=== PATIENT | male | born 1945 | race Caucasian/White ===

== ENCOUNTER 2018-11-02 08:21 | Inpatient (IN) | payer MEDICARE, MEDICAID, SELFPAY ==
[2018-11-02] VITALS (22 sets, daily range): BP systolic 103–168; BP diastolic 63–94; PULSE 79–119; RESP 12–35; TEMP 36.2–37.2; O2SAT 90–98; BMI 24.4; BMI 26.0
--- NOTE | 2018-11-02 08:32 | EKG12_ITS ---
Test Reason : SOB Blood Pressure : / mmHG Vent. Rate : 116 BPM Atrial Rate : 116 BPM P-R Int : 150 ms QRS Dur : 132 ms QT Int : 356 ms P-R-T Axes : 033 -70 095 degrees QTc Int : 494 ms Atrial-sensed ventricular-paced rhythm Biventricular pacemaker detected Abnormal ECG Confirmed by JERSEY JAIME, KAILEE ([id number]), editor school photograph OSMAN JIMENEZ ([id number]) on 11/04/2018 1:40:29 PM Referred By: DC Confirmed By:KAILEE PUTNAM MD
--- NOTE | 2018-11-02 08:32 | RAD_ITS ---
STUDY: X-RAY CHEST REASON FOR EXAM: Male, 73 years old. Chest pain TECHNIQUE: AP COMPARISON: 11/14/2017 FINDINGS: EKG leads project over the chest. Three lead cardiac conduction device is seen via the left subclavian vein with lead tips projecting over the right atrium and right ventricle, respectively, with left atrial lead projecting over the left atrium/posterior cardiac border. Sternal wires and mediastinal surgical clips compatible with prior CABG. There is new opacity at the right lung base with obscuration of the right hemidiaphragm and costophrenic angle. Left lung is clear. There is moderate cardiac enlargement. There are calcified mediastinal lymph nodes. Normal visualized pulmonary arteries. There is atherosclerotic calcification of the aortic arch with tortuosity. No acute bony process. There are old right rib fractures. There is no demonstrated abnormality of the visualized soft tissue structures of the upper abdomen. RAD/Chest 1 View (Portable) IMPRESSION: 1. Airspace disease and small effusion in the right lung base, new since prior study. Electronically Signed: Davian Hagen MD at 9:47 EST , Service support ,
--- NOTE | 2018-11-02 08:47 | ED.VISSUMM ---
- ER Visit Summary Date of Service: 11/02/18 Chief Complaint: Cannot urinate History of Present Illness: The patient is a 73 M with multiple complaints. He has a significant underlying cardiac history. This includes coronary disease and CHF. He has an ejection fraction of 15% and takes aspirin and amiodarone. He has had increasing lower extremity edema as well as shortness of breath. He has taken extra doses of his Lasix and is unable to urinate. He last urinated yesterday evening. Prior to that, no issues with urination. Patient also reports constipation for 3 days with no bowel movements. He is also increasingly short of breath. He also has a history of COPD. He is not on home oxygen. Denies history of PE or recent fevers. Physical Examination: Blood pressure 168/94, heart rate 119, respiratory rate 24. Afebrile. 92% on room air. The patient is tripoding and appears uncomfortable, but he is alert, oriented, and mentating appropriately. Heart is tachycardic but regular. Lungs show expiratory wheeze in all duffy, worse on the left. Abdomen soft and nontender, but exam is limited. Lower extremities show bilateral edema with some venous congestion signs. He is neurovascularly intact. His calves are soft and supple. Test Results: EKG and sepsis labs are pending. Emergency Department Course and Treatment: 0845--Patient presents with acute urinary retention. He also has findings concerning for CHF and COPD. He was placed on a monitor. Will treat with a DuoNeb treatment. Cardiac and sepsis workup initiated. We will also place a Cohn catheter for urine retention. 0900--DuoNeb did not help much. Catheter was placed and he put out quite a bit of urine which is still actively flowing. He is still tripoding and short of breath. We will start BiPAP. 0913--Patient doing better on BiPAP. Sitting comfortably. Abdomen is soft and nontender. Bladder feels better. Will check an ABG. 1008--ABG unremarkable, pH 7.339 and CO2 48. CBC was normal. BUN 19 and creatinine 1.43, slightly elevated. Total bilirubin 1.8 and alkaline phosphatase 140. INR 1.2 and PTT 36.9. Troponin normal. Lactate 2.6. BNP is pending. Chest x-ray showed airspace disease, worse on the right as well as cardiomegaly and a right side effusion. On reevaluation, the patient is doing much better. Vitals are normal. Pulse ox is normal on BiPAP. He is sitting comfortably. He put out at least 800 mL of urine. I suspect this is more CHF related. I did cover him with Levaquin because of his history of COPD and his SIRS criteria. I am waiting on his BNP before starting the fluid bolus and as I do not want to worsen his failure. I spoke with Dr. Siddiqi who will admit for further care. Treatment Plan: As above Disposition: Admission to PCU Impression: 1. Acute respiratory failure 2. CHF 3. COPD 4. Acute urinary retention This note was generated with [employer] dictation software. It may contain incorrect words, spelling, and punctuation that were not noted in review of the chart prior to signing ED Disposition - Plan for ED Patient: Chief Complaint: Shortness of Breath Referrals: Sohan Gonzalez DO [Primary Care Provider] -
[2018-11-02] MEDS: Ipratropium/Albuterol Sulfate 3 ML AMPUL.NEB INHALATION (08:50)
[2018-11-02 09:00] LABS: Bacteria 0 SEEN /hpf (None Seen); Color, Urine Yellow (Yellow); Glucose, Dipstick Normal (Normal); Ketone-Dipstick Negative (Negative); Leukocyte Esterase-Dipstick Negative /ul (Negative); Mucous, Urine 0 SEEN /hpf (<or=2+); Nitrite-Dipstick Negative (Negative); Occult Blood-Urine 150 /ul (Negative); Protein-Dipstick Negative (Negative); Squamous Epithelial Cells - UA 0 SEEN /hpf (0-5); Urine Bilirubin Dipstick Negative (Negative); Urine Clarity Clear (Clear); Urine Urobilinogen Normal (Normal); White Blood Cells 0 SEEN /hpf (0-5)
[2018-11-02 09:09] LABS: Red Blood Cells-Urine 5-10 SEEN /hpf (0-5)
[2018-11-02 09:41] LABS: Base Excess 0 mmol/L (-2 to +2); Bicarbonate 25.9 mmol/L (22-26); Blood Gas Specimen Type ART; EPAP 6; FI02 50; IPAP 12; PO2 207 mmHG (75-100); RR 12; SITE R Radial; SO2 100 % (95-99); Time Given 930; Total Carbon Dioxide 27 mmol/L; pH 7.34 (7.35-7.45)
[2018-11-02 09:46] LABS: AST(SGOT) 26 U/L (15-37); Absolute Lymphocyte Count 0.47 X10^3/ul (0.83-4.51); Absolute Neutrophil Count 6.1 X10^3/uL (2.0-7.7); Alanine Aminotransfer ALT/SGPT 22 U/L (16-61); Albumin, Serum 3.9 g/dL (3.2-5.0); Alkaline Phosphatase 140 U/L (45-117); Anion Gap 12 (5-15); BUN 19 mg/dL (7-18); BUN/Creat Ratio 13.3 RATIO (10-20); Basophil# 0.02 X10^3/uL; Basophil% 0.3 % (0-1); Calcium,Total 8.6 mg/dL (8.5-10.1); Chloride 104 mmol/L (98-107); Creatinine, Serum 1.43 mg/dL (0.70-1.30); EST Glomerular Filtration Rate 52 mL/min (>60); Eosinophil# 0.03 X10^3/uL; Eosinophils% 0.4 % (0-5); Est Glom Filt Rate - Afr Amer 63 mL/min (>60); Globulin 4.1 g/dL (2.2-4.2); Glucose 191 mg/dL (74-106); Hematocrit 48.6 % (40-54); Hemoglobin 15.2 g/dl (13.0-16.5); Lymphocyte # 0.47 X10^3/ul (4.0); Lymphocyte % 6.7 % (19-41); Mean Corp Hgb Conc 31.3 g/gl (32-36); Mean Corpuscular Hgb 29.6 pg (27.0-32.0); Mean Corpuscular Volume 94.6 fL (80-94); Mean Platelet Vol. 10.3 fl (6.2-12.0); Monocyte# 0.43 X10^3/uL; Monocyte% 6.1 % (0-10); Neutrophil # 6.07 X10^3/uL (2.7-7.7); Neutrophil % 86.4 % (47-70); Platelet Count 193 K/mm3 (150-450); Potassium 4.2 mmol/L (3.5-5.1); RBC Distribution Width CV 14.5 % (11.6-14.6); RBC Distribution Width SD 48.7 fl (35.1-43.9); Red Blood Count 5.14 M/mm3 (4.6-6.2); Sodium Level 140 mmol/L (136-145)
[2018-11-02 09:48] LABS: Differential Indicated SCAN CRITERIA MET; POSITIVE COUNT NO; POSITIVE DIFFERENTIAL YES; POSITIVE MORPHOLOGY NO
[2018-11-02 09:52] LABS: International Normalized Ratio 1.2; Partial Thromboplast Time 36.9 Seconds (24.1-36.2); Prothrombin Time (Protime)PT. 15.3 SECONDS (11.7-14.9)
[2018-11-02 10:02] LABS: Lactic Acid 2.6 mmol/L (0.4-2.0)
[2018-11-02 10:09] LABS: BNP,B-Type NATRIURETIC PEPTIDE 2487.2 pg/mL (0-100)
--- NOTE | 2018-11-02 10:15 | NURSING ---
DR CLAYTON SAAVEDRA
--- NOTE | 2018-11-02 10:23 | HP.PCM_ITS ---
History of Present Illness Date of Admission: 11/02/18 Chief Complaint: shortness of breath, lower extremity swelling The patient is a 73 year old M with an extensive PMH which includes heart failure with reduced ejection fraction, COPD, hypertension and paroxysmal A. fib. He was admitted through the ED with a complaint of shortness of breath and lower extremity swelling which had been going on for a few days. Patient has a known EF of 15%. Echo done in 2014. However he states he is not been on any diuretics. 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 He states he was prescribed oral diuretics which he started taking today. However symptoms worsened and he became more short of breath with assisted orthopnea and PND and is asleep propped up in a chair. Lower extremity swelling was also getting worse. He therefore decided to come to the ED. Vitals in the ED was significant for tachypnea with respiratory rate peaking at 35. He was also initially tachycardic with heart rate been around 119 on admission but subsequently trend ed down. BNP was 2487 and he was initially requiring up to 5 L of oxygen above 92%. He was eventually transitioned to BiPAP. Chest x-ray showed airspace disease and small effusion in the right lung base. CBC was unremarkable and BMP showed lactic acid of 2.6 which subsequently trended down to 1.8. Initial troponin was negative. EKG showed paced rhythm. He has been admitted to be managed for acute systolic CHF exacerbation. [] Past Medical History Past Medical History (Chronic Problems): Chronic Problems (Last Reviewed 10/05/18 @ 17:20 by Rita Anthony) Pulmonary hypertension (Chronic) Heart failure (Chronic) Other secondary pulmonary hypertension (Chronic) RVSP 52mmhg per echo 02/09/17 Nonrheumatic tricuspid (valve) insufficiency (Chronic) Nonrheumatic aortic (valve) insufficiency (Chronic) Paroxysmal atrial fibrillation (Chronic) Atherosclerotic heart disease of [place] coronary artery without angina pectoris (Chronic 11/14/13) CABG X 2 vessels: ALSTON to LAD, SVG to OM branch of CX per Dr. Can Balderas, [facility] Automatic implantable cardiac defibrillator in situ (Chronic) BiV ICD implant 01/10/2015 @ [facility] LBBB (left bundle branch block) (Chronic) Old myocardial infarction (Chronic) Chronic systolic (congestive) heart failure (Chronic) HLD (hyperlipidemia) (Chronic) Wide-complex tachycardia (Chronic) Ischemic cardiomyopathy (Chronic) EF 15-20% per echo 02/09/2017 COPD (chronic obstructive pulmonary disease) (Chronic) Hypertension (Chronic) Medical History: Medical History (Last Reviewed 10/05/18 @ 17:20 by Rita Anthony) Pulmonary hypertension (Chronic) I27.20 Heart failure (Chronic) I50.9 Other secondary pulmonary hypertension (Chronic) I27.29 RVSP 52mmhg per echo 02/09/17 Nonrheumatic tricuspid (valve) insufficiency (Chronic) I36.1 Nonrheumatic aortic (valve) insufficiency (Chronic) I35.1 Paroxysmal atrial fibrillation (Chronic) I48.0 Atherosclerotic heart disease of [place] coronary artery without angina pectoris (Chronic) Onset Date: 11/14/13 I25.10 CABG X 2 vessels: ALSTON to LAD, SVG to OM branch of CX per Dr. Can Balderas, [facility] LBBB (left bundle branch block) (Chronic) I44.7 Old myocardial infarction (Chronic) I25.2 Chronic systolic (congestive) heart failure (Chronic) I50.22 HLD (hyperlipidemia) (Chronic) E78.5 BPV (benign positional vertigo) (Acute) H81.10 Wide-complex tachycardia (Chronic) I47.2 Ischemic cardiomyopathy (Chronic) I25.5 EF 15-20% per echo 02/09/2017 COPD (chronic obstructive pulmonary disease) (Chronic) J44.9 Hypertension (Chronic) I10 ICD fired (Resolved) Allergies No Known Allergies Allergy (Verified 06/08/18 08:59) Home Medications: Ambulatory Orders Medication Instructions Recorded Albuterol Aerosols [Ventolin 2.5 mg INHALATION Q6H PRN PRN 12/14/14 Aerosols] Albuterol Inhaler [Ventolin Hfa] 1 - 2 puff INHALATION Q6H PRN PRN 12/14/14 Aspirin [Aspirin, Baby] 81 mg PO DAILY@0800 12/14/14 Nitroglycerin [Nitrostat] 0.4 mg SUBLINGUAL Q5M PRN 12/14/14 amiodarone 200 mg tablet 200 mg PO QDAY #90 tab 04/27/18 simvastatin 40 mg tablet 40 mg PO QHS #90 tab 04/27/18 lisinopril 5 mg tablet 5 mg PO DAILY #90 tab 07/19/18 isosorbide mononitrate ER 30 mg 30 mg PO DAILY #90 tab 08/11/18 tablet,extended release 24 hr carvedilol 6.25 mg tablet 6.25 mg PO BID #180 tab 09/20/18 furosemide 40 mg tablet 40 mg PO DAILY #30 tab 11/01/18 Surgical History: Surgical History (Last Reviewed 10/05/18 @ 17:20 by Rita Anthony) Automatic implantable cardiac defibrillator in situ (Chronic) Z95.810 BiV ICD implant 01/10/2015 @ [facility] Presence of aortocoronary bypass graft (Resolved) Z95.1 CABG ALSTON-LAD, SVG-OM 11/14/2013 @ [facility] History of tonsillectomy (Resolved) Z90.89 H/O coronary artery bypass surgery Z95.1 CABG ALSTON-LAD, SVG-OM 11/14/2013 @ [facility] History of arthroplasty of left knee Z96.652 left knee cartilage removal/repair History of lumbar surgery Z98.890 Surgical History: coronary bypass surgery, - - ICD placement. Back surgery. Psychiatric History: No pertinent psych hx Lives: Alone Smoking Status: Former smoker Tobacco Use: Non-smoker Alcohol: None Drugs: None - *Family History Maternal Family History: Family History (Last Reviewed 10/05/18 @ 17:20 by Rita Anthony) Father CAD (coronary artery disease) Diabetes Cancer Myocardial infarction Mother Breast cancer Hypertension History Items: No pertinent history Paternal Family History: Family History (Last Reviewed 10/05/18 @ 17:20 by Rita Anthony) Father CAD (coronary artery disease) Diabetes Cancer Myocardial infarction Mother Breast cancer Hypertension History Items: No pertinent history Review of Systems Constitutional: Denies: Chills, Fever, Weight Change Eyes: Denies: Blurred vision HEENT: Denies: Head Aches, Sinus Congestion, Sinus Drainage Cardiovascular: Reports: Edema, Orthopnea, Paroxysmal Noc. Dyspnea. Denies: Chest Pain, Chest Pressure, Chest Tightness, Heaviness, Light Headedness, Palpitations, Syncope Respiratory: Reports: Shortness of Breath, Shortness of breath at rest, Shortness of breath upon exertion. Denies: Cough, Sputum production, Wheezing Gastrointestinal: Denies: Abdominal Pain, Nausea, Vomiting Genitourinary: Denies: Dysuria Musculoskeletal: Denies: Joint Pain, Joint Tenderness Skin: Denies: Rash, Wounds Neurological: Denies: Numbness, Tingling, Focal weakness Psychiatric: Denies: Anxiety, Depression, Homicidal Ideations, Suicidal Ideations Hematologic/ Lymphatic: Denies: Easy Bruising, Easy Bleeding VTE Information - Inpt Only VTE Present on Admission: No VTE Pharm Prophylaxis ordered?: Yes - Physical Exam General: Alert, Oriented x3, Cooperative, No apparent distress HEENT: Atraumatic, PERRLA, EOMI, Normocephalic Oral: Moist Mucosa Neck: Supple, No JVD, Negative Carotid Bruits Lungs: - - decreased breath sounds bibasally with fine crackles auscultated. on BIPAP at time of review Cardiovascular: Regular rate, Regular Rhythm, Normal S1, Normal S2, - - pacemaker in place Abdomen: Bowel Sounds Present, Soft, Non Tender, Non-Distended Extremities: No clubbing, No cyanosis, Capillary Refill Less than 3 Seconds, - - bilateral 2+ LE pitting pedal edema Skin: No rashes, No breakdown Musculoskeletal: No Tenderness to Palpation of Joints or Extremities Lymphatic: No Cervical, Supraclavicular, or Inguinal Adenopathy Neurological: Cranial nerves II-XII grossly intact, Neuro grossly intact, Motor Exam 5/5 strength throughout Psych/Mental Status: Normal Affect, Appropriate, Alert and oriented to time, place, person, mood and affect Vital Signs Temp Pulse Resp BP Pulse Ox 97.9 F 994 H 24 H 120/70 97 11/02/18 09:24 11/02/18 09:24 11/02/18 09:24 11/02/18 09:24 11/02/18 09:24 Oxygen Flow Rate (L/min) 2 Oxygen Delivery Method Bi-pap Weight: 180 lb Body Mass Index (BMI) 24.4 Intake and Output for Last 24 Hours 10/31/18 11/01/18 11/02/18 23:59 23:59 23:59 Output Total 800 / 800 Balance -800 / -800 Laboratory Tests Past 24 Hrs 11/02/18 11/02/18 11/02/18 08:54 09:10 09:10 WBC 7.0 RBC 5.14 Hgb 15.2 Hct 48.6 MCV 94.6 H MCH 29.6 MCHC 31.3 L RDW 14.5 RDW Differential 48.7 H Plt Count 193 MPV 10.3 Immature Gran % (Auto) 0.100 Neut % (Auto) 86.4 H Lymph % (Auto) 6.7 L [place] % (Auto) 6.1 Eos % (Auto) 0.4 Baso % (Auto) 0.3 Absolute Neuts (auto) 6.1 Absolute Lymphs (auto) 0.47 L Total Counted Not Reportable PT INR APTT Specimen Type Sample Site pH Bicarbonate Actual POC Total CO2 Base Excess O2 Saturation O2 % ABG pCO2 ABG pO2 Stanislav Test Respiration Rate O2 Delivery Device EPAP IPAP Blood Gas Notified Whom Blood Gas Notified Time Sodium 140 Potassium 4.2 Chloride 104 Carbon Dioxide 24.0 Anion Gap 12 BUN 19 H Creatinine 1.43 H Estim Creat Clear Calc 52.00 Est GFR (MDRD) Af Amer 63 Est GFR (MDRD) Non-Af 52 L BUN/Creatinine Ratio 13.3 Glucose 191 H Lactic Acid Calcium 8.6 Total Bilirubin 1.80 H AST 26 ALT 22 Alkaline Phosphatase 140 H Troponin I 0.015 B-Natriuretic Peptide Total Protein 8.0 Albumin 3.9 Globulin 4.1 Albumin/Globulin Ratio 1.0 Urine Color Yellow Urine Clarity Clear Urine pH 6.0 Ur Specific Dawson 1.010 Urine Protein Negative Urine Glucose (UA) Normal Urine Ketones Negative Urine Occult Blood 150 H Urine Nitrite Negative Urine Bilirubin Negative Urine Urobilinogen Normal Ur Leukocyte Esterase Negative Urine RBC 5-10 SEEN Urine WBC 0 SEEN Ur Squamous Epith Cells 0 SEEN Urine Bacteria 0 SEEN Urine Mucus 0 SEEN 11/02/18 11/02/18 11/02/18 09:10 09:10 09:10 WBC RBC Hgb Hct MCV MCH MCHC RDW RDW Differential Plt Count MPV Immature Gran % (Auto) Neut % (Auto) Lymph % (Auto) [place] % (Auto) Eos % (Auto) Baso % (Auto) Absolute Neuts (auto) Absolute Lymphs (auto) Total Counted PT 15.3 H INR 1.2 APTT 36.9 H Specimen Type Sample Site pH Bicarbonate Actual POC Total CO2 Base Excess O2 Saturation O2 % ABG pCO2 ABG pO2 Stanislav Test Respiration Rate O2 Delivery Device EPAP IPAP Blood Gas Notified Whom Blood Gas Notified Time Sodium Potassium Chloride Carbon Dioxide Anion Gap BUN Creatinine Estim Creat Clear Calc Est GFR (MDRD) Af Amer Est GFR (MDRD) Non-Af BUN/Creatinine Ratio Glucose Lactic Acid 2.6 H Calcium Total Bilirubin AST ALT Alkaline Phosphatase Troponin I B-Natriuretic Peptide 2487.2 H Total Protein Albumin Globulin Albumin/Globulin Ratio Urine Color Urine Clarity Urine pH Ur Specific Dawson Urine Protein Urine Glucose (UA) Urine Ketones Urine Occult Blood Urine Nitrite Urine Bilirubin Urine Urobilinogen Ur Leukocyte Esterase Urine RBC Urine WBC Ur Squamous Epith Cells Urine Bacteria Urine Mucus 11/02/18 11/02/18 09:33 09:38 WBC RBC Hgb Hct MCV MCH MCHC RDW RDW Differential Plt Count MPV Immature Gran % (Auto) Neut % (Auto) Lymph % (Auto) [place] % (Auto) Eos % (Auto) Baso % (Auto) Absolute Neuts (auto) Absolute Lymphs (auto) Total Counted PT INR APTT Specimen Type ART ART Sample Site R Radial R Radial pH 7.34 L 7.34 L Bicarbonate Actual 25.9 26.7 H POC Total CO2 27 28 Base Excess 0 1 O2 Saturation 100 H 100 H O2 % 50 50 ABG pCO2 48.0 H 49.3 H ABG pO2 207 H 198 H Stanislav Test NA NA Respiration Rate 12 12 O2 Delivery Device Bi / C PAP Bi / C PAP EPAP 6 6 IPAP 12 12 Blood Gas Notified Whom ED MD ED Blood Gas Notified Time 930 930 Sodium Potassium Chloride Carbon Dioxide Anion Gap BUN Creatinine Estim Creat Clear Calc Est GFR (MDRD) Af Amer Est GFR (MDRD) Non-Af BUN/Creatinine Ratio Glucose Lactic Acid Calcium Total Bilirubin AST ALT Alkaline Phosphatase Troponin I B-Natriuretic Peptide Total Protein Albumin Globulin Albumin/Globulin Ratio Urine Color Urine Clarity Urine pH Ur Specific Dawson Urine Protein Urine Glucose (UA) Urine Ketones Urine Occult Blood Urine Nitrite Urine Bilirubin Urine Urobilinogen Ur Leukocyte Esterase Urine RBC Urine WBC Ur Squamous Epith Cells Urine Bacteria Urine Mucus Diagnostic Data Chest X-Ray 11/02/18 08:32 IMPRESSION: 1. Airspace disease and small effusion in the right lung base, new since prior study. Electronically Signed: Davian Hagen MD at 9:47 EST , Service support , Assessment/Plan All Active Problems (Last Reviewed 10/05/18 @ 17:20 by Rita A Gabrielle) Presence of aortocoronary bypass graft (Resolved) History of tonsillectomy (Resolved) BPV (benign positional vertigo) (Acute) ICD fired (Resolved) 73-year-old male admitted with a complaint of shortness of breath and lower extremity edema. 1. Acute systolic CHF exacerbation * BNP 2487. CXR showed airspace disease and small bilateral pleural effusion * no leucocytosis or productive cough, making pneumonia less likely * initial troponin negative. * admit to PCU with telemetry * cycle troponins * start IV lasix 40mg bid * strict input output chart * fluid restriction to 1500cc daily * 2D echo (' severely dilated LV, with EF of 15-20%, stage 2 diastolic dysfunction, sevre global hypokinesis of left and right atruim, RVSP of 52mmhg. * has known EF of 15%, and has ICD in place * order 2D echo * BIPAP to reduce work of breathing * 2. lactic acidosis: resolved. lactic acid was 2.6 on admission; trended down spontaneously to 1.8 3. Hypertension: Controlled. On carvedilol and lisinopril 4. Chronic A. fib. * On aspirin, carvedilol and amiodarone. * 5. Hyperlipidemia: On simvastatin 6. CAD and ischemic cardiomyopathy s/p CABG x 2 * has ICD in place * had heart cath (02/16); widely patent grafts and EF of 15% * on aspirin, carvedilol and statin * 7. COPD: on breathing treatments. DVT prophylaxis: heparin Code status: full code * Patient and partner counseled extensively about different types of CODE STATUS including full code, DNR CCA and DNR CCA. Patient elects to be full code. Total [id number] time 16 minutes. Code Visit Inpatient E&M: 97672 Init Hosp L3 Procedures: 36656 Advncd Care Plan 30 Min
--- NOTE | 2018-11-02 10:23 | NURSING ---
PCU CHF EXAC KORAM
[2018-11-02] MEDS: levoFLOXacin IV 750 MG/150 ML BAG 100 MG IV (10:29)
[2018-11-02 13:22] LABS: Reflex Lactate? Y
[2018-11-02 14:21] LABS: Lactic Acid 1.8 mmol/L (0.4-2.0)
[2018-11-02] MEDS: Albuterol 2.5 MG/3 ML VIAL.NEB. INHALATION ×2 (16:22→21:45)
[2018-11-02] MEDS: Magnesium Hydroxide 30 ML UDC PO (16:38)
[2018-11-02] MEDS: 0.9% NaCl Peripheral Flush Adult/Peds IV ×2 (16:41→23:23)
[2018-11-02] MEDS: Furosemide 40 MG/4 ML Vial IV (16:41)
[2018-11-02] MEDS: Atorvastatin Calcium 20 MG Tablet PO (21:03)
[2018-11-02] MEDS: Carvedilol 6.25 MG Tablet PO (21:04)
--- NOTE | 2018-11-02 21:45 | CPS ---
pt unable to tolerate bipap, feels like he is smothering with it on
--- NOTE | 2018-11-02 22:59 | PCM.PN.BLA ---
Progress Note Nurse and respiratory therapist reports significant wheezing. Patient has already received breathing treatment. Will give patient Solu-Medrol 125mg x1 now; and Solu-Medrol 40mg IV every 8 hours starting 11/03/2018 at 10 am. Nurse to get comprehensive respiratory pathogen panel. Accuchecks while on Solu-medrol.
[2018-11-02] MEDS: MethylPREDNISolone 125 MG/2 ML Vial IV (23:22)
[2018-11-02 23:36] LABS: Bedside Glucose 114 mg/dL (70-110)
[2018-11-03] VITALS (22 sets, daily range): BP systolic 90–123; BP diastolic 50–73; PULSE 64–75; RESP 16–24; TEMP 36.3–36.7; O2SAT 92–98
[2018-11-03] MEDS: Ipratropium/Albuterol Sulfate 3 ML AMPUL.NEB INHALATION ×6 (02:24→23:37)
--- NOTE | 2018-11-03 05:55 | EKG12_ITS ---
Test Reason : AM EKG Blood Pressure : / mmHG Vent. Rate : 069 BPM Atrial Rate : 069 BPM P-R Int : 142 ms QRS Dur : 176 ms QT Int : 538 ms P-R-T Axes : 046 -68 119 degrees QTc Int : 576 ms Atrial-sensed ventricular-paced rhythm Biventricular pacemaker detected Abnormal ECG Confirmed by JERSEY JAIME, KAILEE ([id number]), assistant production editor OSMAN JIMENEZ ([id number]) on 11/05/2018 2:43:15 PM Referred By: CLAYTON Confirmed By:KAILEE PUTNAM MD
[2018-11-03 06:36] LABS: Bedside Glucose 163 mg/dL (70-110)
[2018-11-03 07:18] LABS: Absolute Lymphocyte Count 0.23 X10^3/ul (0.83-4.51); Absolute Neutrophil Count 2.4 X10^3/uL (2.0-7.7); Hematocrit 47.6 % (40-54); Hemoglobin 14.8 g/dl (13.0-16.5); Lymphocyte # 0.23 X10^3/ul (4.0); Lymphocyte % 8.5 % (19-41); Mean Corp Hgb Conc 31.1 g/gl (32-36); Mean Corpuscular Hgb 29.4 pg (27.0-32.0); Mean Corpuscular Volume 94.4 fL (80-94); Monocyte# 0.06 X10^3/uL; Monocyte% 2.2 % (0-10); Neutrophil % 88.9 % (47-70); Platelet Count 119 K/mm3 (150-450); RBC Distribution Width CV 14.3 % (11.6-14.6); RBC Distribution Width SD 48.1 fl (35.1-43.9); Red Blood Count 5.04 M/mm3 (4.6-6.2); White Blood Count 2.7 K/mm3 (4.4-11.0)
[2018-11-03 07:19] LABS: Differential Indicated SCAN CRITERIA MET; POSITIVE COUNT NO; POSITIVE DIFFERENTIAL YES; POSITIVE MORPHOLOGY NO
[2018-11-03 07:44] LABS: Anion Gap 9 (5-15); BUN 21 mg/dL (7-18); BUN/Creat Ratio 18.8 RATIO (10-20); Calcium,Total 8.7 mg/dL (8.5-10.1); Chloride 99 mmol/L (98-107); Creatinine, Serum 1.12 mg/dL (0.70-1.30); EST Glomerular Filtration Rate 69 mL/min (>60); Est Glom Filt Rate - Afr Amer 83 mL/min (>60); Glucose 152 mg/dL (74-106); Potassium 4.4 mmol/L (3.5-5.1); Sodium Level 139 mmol/L (136-145)
--- NOTE | 2018-11-03 08:00 | ECHOCS_ITS ---
Reason For Study: CHF Procedure This was a 2D Doppler, Color Flow transthoracic echocardiogram. The study was technically difficult. Contrast injection was performed. Exam performed portable in patient room. Left Ventricle Moderately dilated left ventricle. Severe global left ventricular systolic dysfunction. The estimated ejection fraction is 15 %. Right Ventricle Moderately dilated right ventricle. ICD or pacer leads identified within the right ventricle. Normal systolic function. Atria The left atrium is moderately enlarged. Normal right atrium. ICD or pacer leads identified within the right atrium. No doppler evidence for ASD. Mitral Valve There is mild mitral annular calcification. Mild diffuse mitral valve thickening. Mild (1+) mitral valve insufficiency. Tricuspid Valve Normal tricuspid valve. Moderate (2+) tricuspid valve insufficiency. Right ventricular systolic pressure estimated to be 35 mmHg. Aortic Valve Trisinus/trileaflet aortic valve. Mild diffuse aortic valve thickening. Mild focal aortic valve calcification. Trivial aortic valve insufficiency. Pulmonic Valve The pulmonic valve is not well visualized. Mild (1+) pulmonic valve insufficiency. Great Vessels Normal sized aortic root. Pericardium/Pleural No pericardial effusion. Medication Definity0.4ml given slow IV push to enhance endocardial definition. MMode/2D Measurements & Calculations LVIDd: 6.2 cm IVSd: 1.4 cm Ao root diam: 3.3 cm LVIDs: 5.9 cm LVPWd: 1.3 cm RVDd: 4.4 cm FS: 5.3 % LAV(MOD-bp): 63.5 ml LVAd ap4: 46.8 cm2 SV(MOD-sp4): 37.9 ml LAV(MOD-bp) Indexed: 30.3 ml/m2 EDV(MOD-sp4): 206.5 ml LAV(MOD-sp2): 63.8 ml EDV(sp4-el): 213.2 ml LAV(MOD-sp4): 60.8 ml LVAs ap4: 41.3 cm2 ESV(MOD-sp4): 168.6 ml ESV(sp4-el): 174.5 ml EF(MOD-sp4): 18.4 % EF(sp4-el): 18.2 % SV(sp4-el): 38.7 ml LA A4 area: 20.8 cm2 LA dimension(2D): 5.0 cm RA A4 area: 18.4 cm2 Doppler Measurements & Calculations MV E max mark: 54.7 cm/sec Lat Peak E' Mark: 3.4 cm/sec Med Peak E' Mark: 3.4 cm/sec MV A max mark: 49.4 cm/sec E/E' lat: 16.3 E/E' med: 16.3 MV E/A: 1.1 Ao V2 max: 121.5 cm/sec AI max mark: 384.4 cm/sec LV V1 max: 94.4 cm/sec Ao max P.9 mmHg AI max P.1 mmHg LV V1 max P.6 mmHg Ao V2 mean: 85.4 cm/sec Ao mean P.2 mmHg AI dec slope: 188.6 cm/sec2 Ao V2 VTI: 25.8 cm AI P1/2t: 597.0 msec PA V2 max: 71.8 cm/sec PI end-d mark: 132.0 cm/sec TR max mark: 280.6 cm/sec TR max P.5 mmHg Interpretation Summary The study was technically difficult. Contrast injection was performed. Moderately dilated left ventricle. Severe global left ventricular systolic dysfunction. The estimated ejection fraction is 15 %. The left atrium is moderately enlarged. There is mild mitral annular calcification. Mild diffuse mitral valve thickening. Mild (1+) mitral valve insufficiency. Moderate (2+) tricuspid valve insufficiency. Mild diffuse aortic valve thickening. Mild focal aortic valve calcification. Trivial aortic valve insufficiency. Mild (1+) pulmonic valve insufficiency. Right ventricular systolic pressure estimated to be 35 mmHg. Transmitral diastolic flow velocities suggest diastolic dysfunction (pseudonormal pattern). ICD or pacer leads identified within the right atrium ICD or pacer leads identified within the right ventricle. Ordering Physician: Liberty Siddiqi Referring Physician: Sohan Clark Performed By: Yolanda Cabrera RDCS, RVT
[2018-11-03] MEDS: Aspirin 81 MG TAB.CHEW PO (08:46)
[2018-11-03] MEDS: Lisinopril 5 MG Tablet PO (09:46)
[2018-11-03] MEDS: Carvedilol 6.25 MG Tablet PO (09:46)
[2018-11-03] MEDS: Amiodarone 200 MG Tablet PO (09:46)
[2018-11-03] MEDS: Isosorbide Mononitrate 30 MG Tablet PO (09:46)
[2018-11-03] MEDS: Furosemide 40 MG/4 ML Vial IV (09:46)
[2018-11-03] MEDS: Enoxaparin 30 MG/0.3 ML Syringe SC (09:47)
[2018-11-03] MEDS: 0.9% NaCl Peripheral Flush Adult/Peds IV ×2 (09:55→22:15)
--- NOTE | 2018-11-03 10:04 | PCM.PN.HOSP ---
Subjective: Patient seen and examined. He was admitted yesterday with a complaint of shortness of breath has been managed for acute systolic CHF exacerbation. Patient complains of shortness of breath still but states is much better. He was weaned off BiPAP yesterday and is on 5 L of oxygen at time of review. Denies any cough or chest pain or palpitations, Diarrhea vomiting. His urine output over last 24 hours was 5.12 L and he is made 1.4 L of urine so far today. He has remained tachypneic though this has trended down. Labs and vitals reviewed. Vitals/I&O's: Vital Signs Temp Pulse Resp BP Pulse Ox 97.4 F L 64 24 H 121/73 H 94 11/03/18 06:05 11/03/18 06:57 11/03/18 06:49 11/03/18 06:05 11/03/18 06:49 Oxygen Flow Rate (L/min) 5 Oxygen Delivery Method Nasal Cannula Weight: 190 lb 11.198 oz Body Mass Index (BMI) 26.0 Intake and Output for Last 24 Hours 11/01/18 11/02/18 11/03/18 23:59 23:59 23:59 Intake Total 475 / 475 300 / 300 Output Total 5125 / 5125 1425 / 1425 Balance -4650 / -4650 -1125 / -1125 General: Alert, Oriented x3, Cooperative, No apparent distress HEENT: Atraumatic, PERRLA, EOMI, Normocephalic Oral: Moist Mucosa Neck: Supple, No JVD, Negative Carotid Bruits Lungs: - -still has decreased breath sounds bibasally; has mild wheezing. On 5l of oxygen by nasal canula Cardiovascular: Regular rate, Regular Rhythm, Normal S1, Normal S2, Abdomen: Bowel Sounds Present, Soft, Non Tender, Non-Distended Extremities: No clubbing, No cyanosis, Capillary Refill Less than 3 Seconds, - - bilateral 2+ LE pitting pedal edema Skin: No rashes, No breakdown Musculoskeletal: No Tenderness to Palpation of Joints or Extremities Lymphatic: No Cervical, Supraclavicular, or Inguinal Adenopathy Neurological: Cranial nerves II-XII grossly intact, Neuro grossly intact, Motor Exam 5/5 strength throughout Psych/Mental Status: Normal Affect, Appropriate, Alert and oriented to time, place, person, mood and affect Laboratory Results 11/02/18 09:10: B-Natriuretic Peptide 2487.2 H 11/02/18 09:38: Specimen Type Cancelled, Sample Site Cancelled, pH Cancelled, Bicarbonate Actual Cancelled, POC Total CO2 Cancelled, Base Excess Cancelled, O2 Saturation Cancelled, O2 % Cancelled, ABG pCO2 Cancelled, ABG pO2 Cancelled, Stanislav Test Cancelled, Respiration Rate Cancelled, O2 Delivery Device Cancelled, Liter Flow Cancelled, Minute Volume Cancelled, Vent Mode Cancelled, Tidal Volume Cancelled, POC PEEP Cancelled, POC Pressure Suppt Cancelled, Pressure High Cancelled, Pressure Low Cancelled, Time High Cancelled, Time Low Cancelled, EPAP Cancelled, IPAP Cancelled, Blood Gas Notified Whom Cancelled, Blood Gas Notified Time Cancelled 11/02/18 13:35: Lactic Acid 1.8 11/02/18 15:28: Troponin I 0.040 11/02/18 18:02: Troponin I 0.042 11/02/18 23:24: POC Glucose 114 H 11/03/18 06:14: WBC 2.7 L, RBC 5.04, Hgb 14.8, Hct 47.6, MCV 94.4 H, MCH 29.4, MCHC 31.1 L, RDW 14.3, RDW Differential 48.1 H, Plt Count 119 L, MPV 11.0, Immature Gran % (Auto) 0.400, Neut % (Auto) 88.9 H, Lymph % (Auto) 8.5 L, [place] % (Auto) 2.2, Eos % (Auto) 0.0, Baso % (Auto) 0.0, Absolute Neuts (auto) 2.4, Absolute Lymphs (auto) 0.23 L, Total Counted Not Reportable 11/03/18 06:14: Sodium 139, Potassium 4.4, Chloride 99, Carbon Dioxide 31.0, Anion Gap 9, BUN 21 H, Creatinine 1.12, Estim Creat Clear Calc 66.40, Est GFR (MDRD) Af Amer 83, Est GFR (MDRD) Non-Af 69, BUN/Creatinine Ratio 18.8, Glucose 152 H, Calcium 8.7 11/03/18 06:29: POC Glucose 163 H Current Medications Albuterol Sulfate (Ventolin Aerosols) 2.5 mg INHALATION Q2H PRN PRN PRN Reason: WHEEZING Albuterol/Ipratropium (Duoneb) 3 ml INHALATION Q4H.RT [facility] Last Admin: 11/03/18 06:48 Dose: 3 ml Amiodarone HCl (Cordarone) 200 mg PO DAILY [facility] Last Admin: 11/03/18 09:46 Dose: 200 mg Aspirin (Aspirin, Baby) 81 mg PO DAILY@0800 [facility] Last Admin: 11/03/18 08:46 Dose: 81 mg Atorvastatin Calcium (Lipitor) 20 mg PO QHS [facility] Last Admin: 11/02/18 21:03 Dose: 20 mg Carvedilol (Coreg) 6.25 mg PO BID [facility] Last Admin: 11/03/18 09:46 Dose: 6.25 mg Enoxaparin Sodium (Lovenox) 30 mg SC DAILY [facility] Last Admin: 11/03/18 09:47 Dose: 30 mg Furosemide (Lasix) 40 mg IV BID@1000,1800 [facility] Last Admin: 11/03/18 09:46 Dose: 40 mg Isosorbide Mononitrate (Imdur) 30 mg PO DAILY [facility] Last Admin: 11/03/18 09:46 Dose: 30 mg Lisinopril (Zestril) 5 mg PO DAILY [facility] Last Admin: 11/03/18 09:46 Dose: 5 mg Magnesium Hydroxide (Milk Of Magnesia) 30 ml PO DAILY PRN PRN PRN Reason: Constipation Last Admin: 11/02/18 16:38 Dose: 30 ml Methylprednisolone (Solu-Medrol) 40 mg IV Q8 [facility] Last Admin: 11/03/18 09:46 Dose: 40 mg Nitroglycerin (Nitrostat) 0.4 mg SUBLINGUAL Q5M PRN PRN Reason: Chest Pain Sodium Chloride () 5 - 15 ml IV UD PRN PRN Reason: SALINE FLUSH Last Admin: 11/03/18 09:55 Dose: 10 ml Medical Necessity - Tobacco Use Smoking Status: Former smoker Tobacco Use: Non-smoker Assessment/Plan All Active Problems (Last Reviewed 10/05/18 @ 17:20 by Rita Anthony) Presence of aortocoronary bypass graft (Resolved) History of tonsillectomy (Resolved) BPV (benign positional vertigo) (Acute) ICD fired (Resolved) 73-year-old male admitted with a complaint of shortness of breath and lower extremity edema. 1. Acute systolic CHF exacerbation SOB is improving. urine output os 5.1L over last 24 hours; in negative balance by 5.77L since admission troponins x 3 were negative on IV lasix 40mg bid transitioned off BIPAP to 5L of oxygen by nasal canula 2D echo pending today continue input output chart and fluid restriction BIPAP prn to reduce work of breathing. 2D echo (02/16) severely dilated LV, with EF of 15-20%, stage 2 diastolic dysfunction, sevre global hypokinesis of left and right atruim, RVSP of 52mmhg. 2. lactic acidosis: resolved. 3. Hypertension: Controlled. On carvedilol and lisinopril 4. Chronic A. fib. On aspirin, carvedilol and amiodarone. 5. Hyperlipidemia: On simvastatin 6. CAD and ischemic cardiomyopathy s/p CABG x [address] had heart cath (02/16); widely patent grafts and EF of 15% on aspirin, carvedilol and statin 7. COPD: on breathing treatments. 8. Severe pulmonary hypertension: RVSP was 52mmHg per echo in 2017. This could be contributing to SOB as well. WIll monitor DVT prophylaxis: heparin Code Visit Inpatient E&M: 23375 Subs Hosp L3
--- NOTE | 2018-11-03 10:12 | PN_ITS ---
Subjective: Patient seen and examined. He was admitted yesterday with a complaint of shortness of breath has been managed for acute systolic CHF exacerbation. Patient complains of shortness of breath still but states is much better. He was weaned off BiPAP yesterday and is on 5 L of oxygen at time of review. Denies any cough or chest pain or palpitations, Diarrhea vomiting. His urine output over last 24 hours was 5.12 L and he is made 1.4 L of urine so far today. He has remained tachypneic though this has trended down. Labs and vitals reviewed. Vitals/I&O's: Vital Signs Temp Pulse Resp BP Pulse Ox 97.4 F L 64 24 H 121/73 H 94 11/03/18 06:05 11/03/18 06:57 11/03/18 06:49 11/03/18 06:05 11/03/18 06:49 Oxygen Flow Rate (L/min) 5 Oxygen Delivery Method Nasal Cannula Weight: 190 lb 11.198 oz Body Mass Index (BMI) 26.0 Intake and Output for Last 24 Hours 11/01/18 11/02/18 11/03/18 23:59 23:59 23:59 Intake Total 475 / 475 300 / 300 Output Total 5125 / 5125 1425 / 1425 Balance -4650 / -4650 -1125 / -1125 General: Alert, Oriented x3, Cooperative, No apparent distress HEENT: Atraumatic, PERRLA, EOMI, Normocephalic Oral: Moist Mucosa Neck: Supple, No JVD, Negative Carotid Bruits Lungs: - -still has decreased breath sounds bibasally; has mild wheezing. On 5l of oxygen by nasal canula Cardiovascular: Regular rate, Regular Rhythm, Normal S1, Normal S2, Abdomen: Bowel Sounds Present, Soft, Non Tender, Non-Distended Extremities: No clubbing, No cyanosis, Capillary Refill Less than 3 Seconds, - - bilateral 2+ LE pitting pedal edema Skin: No rashes, No breakdown Musculoskeletal: No Tenderness to Palpation of Joints or Extremities Lymphatic: No Cervical, Supraclavicular, or Inguinal Adenopathy Neurological: Cranial nerves II-XII grossly intact, Neuro grossly intact, Motor Exam 5/5 strength throughout Psych/Mental Status: Normal Affect, Appropriate, Alert and oriented to time, place, person, mood and affect Laboratory Results 11/02/18 09:10: B-Natriuretic Peptide 2487.2 H 11/02/18 09:38: Specimen Type Cancelled, Sample Site Cancelled, pH Cancelled, Bicarbonate Actual Cancelled, POC Total CO2 Cancelled, Base Excess Cancelled, O2 Saturation Cancelled, O2 % Cancelled, ABG pCO2 Cancelled, ABG pO2 Cancelled, Stanislav Test Cancelled, Respiration Rate Cancelled, O2 Delivery Device Cancelled, Liter Flow Cancelled, Minute Volume Cancelled, Vent Mode Cancelled, Tidal Volume Cancelled, POC PEEP Cancelled, POC Pressure Suppt Cancelled, Pressure High Cancelled, Pressure Low Cancelled, Time High Cancelled, Time Low Cancelled, EPAP Cancelled, IPAP Cancelled, Blood Gas Notified Whom Cancelled, Blood Gas Notified Time Cancelled 11/02/18 13:35: Lactic Acid 1.8 11/02/18 15:28: Troponin I 0.040 11/02/18 18:02: Troponin I 0.042 11/02/18 23:24: POC Glucose 114 H 11/03/18 06:14: WBC 2.7 L, RBC 5.04, Hgb 14.8, Hct 47.6, MCV 94.4 H, MCH 29.4, MCHC 31.1 L, RDW 14.3, RDW Differential 48.1 H, Plt Count 119 L, MPV 11.0, Immature Gran % (Auto) 0.400, Neut % (Auto) 88.9 H, Lymph % (Auto) 8.5 L, [place] % (Auto) 2.2, Eos % (Auto) 0.0, Baso % (Auto) 0.0, Absolute Neuts (auto) 2.4, Absolute Lymphs (auto) 0.23 L, Total Counted Not Reportable 11/03/18 06:14: Sodium 139, Potassium 4.4, Chloride 99, Carbon Dioxide 31.0, Anion Gap 9, BUN 21 H, Creatinine 1.12, Estim Creat Clear Calc 66.40, Est GFR (MDRD) Af Amer 83, Est GFR (MDRD) Non-Af 69, BUN/Creatinine Ratio 18.8, Glucose 152 H, Calcium 8.7 11/03/18 06:29: POC Glucose 163 H Current Medications Albuterol Sulfate (Ventolin Aerosols) 2.5 mg INHALATION Q2H PRN PRN PRN Reason: WHEEZING Albuterol/Ipratropium (Duoneb) 3 ml INHALATION Q4H.RT [facility] Last Admin: 11/03/18 06:48 Dose: 3 ml Amiodarone HCl (Cordarone) 200 mg PO DAILY [facility] Last Admin: 11/03/18 09:46 Dose: 200 mg Aspirin (Aspirin, Baby) 81 mg PO DAILY@0800 [facility] Last Admin: 11/03/18 08:46 Dose: 81 mg Atorvastatin Calcium (Lipitor) 20 mg PO QHS [facility] Last Admin: 11/02/18 21:03 Dose: 20 mg Carvedilol (Coreg) 6.25 mg PO BID [facility] Last Admin: 11/03/18 09:46 Dose: 6.25 mg Enoxaparin Sodium (Lovenox) 30 mg SC DAILY [facility] Last Admin: 11/03/18 09:47 Dose: 30 mg Furosemide (Lasix) 40 mg IV BID@1000,1800 [facility] Last Admin: 11/03/18 09:46 Dose: 40 mg Isosorbide Mononitrate (Imdur) 30 mg PO DAILY [facility] Last Admin: 11/03/18 09:46 Dose: 30 mg Lisinopril (Zestril) 5 mg PO DAILY [facility] Last Admin: 11/03/18 09:46 Dose: 5 mg Magnesium Hydroxide (Milk Of Magnesia) 30 ml PO DAILY PRN PRN PRN Reason: Constipation Last Admin: 11/02/18 16:38 Dose: 30 ml Methylprednisolone (Solu-Medrol) 40 mg IV Q8 [facility] Last Admin: 11/03/18 09:46 Dose: 40 mg Nitroglycerin (Nitrostat) 0.4 mg SUBLINGUAL Q5M PRN PRN Reason: Chest Pain Sodium Chloride () 5 - 15 ml IV UD PRN PRN Reason: SALINE FLUSH Last Admin: 11/03/18 09:55 Dose: 10 ml Medical Necessity - Tobacco Use Smoking Status: Former smoker Tobacco Use: Non-smoker Assessment/Plan All Active Problems (Last Reviewed 10/05/18 @ 17:20 by Rita Anthony) Presence of aortocoronary bypass graft (Resolved) History of tonsillectomy (Resolved) BPV (benign positional vertigo) (Acute) ICD fired (Resolved) 73-year-old male admitted with a complaint of shortness of breath and lower extremity edema. 1. Acute systolic CHF exacerbation * SOB is improving. * urine output os 5.1L over last 24 hours; in negative balance by 5.77L since admission * troponins x 3 were negative * on IV lasix 40mg bid * transitioned off BIPAP to 5L of oxygen by nasal canula * 2D echo pending today * continue input output chart and fluid restriction * BIPAP prn to reduce work of breathing. * 2D echo (02/16) severely dilated LV, with EF of 15-20%, stage 2 diastolic dysfunction, sevre global hypokinesis of left and right atruim, RVSP of 52mmhg. * 2. lactic acidosis: resolved. 3. Hypertension: Controlled. On carvedilol and lisinopril 4. Chronic A. fib. * On aspirin, carvedilol and amiodarone. * 5. Hyperlipidemia: On simvastatin 6. CAD and ischemic cardiomyopathy s/p CABG x 2 * has ICD in place * had heart cath (02/16); widely patent grafts and EF of 15% * on aspirin, carvedilol and statin * 7. COPD: on breathing treatments. 8. Severe pulmonary hypertension: RVSP was 52mmHg per echo in 2017. This could be contributing to SOB as well. WIll monitor DVT prophylaxis: heparin Code Visit Inpatient E&M: 78287 [facility] Hosp L3
[2018-11-03 11:36] LABS: Bedside Glucose 196 mg/dL (70-110)
--- NOTE | 2018-11-03 12:25 | CASEMGMT ---
FLAVIA CHAPARRO ASSESSMENT To room to talk with patient for initial transition planning/care coordination assessment. FLAVIA CHAPARRO introduced self and role at [facility].? Pt voices understanding and consents to assessment at this time.? Pt resting in bed in no distress at this time.? Pt is A/O at this time and answers all questions appropriately.?? Care providers, pharmacy, and demographics verified at this time. PCP: Carlos Specialists: Brynn Guevara Preferred [facility]acy: [facility] Insurance: MCR A & B, GURU Prescription Benefit:? GURU or [employer] Rx Living Will/HPOA:? has both LW and HCPOA, who is his friend, Tabatha Mejía. Copies not found in e-chart. Pt will have Tabatha check to see if she has copies of these and will ask her to bring them in if she does. Living Arrangements: Lives alone in a mobile home with 3 steps to enter. is independent with ADL's and home mgmt tasks. States Tabatha available to assist if needed and also his neighbor. Transportation: Pt drives self and states no transportation concerns at this time.? States Tabatha can help with transportation if needed. DME:?? has a high toilet seat and a nebulizer. Does not have home oxygen. has grab bars for the shower but they have not been installed yet. Pt states he is interested in getting a hospital bed but is not sure if he is ready to get one yet. Instructed pt to talk with his PCP if he decides he wishes to look into getting one in the future. States [facility] has a shower seat and W/C available if he would need them. Pt wishes to return home and has no concerns with going home at time of discharge.? CM to follow for home oxygen needs and any further discharge planning/needs.? Discussed CCN with pt and he declines wanting them at this time. Pt voices no further concerns/needs at this time.? Advised pt to ask for CM if any further questions/concerns/needs arise.? Voices understanding. Plan:? Home Alvarez BALDWIN RN, CM
--- NOTE | 2018-11-03 14:36 | CHAPLAIN ---
Type of Pastoral Visit _x__ Initial Visit ___ Follow-up Visit ___ On-call Visit ___ General Patient Visit ___ Spiritual Assessment ___ Family Conference ___ Bereavement ___ Rapid Response ___ Code Blue ___ Other (describe below) Pastoral Care Referral From _x__ Patient ___ Family ___ Nurse ___ Physician ___ Biscuit Packer ___ Licensed Social Worker ___ Other (describe below) Sacrament/Intervention _x__ Active listening ___ Anointing ___ Oriental Orthodox ___ Bereavement ___ Communion _x__ Jessie exploration ___ _x__ Life review _x__ Prayer ___ Reconciliation ___ Sacrament of Sick _x__ Supportive presence ___ Wedding ___ Other (describe below) Pastoral Comments
[2018-11-03 17:16] LABS: Bedside Glucose 104 mg/dL (70-110)
[2018-11-03] MEDS: Atorvastatin Calcium 20 MG Tablet PO (22:12)
[2018-11-03 22:26] LABS: Bedside Glucose 135 mg/dL (70-110)
[2018-11-04] VITALS (19 sets, daily range): BP systolic 94–117; BP diastolic 46–72; PULSE 62–74; RESP 18–20; TEMP 36.4–36.6; O2SAT 92–97
[2018-11-04] MEDS: Ipratropium/Albuterol Sulfate 3 ML AMPUL.NEB INHALATION ×6 (04:15→22:43)
[2018-11-04] MEDS: 0.9% NaCl Peripheral Flush Adult/Peds IV ×5 (06:06→22:14)
[2018-11-04 06:55] LABS: Bedside Glucose 137 mg/dL (70-110)
[2018-11-04 07:13] LABS: Absolute Lymphocyte Count 0.34 X10^3/ul (0.83-4.51); Absolute Neutrophil Count 7.2 X10^3/uL (2.0-7.7); Differential Indicated SCAN CRITERIA MET; Hematocrit 45.8 % (40-54); Hemoglobin 14.1 g/dl (13.0-16.5); Lymphocyte # 0.34 X10^3/ul (4.0); Lymphocyte % 4.4 % (19-41); Mean Corp Hgb Conc 30.8 g/gl (32-36); Mean Corpuscular Hgb 28.8 pg (27.0-32.0); Mean Corpuscular Volume 93.7 fL (80-94); Mean Platelet Vol. 10.7 fl (6.2-12.0); Monocyte# 0.19 X10^3/uL; Monocyte% 2.5 % (0-10); Neutrophil # 7.18 X10^3/uL (2.7-7.7); Neutrophil % 93.1 % (47-70); POSITIVE COUNT NO; POSITIVE DIFFERENTIAL YES; POSITIVE MORPHOLOGY NO; Platelet Count 152 K/mm3 (150-450); RBC Distribution Width SD 46.1 fl (35.1-43.9); Red Blood Count 4.89 M/mm3 (4.6-6.2); White Blood Count 7.7 K/mm3 (4.4-11.0)
[2018-11-04 07:25] LABS: Anion Gap 8 (5-15); BUN 32 mg/dL (7-18); BUN/Creat Ratio 26.7 RATIO (10-20); Calcium,Total 8.8 mg/dL (8.5-10.1); Chloride 99 mmol/L (98-107); EST Glomerular Filtration Rate 63 mL/min (>60); Est Glom Filt Rate - Afr Amer 77 mL/min (>60); Estimated Creatinine Clearance 61.97 ml/min; Glucose 133 mg/dL (74-106); Potassium 4.3 mmol/L (3.5-5.1); Sodium Level 140 mmol/L (136-145)
[2018-11-04] MEDS: Aspirin 81 MG TAB.CHEW PO (08:45)
[2018-11-04] MEDS: Enoxaparin 30 MG/0.3 ML Syringe SC (09:55)
[2018-11-04] MEDS: Amiodarone 200 MG Tablet PO (09:55)
[2018-11-04] MEDS: Isosorbide Mononitrate 30 MG Tablet PO (09:55)
[2018-11-04] MEDS: Carvedilol 6.25 MG Tablet PO (09:55)
[2018-11-04] MEDS: Furosemide 40 MG/4 ML Vial IV ×2 (09:56→17:58)
[2018-11-04] MEDS: Lisinopril 5 MG Tablet PO (09:56)
[2018-11-04 11:15] LABS: Bedside Glucose 237 mg/dL (70-110)
--- NOTE | 2018-11-04 12:17 | PCM.PN.HOSP ---
Subjective: Patient seen and examined. He is down to 3 L of oxygen by nasal cannula and feels much better. He had no active complaints overnight. 12 point review of systems is negative. Urine output over last 24 hours was 2.9 L and his weight is down from 192 pounds on admission to 184 pounds now. He is in negative balance by 6.9 L since admission. Labs and vitals reviewed. Vitals/I&O's: Vital Signs Temp Pulse Resp BP Pulse Ox 97.5 F L 68 19 H 111/63 93 11/04/18 09:52 11/04/18 11:02 11/04/18 09:52 11/04/18 09:52 11/04/18 09:52 Oxygen Flow Rate (L/min) 3 Oxygen Delivery Method Room Air Weight: 184 lb 4.903 oz Body Mass Index (BMI) 26.0 Intake and Output for Last 24 Hours 11/02/18 11/03/18 11/04/18 23:59 23:59 23:59 Intake Total 475 / 475 780 / 780 710 / 710 Output Total 5125 / 5125 2925 / 2925 825 / 825 Balance -4650 / -4650 -2145 / -2145 -115 / -115 General: Alert, Oriented x3, Cooperative, No apparent distress HEENT: Atraumatic, PERRLA, EOMI, Normocephalic Oral: Moist Mucosa Neck: Supple, No JVD, Negative Carotid Bruits Lungs: - -still has decreased breath sounds bibasally; On 3L of oxygen by nasal canula Cardiovascular: Regular rate, Regular Rhythm, Normal S1, Normal S2, Abdomen: Bowel Sounds Present, Soft, Non Tender, Non-Distended Extremities: No clubbing, No cyanosis, Capillary Refill Less than 3 Seconds, - - bilateral 2+ LE pitting pedal edema Skin: No rashes, No breakdown Musculoskeletal: No Tenderness to Palpation of Joints or Extremities Lymphatic: No Cervical, Supraclavicular, or Inguinal Adenopathy Neurological: Cranial nerves II-XII grossly intact, Neuro grossly intact, Motor Exam 5/5 strength throughout Psych/Mental Status: Normal Affect, Appropriate, Alert and oriented to time, place, person, mood and affect Microbiology Past 72 Hours 11/02/18 08:54 Urine Catheter - Catheter Urine Culture - Final Culture exhibits no growth. 11/02/18 09:15 Blood Culture (Wb) - Arm Right Blood Culture - Preliminary No growth in 48 hours. 11/02/18 09:10 Blood Culture (Wb) - Right Forearm Blood Culture - Preliminary No growth in 48 hours. 11/03/18 02:20 Mucosa - Nasopharyngeal Respiratory Panel (PCR) - Final Laboratory Results 11/03/18 17:10: POC Glucose 104 11/03/18 22:12: POC Glucose 135 H 11/04/18 06:40: WBC 7.7, RBC 4.89, Hgb 14.1, Hct 45.8, MCV 93.7, MCH 28.8, MCHC 30.8 L, RDW 14.0, RDW Differential 46.1 H, Plt Count 152, MPV 10.7, Immature Gran % (Auto) 0.000, Neut % (Auto) 93.1 H, Lymph % (Auto) 4.4 L, [place] % (Auto) 2.5, Eos % (Auto) 0.0, Baso % (Auto) 0.0, Absolute Neuts (auto) 7.2, Absolute Lymphs (auto) 0.34 L, Total Counted Not Reportable 11/04/18 06:40: Sodium 140, Potassium 4.3, Chloride 99, Carbon Dioxide 33.0 H, Anion Gap 8, BUN 32 H, Creatinine 1.20, Estim Creat Clear Calc 61.97, Est GFR (MDRD) Af Amer 77, Est GFR (MDRD) Non-Af 63, BUN/Creatinine Ratio 26.7 H, Glucose 133 H, Calcium 8.8 11/04/18 06:42: POC Glucose 137 H 11/04/18 11:05: POC Glucose 237 H Current Medications Albuterol Sulfate (Ventolin Aerosols) 2.5 mg INHALATION Q2H PRN PRN PRN Reason: WHEEZING Albuterol/Ipratropium (Duoneb) 3 ml INHALATION Q4H.RT [facility] Last Admin: 11/04/18 11:19 Dose: 3 ml Amiodarone HCl (Cordarone) 200 mg PO DAILY [facility] Last Admin: 11/04/18 09:55 Dose: 200 mg Aspirin (Aspirin, Baby) 81 mg PO DAILY@0800 [facility] Last Admin: 11/04/18 08:45 Dose: 81 mg Atorvastatin Calcium (Lipitor) 20 mg PO QHS [facility] Last Admin: 11/03/18 22:12 Dose: 20 mg Carvedilol (Coreg) 6.25 mg PO BID [facility] Last Admin: 11/04/18 09:55 Dose: 6.25 mg Enoxaparin Sodium (Lovenox) 30 mg SC DAILY [facility] Last Admin: 11/04/18 09:55 Dose: 30 mg Furosemide (Lasix) 40 mg IV BID@1000,1800 [facility] Last Admin: 11/04/18 09:56 Dose: 40 mg Isosorbide Mononitrate (Imdur) 30 mg PO DAILY [facility] Last Admin: 11/04/18 09:55 Dose: 30 mg Lisinopril (Zestril) 5 mg PO DAILY [facility] Last Admin: 11/04/18 09:56 Dose: 5 mg Magnesium Hydroxide (Milk Of Magnesia) 30 ml PO DAILY PRN PRN PRN Reason: Constipation Last Admin: 11/02/18 16:38 Dose: 30 ml Methylprednisolone (Solu-Medrol) 40 mg IV Q8 [facility] Last Admin: 11/04/18 06:06 Dose: 40 mg Nitroglycerin (Nitrostat) 0.4 mg SUBLINGUAL Q5M PRN PRN Reason: Chest Pain Sodium Chloride () 5 - 15 ml IV UD PRN PRN Reason: SALINE FLUSH Last Admin: 11/04/18 09:58 Dose: 10 ml Medical Necessity - Tobacco Use Smoking Status: Former smoker Tobacco Use: Non-smoker Assessment/Plan All Active Problems (Last Reviewed 10/05/18 @ 17:20 by Rita Anthony) Presence of aortocoronary bypass graft (Resolved) History of tonsillectomy (Resolved) BPV (benign positional vertigo) (Acute) ICD fired (Resolved) 73-year-old male admitted with a complaint of shortness of breath and lower extremity edema. 1. Acute systolic CHF exacerbation SOB has improved; now down to 3L of oxygen in negative balance by 6.9L since admission. on IV lasix 40mg bid BIPAP prn 2D echo: EF of 15%, wiht seveere globl LV systolic dysfunction; moderately dialted RV with ICD leads identified. LA dilated. RVSP is 35mmhg, which is better than 52mmhg as documented per echo in 02/16 continue input output chart. 2. lactic acidosis: resolved. 3. Hypertension: Controlled. On carvedilol and lisinopril 4. Chronic A. fib. On aspirin, carvedilol and amiodarone. 5. Hyperlipidemia: On simvastatin 6. CAD and ischemic cardiomyopathy s/p CABG x [address] had heart cath (02/16); widely patent grafts and EF of 15% on aspirin, carvedilol and statin 7. COPD: on breathing treatments. 8. Severe pulmonary hypertension: RVSP was 52mmHg per echo in 2017. 2D echo done shows RVSP is now ~ 35mmhg. To follow up with cardiology/ DVT prophylaxis: heparin Code Visit Inpatient E&M: 08168 Subs Hosp L3
--- NOTE | 2018-11-04 12:23 | PN_ITS ---
Subjective: Patient seen and examined. He is down to 3 L of oxygen by nasal cannula and feels much better. He had no active complaints overnight. 12 point review of systems is negative. Urine output over last 24 hours was 2.9 L and his weight is down from 192 pounds on admission to 184 pounds now. He is in negative balance by 6.9 L since admission. Labs and vitals reviewed. Vitals/I&O's: Vital Signs Temp Pulse Resp BP Pulse Ox 97.5 F L 68 19 H 111/63 93 11/04/18 09:52 11/04/18 11:02 11/04/18 09:52 11/04/18 09:52 11/04/18 09:52 Oxygen Flow Rate (L/min) 3 Oxygen Delivery Method Room Air Weight: 184 lb 4.903 oz Body Mass Index (BMI) 26.0 Intake and Output for Last 24 Hours 11/02/18 11/03/18 11/04/18 23:59 23:59 23:59 Intake Total 475 / 475 780 / 780 710 / 710 Output Total 5125 / 5125 2925 / 2925 825 / 825 Balance -4650 / -4650 -2145 / -2145 -115 / -115 General: Alert, Oriented x3, Cooperative, No apparent distress HEENT: Atraumatic, PERRLA, EOMI, Normocephalic Oral: Moist Mucosa Neck: Supple, No JVD, Negative Carotid Bruits Lungs: - -still has decreased breath sounds bibasally; On 3L of oxygen by nasal canula Cardiovascular: Regular rate, Regular Rhythm, Normal S1, Normal S2, Abdomen: Bowel Sounds Present, Soft, Non Tender, Non-Distended Extremities: No clubbing, No cyanosis, Capillary Refill Less than 3 Seconds, - - bilateral 2+ LE pitting pedal edema Skin: No rashes, No breakdown Musculoskeletal: No Tenderness to Palpation of Joints or Extremities Lymphatic: No Cervical, Supraclavicular, or Inguinal Adenopathy Neurological: Cranial nerves II-XII grossly intact, Neuro grossly intact, Motor Exam 5/5 strength throughout Psych/Mental Status: Normal Affect, Appropriate, Alert and oriented to time, place, person, mood and affect Microbiology Past 72 Hours 11/02/18 08:54 Urine Catheter - Catheter Urine Culture - Final Culture exhibits no growth. 11/02/18 09:15 Blood Culture (Wb) - Arm Right Blood Culture - Preliminary No growth in 48 hours. 11/02/18 09:10 Blood Culture (Wb) - Right Forearm Blood Culture - Preliminary No growth in 48 hours. 11/03/18 02:20 Mucosa - Nasopharyngeal Respiratory Panel (PCR) - Final Laboratory Results 11/03/18 17:10: POC Glucose 104 11/03/18 22:12: POC Glucose 135 H 11/04/18 06:40: WBC 7.7, RBC 4.89, Hgb 14.1, Hct 45.8, MCV 93.7, MCH 28.8, MCHC 30.8 L, RDW 14.0, RDW Differential 46.1 H, Plt Count 152, MPV 10.7, Immature Gran % (Auto) 0.000, Neut % (Auto) 93.1 H, Lymph % (Auto) 4.4 L, [place] % (Auto) 2.5, Eos % (Auto) 0.0, Baso % (Auto) 0.0, Absolute Neuts (auto) 7.2, Absolute Lymphs (auto) 0.34 L, Total Counted Not Reportable 11/04/18 06:40: Sodium 140, Potassium 4.3, Chloride 99, Carbon Dioxide 33.0 H, Anion Gap 8, BUN 32 H, Creatinine 1.20, Estim Creat Clear Calc 61.97, Est GFR (MDRD) Af Amer 77, Est GFR (MDRD) Non-Af 63, BUN/Creatinine Ratio 26.7 H, Glucose 133 H, Calcium 8.8 11/04/18 06:42: POC Glucose 137 H 11/04/18 11:05: POC Glucose 237 H Current Medications Albuterol Sulfate (Ventolin Aerosols) 2.5 mg INHALATION Q2H PRN PRN PRN Reason: WHEEZING Albuterol/Ipratropium (Duoneb) 3 ml INHALATION Q4H.RT [facility] Last Admin: 11/04/18 11:19 Dose: 3 ml Amiodarone HCl (Cordarone) 200 mg PO DAILY [facility] Last Admin: 11/04/18 09:55 Dose: 200 mg Aspirin (Aspirin, Baby) 81 mg PO DAILY@0800 [facility] Last Admin: 11/04/18 08:45 Dose: 81 mg Atorvastatin Calcium (Lipitor) 20 mg PO QHS [facility] Last Admin: 11/03/18 22:12 Dose: 20 mg Carvedilol (Coreg) 6.25 mg PO BID [facility] Last Admin: 11/04/18 09:55 Dose: 6.25 mg Enoxaparin Sodium (Lovenox) 30 mg SC DAILY [facility] Last Admin: 11/04/18 09:55 Dose: 30 mg Furosemide (Lasix) 40 mg IV BID@1000,1800 [facility] Last Admin: 11/04/18 09:56 Dose: 40 mg Isosorbide Mononitrate (Imdur) 30 mg PO DAILY [facility] Last Admin: 11/04/18 09:55 Dose: 30 mg Lisinopril (Zestril) 5 mg PO DAILY [facility] Last Admin: 11/04/18 09:56 Dose: 5 mg Magnesium Hydroxide (Milk Of Magnesia) 30 ml PO DAILY PRN PRN PRN Reason: Constipation Last Admin: 11/02/18 16:38 Dose: 30 ml Methylprednisolone (Solu-Medrol) 40 mg IV Q8 [facility] Last Admin: 11/04/18 06:06 Dose: 40 mg Nitroglycerin (Nitrostat) 0.4 mg SUBLINGUAL Q5M PRN PRN Reason: Chest Pain Sodium Chloride () 5 - 15 ml IV UD PRN PRN Reason: SALINE FLUSH Last Admin: 11/04/18 09:58 Dose: 10 ml Medical Necessity - Tobacco Use Smoking Status: Former smoker Tobacco Use: Non-smoker Assessment/Plan All Active Problems (Last Reviewed 10/05/18 @ 17:20 by Rita Anthony) Presence of aortocoronary bypass graft (Resolved) History of tonsillectomy (Resolved) BPV (benign positional vertigo) (Acute) ICD fired (Resolved) 73-year-old male admitted with a complaint of shortness of breath and lower extremity edema. 1. Acute systolic CHF exacerbation * SOB has improved; now down to 3L of oxygen * in negative balance by 6.9L since admission. * on IV lasix 40mg bid * BIPAP prn * 2D echo: EF of 15%, wiht seveere globl LV systolic dysfunction; moderately dialted RV with ICD leads identified. LA dilated. RVSP is 35mmhg, which is better than 52mmhg as documented per echo in 02/16 * continue input output chart. * 2. lactic acidosis: resolved. 3. Hypertension: Controlled. On carvedilol and lisinopril 4. Chronic A. fib. * On aspirin, carvedilol and amiodarone. * 5. Hyperlipidemia: On simvastatin 6. CAD and ischemic cardiomyopathy s/p CABG x 2 * has ICD in place * had heart cath (02/16); widely patent grafts and EF of 15% * on aspirin, carvedilol and statin * 7. COPD: on breathing treatments. 8. Severe pulmonary hypertension: * RVSP was 52mmHg per echo in 2017. * 2D echo done shows RVSP is now ~ 35mmhg. To follow up with cardiology/ DVT prophylaxis: heparin Code Visit Inpatient E&M: 03316 Subs Hosp L3
[2018-11-04] MEDS: Magnesium Hydroxide 30 ML UDC PO (14:36)
[2018-11-04 16:16] LABS: Bedside Glucose 105 mg/dL (70-110)
[2018-11-04] MEDS: Atorvastatin Calcium 20 MG Tablet PO (22:14)
[2018-11-04 23:26] LABS: Bedside Glucose 137 mg/dL (70-110)
[2018-11-05] VITALS (11 sets, daily range): BP systolic 96–112; BP diastolic 55–70; PULSE 67–78; RESP 16–20; TEMP 36.3–36.5; O2SAT 89–95
[2018-11-05] MEDS: Ipratropium/Albuterol Sulfate 3 ML AMPUL.NEB INHALATION ×3 (02:51→10:49)
[2018-11-05] MEDS: 0.9% NaCl Peripheral Flush Adult/Peds IV (05:17)
[2018-11-05 06:58] LABS: Anion Gap 9 (5-15); BUN 42 mg/dL (7-18); BUN/Creat Ratio 29.6 RATIO (10-20); Calcium,Total 8.4 mg/dL (8.5-10.1); Chloride 98 mmol/L (98-107); Creatinine, Serum 1.42 mg/dL (0.70-1.30); EST Glomerular Filtration Rate 52 mL/min (>60); Est Glom Filt Rate - Afr Amer 63 mL/min (>60); Estimated Creatinine Clearance 52.37 ml/min; Glucose 183 mg/dL (74-106); Sodium Level 138 mmol/L (136-145)
[2018-11-05 07:00] LABS: Absolute Lymphocyte Count 0.27 X10^3/ul (0.83-4.51); Absolute Neutrophil Count 6.2 X10^3/uL (2.0-7.7); Hematocrit 44.1 % (40-54); Hemoglobin 13.9 g/dl (13.0-16.5); Lymphocyte # 0.27 X10^3/ul (4.0); Lymphocyte % 4.1 % (19-41); Mean Corp Hgb Conc 31.5 g/gl (32-36); Mean Corpuscular Hgb 29.6 pg (27.0-32.0); Mean Corpuscular Volume 93.8 fL (80-94); Mean Platelet Vol. 10.3 fl (6.2-12.0); Monocyte# 0.13 X10^3/uL; Neutrophil # 6.23 X10^3/uL (2.7-7.7); Neutrophil % 93.7 % (47-70); Platelet Count 157 K/mm3 (150-450); RBC Distribution Width SD 46.3 fl (35.1-43.9); White Blood Count 6.6 K/mm3 (4.4-11.0)
[2018-11-05 07:01] LABS: Bedside Glucose 174 mg/dL (70-110)
[2018-11-05 07:03] LABS: Differential Indicated SCAN CRITERIA MET; POSITIVE COUNT NO; POSITIVE DIFFERENTIAL YES; POSITIVE MORPHOLOGY NO
[2018-11-05] MEDS: Amiodarone 200 MG Tablet PO (07:58)
[2018-11-05] MEDS: Aspirin 81 MG TAB.CHEW PO (07:58)
[2018-11-05] MEDS: Isosorbide Mononitrate 30 MG Tablet PO (07:59)
[2018-11-05] MEDS: Enoxaparin 30 MG/0.3 ML Syringe SC (07:59)
[2018-11-05] MEDS: Furosemide 40 MG Tablet PO (08:03)
[2018-11-05] MEDS: Carvedilol 6.25 MG Tablet PO (10:29)
[2018-11-05] MEDS: Lisinopril 5 MG Tablet PO (10:29)
--- NOTE | 2018-11-05 10:31 | DCINST_ITS ---
You will use the following diet at home:: Cardiac Your food should be the consistency of: Regular Your liquids should be the consistency of: Regular/Thin Discharge Activity: Return to Normal Activity Weight Bearing Status: Weight bearing as tolerated Call your doctor if you observe: Shortness of breath, Swelling in the ankles Instructions: What Is Heart Failure?, Heart Failure: Making Changes to Your Diet, Heart Failure: Medications to Help Your Heart Additional Instructions: follow up with PCP for BMP to monitor kidney function and adjustment of meds as appropriate. Allergies/Adverse Reactions: Allergies No Known Allergies Allergy (Verified 06/08/18 08:59) Medications to take at Discharge Albuterol Aerosols [Ventolin Aerosols] 2.5 mg INHALATION Q6H PRN PRN 12/14/14 Albuterol Inhaler [Ventolin Hfa] 1 - 2 puff INHALATION Q6H PRN PRN 12/14/14 Aspirin [Aspirin, Baby] 81 mg PO DAILY@0800 12/14/14 Nitroglycerin [Nitrostat] 0.4 mg SUBLINGUAL Q5M PRN 12/14/14 amiodarone 200 mg tablet 200 mg PO QDAY #90 tab 04/27/18 simvastatin 40 mg tablet 40 mg PO QHS #90 tab 04/27/18 lisinopril 5 mg tablet 5 mg PO DAILY #90 tab 07/19/18 isosorbide mononitrate ER 30 mg tablet,extended release 24 hr 30 mg PO DAILY #90 tab 08/11/18 carvedilol 6.25 mg tablet 6.25 mg PO BID #180 tab 09/20/18 Furosemide 40 mg PO DAILY #30 tab 11/05/18 The following prescriptions were given: Furosemide 40 mg PO DAILY #30 tab Primary Care Physician: Sohan Gonzalez DO [Primary Care Provider] - Please follow up with your Primary Care Physician in: 1 week Test Results: Test results from this visit will be discussed in further detail at your follow- up appointment, if applicable. Please Follow Up With: Nabeel Guevara MD When: 1 week Proposed Discharge Date: 11/05/18
--- NOTE | 2018-11-05 10:32 | DS.PCM_ITS ---
Discharge Date and Diagnosis Date of Admission: 11/02/18 Date of Discharge: 11/05/18 - Primary Discharge Diagnosis acute systolic CHF exacerbation - Secondary Discharge Diagnosis Chronic Problems (Last Reviewed 10/05/18 @ 17:20 by Rita Anthony) Pulmonary hypertension (Chronic) Heart failure (Chronic) Other secondary pulmonary hypertension (Chronic) RVSP 52mmhg per echo 02/09/17 Nonrheumatic tricuspid (valve) insufficiency (Chronic) Nonrheumatic aortic (valve) insufficiency (Chronic) Paroxysmal atrial fibrillation (Chronic) Atherosclerotic heart disease of [place] coronary artery without angina pectoris (Chronic 11/14/13) CABG X 2 vessels: [place] to LAD, SVG to OM branch of CX per Dr. Can Balderas, [facility] Automatic implantable cardiac defibrillator in situ (Chronic) BiV ICD implant 01/10/2015 @ [facility] LBBB (left bundle branch block) (Chronic) Old myocardial infarction (Chronic) Chronic systolic (congestive) heart failure (Chronic) HLD (hyperlipidemia) (Chronic) Wide-complex tachycardia (Chronic) Ischemic cardiomyopathy (Chronic) EF 15-20% per echo 02/09/2017 COPD (chronic obstructive pulmonary disease) (Chronic) Hypertension (Chronic) Hospital Course and Treatment Imaging Results: Diagnostic Data Chest X-Ray 11/02/18 08:32 IMPRESSION: 1. Airspace disease and small effusion in the right lung base, new since prior study. Electronically Signed: Davian Hagen MD at 9:47 EST , Service support , Operations: None Procedures: None Summary of Care Provided: The patient is a 73 year old M with an extensive PMH which includes heart failure with reduced ejection fraction, COPD, hypertension and paroxysmal A. fib. He was admitted through the ED with a complaint of shortness of breath and lower extremity swelling which had been going on for a few days prior to presentation. Patient has a known EF of 15%. Echo done in 2016. However he states he is not been on any diuretics. He noticed swelling in his lower extremities about a week ago and called his foreign language instructor's office. He states he was prescribed oral diuretics which he started taking on day of admission However symptoms worsened and he became more short of breath with associated orthopnea and PND and sleeps propped up in a chair. Lower extremity swelling was also getting worse. He therefore decided to come to the ED. Vitals in the ED was significant for tachypnea with respiratory rate peaking at 35. He was also initially tachycardic with heart rate been around 119 on admission but subsequently trended down. BNP was 2487 and he was initially requiring up to 5 L of oxygen above 92%. He was eventually transitioned to BiPAP. Chest x-ray sh owed airspace disease and small effusion in the right lung base. CBC was unremarkable and BMP showed lactic acid of 2.6 which subsequently trended down to 1.8. Initial troponin was negative. EKG showed paced rhythm. He was admitted to be managed for acute systolic CHF exacerbation. Patient was started on IV Lasix for diuresis. Lactic acidosis on admission which spontaneously resolved. Patient was diuresed successfully and came off of oxygen and felt very well. He was negative balance by 7.4 L at time of discharge. He remained stable and was discharged home on 11/05/18 with a prescription for p.o. Lasix 40 mg daily. He is to follow-up with his PCP and foreign language instructor in 1 week. Patient seen and examined. He had no complaints and felt very well and was eager to go home. He denied any chest pain, palpitations, abdominal pain, diarrhea vomiting. Review of systems otherwise negative. Labs and vitals reviewed. Home medications reviewed and reconciled. o/e: vitals: Vital Signs Height 6 ft 0.05 in Weight: 183 lb 13.848 oz Weight in Pounds 183.9 lbs Pulse Ox [AMBULATING on Room 89 Air] Pulse Ox [At REST on Room Air] 95 Pulse Ox 95 Temperature 97.6 F Pulse Rate 70 Respiratory Rate 16 Blood Pressure 112/70 Blood Pressure Position Semi-Fowlers [] General: Alert, Oriented x3, Cooperative, No apparent distress HEENT: Atraumatic, PERRLA, EOMI, Normocephalic Oral: Moist Mucosa Neck: Supple, No JVD, Negative Carotid Bruits Lungs: - -mildly decreased breath sounds bibasally, no wheezing or crackles. Cardiovascular: Regular rate, Regular Rhythm, Normal S1, Normal S2, Abdomen: Bowel Sounds Present, Soft, Non Tender, Non-Distended Extremities: No clubbing, No cyanosis, Capillary Refill Less than 3 Seconds, - - bilateral 2+ LE pitting pedal edema Skin: No rashes, No breakdown Musculoskeletal: No Tenderness to Palpation of Joints or Extremities Lymphatic: No Cervical, Supraclavicular, or Inguinal Adenopathy Neurological: Cranial nerves II-XII grossly intact, Neuro grossly intact, Motor Exam 5/5 strength throughout Psych/Mental Status: Normal Affect, Appropriate, Alert and oriented to time, place, person, mood and affect Plan as detailed above. He is also to follow up with his PCP for follow up BMP to monitor kidney function. - Physical Exam Vital Signs Temp Pulse Resp BP Pulse Ox 97.6 F L 70 18 112/70 95 11/05/18 10:18 11/05/18 10:18 11/05/18 10:18 11/05/18 10:18 11/05/18 10:22 Oxygen Flow Rate (L/min) 3 Oxygen Delivery Method Room Air Weight: 183 lb 13.848 oz Body Mass Index (BMI) 26.0 Intake and Output for Last 24 Hours 11/03/18 11/04/18 11/05/18 23:59 23:59 23:59 Intake Total 780 / 780 1210 / 1210 350 / 350 Output Total 2925 / 2925 1475 / 1475 1050 / 1050 Balance -2145 / -2145 -265 / -265 -700 / -700 Microbiology Past 72 Hours 11/02/18 08:54 Urine Culture - Final Urine Catheter - Catheter Culture exhibits no growth. 11/02/18 09:15 Blood Culture - Preliminary Blood Culture (Wb) - Arm Right No growth in 48 hours. 11/02/18 09:10 Blood Culture - Preliminary Blood Culture (Wb) - Right Forearm No growth in 48 hours. 11/03/18 02:20 Respiratory Panel (PCR) - Final Mucosa - Nasopharyngeal Laboratory Tests Past 24 Hrs 11/05/18 11/05/18 06:25 06:25 WBC 6.6 RBC 4.70 Hgb 13.9 Hct 44.1 MCV 93.8 MCH 29.6 MCHC 31.5 L RDW 14.0 RDW Differential 46.3 H Plt Count 157 MPV 10.3 Immature Gran % (Auto) 0.200 Neut % (Auto) 93.7 H Lymph % (Auto) 4.1 L [place] % (Auto) 2.0 Eos % (Auto) 0.0 Baso % (Auto) 0.0 Absolute Neuts (auto) 6.2 Absolute Lymphs (auto) 0.27 L Total Counted Not Reportable Sodium 138 Potassium 4.0 Chloride 98 Carbon Dioxide 31.0 Anion Gap 9 BUN 42 H Creatinine 1.42 H Estim Creat Clear Calc 52.37 Est GFR (MDRD) Af Amer 63 Est GFR (MDRD) Non-Af 52 L BUN/Creatinine Ratio 29.6 H Glucose 183 H Calcium 8.4 L POC Glucose 11/05/18 11/04/18 11/04/18 06:54 22:10 16:09 POC Glucose 174 H 137 H 105 11/04/18 11:05 POC Glucose 237 H Discharge Diet: Low fat/ Low Cholesterol Discharge Activity: Return to Normal Activity Weight Bearing Status: Weight bearing as tolerated Call your doctor if you observe: Shortness of breath, Swelling in the ankles Home Medications: Medications to take at Discharge Albuterol Aerosols [Ventolin Aerosols] 2.5 mg INHALATION Q6H PRN PRN 12/14/14 Albuterol Inhaler [Ventolin Hfa] 1 - 2 puff INHALATION Q6H PRN PRN 12/14/14 Aspirin [Aspirin, Baby] 81 mg PO DAILY@0800 12/14/14 Nitroglycerin [Nitrostat] 0.4 mg SUBLINGUAL Q5M PRN 12/14/14 amiodarone 200 mg tablet 200 mg PO QDAY #90 tab 04/27/18 simvastatin 40 mg tablet 40 mg PO QHS #90 tab 04/27/18 lisinopril 5 mg tablet 5 mg PO DAILY #90 tab 07/19/18 isosorbide mononitrate ER 30 mg tablet,extended release 24 hr 30 mg PO DAILY #90 tab 08/11/18 carvedilol 6.25 mg tablet 6.25 mg PO BID #180 tab 09/20/18 Furosemide 40 mg PO DAILY #30 tab 11/05/18 predniSONE tablet 40 mg PO DAILY 5 Days #10 tablet 11/05/18 Following Prescrptions Were Given to Patient: Furosemide 40 mg PO DAILY #30 tab predniSONE tablet 40 mg PO DAILY 5 Days #10 tablet Primary Care Physician: Sohan Gonzalez DO [Primary Care Provider] - Please follow up with your Primary Care Physician in: 1 week Please Follow Up With: Nabeel Guevara MD When: 1 week Patient Instructions: What Is Heart Failure?, Heart Failure: Making Changes to Your Diet, Heart Failure: Medications to Help Your Heart Disposition: Home Minutes spent on discharge:: 35 Patient Condition:: Stable Medical Necessity - Tobacco Use Smoking Status: Former smoker Tobacco Use: Non-smoker Meaningful Use Info Meaningful Use Diagnoses (Choose all that apply): CHF - CHF MALLORY/ARB ordered at discharge?: Yes Documented LVEF (%): 15 Code Visit Inpatient E&M: 81719 Disch Hosp
--- NOTE | 2018-11-05 11:20 | CASEMGMT ---
This RN CM to room to speak with pt regarding therapy recommendation for further skilled therapy. Pt aware of all and declines any further therapy at this time. Pt states is independent with ADL's at home and states no concerns with going home at this time. Pt is questioning whether he needs oxygen at home and per Yolanda ALEJANDRO, pt did not qualify for home oxygen at this time. Pt states that he does have a a small oxygen machine from a friend that goes up to 3 liters if he needs it. This RN CM did encourage pt to purchase a pulse oximeter for at home, pt voices understanding. Pt voices no further concerns/needs at this time. SStaten FLAVIA CHAPARRO
[2018-11-05 12:10] LABS: Bedside Glucose 146 mg/dL (70-110)
--- NOTE | 2018-11-09 12:46 | CASEMGMT ---
FLAVIA CHAPARRO DC phone call DC DATE: 11.05.17 DC DISPOSITION: HOME LACE/STRATA: 09/04 Call to home phone. Intro role of CM to patient. Questions answered regarding follow up. Pt has appointments this week with Dr. Guevara, PCP and urologist. Question answered re: prescriptions listed. Pt will speak with Dr. Guevara on Thursday re: Lasix. Pt has all prescriptions. No care improvement suggestions given. Juana BOYLEN RN ACM
== END 2018-11-05 14:00 | disposition home or self-care (01) | DRG 291 ==
LOC: ED 10:10 → PCU 10:36
PROVIDERS: Admitting Provider Student in an Organized Health Care Education/Training Program; Emergency Provider Emergency Medicine; Family Provider Student in an Organized Health Care Education/Training Program; PCP Student in an Organized Health Care Education/Training Program; Visit Provider Student in an Organized Health Care Education/Training Program
DX: I11.0 Hypertensive heart disease with heart failure (principal); J96.00 Acute respiratory failure, unspecified whether with hypoxia or hypercapnia; E87.2 Acidosis; I50.23 Acute on chronic systolic (congestive) heart failure; I27.20 Pulmonary hypertension, unspecified; Z95.1 Presence of aortocoronary bypass graft; I25.10 Atherosclerotic heart disease of native coronary artery without angina pectoris; J44.9 Chronic obstructive pulmonary disease, unspecified; E78.5 Hyperlipidemia, unspecified; I25.5 Ischemic cardiomyopathy; I44.7 Left bundle-branch block, unspecified; I25.2 Old myocardial infarction; Z95.810 Presence of automatic (implantable) cardiac defibrillator; I48.0 Paroxysmal atrial fibrillation; Z87.891 Personal history of nicotine dependence; R33.9 Retention of urine, unspecified
CPT/HCPCS: 36415; 36600; 51702; 71045; 80048; 80053; 81001; 82803; 82962; 83605; 83880; 84484; 85025; 85610; 85730; 87040; 87086; 87633; 93005; 93306; 94002; 94003; 94640; 94660; 97162; 97165; 97530; 99285; J7040; J7050; Q9957; A4216; C8929; J1940

== ENCOUNTER 2018-11-06 12:10 | Emergency (ER) | payer MEDICARE, MEDICAID, SELFPAY ==
[2018-11-02 12:18] VITALS: BMI 26.0
[2018-11-06 12:14] VITALS: BP 137/82; PULSE 72; RESP 23; TEMP 36.7; O2SAT 96; BMI 25.9
[2018-11-06 12:19] VITALS: O2SAT 97
--- NOTE | 2018-11-06 12:43 | ED.DCSUM_ITS ---
- ER Visit Summary Date of Service: 11/06/18 Chief Complaint: Cannot urinate History of Present Illness: The patient is a 73 M who is here for urinary retention. He was discharged from the hospital yesterday. He was admitted for CHF and urinary retention. He says he lost 9 pounds through diuresis, and his Cohn catheter was removed. He was discharged yesterday and has not been able to urinate. He reports lower abdominal pain. No other associated symptoms. No fevers. Physical Examination: Afebrile and vital signs unremarkable. Patient appears uncomfortable but not toxic or in distress. Heart regular. Lungs clear. Abdomen tender in the suprapubic region. No guarding or rebound. Skin appears normal. Edema is much improved since I saw him 4 days ago. Test Results: BMP, UA, and culture pending. Emergency Department Course and Treatment: Cohn catheter ordered. 800 mL's of urine drained. Patient had resolution of his discomfort. BMP unremarkable. Urinalysis unremarkable. Culture pending. Patient will be discharged with a leg bag given his recurrent urinary retention. I am not sure what is causing his retention. He does not have a history of prostate issues or neurologic issues. Patient will be referred to urology. Leg bag. Risks discussed. Return for any new or worsening issues. Treatment Plan: As above Disposition: Discharge Impression: 1. Acute urinary retention This note was generated with [employer] dictation software. It may contain incorrect words, spelling, and punctuation that were not noted in review of the chart prior to signing ED Disposition - Plan for ED Patient: Chief Complaint: Complaint Referrals: Sohan Gonzalez DO [Primary Care Provider] -
[2018-11-06 13:06] LABS: Bacteria 0 SEEN /hpf (None Seen); Mucous, Urine 0 SEEN /hpf (<or=2+); Squamous Epithelial Cells - UA 0 SEEN /hpf (0-5); White Blood Cells 0 SEEN /hpf (0-5)
[2018-11-06 13:08] LABS: Color, Urine Yellow (Yellow); Glucose, Dipstick Normal (Normal); Ketone-Dipstick Negative (Negative); Leukocyte Esterase-Dipstick Negative /ul (Negative); Nitrite-Dipstick Negative (Negative); Occult Blood-Urine 25 /ul (Negative); Protein-Dipstick Negative (Negative); Urine Bilirubin Dipstick Negative (Negative); Urine Clarity Clear (Clear); Urine Urobilinogen Normal (Normal); Urine pH 6.5 (5.0 - 8.0)
[2018-11-06 13:14] LABS: Red Blood Cells-Urine 0-5 SEEN /hpf (0-5)
[2018-11-06 13:32] LABS: Anion Gap 9 (5-15); BUN 50 mg/dL (7-18); Calcium,Total 8.5 mg/dL (8.5-10.1); Chloride 97 mmol/L (98-107); Creatinine, Serum 1.25 mg/dL (0.70-1.30); EST Glomerular Filtration Rate 60 mL/min (>60); Est Glom Filt Rate - Afr Amer 73 mL/min (>60); Estimated Creatinine Clearance 59.49 ml/min; Glucose 138 mg/dL (74-106); Potassium 4.6 mmol/L (3.5-5.1); Sodium Level 136 mmol/L (136-145)
--- NOTE | 2018-11-06 13:37 | ED.DEP ---
ED Disposition - Plan for ED Patient: Chief Complaint: Complaint Instructions: ED Catheter Care Cohn Referrals: Brian Orellana MD [STAFF PHYSICIAN] -
[2018-11-06 14:26] VITALS: BP 132/76; PULSE 86; RESP 16; O2SAT 98
== END 2018-11-06 14:27 | disposition home or self-care (01) ==
PROVIDERS: Emergency Provider Emergency Medicine; Family Provider Student in an Organized Health Care Education/Training Program; PCP Student in an Organized Health Care Education/Training Program
DX: R33.9 Retention of urine, unspecified (principal); I25.2 Old myocardial infarction; I11.0 Hypertensive heart disease with heart failure; I50.9 Heart failure, unspecified; J44.9 Chronic obstructive pulmonary disease, unspecified; E78.00 Pure hypercholesterolemia, unspecified; I48.91 Unspecified atrial fibrillation; Z87.891 Personal history of nicotine dependence; Z79.51 Long term (current) use of inhaled steroids; Z79.82 Long term (current) use of aspirin; Z79.52 Long term (current) use of systemic steroids; Z79.899 Other long term (current) drug therapy
CPT/HCPCS: 51702; 80048; 81001; 87086; 87088; 99284

== ENCOUNTER 2019-11-16 06:32 | Emergency (ER) | payer MEDICARE, MEDICAID, SELFPAY ==
[2019-04-07 09:32] VITALS: BMI 21.7
[2019-11-16 06:33] VITALS: BP 155/80; PULSE 99; RESP 24; TEMP 36.1; O2SAT 96; BMI 25.9
[2019-11-16 06:34] VITALS: BP 155/80; PULSE 99; RESP 24; TEMP 36.1; O2SAT 96
[2019-11-16 06:37] VITALS: O2SAT 96
--- NOTE | 2019-11-16 06:45 | ED.VIS.GEN ---
History of Present Illness Chief Complaint: Shortness of Breath Narrative: Patient is a 74-year-old male who presents with urinary retention. He complains of suprapubic pressure and states he is only able to void small dribbles. Patient was hospitalized earlier this month for CHF exacerbation and also had urinary retention at that time. After discharge she had a return visit for recurrent urinary retention. Although he was also triaged as shortness of breath patient he states this is not why he came to the emergency department. He has had a recent URI-like illness with increased cough, sputum, shortness of breath, wheezing. He notes that he is always short of breath although this is a little worse than usual. He actually has already had medications called in by his primary care physician and is on antibiotics currently. He notes this is not what brought him to the emergency department and that he is only here regarding the urinary retention. Past Medical History - Allergies and Home Meds Allergies/Adverse Reactions: Allergies No Known Allergies Allergy (Verified 10/31/19 17:32) Primary Care Physician: Sohan Gonzalez DO [Primary Care Provider] - Past Medical History: - - Congestive heart failure, COPD Surgical History: coronary bypass surgery, - - ICD placement. Back surgery. Smoking Status: Former smoker - Family History Maternal Family History: Family History (Last Reviewed 10/31/19 @ 17:33 by Rita Anthony) Father CAD (coronary artery disease) Diabetes Cancer Myocardial infarction Mother Breast cancer Hypertension Family History: Reports: No pertinent history Paternal Family History: Family History (Last Reviewed 10/31/19 @ 17:33 by Rita Anthony) Father CAD (coronary artery disease) Diabetes Cancer Myocardial infarction Mother Breast cancer Hypertension Family History: Reports: No pertinent history Review of Systems All systems negative except as indicated General: Denies: Fever Cardiovascular: Denies: Chest pain Respiratory: Reports: Dyspnea, Cough, Sputum Gastrointestinal: Denies: Abdominal pain, Nausea, Vomiting Genitourinary: Reports: - - Urinary retention Skin: Denies: Rash Neurological: Denies: Headache Hematologic: Denies: Easy bruising Allergy: Denies: Uticaria Physical Exam Vital Signs/Narrative: Vital Signs Temp Pulse Resp BP Pulse Ox 11/16/19 06:34 96.9 F L 99 24 H 155/80 H 96 11/16/19 06:33 96.9 F L 99 24 H 155/80 H 96 Inital Vital Signs reviewed: Yes General: Well nourished Head: Normocephalic Eyes: EOMI ENT: Moist mucous membranes Neck: Supple Cardiovascular: Regular rate, Regular rhythm Respiratory: - - Tachypneic with scattered inspiratory and expiratory wheezing but not in distress able to speak full sentences no retractions Abdomen: Soft, Tender - Suprapubic tenderness. Negative for: Guarding, Rebound tenderness Skin: Normal color Neurological: Alert Psychological: Normal affect Diagnostic/Tx/Re-eval - Medical Decision Making I discussed aerosols with the patient. He declined. He just wants a Cohn catheter and to be discharged. Cohn will be placed by nursing and patient will follow-up with urology. Patient discharged. ED Disposition - Plan for ED Patient: Disposition: Home or Assisted Living Diagnosis: Urinary retention Instructions: URINARY RETENTION, Male Referrals: Sohan Gonzalez DO [Primary Care Provider] - Brian Orellana MD [STAFF PHYSICIAN] -
--- NOTE | 2019-11-16 06:51 | ED.RN ---
PT does not want to talk about his shortness of breath. Only wants tx for urinary retention.
== END 2019-11-16 07:12 | disposition home or self-care (01) ==
LOC: ED 07:09
PROVIDERS: Emergency Provider Emergency Medicine; Family Provider Student in an Organized Health Care Education/Training Program; PCP Student in an Organized Health Care Education/Training Program
DX: R33.9 Retention of urine, unspecified (principal); J44.9 Chronic obstructive pulmonary disease, unspecified; I50.9 Heart failure, unspecified; Z87.891 Personal history of nicotine dependence
CPT/HCPCS: 99283; A4216

== ENCOUNTER 2019-11-22 20:54 | Emergency (ER) | payer MEDICARE, MEDICAID, SELFPAY ==
[2019-11-22 20:54] VITALS: BP 141/73; PULSE 74; RESP 22; TEMP 36.5; O2SAT 98; BMI 27.7
--- NOTE | 2019-11-22 22:14 | ED.DCSUM_ITS ---
- ER Visit Summary Date of Service: 11/22/19 Chief Complaint: Urinary retention History of Present Illness: The patient is a 74 M history of BPH status post recent Cohn catheter. Catheter was removed he is unable to urinate today. Physical Examination: Older male no acute distress vital signs stable afebrile. H EENT exam unremarkable. Lungs clear to auscultation. Heart regular rhythm no murmur. Abdomen soft. Nontender nondistended normal bowel sounds no peritoneal signs. This exam took place after the nurses placed a Cohn catheter. His bladder is already been decompressed. His bladder scan prior to that was over 500. Patient is moving all 4 extremities. No edema. Back nontender. External exam is a [address] catheter in place. There is no gross blood. Is clear yellow urine. Test Results: None Emergency Department Course and Treatment: Urinary retention secondary to BPH. Treatment Plan: Follow-up with his urologist. Disposition: Discharge Impression: Acute urinary retention with Cohn catheter placed by nursing History of BPH This note was generated with [employer] dictation software. It may contain incorrect words, spelling, and punctuation that were not noted in review of the chart prior to signing ED Disposition - Plan for ED Patient: Referrals: Sohan Gonzalez DO [Primary Care Provider] -
--- NOTE | 2019-11-22 22:15 | ED.DEP ---
ED Disposition - Plan for ED Patient: Disposition: Home or Assisted Living Instructions: URINARY RETENTION, Male Referrals: Brian Orellana MD [STAFF PHYSICIAN] - 3-5 Days Additional Instructions: Follow-up with your urologist.
[2019-11-22 22:23] VITALS: BP 132/84; PULSE 70; RESP 15; O2SAT 95; O2SAT 96
== END 2019-11-22 22:25 | disposition home or self-care (01) ==
PROVIDERS: Emergency Provider Emergency Medicine; PCP Student in an Organized Health Care Education/Training Program
DX: R33.8 Other retention of urine (principal); N40.1 Benign prostatic hyperplasia with lower urinary tract symptoms; I11.0 Hypertensive heart disease with heart failure; I50.9 Heart failure, unspecified; E11.9 Type 2 diabetes mellitus without complications; Z79.82 Long term (current) use of aspirin; Z79.899 Other long term (current) drug therapy
CPT/HCPCS: 51702; 99283

== ENCOUNTER 2019-11-30 22:18 | Emergency (ER) | payer MEDICARE, MEDICAID, SELFPAY ==
[2019-11-30 22:19] VITALS: BP 152/80; PULSE 73; RESP 18; TEMP 36.7; O2SAT 98; BMI 25.8
--- NOTE | 2019-11-30 22:50 | ED.VIS.GEN ---
History of Present Illness Chief Complaint: Dizziness Informant: Patient Onset: Hours - 1-2 Context: Gradual Onset Timing: Intermittent - one episode, Lasts - 15-20 min Quality: dysequilibrium. felt drunk Location: head Current Severity: gone Maximum Severity: Mild Worsened by: moving Relieved by: unk; went away spontaneously Associated Symptoms: mild frontal headache which went away. Narrative: Patient has a history of congestive heart failure. He states he had to take an impromptu car trip to [place] today, he left at 430 this morning which was approximately 18 hours ago, it was 6-hour drive. He just recently got home and had an episode of dizziness that was transient, and noticed when he got home that both of his ankles were swollen. Therefore, as his credit collections manager directed him, he took a dose of Lasix. He has urinated a couple times since then. He had urinary retention and a Cohn catheter for 14 days, that was removed 2 days ago, he states he is urinating and feels like he is emptying when he goes, but the stream is not very strong. He was told his prostate was enlarged. He states otherwise he feels fine right now on is here to make sure he is okay and not in congestive heart failure. He denies any chest pain, shortness of breath, he has a mild chronic cough that is unchanged, he also has COPD and he feels like that is at baseline/stable right now. Denies any history of stroke. No recent head injury. He is not anticoagulated. - Past Medical History (1) BPV (benign positional vertigo) Status: Chronic (2) Urinary retention Status: Suspected (3) Atherosclerotic heart disease of [place] coronary artery without angina pectoris Status: Chronic Comment: CABG X 2 vessels: [place] to LAD, SVG to OM branch of CX per Dr. Can Balderas, [facility] (4) Automatic implantable cardiac defibrillator in situ Status: Chronic Comment: BiV ICD implant 01/10/2015 @ [facility] (5) COPD (chronic obstructive pulmonary disease) Status: Chronic (6) Chronic systolic (congestive) heart failure Status: Chronic (7) HLD (hyperlipidemia) Status: Chronic (8) Ischemic cardiomyopathy Status: Chronic Comment: EF 15-20% per echo 02/09/2017 (9) LBBB (left bundle branch block) Status: Chronic (10) Nonrheumatic aortic (valve) insufficiency Status: Chronic (11) Nonrheumatic tricuspid (valve) insufficiency Status: Chronic (12) Other secondary pulmonary hypertension Status: Chronic Comment: RVSP 52mmhg per echo 02/09/17 (13) Paroxysmal atrial fibrillation Status: Chronic (14) Pulmonary hypertension Status: Chronic Past Medical History - Allergies and Home Meds Allergies/Adverse Reactions: Allergies No Known Allergies Allergy (Verified 11/30/19 22:22) Primary Care Physician: Sohan Gonzalez DO [Primary Care Provider] - Surgical History: coronary bypass surgery, - - ICD placement. Back surgery. Smoking Status: Never smoker - Family History Maternal Family History: Family History (Last Reviewed 10/31/19 @ 17:33 by Rita Anthony) Father CAD (coronary artery disease) Diabetes Cancer Myocardial infarction Mother Breast cancer Hypertension Family History: Reports: No pertinent history Paternal Family History: Family History (Last Reviewed 10/31/19 @ 17:33 by Rita Anthony) Father CAD (coronary artery disease) Diabetes Cancer Myocardial infarction Mother Breast cancer Hypertension Family History: Reports: No pertinent history Review of Systems General: Denies: Chills, Fever, Sweats Eyes: Denies: Visual changes - bilaterally, Diplopia ENT: Denies: Rhinorrhea, Sore throat Cardiovascular: Denies: Chest pain, Palpitations Respiratory: Denies: Dyspnea, Cough, Dyspnea on exertion Gastrointestinal: Denies: Abdominal pain, Nausea, Vomiting, Diarrhea, Melena, Hematochezia Genitourinary: Denies: Dysuria, Hematuria, Frequency Musculoskeletal: Reports: Swelling. Denies: Back pain, Extremity Pain Skin: Denies: Rash, Wounds Neurological: Reports: Headache - Earlier, mild, resolved, - - no confusion, seizures, or trouble with speech. Denies: Weakness, Numbness Physical Exam Vital Signs/Narrative: Vital Signs Temp Pulse Resp BP Pulse Ox 11/30/19 22:19 98.1 F 73 18 152/80 H 98 Inital Vital Signs reviewed: Yes General: Well nourished, Well developed, No Acute Distress Head: Normocephalic, Atraumatic Eyes: Perrl, EOMI ENT: Moist mucous membranes, No rhinorrhea Neck: Supple, Nontender, No JVD Cardiovascular: Regular rate, Regular rhythm, No murmurs Respiratory: No distress, CTA bilaterally, Chest nontender Abdomen: Soft, Nontender, Nondistended, Normal bowel sounds Back: Nontender, Normal Inspection. Negative for: CVA tenderness Extremities: Nontender, No edema. Negative for: Calf Tenderness Skin: Normal color, No rash, No Trauma Neurological: Alert, Oriented x3, Cranial nerves II-XII grossly intact, Normal Strength, Normal Sensation, Normal Gait, - - NIHSS is 0 including normal [id number] and [id number]-[id number] bilaterally. Normal Romberg. Normal reflexes. Psychological: Normal affect, Normal Mood Diagnostic/Tx/Re-eval Laboratory Tests 11/30/19 Range/Units 23:00 Sodium 141 (136-145) mmol/L Potassium 4.2 (3.5-5.1) mmol/L Chloride 110 H (98-107) mmol/L Carbon Dioxide 27.0 (21.0-32.0) mmol/L Anion Gap 4 L (5-15) BUN 35 H (7-18) mg/dL Creatinine 1.42 H (0.70-1.30) mg/dL Estim Creat Clear Calc 51.61 ml/min Est GFR (MDRD) Af Amer 63 (>60) mL/min Est GFR (MDRD) Non-Af 52 L (>60) mL/min BUN/Creatinine Ratio 24.6 H (10-20) RATIO Glucose 92 (74-106) mg/dL Calcium 8.3 L (8.5-10.1) mg/dL - Medical Decision Making Patient had one short episode of vertiginous symptoms earlier, they are resolved now. I got him up and walked him around, he turned his head a couple times and he cannot reproduce the symptoms. His NIH is 0 and his cerebellar exam is normal. I do not think he needs to be worked up for central vertigo at this time. Furthermore, he has peripheral vertigo and his past medical history upon inspection of the EMR, making it more likely that is what he had as well. Check his renal function because he was concerned he was urinating less than normal. He has a mild chronic renal insufficiency and he has similar baseline. Creatinine is 1.42. I do not see any significant objective edema in his ankles or legs right now. I do not think he has a DVT. I suspect he had swelling in his ankles because of the long car ride and lack of using muscles in his legs to enhance venous blood return. I reassured him about his congestive heart failure, I think taking the Lasix like he did is reasonable, he may continue to do so as needed and follow-up with his doctor if needed. We discussed reasons to return and he is comfortable with this overall plan. ED Disposition - Plan for ED Patient: Disposition: Home or Assisted Living Diagnosis: Chronic renal insufficiency, Bilateral lower extremity edema, BPV (benign positional vertigo) Instructions: VERTIGO, Unspecified, ED Peripheral Edema, Bilateral, ED DIURETIC, General Referrals: Sohan Gonzalez, DO [Primary Care Provider] - 3-5 Days if not improving
[2019-11-30 23:16] LABS: Anion Gap 4 (5-15); BUN 35 mg/dL (7-18); BUN/Creat Ratio 24.6 RATIO (10-20); Calcium,Total 8.3 mg/dL (8.5-10.1); Chloride 110 mmol/L (98-107); Creatinine, Serum 1.42 mg/dL (0.70-1.30); EST Glomerular Filtration Rate 52 mL/min (>60); Est Glom Filt Rate - Afr Amer 63 mL/min (>60); Estimated Creatinine Clearance 51.61 ml/min; Glucose 92 mg/dL (74-106); Potassium 4.2 mmol/L (3.5-5.1); Sodium Level 141 mmol/L (136-145)
[2019-11-30 23:56] VITALS: BP 156/81; PULSE 68; RESP 16; O2SAT 99
== END 2019-11-30 23:57 | disposition home or self-care (01) ==
PROVIDERS: Emergency Provider Emergency Medicine; PCP Student in an Organized Health Care Education/Training Program
DX: H81.10 Benign paroxysmal vertigo, unspecified ear (principal); R60.0 Localized edema; N18.9 Chronic kidney disease, unspecified; I25.10 Atherosclerotic heart disease of native coronary artery without angina pectoris; J44.9 Chronic obstructive pulmonary disease, unspecified; I50.22 Chronic systolic (congestive) heart failure; E78.5 Hyperlipidemia, unspecified; Z95.810 Presence of automatic (implantable) cardiac defibrillator; Z79.82 Long term (current) use of aspirin; Z79.51 Long term (current) use of inhaled steroids; Z79.899 Other long term (current) drug therapy
CPT/HCPCS: 36415; 80048; 99282

== ENCOUNTER → 2019-12-15 | Outpatient (CLI) | payer MEDICARE, MEDICAID, SELFPAY ==
[2019-12-15 10:46] VITALS: BMI 24.5
[2019-12-15 13:13] LABS: AST(SGOT) 32 U/L (15-37); Alanine Aminotransfer ALT/SGPT 35 U/L (16-61); Albumin, Serum 3.6 g/dL (3.2-5.0); Alkaline Phosphatase 105 U/L (45-117); Bilirubin, Direct 0.29 mg/dL (0.00-0.30); Cholesterol 144 mg/dL (200); Globulin 3.5 g/dL (2.2-4.2); High Density Lipoprotein 50 mg/dL; Protein, Total 7.1 g/dL (6.4-8.2); Triglycerides 104 mg/dL; Very Low Density Lipoprotein 21 mg/dL (5-40)
== END | disposition home or self-care (01) ==
LOC: LAB 11:21
PROVIDERS: PCP Student in an Organized Health Care Education/Training Program; Referring Provider Internal Medicine Cardiovascular Disease; Visit Provider Internal Medicine Cardiovascular Disease
DX: E78.5 Hyperlipidemia, unspecified (principal); I25.10 Atherosclerotic heart disease of native coronary artery without angina pectoris
CPT/HCPCS: 36415; 80061; 80076

== ENCOUNTER 2020-05-16 01:41 | Observation (INO) | payer MEDICARE, SELFPAY ==
[2019-12-15 10:46] VITALS: BMI 24.5
[2020-05-16] VITALS (12 sets, daily range): BP systolic 108–164; BP diastolic 59–78; PULSE 68–89; RESP 16–28; TEMP 36.3–36.7; O2SAT 96–99; BMI 25.8; BMI 25.6; BMI 25.7
--- NOTE | 2020-05-16 01:43 | RAD_ITS ---
STUDY: X-RAY CHEST REASON FOR EXAM: Male, 75 years old. Chest pain TECHNIQUE: Single AP portable view of the chest. COMPARISON: 11/02/2018 FINDINGS: Mild coarsened prominence of interstitial lung markings at the lung bases, unchanged from prior imaging with no confluent airspace opacity. The lungs are clear and expanded. There is no demonstrated pleural abnormality. Borderline cardiomegaly. Median sternotomy wires and coronary artery bypass graft clips noted. Left subclavian AICD device in place. Calcified hilar lymph nodes. Normal visualized pulmonary arteries. There is atherosclerotic calcification of the aortic arch with tortuosity. There are diffuse degenerative changes of the visualized thoracic spine. Normal visualized ribs, clavicles, and shoulders. There is no demonstrated abnormality of the visualized soft tissue structures of the upper abdomen. RAD/Chest 1 View (Portable) IMPRESSION: Chronic bibasilar interstitial change with no evidence of acute cardiopulmonary disease. Electronically Signed: David Seaman MD at 2:15 EDT Tel , Service support ,
--- NOTE | 2020-05-16 01:43 | EKG12_ITS ---
Test Reason : CP Blood Pressure : / mmHG Vent. Rate : 078 BPM Atrial Rate : 078 BPM P-R Int : 156 ms QRS Dur : 174 ms QT Int : 492 ms P-R-T Axes : 060 -69 092 degrees QTc Int : 560 ms Atrial-sensed ventricular-paced rhythm with occasional Premature ventricular complexes Biventricular pacemaker detected Abnormal ECG Confirmed by JERSEY JAIME, KAILEE ([id number]), social media editor ROSELINE HE ([id number]) on 05/17/2020 9:44:53 AM Referred By: JAE Confirmed By:KAILEE PUTNAM MD
--- NOTE | 2020-05-16 01:44 | ED.DCSUM_ITS ---
History of Present Illness Chief Complaint: Chest Pain Informant: Patient Onset: Yesterday Context: Gradual Onset Timing: Continuous Current Severity: Moderate Maximum Severity: Moderate Narrative: Patient is a 75-year-old male with medical history significant for coronary vascular disease status post CABG, pacemaker defibrillator, COPD, and pulmonary hypertension the presents to the emergency department with chest heaviness, nausea, vomiting, shortness of breath. The patient states his symptoms began at about 10 PM. He states that he had a [employer] at around 8 PM. He states shortly after, he began to get nauseated and was having midsternal chest heaviness. He states that he did vomit. He states this was followed by multiple episodes of coughing. He states that he did feel short of breath with continued chest heaviness. He has not taken anything for his pain. He denies any fevers or chills. He denies any recent sick contacts. He states he is othe rwise been in his normal state of health. He was actually scheduled to follow- up with cardiology later today. Prior similar symptoms: Yes Recent Illness/Hospitalization: No Past Medical History - Allergies and Home Meds Allergies/Adverse Reactions: Allergies No Known Allergies Allergy (Verified 05/16/20 01:46) Primary Care Physician: Sohan Gonzalez DO [Primary Care Provider] - Prior records reviewed: Yes Past Medical History: - - Coronary vascular disease, BPH, hypertension, hyperlipidemia, COPD Surgical History: coronary bypass surgery, - - ICD placement. Back surgery. Smoking Status: Never smoker - Family History Maternal Family History: Family History (Last Reviewed 10/31/19 @ 17:33 by Rita Anthony) Father CAD (coronary artery disease) Diabetes Cancer Myocardial infarction Mother Breast cancer Hypertension Family History: Reports: No pertinent history Paternal Family History: Family History (Last Reviewed 10/31/19 @ 17:33 by Rita Anthony) Father CAD (coronary artery disease) Diabetes Cancer Myocardial infarction Mother Breast cancer Hypertension Family History: Reports: No pertinent history Review of Systems General: Denies: Chills, Fever, Sweats Eyes: Denies: Visual changes - bilaterally, Diplopia ENT: Denies: Rhinorrhea, Sore throat Cardiovascular: Reports: Chest pain Respiratory: Reports: Dyspnea Gastrointestinal: Reports: Nausea, Vomiting Genitourinary: Denies: Dysuria, Hematuria, Frequency Musculoskeletal: Denies: Back pain, Extremity Pain Skin: Denies: Rash, Wounds Neurological: Denies: Headache, Weakness, Numbness Physical Exam Inital Vital Signs reviewed: Yes General: Well nourished, Well developed, No Acute Distress Head: Normocephalic, Atraumatic Eyes: Perrl, EOMI ENT: Moist mucous membranes, No rhinorrhea Neck: Supple, Nontender Cardiovascular: Regular rate, Regular rhythm, No murmurs Respiratory: No distress, Chest nontender, Wheezing Abdomen: Soft, Nontender, Nondistended, Normal bowel sounds Back: Nontender, Normal Inspection Extremities: Nontender, No edema Skin: Normal color, No rash Neurological: Alert, Oriented x3, Cranial nerves II-XII grossly intact, Normal Strength, Normal Sensation Psychological: Normal affect, Normal Mood Diagnostic/Tx/Re-eval Clinical Impression(s) from Imaging Studies Chest X-Ray 05/16/20 01:43 IMPRESSION: Chronic bibasilar interstitial change with no evidence of acute cardiopulmonary disease. Electronically Signed: David Seaman MD at 2:15 EDT Tel , Service support , Abnormal Lab Results 05/16/20 05/16/20 05/16/20 01:50 01:50 01:50 WBC 2.1 L RBC 4.44 L Hgb 10.8 L Hct 36.7 L MCV 82.7 MCH 24.3 L MCHC 29.4 L RDW Std Deviation 45.5 H RDW Coeff of Beto 15.4 H Plt Count 117 L MPV 9.5 Immature Gran % (Auto) 0.000 Neut % (Auto) 81.4 H Lymph % (Auto) 10.5 L [place] % (Auto) 7.1 Eos % (Auto) 0.5 Baso % (Auto) 0.5 Absolute Neuts (auto) 1.7 L Absolute Lymphs (auto) 0.22 L Nucleated RBC % 0 Differential Comment SCANNED Diff Path Review March foll PT 14.7 INR 1.2 Sodium 140 Potassium 4.5 Chloride 112 H Carbon Dioxide 23.0 Anion Gap 5 BUN 33 H Creatinine 1.16 Estim Creat Clear Calc 64.10 Est GFR (MDRD) Af Amer 79 Est GFR (MDRD) Non-Af 66 BUN/Creatinine Ratio 28.4 H Glucose 166 H Calcium 8.1 L Total Bilirubin 0.90 AST 38 H ALT 31 Alkaline Phosphatase 127 H Troponin I < 0.015 Total Protein 7.1 Albumin 3.3 Globulin 3.8 Albumin/Globulin Ratio 0.9 Lipase 51 L - Rhythm Strip Rhythm Strip: Paced Rate: 60 Ectopy: PVC(s) - EKG Initial EKG Interpretation: Paced, Non-Specific ST Changes Prior: Unchanged - Medical Decision Making The patient presents with rather significant substernal chest heaviness, nausea, vomiting, and shortness of breath after eating. The patient does have rather significant cardiac history. He has ischemic cardiomyopathy with last known EF of 15%. The patient was given sublingual nitro. He had resolution of his pain. His EKG shows a paced rhythm which is unchanged from prior. Chest x-ray shows no evidence of acute volume overload. The patient is pancytopenic, which does appear to be new. However, his last lab work was greater than a year and a half ago. His cardiac enzymes were negative. However, given the patient's significant cardiac history with symptoms concerning for angina I do feel that he would best be served with admission with cardiac work-up. Patient was discussed with the hospitalist. Impression 1. Chest pain 2. History of coronary vascular disease with CABG 3. Ischemic cardiomyopathy with ejection fraction 15% 4. Pancytopenia ED Disposition - Plan for ED Patient: Referrals: Sohan Gonzalez DO [Primary Care Provider] -
[2020-05-16] MEDS: Aspirin 81 MG TAB.CHEW 324 MG PO (01:53)
[2020-05-16 01:55] LABS: Absolute Lymphocyte Count 0.22 X10^3/uL (0.83-4.51); Absolute Neutrophil Count 1.7 X10^3/uL (2.0-7.7); Basophil# 0.01 X10^3/uL; Basophil% 0.5 % (0-1); Eosinophil# 0.01 X10^3/uL; Eosinophils% 0.5 % (0-5); Hematocrit 36.7 % (40-54); Hemoglobin 10.8 g/dL (13.0-16.5); Lymphocyte # 0.22 X10^3/ul (4.0); Lymphocyte % 10.5 % (19-41); Mean Corp Hgb Conc 29.4 g/dL (32-36); Mean Corpuscular Hgb 24.3 pg (27.0-32.0); Mean Corpuscular Volume 82.7 fL (80-94); Mean Platelet Vol. 9.5 fl (6.2-12.0); Monocyte# 0.15 X10^3/uL; Monocyte% 7.1 % (0-10); NRBC Flagged by Analyzer 0 % (0-5); Neutrophil # 1.71 X10^3/uL (2.7-7.7); Neutrophil % 81.4 % (47-70); POSITIVE DIFFERENTIAL YES; Platelet Count 117 K/mm3 (150-450); RBC Distribution Width CV 15.4 % (11.6-14.6); RBC Distribution Width SD 45.5 fl (35.1-43.9); Red Blood Count 4.44 M/mm3 (4.6-6.2); White Blood Count 2.1 K/mm3 (4.4-11.0)
[2020-05-16] MEDS: Nitroglycerin SL (ED/IMG/CATH) 0.4 MG TABLET SUBLINGUAL (01:55)
[2020-05-16] MEDS: Ondansetron 4 MG/2 ML Vial IV (01:56)
[2020-05-16 01:57] LABS: Differential Indicated SCAN CRITERIA MET
[2020-05-16 02:04] LABS: International Normalized Ratio 1.2; Prothrombin Time (Protime)PT. 14.7 SECONDS (11.7-14.9)
[2020-05-16 02:14] LABS: ALB/GLOB Ratio 0.9 RATIO (0.9-2.4); AST(SGOT) 38 U/L (15-37); Alanine Aminotransfer ALT/SGPT 31 U/L (16-61); Albumin, Serum 3.3 g/dL (3.2-5.0); Alkaline Phosphatase 127 U/L (45-117); Anion Gap 5 (5-15); BUN 33 mg/dL (7-18); BUN/Creat Ratio 28.4 RATIO (10-20); Calcium,Total 8.1 mg/dL (8.5-10.1); Chloride 112 mmol/L (98-107); Creatinine, Serum 1.16 mg/dL (0.70-1.30); EST Glomerular Filtration Rate 66 mL/min (>60); Est Glom Filt Rate - Afr Amer 79 mL/min (>60); Globulin 3.8 g/dL (2.2-4.2); Glucose 166 mg/dL (74-106); Lipase 51 U/L (73-393); Potassium 4.5 mmol/L (3.5-5.1); Protein, Total 7.1 g/dL (6.4-8.2); Sodium Level 140 mmol/L (136-145)
[2020-05-16 02:24] LABS: Differential Comment SCANNED
[2020-05-16 02:33] LABS: BNP,B-Type NATRIURETIC PEPTIDE 365.1 pg/mL (0-100)
--- NOTE | 2020-05-16 02:51 | PCM.HP.STD ---
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 transplanted heart: alutiiq heart Qualified Code(s): I25.10 - Atherosclerotic heart disease of alutiiq coronary artery without angina pectoris Comment: CABG X 2 vessels: ALSTON to LAD, SVG to OM branch of CX per Dr. Can Balderas, [facility] (4) Chronic systolic (congestive) heart failure Status: Chronic (5) HLD (hyperlipidemia) Status: Chronic Qualifiers: Hyperlipidemia type: pure hypercholesterolemia Qualified Code(s): E78.00 - Pure hypercholesterolemia, unspecified; E78.0 - Pure hypercholesterolemia (6) BPV (benign positional vertigo) Status: Chronic Qualifiers: Laterality: unspecified laterality Qualified Code(s): H81.10 - Benign paroxysmal vertigo, unspecified ear (7) Ischemic cardiomyopathy Status: Chronic Comment: EF 15-20% per echo 02/09/2017 (8) COPD (chronic obstructive pulmonary disease) Status: Chronic Qualifiers: COPD type: unspecified COPD Qualified Code(s): J44.9 - Chronic obstructive pulmonary disease, unspecified (9) Hypertension Status: Chronic Qualifiers: Hypertension type: essential hypertension Qualified Code(s): I10 - Essential (primary) hypertension History of Present Illness Date of Admission: 05/16/20 Chief Complaint: Chest pain The patient is a 75 y/o M w/ PMHx: CABG x 2, Chronic COPD, Chronic Systolic CHF/Ischemic Cardiomyopathy s/p AICD placement, HTN, HLD, PAF, Hx BPPV who presents to the [facility] ED on 05/16/20 with history of onset chest pain onset at approximately 10 pm with chest heaviness, substernal and band-like across his chest, rated 10 out of 10 in severity at its initial onset with nausea with emesis, dyspnea noting that he had eaten taco lofton prior. He noted chest pain rated 10/10 in severity as noted initially but following NG x 3 complete resolution of pain. He does state that he has some dyspepsia now. Patient denies having his AICD fire. Work-up in the ED included T 97.3, heart rate 73, BP 164/78, respiratory rate 28, 99% on room air, CBC with WC 2.1, hemoglobin 10.8, platelet 117 with neutropenia with ANC of 1.7 and lymphopenia noted, unremarkable coags, CMP with chloride 112, BUN/creatinine 33/1.16, glucose 166, AST/ALT 38/31, alk phos 127, troponin less than 0.015, BNP 365.1, lipase 51, chest x-ray with chronic bibasilar interstitial changes with no evidence of acute cardiopulmonary findings, EKG paced with no acute evidence of ischemic changes. In the ED patient ministered aspirin 324 mg p.o. x1, nitroglycerin sublingual, Zofran therapy. Past Medical History Past Medical History (Chronic Problems): Chronic Problems (Last Reviewed 10/31/19 @ 17:33 by Rita Anthony) Pulmonary hypertension (Chronic) Other secondary pulmonary hypertension (Chronic) RVSP 52mmhg per echo 02/09/17 Nonrheumatic tricuspid (valve) insufficiency (Chronic) Nonrheumatic aortic (valve) insufficiency (Chronic) Paroxysmal atrial fibrillation (Chronic) Atherosclerotic heart disease of alutiiq coronary artery without angina pectoris (Chronic 11/14/13) CABG X 2 vessels: ALSTON to LAD, SVG to OM branch of CX per Dr. Can Balderas, [facility] Automatic implantable cardiac defibrillator in situ (Chronic) BiV ICD implant 01/10/2015 @ [facility] LBBB (left bundle branch block) (Chronic) Old myocardial infarction (Chronic) Chronic systolic (congestive) heart failure (Chronic) HLD (hyperlipidemia) (Chronic) BPV (benign positional vertigo) (Chronic) Wide-complex tachycardia (Chronic) Ischemic cardiomyopathy (Chronic) EF 15-20% per echo 02/09/2017 COPD (chronic obstructive pulmonary disease) (Chronic) Hypertension (Chronic) Medical History: Medical History (Last Reviewed 10/31/19 @ 17:33 by Rita Anthony) Urinary retention (Suspected) R33.9 Acute on chronic systolic (congestive) heart failure (Acute) I50.23 Pulmonary hypertension (Chronic) I27.20 Other secondary pulmonary hypertension (Chronic) I27.29 RVSP 52mmhg per echo 02/09/17 Nonrheumatic tricuspid (valve) insufficiency (Chronic) I36.1 Nonrheumatic aortic (valve) insufficiency (Chronic) I35.1 Paroxysmal atrial fibrillation (Chronic) I48.0 Atherosclerotic heart disease of alutiiq coronary artery without angina pectoris (Chronic) Onset Date: 11/14/13 I25.10 CABG X 2 vessels: ALSTON to LAD, SVG to OM branch of CX per Dr. Can Balderas, [facility] LBBB (left bundle branch block) (Chronic) I44.7 Old myocardial infarction (Chronic) I25.2 Chronic systolic (congestive) heart failure (Chronic) I50.22 HLD (hyperlipidemia) (Chronic) E78.5 BPV (benign positional vertigo) (Chronic) H81.10 Wide-complex tachycardia (Chronic) I47.2 Ischemic cardiomyopathy (Chronic) I25.5 EF 15-20% per echo 02/09/2017 COPD (chronic obstructive pulmonary disease) (Chronic) J44.9 Hypertension (Chronic) I10 ICD fired (Resolved) Allergies No Known Allergies Allergy (Verified 05/16/20 01:46) Home Medications: Ambulatory Orders Medication Instructions Recorded Albuterol Aerosols [Ventolin 2.5 mg INHALATION Q6H PRN PRN 12/14/14 Aerosols] Albuterol Inhaler [Ventolin Hfa] 1 - 2 puff INHALATION Q6H PRN PRN 12/14/14 Aspirin [Aspirin, Baby] 81 mg PO DAILY 12/14/14 tamsulosin 0.4 mg capsule 0.4 mg PO DAILY cap 11/11/18 simvastatin 40 mg tablet 40 mg PO QHS #90 tab 08/08/19 lisinopril 5 mg tablet 5 mg PO DAILY #90 tab 09/15/19 isosorbide mononitrate 30 mg 30 mg PO DAILY #90 tab 09/21/19 tablet,extended release 24 hr Amiodarone HCl 200 mg PO DAILY 11/22/19 Handicap Parking Placard #1 ea 12/15/19 finasteride 5 mg tablet 5 mg PO DAILY 12/15/19 carvedilol 6.25 mg tablet 6.25 mg PO .COMPLEX #135 tab 01/23/20 nitroglycerin 0.4 mg sublingual 0.4 mg SUBLINGUAL Q5M PRN #25 tab 04/30/20 tablet furosemide 40 mg tablet 40 mg PO DAILY #90 tab 05/01/20 Surgical History: Surgical History (Last Reviewed 10/31/19 @ 17:33 by Rita Anthony) Automatic implantable cardiac defibrillator in situ (Chronic) Z95.810 BiV ICD implant 01/10/2015 @ [facility] Presence of aortocoronary bypass graft (Resolved) Z95.1 CABG ALSTON-LAD, SVG-OM 11/14/2013 @ [facility] History of tonsillectomy (Resolved) Z90.89 H/O coronary artery bypass surgery Z95.1 CABG ALSTON-LAD, SVG-OM 11/14/2013 @ [facility] History of arthroplasty of left knee Z96.652 left knee cartilage removal/repair History of lumbar surgery Z98.890 Surgical History: coronary bypass surgery, - - CABG x2, AICD/pacemaker placement, lumbar back surgery, tonsillectomy, left knee arthroscopic surgery. Psychiatric History: No pertinent psych hx Lives: Alone Smoking Status: Former smoker Tobacco Use: Non-smoker Alcohol: None Drugs: None - *Family History Maternal Family History: Family History (Last Reviewed 10/31/19 @ 17:33 by Rita Anthony) Father CAD (coronary artery disease) Diabetes Cancer Myocardial infarction Mother Breast cancer Hypertension History Items: - - Patient with maternal family history of hypertension and breast cancer. Paternal Family History: Family History (Last Reviewed 10/31/19 @ 17:33 by Rita Anthony) Father CAD (coronary artery disease) Diabetes Cancer Myocardial infarction Mother Breast cancer Hypertension History Items: - - Patient with a paternal family history of CAD, [place] history, diabetes, history of lung cancer. Review of Systems Constitutional: Reports: Weakness, Fatigue. Denies: Anorexia, Chills, Fever, Weight Change HEENT: Denies: Head Aches, Sinus Congestion, Sinus Drainage Cardiovascular: Reports: Chest Pain, Chest Pressure, Heaviness. Denies: Chest Tightness, Light Headedness, Orthopnea, Palpitations, Syncope Respiratory: Reports: Shortness of Breath, Shortness of breath at rest, Shortness of breath upon exertion. Denies: Cough, Sputum production, Wheezing Gastrointestinal: Reports: Abdominal Pain, Dyspepsia, Nausea, Vomiting Genitourinary: Denies: Dysuria Musculoskeletal: Denies: Joint Pain, Joint Tenderness Skin: Denies: Rash, Wounds Neurological: Denies: Numbness, Tingling, Focal weakness Psychiatric: Denies: Anxiety, Depression, Homicidal Ideations, Suicidal Ideations Hematologic/ Lymphatic: Reports: Anemia. Denies: Easy Bruising, Easy Bleeding VTE Information - Inpt Only VTE Present on Admission: No VTE Mechan Device Prophylaxis: SCD's VTE Pharm Prophylaxis ordered?: Yes Patient Problems: Active and Suspected Problems (Last Reviewed 10/31/19 @ 17:33 by Rita Anthony) Chest pain (Acute) Subjective: Patient seated upright in the ED bed, mildly fatigued appearance, denies any recurrent chest discomfort. Objective: Physical Examination: General: awake, alert, oriented x 3 and cooperative, seated upright in the ED bed, fatigued appearance, denies any recurrent chest pain. Skin: normal color, turgor, no icterus, cyanosis. HEENT: AT/NC, EOMI, PERRLA, MMM, no carotid bruits or JVD noted. Lungs: CTA bilaterally, moderate effort, mild decrease BL bases, no rales, ronchi or wheezing. Heart: Regular rate and rhythm; no gallop, rub audible, evidence left upper chest device present. Abdomen: soft, NTTP, ND, mildly hyperactive BS, no HSM. Extremities: no cyanosis, clubbing, or edema. Neurological: patient awake, alert, oriented x 3; cognitive function intact; pupils equally reactive to light and accomodation; cranial nerves II-XII grossly normal, moving all 4 extremities, no focal deficits, strength mildly global decrease secondary to acute presentation. Psychiatric: affect appears fatigued otherwise normal, no acute evidence of depressive or anxiety feelings. - Physical Exam Vitals/I&O's: Vital Signs Temp Pulse Resp BP Pulse Ox 97.3 F L 75 28 H 161/78 H 98 05/16/20 01:42 05/16/20 01:55 05/16/20 01:42 05/16/20 01:55 05/16/20 01:47 Oxygen Delivery Method Room Air Weight: 195 lb 15.855 oz Body Mass Index (BMI) 25.8 Laboratory Results 05/16/20 01:50: WBC 2.1 L, RBC 4.44 L, Hgb 10.8 L, Hct 36.7 L, MCV 82.7, MCH 24.3 L, MCHC 29.4 L, RDW Std Deviation 45.5 H, RDW Coeff of Beto 15.4 H, Plt Count 117 L, MPV 9.5, Immature Gran % (Auto) 0.000, Neut % (Auto) 81.4 H, Lymph % (Auto) 10.5 L, Patrick % (Auto) 7.1, Eos % (Auto) 0.5, Baso % (Auto) 0.5, Absolute Neuts (auto) 1.7 L, Absolute Lymphs (auto) 0.22 L, Nucleated RBC % 0, Differential Comment SCANNED, Diff Path Review March foll 05/16/20 01:50: PT 14.7, INR 1.2 05/16/20 01:50: Sodium 140, Potassium 4.5, Chloride 112 H, Carbon Dioxide 23.0, Anion Gap 5, BUN 33 H, Creatinine 1.16, Estim Creat Clear Calc 64.10, Est GFR (MDRD) Af Amer 79, Est GFR (MDRD) Non-Af 66, BUN/Creatinine Ratio 28.4 H, Glucose 166 H, Calcium 8.1 L, Total Bilirubin 0.90, AST 38 H, ALT 31, Alkaline Phosphatase 127 H, Troponin I < 0.015, Total Protein 7.1, Albumin 3.3, Globulin 3.8, Albumin/Globulin Ratio 0.9, Lipase 51 L 05/16/20 01:50: B-Natriuretic Peptide 365.1 H Current Medications Nitroglycerin (Nitrostat) 0.4 mg SUBLINGUAL Q5M PRN PRN Reason: Chest pain Last Admin: 05/16/20 01:55 Dose: 0.4 mg Documented by: Assessment/Plan All Active Problems (Last Reviewed 10/31/19 @ 17:33 by Riat Anthony) Chest pain (Acute) Acute on chronic systolic (congestive) heart failure (Acute) Presence of aortocoronary bypass graft (Resolved) History of tonsillectomy (Resolved) ICD fired (Resolved) The patient is a 75 y/o M w/ PMHx: CABG x 2, Chronic COPD, Chronic Systolic CHF/Ischemic Cardiomyopathy s/p AICD placement, HTN, HLD, PAF, Hx BPPV who presents to the [facility] ED on 05/16/20 with history of onset chest pain onset at approximately 10 pm with chest heaviness, substernal and band-like across his chest, rated 10 out of 10 in severity at its initial onset with nausea with emesis, dyspnea noting that he had eaten taco lofton prior. 1. Chest Pain: EKG in ED with paced rhythm with no acute evidence of ischemia, CXR w/ chronic changes with no obvious acute cardiopulmonary findings, initial trop normal x1. Will admit to PCU, place on a monitored bed to assure no acute myocardial infarction with serial cardiac enzymes and EKGs. If cardiac enzymes and repeat EKGs remain unremarkable will plan to pursue a.m. cardiac stress testing. Will request magnesium level. FLP in AM. ASA, NG, morphine. 2. Pancytopenia, unclear if acute or chronic component: Admission CBC with WC 2.1, hemoglobin 10.8, platelet 117 with ANC 1.7 and lymphopenia present. Patient has not had any recent labs with last noted 11/05/2018 with normal CBC at that time. Will repeat CBC in a.m. and may necessitate outpatient hematology/oncology follow-up. 3. Hyperglycemia: Admission glucose 166, will obtain hemoglobin A1c. 4. CAD: Status post CABG ALSTON to LAD, SVG to OM 2013, will continue patient aspirin, statin, Coreg, lisinopril regimen. 5. Systolic CHF, ischemic cardiomyopathy: Status post AICD placement, continue aspirin, statin, Coreg, lisinopril, Lasix regimen. Will request device interrogation. We will also request echocardiogram as patient was supposed to have it today in conjunction with #1 assessment. 6. Hypertension: Continue home regimen including Coreg, isosorbide, lisinopril, Lasix, PRN hydralazine. 7. Hyperlipidemia: Continue home statin regimen. AM FLP. 8. BPH: We will continue patient home finasteride and Flomax regimen. 9. Chronic COPD: Patient from current list not on scheduled aerosols, will maintain on PRN albuterol, add duo nebs if necessary. 10. PAF: We will continue patient home aspirin, amiodarone, Coreg regimen. Patient is not anticoagulated. 11. DVT prophylaxis: SCDs, Lovenox cautiously and will hold if further alterations to a.m. repeat CBC. 12. CODE status: Patient FADI is his friend Tabatha Mejía and living will is currently in place. Discussed CODE status at length including difference between FULL code, DNR-CCA and DNR-CC status. Following discussions about the differences in these status, requested continued full CODE STATUS. Advanced Care Planning Face to Face Time: 16 minutes. OBSV E&M: 31844 Initial observation care L3 Procedures: 03416 Advncd Care Plan 30 Min
--- NOTE | 2020-05-16 03:52 | EKG12_ITS ---
Test Reason : CP ADMIT Blood Pressure : / mmHG Vent. Rate : 069 BPM Atrial Rate : 069 BPM P-R Int : 152 ms QRS Dur : 174 ms QT Int : 528 ms P-R-T Axes : 053 -67 091 degrees QTc Int : 565 ms Atrial-sensed ventricular-paced rhythm Biventricular pacemaker detected Abnormal ECG When compared with ECG of 03-NOV-2018 05:56, No significant change was found Confirmed by ARMIN JAIME, TONY ([id number]), society editor ROSELINE HE ([id number]) on 05/18/2020 9:14:20 AM Referred By: SATHISH Confirmed By:JENNIFER FUNEZ MD
--- NOTE | 2020-05-16 03:52 | ECHOCS_ITS ---
Reason For Study: ARRHYTHMIA Procedure This was a 2D Doppler, Color Flow transthoracic echocardiogram. The study was technically difficult. Due to body habitus. Contrast injection was performed. Exam performed in department. Left Ventricle Mildly dilated left ventricle. The estimated ejection fraction is 35 %. Stage 1 diastolic dysfunction. Mild hypokinesis of the inferior and anterior wall. Rest of the manning are moderate to severely hypokinetic. Right Ventricle Normal RV size. Normal systolic function. Atria The left atrium is mildly enlarged. Normal right atrium. No doppler evidence for ASD. Mitral Valve There is no mitral valve stenosis. Trivial mitral valve insufficiency. Tricuspid Valve There is no tricuspid stenosis. Unable to estimate RV systolic pressure due to insufficient tricuspid regurgitant envelope. Unable to estimate RV systolic pressure due to inadequate jet, pulmonary artery pressure probably normal. Aortic Valve Trisinus/trileaflet aortic valve. Aortic sclerosis, no stenosis. There is no aortic stenosis. Mild (1+) aortic valve insufficiency. Pulmonic Valve There is no pulmonic valvular stenosis. No pulmonic valve insufficiency. Great Vessels Normal aortic root. Pericardium/Pleural No pericardial effusion. Medication Diluted definity 4.0ml given slow IV push to enhance endocardial definition. MMode/2D Measurements & Calculations LVIDd: 6.6 cm IVSd: 1.4 cm Ao root diam: 3.7 cm LVIDs: 5.5 cm LVPWd: 1.3 cm FS: 15.6 % LAV(MOD-bp): 65.1 ml LA A4 area: 20.5 cm2 LA dimension(2D): 4.8 cm LAV(MOD-bp) Indexed: 30.6 ml/m2 LAV(MOD-sp2): 68.1 ml LAV(MOD-sp4): 62.6 ml RA A4 area: 20.2 cm2 Doppler Measurements & Calculations MV E max mark: 47.6 cm/sec Lat Peak E' Mark: 5.0 cm/sec Med Peak E' Mark: 4.0 cm/sec MV A max mark: 106.1 cm/sec E/E' lat: 9.6 E/E' med: 11.9 MV E/A: 0.45 Ao V2 max: 134.2 cm/sec AI max mark: 369.8 cm/sec LV V1 max: 76.3 cm/sec Ao max P.2 mmHg AI max P.8 mmHg LV V1 max P.3 mmHg Ao V2 mean: 97.5 cm/sec AI dec slope: 255.0 cm/sec2 Ao mean P.1 mmHg AI P1/2t: 424.7 msec Ao V2 VTI: 27.6 cm PA V2 max: 83.7 cm/sec Interpretation Summary The estimated ejection fraction is 35 %. Stage 1 diastolic dysfunction. Mild hypokinesis of the inferior and anterior wall. Rest of the manning are moderate to severely hypokinetic Trivial mitral valve insufficiency. Mild (1+) aortic valve insufficiency. Ordering Physician: Laura Garcia Referring Physician: Sohan Gonzalez Performed By: Catalina Mcneal, VALERIA, RVT
[2020-05-16 04:06] LABS: Magnesium 2.3 mg/dL (1.6-2.6)
[2020-05-16] MEDS: Famotidine 20 MG Tablet PO ×2 (04:17→11:16)
[2020-05-16 05:08] LABS: Absolute Lymphocyte Count 0.26 X10^3/uL (0.83-4.51); Absolute Neutrophil Count 1.9 X10^3/uL (2.0-7.7); Basophil# 0.01 X10^3/uL; Basophil% 0.4 % (0-1); Eosinophil# 0.01 X10^3/uL; Eosinophils% 0.4 % (0-5); Hematocrit 36.5 % (40-54); Hemoglobin 10.7 g/dL (13.0-16.5); Lymphocyte # 0.26 X10^3/ul (4.0); Lymphocyte % 11.2 % (19-41); Mean Corp Hgb Conc 29.3 g/dL (32-36); Mean Corpuscular Hgb 24.1 pg (27.0-32.0); Mean Corpuscular Volume 82.2 fL (80-94); Mean Platelet Vol. 10.1 fl (6.2-12.0); Monocyte# 0.16 X10^3/uL; Monocyte% 6.9 % (0-10); NRBC Flagged by Analyzer 0 % (0-5); Neutrophil # 1.88 X10^3/uL (2.7-7.7); Neutrophil % 80.7 % (47-70); POSITIVE DIFFERENTIAL YES; POSITIVE MORPHOLOGY YES; Platelet Count 134 K/mm3 (150-450); RBC Distribution Width CV 15.4 % (11.6-14.6); RBC Distribution Width SD 45.3 fl (35.1-43.9); Red Blood Count 4.44 M/mm3 (4.6-6.2); White Blood Count 2.3 K/mm3 (4.4-11.0)
[2020-05-16 05:10] LABS: Differential Indicated SCAN CRITERIA MET
[2020-05-16 05:26] LABS: ALB/GLOB Ratio 0.9 RATIO (0.9-2.4); AST(SGOT) 31 U/L (15-37); Alanine Aminotransfer ALT/SGPT 32 U/L (16-61); Albumin, Serum 3.3 g/dL (3.2-5.0); Alkaline Phosphatase 112 U/L (45-117); Anion Gap 6 (5-15); BUN 32 mg/dL (7-18); BUN/Creat Ratio 29.4 RATIO (10-20); Calcium,Total 8.2 mg/dL (8.5-10.1); Chloride 110 mmol/L (98-107); Cholesterol 127 mg/dL (200); Creatinine, Serum 1.09 mg/dL (0.70-1.30); EST Glomerular Filtration Rate 70 mL/min (>60); Est Glom Filt Rate - Afr Amer 85 mL/min (>60); Estimated Creatinine Clearance 68.21 ml/min; Globulin 3.7 g/dL (2.2-4.2); Glucose 131 mg/dL (74-106); High Density Lipoprotein 42 mg/dL; Sodium Level 141 mmol/L (136-145); Triglycerides 62 mg/dL; Very Low Density Lipoprotein 12 mg/dL (5-40)
[2020-05-16 05:32] LABS: Differential Comment SCANNED
[2020-05-16] MEDS: Lisinopril 5 MG Tablet PO (07:16)
[2020-05-16] MEDS: Amiodarone 200 MG Tablet PO (07:16)
[2020-05-16] MEDS: Aspirin 81 MG TAB.CHEW PO (07:16)
[2020-05-16 07:54] LABS: Hemoglobin A1c 5.5 % (3.8-5.6)
[2020-05-16] MEDS: Furosemide 40 MG Tablet PO (11:15)
[2020-05-16] MEDS: Isosorbide Mononitrate 30 MG Tablet PO (11:15)
[2020-05-16] MEDS: Tamsulosin HCl 0.4 MG Capsule PO (11:15)
[2020-05-16] MEDS: Carvedilol 6.25 MG Tablet PO (11:15)
[2020-05-16] MEDS: Finasteride 5 MG Tablet PO (11:16)
[2020-05-16] MEDS: Enoxaparin 40 MG/0.4 ML Syringe SC (11:16)
--- NOTE | 2020-05-16 12:46 | DCINST_ITS ---
- Discharge Diagnoses Current Active Problems: Current Active and Chronic Problems (Last Reviewed 10/31/19 @ 17:33 by Rita Anthony) Chest pain (Acute) You will use the following diet at home:: No restrictions Your food should be the consistency of: Regular Your liquids should be the consistency of: Regular/Thin Discharge Activity: Return to Normal Activity Weight Bearing Status: Full weight bearing Allergies/Adverse Reactions: Allergies No Known Allergies Allergy (Verified 05/16/20 01:46) Medications to take at Discharge Albuterol Aerosols [Ventolin Aerosols] 2.5 mg INHALATION Q6H PRN PRN 12/14/14 Albuterol Inhaler [Ventolin Hfa] 1 - 2 puff INHALATION Q6H PRN PRN 12/14/14 Aspirin [Aspirin, Baby] 81 mg PO DAILY 12/14/14 tamsulosin 0.4 mg capsule 0.4 mg PO DAILY cap 11/11/18 simvastatin 40 mg tablet 40 mg PO QHS #90 tab 08/08/19 lisinopril 5 mg tablet 5 mg PO DAILY #90 tab 09/15/19 isosorbide mononitrate 30 mg tablet,extended release 24 hr 30 mg PO DAILY #90 tab 09/21/19 Amiodarone HCl 200 mg PO DAILY 11/22/19 Handicap Parking Placard #1 ea 12/15/19 finasteride 5 mg tablet 5 mg PO DAILY 12/15/19 carvedilol 6.25 mg tablet 6.25 mg PO .COMPLEX #135 tab 01/23/20 nitroglycerin 0.4 mg sublingual tablet 0.4 mg SUBLINGUAL Q5M PRN #25 tab 04/30/20 furosemide 40 mg tablet 40 mg PO DAILY #90 tab 05/01/20 Primary Care Physician: Sohan Gonzalez DO [Primary Care Provider] - Please follow up with your Primary Care Physician in: as scheduled Test Results: Test results from this visit will be discussed in further detail at your follow- up appointment, if applicable. Please Follow Up With: Nabeel Guevara MD When: as scheduled
[2020-05-16] MEDS: Albuterol 2.5 MG/3 ML VIAL.NEB. INHALATION (13:08)
[2020-05-16 14:07] LABS: Pathologist Review Reviewed
[2020-05-16 14:09] LABS: Pathologist Review Reviewed
--- NOTE | 2020-05-16 14:14 | PHA.DC.MR ---
Pharmacy Service has performed discharge medication reconciliation for this patient. The patient's discharge medication list was reviewed for discrepancies and discrepancies were resolved. Home Medications Albuterol Aerosols [Ventolin Aerosols] 2.5 mg INHALATION Q6H PRN PRN 12/14/14 Albuterol Inhaler [Ventolin Hfa] 1 - 2 puff INHALATION Q6H PRN PRN 12/14/14 Aspirin [Aspirin, Baby] 81 mg PO DAILY 12/14/14 tamsulosin 0.4 mg capsule 0.4 mg PO DAILY cap 11/11/18 simvastatin 40 mg tablet 40 mg PO QHS #90 tab 08/08/19 lisinopril 5 mg tablet 5 mg PO DAILY #90 tab 09/15/19 isosorbide mononitrate 30 mg tablet,extended release 24 hr 30 mg PO DAILY #90 tab 09/21/19 Amiodarone HCl 200 mg PO DAILY 11/22/19 Handicap Parking Placard #1 ea 12/15/19 finasteride 5 mg tablet 5 mg PO DAILY 12/15/19 carvedilol 6.25 mg tablet 6.25 mg PO .COMPLEX #135 tab 01/23/20 nitroglycerin 0.4 mg sublingual tablet 0.4 mg SUBLINGUAL Q5M PRN #25 tab 04/30/20 furosemide 40 mg tablet 40 mg PO DAILY #90 tab 05/01/20
--- NOTE | 2020-05-17 08:51 | PCM.DC.SUM ---
Discharge Date and Diagnosis Date of Admission: 05/16/20 Date of Discharge: 05/16/20 - Primary Discharge Diagnosis Acute Problems: #1 chest pain-etiology unknown, not felt to be cardiac in nature #2 ischemic cardiomyopathy #3 hyperlipidemia #4 paroxysmal atrial fibrillation #5 pulmonary hypertension #6 atherosclerotic heart disease - Secondary Discharge Diagnosis Chronic Problems: Chronic Problems (Last Reviewed 10/31/19 @ 17:33 by Rita Anthony) Pulmonary hypertension (Chronic) Other secondary pulmonary hypertension (Chronic) RVSP 52mmhg per echo 02/09/17 Nonrheumatic tricuspid (valve) insufficiency (Chronic) Nonrheumatic aortic (valve) insufficiency (Chronic) Paroxysmal atrial fibrillation (Chronic) Atherosclerotic heart disease of [place] coronary artery without angina pectoris (Chronic 11/14/13) CABG X 2 vessels: [place]STON to LAD, SVG to OM branch of CX per Dr. Can Balderas, [facility] Automatic implantable cardiac defibrillator in situ (Chronic) BiV ICD implant 01/10/2015 @ [facility] LBBB (left bundle branch block) (Chronic) Old myocardial infarction (Chronic) Chronic systolic (congestive) heart failure (Chronic) HLD (hyperlipidemia) (Chronic) BPV (benign positional vertigo) (Chronic) Wide-complex tachycardia (Chronic) Ischemic cardiomyopathy (Chronic) EF 15-20% per echo 02/09/2017 COPD (chronic obstructive pulmonary disease) (Chronic) Hypertension (Chronic) Hospital Course and Treatment Operations: None Procedures: 2-D Echocardiogram Summary of Care Provided: The patient is a 75 year old M seen in the emergency room at [facility] with a chief complaint of left-sided chest discomfort that radiated from his epigastric area and occurred after he had eaten at [employer]. Work-up in the emergency room included cardiac isoenzymes which were unremarkable, EKG showed a paced rhythm. Patient's chest x-ray showed no evidence of CHF. Patient was placed in observation status on PCU, cardiac enzymes were cycled and remained normal. Patient was scheduled to have a pharmacological nuclear stress test performed but the patient refused the test due to concerns of reaction to the Lexiscan. Echocardiogram was obtained which showed an improvement in the patient's ejection fraction at 35%. Patient was seen and examined on 05/16/2020: On examination he appeared in good health and spirits. Vital signs as documented. Skin warm and dry and without overt rashes. Neck without JVD, neck was supple, trachea midline, thyroid was normal. Lungs clear bilaterally, normal air movement was noted. Heart exam notable for regular rhythm-paced, normal sounds and absence of murmurs, rubs or gallops. Abdomen unremarkable and without evidence of organomegaly, masses, or abdominal aortic enlargement. Bowel sounds are present, abdomen is not distended. Extremities nonedematous, no cyanosis was noted, no clubbing was noted. Neuro: Cranial nerves II through XII are grossly intact, no focal motor deficits were noted, sensation to light touch and pinprick intact, motor exam 5/5 throughout. Psych: Patient is alert and oriented x3, he does not appear anxious or depressed, he does not appear agitated. Patient was felt to be stable for discharge on 05/16/2020. - Physical Exam Vitals/I&O's: Vital Signs Temp Pulse Resp BP Pulse Ox 97.9 F 73 16 108/59 L 96 05/16/20 14:30 05/16/20 14:30 05/16/20 14:30 05/16/20 14:30 05/16/20 14:30 Oxygen Flow Rate (L/min) 2 Oxygen Delivery Method Room Air Weight: 88.2 kg Body Mass Index (BMI) 25.6 Intake and Output for Last 24 Hours 05/15/20 05/16/20 05/17/20 23:59 23:59 23:59 Intake Total 360 / 360 Output Total 250 / 250 Balance 110 / 110 Laboratory Results 05/16/20 01:50: Diff Path Review Reviewed 05/16/20 04:50: Diff Path Review Reviewed Discharge Activity: Return to Normal Activity Weight Bearing Status: Full weight bearing Home Medications: Medications to take at Discharge Albuterol Aerosols [Ventolin Aerosols] 2.5 mg INHALATION Q6H PRN PRN 12/14/14 Albuterol Inhaler [Ventolin Hfa] 1 - 2 puff INHALATION Q6H PRN PRN 12/14/14 Aspirin [Aspirin, Baby] 81 mg PO DAILY 12/14/14 tamsulosin 0.4 mg capsule 0.4 mg PO DAILY cap 11/11/18 simvastatin 40 mg tablet 40 mg PO QHS #90 tab 08/08/19 lisinopril 5 mg tablet 5 mg PO DAILY #90 tab 09/15/19 isosorbide mononitrate 30 mg tablet,extended release 24 hr 30 mg PO DAILY #90 tab 09/21/19 Amiodarone HCl 200 mg PO DAILY 11/22/19 Handicap Parking Placard #1 ea 12/15/19 finasteride 5 mg tablet 5 mg PO DAILY 12/15/19 carvedilol 6.25 mg tablet 6.25 mg PO .COMPLEX #135 tab 01/23/20 nitroglycerin 0.4 mg sublingual tablet 0.4 mg SUBLINGUAL Q5M PRN #25 tab 04/30/20 furosemide 40 mg tablet 40 mg PO DAILY #90 tab 05/01/20 Primary Care Physician: Sohan Gonzalez DO [Primary Care Provider] - Please follow up with your Primary Care Physician in: as scheduled Please Follow Up With: Nabeel Guevara MD When: as scheduled Disposition: Home Minutes spent on discharge:: 30 Patient Condition:: Stable Medical Necessity - Tobacco Use Smoking Status: Former smoker Tobacco Use: Non-smoker Meaningful Use Info Meaningful Use Diagnoses (Choose all that apply): None applicable OBSV E&M: 72172 Observ/hosp same date L3
== END 2020-05-16 12:46 | disposition home or self-care (01) ==
LOC: ED 02:24 → PCU 03:06
PROVIDERS: Admitting Provider Family Medicine; Emergency Provider Emergency Medicine; PCP Student in an Organized Health Care Education/Training Program; Visit Provider Internal Medicine
DX: R07.89 Other chest pain (principal); I25.5 Ischemic cardiomyopathy; E78.5 Hyperlipidemia, unspecified; I48.0 Paroxysmal atrial fibrillation; I25.10 Atherosclerotic heart disease of native coronary artery without angina pectoris; I27.29 Other secondary pulmonary hypertension; J44.9 Chronic obstructive pulmonary disease, unspecified; R11.2 Nausea with vomiting, unspecified; R06.02 Shortness of breath; D61.818 Other pancytopenia; I11.0 Hypertensive heart disease with heart failure; I50.23 Acute on chronic systolic (congestive) heart failure; H81.10 Benign paroxysmal vertigo, unspecified ear; I25.2 Old myocardial infarction; Z79.899 Other long term (current) drug therapy; Z79.82 Long term (current) use of aspirin; Z95.1 Presence of aortocoronary bypass graft; Z87.891 Personal history of nicotine dependence; Z95.810 Presence of automatic (implantable) cardiac defibrillator; R73.9 Hyperglycemia, unspecified; N40.1 Benign prostatic hyperplasia with lower urinary tract symptoms; R33.8 Other retention of urine
CPT/HCPCS: 36415; 71045; 80053; 80061; 83036; 83690; 83735; 83880; 84484; 85025; 85610; 93005; 93306; 94640; 96372; 96374; 99218; 99285; A4216; C8929; G0378; J2405

== ENCOUNTER 2020-09-09 04:04 | Emergency (ER) | payer MEDICARE, MEDICAID, SELFPAY ==
[2020-07-02 10:11] VITALS: BMI 26.8
[2020-09-09 04:04] VITALS: BP 141/78; PULSE 87; RESP 20; TEMP 36.6; O2SAT 94; BMI 26.0
[2020-09-09 04:36] LABS: Mucous, Urine 0 SEEN /hpf (<or=2+); Squamous Epithelial Cells - UA 0 SEEN /hpf (0-5); White Blood Cells 0 SEEN /hpf (0-5)
[2020-09-09 04:37] LABS: Color, Urine Yellow (Yellow); Glucose, Dipstick Normal (Normal); Ketone-Dipstick Negative (Negative); Leukocyte Esterase-Dipstick Negative /ul (Negative); Nitrite-Dipstick Negative (Negative); Occult Blood-Urine 150 /ul (Negative); Protein-Dipstick Negative (Negative); Urine Bilirubin Dipstick Negative (Negative); Urine Clarity Clear (Clear); Urine Urobilinogen Normal (Normal)
--- NOTE | 2020-09-09 04:39 | ED.VIS.GEN ---
History of Present Illness Chief Complaint: Complaint Informant: Patient Onset: Yesterday Narrative: Presents with difficulty urinating past 24 hours. His last full urination 1 AM yesterday. States since then has been dribbling every 5 to 10 minutes. History of enlarged prostate on Flomax. States mild dysuria. No fevers. No abdominal pain. No nausea or vomiting. Normal bowel movements. Has had a Cohn catheter in the past. Reports does follow urologist however cannot recall the name at this time. Prior similar symptoms: Yes Past Medical History - Allergies and Home Meds Allergies/Adverse Reactions: Allergies No Known Allergies Allergy (Verified 09/09/20 04:09) Primary Care Physician: Sohan Gonzalez DO [Primary Care Provider] - Past Medical History: - - Hypertension, hyperlipidemia, paroxysmal atrial fibrillation, coronary disease, BPH, COPD Surgical History: coronary bypass surgery, - - CABG x2, AICD/pacemaker placement, lumbar back surgery, tonsillectomy, left knee arthroscopic surgery. Smoking Status: Former smoker - Family History Maternal Family History: Family History (Last Reviewed 07/02/20 @ 15:09 by Alesha PALOMINO, PA) Father CAD (coronary artery disease) Diabetes Cancer Myocardial infarction Mother Breast cancer Hypertension Family History: Reports: - - Patient with maternal family history of hypertension and breast cancer. Paternal Family History: Family History (Last Reviewed 07/02/20 @ 15:09 by Alesha PALOMINO, PA) Father CAD (coronary artery disease) Diabetes Cancer Myocardial infarction Mother Breast cancer Hypertension Family History: Reports: - - Patient with a paternal family history of CAD, [place] history, diabetes, history of lung cancer. Review of Systems General: Denies: Chills, Fever, Sweats Eyes: Denies: Visual changes - bilaterally, Diplopia ENT: Denies: Rhinorrhea, Sore throat Cardiovascular: Denies: Chest pain, Palpitations Respiratory: Denies: Dyspnea, Cough, Dyspnea on exertion Gastrointestinal: Denies: Abdominal pain, Nausea, Vomiting, Diarrhea, Melena, Hematochezia Genitourinary: Reports: Dysuria, - - Difficulty urinating. Denies: Hematuria, Frequency Musculoskeletal: Denies: Back pain, Extremity Pain Skin: Denies: Rash, Wounds Neurological: Denies: Headache, Weakness, Numbness Physical Exam Vital Signs/Narrative: Vital Signs Temp Pulse Resp BP Pulse Ox 09/09/20 04:04 97.8 F 87 20 H 141/78 H 94 Inital Vital Signs reviewed: Yes General: Well nourished, Well developed, No Acute Distress Head: Normocephalic, Atraumatic Eyes: Perrl, EOMI ENT: Moist mucous membranes, No rhinorrhea Neck: Supple, Nontender Cardiovascular: Regular rate, Regular rhythm, No murmurs Respiratory: No distress, CTA bilaterally, Chest nontender Abdomen: Soft, Nondistended, Normal bowel sounds, - - Mild suprapubic tenderness, no guarding or rebound. Back: Nontender, Normal Inspection Extremities: Nontender, No edema Skin: Normal color, No rash Neurological: Alert, Oriented x3, Cranial nerves II-XII grossly intact, Normal Strength, Normal Sensation Psychological: Normal affect, Normal Mood Diagnostic/Tx/Re-eval - Medical Decision Making Cohn catheter placed just over 400 cc of urine output with improvement of symptoms. Urine no infection noted blood. Urine culture pending. We will maintain the Cohn catheter he is currently on Flomax. He will follow-up with urology. ED Disposition - Plan for ED Patient: Disposition: Home or Assisted Living Diagnosis: Urine retention, Hematuria, History of BPH Instructions: ED Hematuria, ED Urinary Retention Male, ED Cohn Catheter Care Referrals: Sohan Gonzalez DO [Primary Care Provider] - Brian Orellana MD [STAFF PHYSICIAN] - 3-5 Days
[2020-09-09 04:42] LABS: Bacteria RARE /hpf (None Seen); Red Blood Cells-Urine 10-25 SEEN /hpf (0-5)
== END 2020-09-09 04:53 | disposition home or self-care (01) ==
PROVIDERS: Emergency Provider Emergency Medicine; PCP Student in an Organized Health Care Education/Training Program
DX: N40.1 Benign prostatic hyperplasia with lower urinary tract symptoms (principal); R33.8 Other retention of urine; R31.9 Hematuria, unspecified; E78.5 Hyperlipidemia, unspecified; J44.9 Chronic obstructive pulmonary disease, unspecified; I10 Essential (primary) hypertension; Z79.899 Other long term (current) drug therapy
CPT/HCPCS: 51702; 81001; 87077; 87086; 87088; 87186; 99283

== ENCOUNTER 2021-01-15 16:50 | Outpatient (RCR) | payer MEDICARE, MEDICAID, SELFPAY ==
[2021-01-15] MEDS: COVID-19 VACC, MRNA(PFIZER)/PF 30 MCG/0.3 ML SYRINGE IM (09:23)
[2021-02-05] MEDS: COVID-19 VACC, MRNA(PFIZER)/PF 30 MCG/0.3 ML SYRINGE IM (09:29)
== END 2021-04-09 23:59 ==
LOC: IMMUN 16:50
PROVIDERS: PCP Student in an Organized Health Care Education/Training Program; Visit Provider Family Medicine
DX: Z23 Encounter for immunization (principal)
CPT/HCPCS: 0001A; 0002A; 91300

== ENCOUNTER 2021-05-05 10:22 | Inpatient (IN) | payer MEDICARE, MEDICAID, SELFPAY ==
[2021-02-14 09:11] VITALS: BMI 25.7
[2021-05-05] VITALS (28 sets, daily range): BP systolic 80–142; BP diastolic 42–70; PULSE 36–105; RESP 12–46; TEMP 35–36.6; O2SAT 50–100; BMI 25.9; BMI 26.2
--- NOTE | 2021-05-05 10:25 | EKG12_ITS ---
Test Reason : STROKE Blood Pressure : / mmHG Vent. Rate : 104 BPM Atrial Rate : 104 BPM P-R Int : 180 ms QRS Dur : 152 ms QT Int : 406 ms P-R-T Axes : 067 -56 094 degrees QTc Int : 533 ms Atrial-sensed ventricular-paced rhythm Abnormal ECG Confirmed by HEVER JAIME, LESLIE ([id number]), deputy editor in chief NURIA CRESPO ([id number]) on 05/08/2021 2:19:04 PM Referred By: NIMA Confirmed By:LESLIE KATHLEEN MD
--- NOTE | 2021-05-05 10:25 | CT_ITS ---
STUDY: CT HEAD STROKE PROTOCOL W/O CONTRAST INJECTION REASON FOR EXAM: Male, 76 years old. Left sided deficit RADIATION DOSAGE (If Supplied By Facility): CTDIvol = ( ) mGy, DLP = ( ) mGycm TECHNIQUE: Transaxial CT imaging of the brain was performed without administration of intravenous contrast material. Individualized dose optimization techniques were used for this CT. COMPARISON: 11/14/2017 FINDINGS: 2 cm oval soft tissue mass within the left parotid gland worrisome for tumor namely pleomorphic adenoma or lymphadenopathy. Normal calvarium. Normal size ventricles and extra-axial spaces for the patient''s age. Normal white matter tracts of the cerebral hemispheres. Normal basal ganglia and thalami. Normal brainstem. Normal cerebellum. There is no intracranial hemorrhage. There are no findings of an acute ischemic infarction. Normal visualized paranasal sinuses. ASPECT score: CT/STROKE Brain/Head without Cont IMPRESSION: 1. Normal unenhanced CT scan of the brain. 2. 2 cm of the mass or lymphadenopathy of the left parotid gland. N.B. : The above Results were Read Back by Keegan Owens MD to Otto Slater MD, and understanding confirmed on 05/05/2021 10:47:09 (ET). Electronically Signed: Keegan Owens MD at 10:48 EDT Tel , Service support ,
--- NOTE | 2021-05-05 10:40 | RAD_ITS ---
STUDY: X-RAY CHEST REASON FOR EXAM: Male, 76 years old. Neuro deficit, acute, stroke suspected TECHNIQUE: Single AP portable view of the chest. COMPARISON: 05/16/2020 FINDINGS: Left subclavian dual-lead AICD which is unchanged. Status post median sternotomy. Dense alveolar opacity me upper right lung consistent with right upper lobe pneumonia. There is no demonstrated pleural abnormality. Normal size heart. Normal mediastinum and elliott. Normal visualized pulmonary arteries. Normal visualized aortic arch and descending thoracic aorta. Normal visualized thoracic spine. Normal visualized ribs, clavicles, and shoulders. There is no demonstrated abnormality of the visualized soft tissue structures of the upper abdomen. RAD/Chest 1 View IMPRESSION: Right upper lobe pneumonia. Electronically Signed: Keegan Owens MD at 10:55 EDT Tel , Service support ,
[2021-05-05 10:44] LABS: Absolute Lymphocyte Count 0.21 X10^3/uL (0.83-4.51); Absolute Neutrophil Count 9.2 X10^3/uL (2.0-7.7); Basophil# 0.01 X10^3/uL; Basophil% 0.1 % (0-1); Hematocrit 34.9 % (40-54); Hemoglobin 9.5 g/dL (13.0-16.5); Lymphocyte # 0.21 X10^3/ul (0.83-4.51); Lymphocyte % 2.2 % (19-41); Mean Corp Hgb Conc 27.2 g/dL (32-36); Mean Corpuscular Hgb 20.9 pg (27.0-32.0); Mean Corpuscular Volume 76.9 fL (80-94); Mean Platelet Vol. 9.9 fl (6.2-12.0); Monocyte# 0.19 X10^3/uL; NRBC Flagged by Analyzer 0 % (0-5); Neutrophil % 95.3 % (47-70); POSITIVE DIFFERENTIAL YES; POSITIVE MORPHOLOGY YES; Platelet Count 190 K/mm3 (150-450); RBC Distribution Width CV 20.1 % (11.6-14.6); RBC Distribution Width SD 55.7 fl (35.1-43.9); Red Blood Count 4.54 M/mm3 (4.6-6.2); White Blood Count 9.7 K/mm3 (4.4-11.0)
[2021-05-05 10:46] LABS: Differential Indicated SCAN CRITERIA MET
[2021-05-05 10:51] LABS: Allen Test Positive; Base Excess -1 mmol/L (-2 to +2); Blood Gas Specimen Type ART; FI02 50; O2 Delivery Device BiPAP; PO2 72 mmHG (75-100); RR 12; SITE L Radial; SO2 93 % (95-99); Total Carbon Dioxide 26 mmol/L; pCO2 46.9 mmHg (35-45); pH 7.34 (7.35-7.45)
[2021-05-05 10:58] LABS: International Normalized Ratio 1.3; Prothrombin Time (Protime)PT. 15.8 SECONDS (11.7-14.9)
[2021-05-05 10:59] LABS: Partial Thromboplast Time 30.4 Seconds (24.1-36.2)
[2021-05-05 11:02] LABS: Anion Gap 8 (5-15); BUN 29 mg/dL (7-18); BUN/Creat Ratio 25.9 RATIO (10-20); Chloride 108 mmol/L (98-107); Creatinine, Serum 1.12 mg/dL (0.70-1.30); EST Glomerular Filtration Rate 68 mL/min (>60); Est Glom Filt Rate - Afr Amer 82 mL/min (>60); Estimated Creatinine Clearance 63.51 ml/min; Glucose 125 mg/dL (74-106); Potassium 3.9 mmol/L (3.5-5.1); Sodium Level 143 mmol/L (136-145); Troponin-I HS 15.7 pg/mL (3.0-78.5)
[2021-05-05 11:13] LABS: Lactic Acid 2.7 mmol/L (0.4-1.9)
[2021-05-05] MEDS: 0.9% Normal Saline 1,000 ML 999 ML IV ×2 (11:40→13:01)
--- NOTE | 2021-05-05 11:43 | EDS_ITS ---
HPI History of Present Illness Chief Complaint: Neuro S/Sx Informant: patient, family and EMS Narrative Narrative: Patient is a 76-year-old male who presents to the emergency department for prehospital stroke alert. Per EMS report his last known well was 930. The family member came to check on the patient. He was very short of breath. They reported that he was having left-sided weakness and a facial droop. On arrival to the emergency department patient moving all 4 extremities equally. No appreciated facial droop on my examination. He was a lot more lethargic per EMS prior to coming in. CT scan obtained upon arrival. Patient's failure member was able to come to bedside and help provide history. She states that he was having difficulty breathing. He slumped over to the left but she never really appreciated the left-sided weakness. Patient has had a cough over the past week. No known fevers. He states he has been vaccinated for Covid. He does have a history of CHF, CAD with bypass. Per family report he is on anticoagulation but we did not appreciate this on his medication list. Patient is stating he does have a headache. He is denying any chest pain. [facility] Medical History Atherosclerotic heart disease of [place] coronary artery without angina pectoris (11/14/13) Biventricular ICD (implantable cardioverter-defibrillator) in place (01/10/15) BPV (benign positional vertigo) Chronic systolic (congestive) heart failure COPD (chronic obstructive pulmonary disease) Essential hypertension HLD (hyperlipidemia) Ischemic cardiomyopathy LBBB (left bundle branch block) Paroxysmal atrial fibrillation Wide-complex tachycardia Home Medications albuterol sulfate 1 - 2 puff INHALATION Q6H PRN PRN 12/14/14 [History Last Taken 11/29/19] albuterol sulfate 2.5 mg INHALATION Q6H PRN PRN 12/14/14 [History Last Taken 11/29/19] aspirin 81 mg PO DAILY 12/14/14 [History Last Taken 11/29/19] Handicap Parking Placard #1 ea 12/15/19 [Rx Last Taken Unknown] finasteride 5 mg tablet 5 mg PO DAILY 12/15/19 [History Last Taken Unknown] lisinopril 5 mg tablet 5 mg PO DAILY #90 tab 09/04/20 [Rx Last Taken Unknown] simvastatin 40 mg tablet 40 mg PO QHS #90 tab 09/04/20 [Rx Last Taken Unknown] amiodarone [Pacerone] 200 mg PO DAILY 05/05/21 [History Last Taken Unknown] bumetanide 1 mg PO DAILY 05/05/21 [History Last Taken Unknown] carvedilol [Coreg] 6.25 mg PO DAILY 05/05/21 [History Last Taken Unknown] fluticasone furoate-vilanterol [Breo Ellipta] 1 inh INHALATION DAILY 05/05/21 [History Last Taken Unknown] isosorbide mononitrate 30 mg PO DAILY 05/05/21 [History Last Taken Unknown] lorazepam 0.5 mg PO BID PRN 05/05/21 [History Last Taken Unknown] Allergy/AdvReac Type Severity Reaction Status Date / Time No Known Allergies Allergy Verified 02/14/21 09:11 Family History Father CAD (coronary artery disease) Diabetes Cancer lung cancer Myocardial infarction Mother Breast cancer Hypertension Surgical History H/O coronary artery bypass surgery (11/14/13) History of arthroplasty of left knee History of lumbar surgery History of tonsillectomy Social History Smoking Status: Former smoker how long ago did patient quit smokin12/2013 alcohol intake: never substance use type: does not use caffeine: Yes Type: carbonated beverages and coffee what type of physical activity do you participate in: none seatbelt use: always do you feel safe at home: Yes ROS ROS ED Constitutional Constitutional ED: Denies chills or fever(s) Eyes Eyes: Denies change in vision ENT ENT ED: Denies epistaxis or rhinorrhea Cardiovascular Cardiovascular: Denies chest pain or palpitations Respiratory/Chest Respiratory/Chest: Reports cough, dyspnea and sputum Gastrointestinal Gastrointestinal: Denies abdominal pain, diarrhea, nausea or vomiting Musculoskeletal Musculoskeletal: Denies back pain or neck pain Integumentary Denies rash Neurologic Neurologic: Denies dizziness EXAM Physical Exam Const Vital Signs: 05/05/21 10:25 05/05/21 10:30 05/05/21 10:35 Temperature 97.8 F 97.8 F Temperature Source Temporal Temporal Pulse Rate 105 H 104 H 104 H Respiratory Rate 36 H 35 H 37 H Respiratory Effort Respiratory Depth Respiratory Pattern Blood Pressure 138/70 H Blood Pressure Mean 92 Pulse Ox 93 92 93 Oxygen Delivery Method Bi-pap Bi-pap Oxygen Flow Rate (L/min) 50 Fraction of Inspired Oxygen (FIO2) 50 50 05/05/21 10:36 05/05/21 10:38 05/05/21 10:56 Temperature 97.8 F Temperature Source Temporal Pulse Rate 36 L 102 H Respiratory Rate 40 H 33 H Respiratory Effort Respiratory Depth Respiratory Pattern Blood Pressure 138/70 H Blood Pressure Mean 92 Pulse Ox 92 50 92 Oxygen Delivery Method Bi-pap Bi-pap Oxygen Flow Rate (L/min) Fraction of Inspired Oxygen (FIO2) 50 50 05/05/21 11:04 05/05/21 11:10 05/05/21 11:32 Temperature 97.0 F L Temperature Source Temporal Pulse Rate 91 86 Respiratory Rate 28 H 46 H Respiratory Effort Short of Breath Labored Respiratory Depth Shallow Respiratory Pattern Tachypnea Blood Pressure 80/47 L Blood Pressure Mean 80/47 Pulse Ox 92 91 Oxygen Delivery Method Bi-pap Bi-pap Oxygen Flow Rate (L/min) Fraction of Inspired Oxygen (FIO2) 50 55 50 05/05/21 12:20 05/05/21 13:06 Temperature 96.9 F L 96.9 F L Temperature Source Temporal Temporal Pulse Rate 85 78 Respiratory Rate 36 H 28 H Respiratory Effort Respiratory Depth Respiratory Pattern Blood Pressure 101/52 L 88/55 L Blood Pressure Mean 68 66 Pulse Ox 94 100 Oxygen Delivery Method Bi-pap Bi-pap Oxygen Flow Rate (L/min) 100 Fraction of Inspired Oxygen (FIO2) 50 Positive well nourished and well developed Constitutional Narrative: Patient in moderate respiratory distress. Crackles heard at bedside. He is tachypneic with accessory muscle use. General Appearance ED: well developed HEENT Reports normocephalic, head/scalp atraumatic and moist mucous membranes Eyes PERRL and EOMs intact bilaterally Neck supple Chest Wall inspection of chest normal Resp Resp Narrative: Increased work of breathing. In respiratory distress. He does have retractions. He is tachypneic. Decreased breath sounds on the right with rales. Auscultation: Negative for wheezes Cardio regular rate and regular rhythm GI normal to inspection, nondistended, normoactive bowel sounds and non-tender Palpation: soft; Negative for guarding or rebound tenderness present Extremity normal to inspection General Extremety ED: Negative for edema or tenderness General Extremity: Negative for edema Neuro CN's II-XII intact bilaterally and no sensory deficits noted Neuro Narrative: Patient sleeping but easily arousable. I do not appreciate any acute neurological findings. Current NIH score is 0. Sensorium / Orientation: alert Motor Exam: strength 5/5 throughout Skin no rashes or lesions noted MDM MDM MDM Narrative Medical decision making narrative: Patient presents to the ED for prehospital stroke alert. Once the history is obtained by family this does not seem to be a stroke. This seems to be increased work of breathing and hypoxia causing his symptoms. No focal deficits on my examination. He was taken over to CT scan which did not reveal any acute intracranial findings. There was a incidental parotid mass. He was severely tachypneic and hypoxic. He is immediately started on BiPAP once moved to the room. This did help his breathing. Becoming more alert. Did develop hypotension with this. We are being cautious with IV fluids eval patient does appear septic given his CHF history. Covid swab also being obtained. Chest x-ray does show a right upper lobe pneumonia. Started on broad-spectrum antibiotics. Per family he was on antibiotics the past week for similar symptoms as well as steroids. He denies any recent hospitalizations. Whenever patient arrived we did discuss intubation with him as he has si gnificant increased work of breathing. Blood gas did not show significant acidosis but this was once patient was started on BiPAP. His oxygen saturation was well at that time. Throughout course of ED stay he is still breathing in the 30s with increased work of breathing. Initially patient did not want to be intubated but hospitalist discussed with the patient and now he is agreeable with this. I confirmed this myself. Patient was intubated without complication. He did have transient low blood pressure but has been taken off the norepinephrine as his map has stayed above 65. Patient's family at bedside and explained all findings. I have very low concern for stroke. CT scan of the head did not reveal any acute intracranial abnormality. The parotid mass will need to be addressed once patient's breathing is stabilized. Patient admitted in critical condition. Impression: #1 acute hypoxemic respiratory failure #2 community-acquired pneumonia #3 hypotension #4 lactic acidosis #5 anemia Lab Data Labs: Laboratory Results - last 24 hr 05/05/21 05/05/21 05/05/21 10:30 10:30 10:30 WBC 9.7 RBC 4.54 L Hgb 9.5 L Hct 34.9 L MCV 76.9 L MCH 20.9 L MCHC 27.2 L RDW Std Deviation 55.7 H RDW Coeff of Beto 20.1 H Plt Count 190 MPV 9.9 Immature Gran % (Auto) 0.400 Neut % (Auto) 95.3 H Lymph % (Auto) 2.2 L [place] % (Auto) 2.0 Eos % (Auto) 0.0 Baso % (Auto) 0.1 Absolute Neuts (auto) 9.2 H Absolute Lymphs (auto) 0.21 L Nucleated RBC % 0 PT INR APTT Sodium 143 Potassium 3.9 Chloride 108 H Carbon Dioxide 27.0 Anion Gap 8 BUN 29 H Creatinine 1.12 Estim Creat Clear Calc 63.51 Est GFR (MDRD) Af Amer 82 Est GFR (MDRD) Non-Af 68 BUN/Creatinine Ratio 25.9 H Glucose 125 H Lactic Acid Calcium 8.0 L Troponin I High Sens 15.7 B-Natriuretic Peptide 564.0 H 05/05/21 05/05/21 10:30 10:45 WBC RBC Hgb Hct MCV MCH MCHC RDW Std Deviation RDW Coeff of Beto Plt Count MPV Immature Gran % (Auto) Neut % (Auto) Lymph % (Auto) [place] % (Auto) Eos % (Auto) Baso % (Auto) Absolute Neuts (auto) Absolute Lymphs (auto) Nucleated RBC % PT 15.8 H INR 1.3 APTT 30.4 Sodium Potassium Chloride Carbon Dioxide Anion Gap BUN Creatinine Estim Creat Clear Calc Est GFR (MDRD) Af Amer Est GFR (MDRD) Non-Af BUN/Creatinine Ratio Glucose Lactic Acid 2.7 H* Calcium Troponin I High Sens B-Natriuretic Peptide ABG Data ABG results: ABG 05/05/21 10:46 Specimen Type ART Sample Site L Radial pH 7.34 L Bicarbonate Actual 25.0 Total CO2 26 Base Excess -1 O2 Saturation 93 L O2 % 50 ABG pCO2 46.9 H ABG pO2 72 L Stanislav Test Positive Respiration Rate 12 O2 Delivery Device BiPAP Clinical Comments 19/10 rr12 50% Radiography Diagnostic Testing: Radiology Impression Brain CT 05/05/21 10:25 IMPRESSION: 1. Normal unenhanced CT scan of the brain. 2. 2 cm of the mass or lymphadenopathy of the left parotid gland. N.B. : The above Results were Read Back by Keegan Owens MD to Otto Slater MD, and understanding confirmed on 05/05/2021 10:47:09 (ET). Electronically Signed: Keegan Owens MD at 10:48 EDT Tel , Service support , ADDENDUM: 05/05/21 1055 IMPRESSION: 1. Normal unenhanced CT scan of the brain. 2. 2 cm of the mass or lymphadenopathy of the left parotid gland. N.B. : The above Results were Read Back by Keegan Owens MD to Otto Slater MD, and understanding confirmed on 05/05/2021 10:47:09 (ET). Electronically Signed: Keegan Owens MD at 10:48 EDT Tel , Service support , Chest X-Ray 05/05/21 10:40 IMPRESSION: Right upper lobe pneumonia. Electronically Signed: Keegan Owens MD at 10:55 EDT Tel , Service support , X-ray shows right upper lobe pneumonia. Repeat chest x-ray showed endotracheal tube in appropriate position. EKG Initial EKG: Attestation: I personally reviewed and interpreted this EKG as follows: (Rate of 104 bpm and an atrial sensed ventricular paced rhythm. Prolonged QRS of 152. No significant ST elevations or depressions.) Procedures Intubations Intubation Method: orotracheal (Patient had borderline low blood pressure and was started on norepinephrine. He had a very slight transient hypotension post procedure. Patient was sedated with etomidate and paralyzed with rocuronium. Intubated with a 7-1/2 tube. 20 cm at the lips. No acute complications.) Intubation Verification: Positive color change and Bilateral breath sounds confirmed Intubation Complications: no complications Critical Care Time Critical Care Time: Yes Critical care time (excluding procedures): 30-74 minutes, Discussing w/Patient &/or Family/Tool Room Lathe Operator, Discussing w/Consultants, Arranging Admission or Transfer and Performing Direct Patient Care at Bedside Discharge Plan Disposition Disposition: Acute Care Hospital [facility] Discharge Date/Time: 05/05/21 14:58
--- NOTE | 2021-05-05 13:29 | HP.PCM.HOS_ITS ---
HPI - General General Date of Admission: 05/05/21 Date of Service: 05/05/21 Chief Complaint: shortness of breath HPI Narrative IRWIN LOTT, is a 76 M who presents shortness of breath over the past few days. Had seen his primary care physician on and was felt to have a exacerbation of COPD at that time and received prednisone but also lorazepam. Despite that, the patient has progressively gotten worse. Patient does have k nown COPD but is not on oxygen at home. Presented to the emergency room and was placed on BiPAP. Patient by the time I did see him and been on the BiPAP for roughly 3 hours and stated that he was feeling better but was rebreathing around forty times per minute. Patient initially told the emergency room physician he did not want to be intubated but after further discussion with him on my arrival patient except to be intubated. Patient was found to have a right upper lobe infiltrates and did receive Pipracil and/tazobactam and vancomycin. 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) BPV (benign positional vertigo) Chronic systolic (congestive) heart failure COPD (chronic obstructive pulmonary disease) Essential hypertension HLD (hyperlipidemia) Ischemic cardiomyopathy LBBB (left bundle branch block) Paroxysmal atrial fibrillation Wide-complex tachycardia Home Medications albuterol sulfate 1 - 2 puff INHALATION Q6H PRN PRN 12/14/14 [History Last Taken 11/29/19] albuterol sulfate 2.5 mg INHALATION Q6H PRN PRN 12/14/14 [History Last Taken 11/29/19] aspirin 81 mg PO DAILY 12/14/14 [History Last Taken 11/29/19] Handicap Parking Placard #1 ea 12/15/19 [Rx Last Taken Unknown] finasteride 5 mg tablet 5 mg PO DAILY 12/15/19 [History Last Taken Unknown] lisinopril 5 mg tablet 5 mg PO DAILY #90 tab 09/04/20 [Rx Last Taken Unknown] simvastatin 40 mg tablet 40 mg PO QHS #90 tab 09/04/20 [Rx Last Taken Unknown] amiodarone [Pacerone] 200 mg PO DAILY 05/05/21 [History Last Taken Unknown] bumetanide 1 mg PO DAILY 05/05/21 [History Last Taken Unknown] carvedilol [Coreg] 6.25 mg PO DAILY 05/05/21 [History Last Taken Unknown] fluticasone furoate-vilanterol [Breo Ellipta] 1 inh INHALATION DAILY 05/05/21 [History Last Taken Unknown] isosorbide mononitrate 30 mg PO DAILY 05/05/21 [History Last Taken Unknown] lorazepam 0.5 mg PO BID PRN 05/05/21 [History Last Taken Unknown] Allergy/AdvReac Type Severity Reaction Status Date / Time No Known Allergies Allergy Verified 02/14/21 09:11 Family History Father CAD (coronary artery disease) Diabetes Cancer lung cancer Myocardial infarction Mother Breast cancer Hypertension Surgical History H/O coronary artery bypass surgery (11/14/13) History of arthroplasty of left knee History of lumbar surgery History of tonsillectomy Social History Smoking Status: Former smoker how long ago did patient quit smokin12/2013 alcohol intake: never substance use type: does not use caffeine: Yes Type: carbonated beverages and coffee what type of physical activity do you participate in: none seatbelt use: always do you feel safe at home: Yes ROS ROS Narrative Shortness of breath and cough. All review of systems were negative except as mentioned above in the history of present illness and the other review of systems. Vital Signs Vital Signs Vital Signs: 05/05/21 10:25 05/05/21 10:30 05/05/21 10:35 Temperature 36.6 C 36.6 C Temperature Source Temporal Temporal Pulse Rate 105 H 104 H 104 H Respiratory Rate 36 H 35 H 37 H Respiratory Effort Respiratory Depth Respiratory Pattern Blood Pressure 138/70 H Blood Pressure Mean 92 Pulse Ox 93 92 93 Oxygen Delivery Method Bi-pap Bi-pap Oxygen Flow Rate (L/min) 50 Fraction of Inspired Oxygen (FIO2) 50 50 05/05/21 10:36 05/05/21 10:38 05/05/21 10:56 Temperature 36.6 C Temperature Source Temporal Pulse Rate 36 L 102 H Respiratory Rate 40 H 33 H Respiratory Effort Respiratory Depth Respiratory Pattern Blood Pressure 138/70 H Blood Pressure Mean 92 Pulse Ox 92 50 92 Oxygen Delivery Method Bi-pap Bi-pap Oxygen Flow Rate (L/min) Fraction of Inspired Oxygen (FIO2) 50 50 05/05/21 11:04 05/05/21 11:10 05/05/21 11:32 Temperature 36.1 C L Temperature Source Temporal Pulse Rate 91 86 Respiratory Rate 28 H 46 H Respiratory Effort Short of Breath Labored Respiratory Depth Shallow Respiratory Pattern Tachypnea Blood Pressure 80/47 L Blood Pressure Mean 80/47 Pulse Ox 92 91 Oxygen Delivery Method Bi-pap Bi-pap Oxygen Flow Rate (L/min) Fraction of Inspired Oxygen (FIO2) 50 55 50 05/05/21 12:20 05/05/21 13:06 Temperature 36.1 C L 36.1 C L Temperature Source Temporal Temporal Pulse Rate 85 78 Respiratory Rate 36 H 28 H Respiratory Effort Respiratory Depth Respiratory Pattern Blood Pressure 101/52 L 88/55 L Blood Pressure Mean 68 66 Pulse Ox 94 100 Oxygen Delivery Method Bi-pap Bi-pap Oxygen Flow Rate (L/min) 100 Fraction of Inspired Oxygen (FIO2) 50 Weight Weight: 86.636 kg Body Mass Index (BMI) 25.9 Physical Exam Const alert and oriented x3 Constitutional Narrative: On BiPAP. Tachypneic. Afebrile. HEENT normocephalic and head/scalp atraumatic Neck no lymphadenopathy Resp Resp Narrative: Diminished bilaterally. Bilateral wheezes. Cardio no murmurs and no rub Cardio Narrative: Tachycardic. GI normal to inspection, nondistended, normoactive bowel sounds, non-tender and non-distended Extremity Extremity Narrative: Trace lower extremity edema Skin no rashes or lesions noted and no wounds Neuro Neuro Narrative: No clonus Sensorium / Orientation: awake and alert Results Lab / Micro Data Attestation: I reviewed the patient's lab results. Result Diagrams: 05/05/21 10:30 05/05/21 10:30 Labs: Laboratory Results - last 24 hr 05/05/21 05/05/21 05/05/21 10:30 10:30 10:30 WBC 9.7 RBC 4.54 L Hgb 9.5 L Hct 34.9 L MCV 76.9 L MCH 20.9 L MCHC 27.2 L RDW Std Deviation 55.7 H RDW Coeff of Beto 20.1 H Plt Count 190 MPV 9.9 Immature Gran % (Auto) 0.400 Neut % (Auto) 95.3 H Lymph % (Auto) 2.2 L Thayer % (Auto) 2.0 Eos % (Auto) 0.0 Baso % (Auto) 0.1 Absolute Neuts (auto) 9.2 H Absolute Lymphs (auto) 0.21 L Nucleated RBC % 0 PT INR APTT Sodium 143 Potassium 3.9 Chloride 108 H Carbon Dioxide 27.0 Anion Gap 8 BUN 29 H Creatinine 1.12 Estim Creat Clear Calc 63.51 Est GFR (MDRD) Af Amer 82 Est GFR (MDRD) Non-Af 68 BUN/Creatinine Ratio 25.9 H Glucose 125 H Lactic Acid Calcium 8.0 L Troponin I High Sens 15.7 B-Natriuretic Peptide 564.0 H 05/05/21 05/05/21 10:30 10:45 WBC RBC Hgb Hct MCV MCH MCHC RDW Std Deviation RDW Coeff of Beto Plt Count MPV Immature Gran % (Auto) Neut % (Auto) Lymph % (Auto) Thayer % (Auto) Eos % (Auto) Baso % (Auto) Absolute Neuts (auto) Absolute Lymphs (auto) Nucleated RBC % PT 15.8 H INR 1.3 APTT 30.4 Sodium Potassium Chloride Carbon Dioxide Anion Gap BUN Creatinine Estim Creat Clear Calc Est GFR (MDRD) Af Amer Est GFR (MDRD) Non-Af BUN/Creatinine Ratio Glucose Lactic Acid 2.7 H* Calcium Troponin I High Sens B-Natriuretic Peptide Micro: Microbiology 05/05/21 11:18 SARS-CoV-2 Antigen (Rapid) - Final Mucosa - Nose ABG Data ABG results: ABG 05/05/21 10:46 Specimen Type ART Sample Site L Radial pH 7.34 L Bicarbonate Actual 25.0 Total CO2 26 Base Excess -1 O2 Saturation 93 L O2 % 50 ABG pCO2 46.9 H ABG pO2 72 L Stanislav Test Positive Respiration Rate 12 O2 Delivery Device BiPAP Clinical Comments 19/10 rr12 50% Radiology Impression Brain CT 05/05/21 10:25 IMPRESSION: 1. Normal unenhanced CT scan of the brain. 2. 2 cm of the mass or lymphadenopathy of the left parotid gland. N.B. : The above Results were Read Back by Keegan Owens MD to Otto Slater MD, and understanding confirmed on 05/05/2021 10:47:09 (ET). Electronically Signed: Keegan Owens MD at 10:48 EDT Tel , Service support , ADDENDUM: 05/05/21 1055 IMPRESSION: 1. Normal unenhanced CT scan of the brain. 2. 2 cm of the mass or lymphadenopathy of the left parotid gland. N.B. : The above Results were Read Back by Keegan Owens MD to Otto Slater MD, and understanding confirmed on 05/05/2021 10:47:09 (ET). Electronically Signed: Keegan Owens MD at 10:48 EDT Tel , Service support , Chest X-Ray 05/05/21 10:40 IMPRESSION: Right upper lobe pneumonia. Electronically Signed: Keegan Owens MD at 10:55 EDT Tel , Service support ,
[2021-05-05] MEDS: Rocuronium Bromide 50 MG/5 ML Vial 100 MG IV (13:32)
[2021-05-05] MEDS: Etomidate 20 MG/10 ML Vial 26 MG IV (13:32)
--- NOTE | 2021-05-05 13:35 | RAD_ITS ---
STUDY: X-RAY CHEST REASON FOR EXAM: Male, 76 years old. tube placement, and og placement TECHNIQUE: Single AP portable view of the chest. COMPARISON: May 22 FINDINGS: Endotracheal tube tip overlies mid trachea 4.4 cm from the hong. NG tube tip overlies the mid lateral stomach. Left pacer in place with leads overlying the right atrium and right ventricle. Sternotomy wires are midline. Right upper lobe basilar airspace disease is present. There is no demonstrated pleural abnormality. Normal size heart. Normal mediastinum and elliott. Normal visualized pulmonary arteries. Normal visualized aortic arch and descending thoracic aorta. Normal visualized thoracic spine. Normal visualized ribs, clavicles, and shoulders. There is no demonstrated abnormality of the visualized soft tissue structures of the upper abdomen. RAD/Chest 1 View (Portable) IMPRESSION: Right upper lobe basilar segment pneumonia with lines and tubes as above. Electronically Signed: Rafa Andino DO at 14:27 EDT , Service support ,
--- NOTE | 2021-05-05 14:42 | CPS ---
Pt began desating to low 80's. R.T. tried suctioning and lavaged but got scant amount bloody secretions. Increased O2 on vent to 100% after assessing that that fingers are warm and dry and Sat is correlating with HR, RN & Dr Cha in room & aware.
[2021-05-05 14:47] LABS: Reflex Lactate? Y
--- NOTE | 2021-05-05 15:06 | NURSING ---
1505 HR 82 R 14 BP 88/[address] Cha present, begin RIJ TL placement 1510 HR 71 R 14 BP 86/40 SpO2 100 1515 HR 701 R 14 BP 85/38 SpO2 100 RIJ placed. , guidewire removed. Cxr/abd xr ordered 1520 HR R BP SpO2
--- NOTE | 2021-05-05 15:17 | RAD_ITS ---
HISTORY: r/o puncture, OG placement. TECHNIQUE: XR Abdomen 1 View. # of images incl. paperwork: 2. COMPARISON: CT 02/28/2012. FINDINGS: BOWEL GAS PATTERN: Nasogastric tube tip in the left upper quadrant. No dilated bowel loops seen in the upper abdomen. FREE AIR: Not assessed on supine view. CALCIFICATIONS: Large right upper quadrant calcification. Prominent spleen with multiple calcified granulomas. OSSEOUS STRUCTURES: Chronic lower rib fractures bilaterally. Degenerative change. LOWER CHEST: Consolidation in the right midlung. Midline sternotomy and pacemaker noted. RAD/Abdomen Single View IMPRESSION: Nasogastric tube tip in the region of the stomach. Large gallstone. at 1626 Reported and signed by: Cari Monsalve MD Electronically Signed: Cari Monsalve MD at 16:25 EDT Tel , Service support ,
--- NOTE | 2021-05-05 15:30 | RAD_ITS ---
HISTORY: central line placement. TECHNIQUE: XR Chest 1 View. EXAM TIME: 2021-05-05 15:20. # of images incl. paperwork: 1. COMPARISON:13:37. FINDINGS: LINES/DEVICES: Right internal jugular central venous catheter tip at the level of the superior vena cava. Endotracheal tube tip 4-5 cm above the hong. Cardiac pacemaker and nasogastric tube again seen. CARDIOMEDIASTINAL BORDERS: Stable with midline sternotomy, calcified lymph nodes, and cardiomegaly. LUNGS: Interstitial opacities in the left lung base. Severe focal consolidation in the right midlung again seen. Increased mixed interstitial and alveolar opacities in the right lung. PLEURA: No pneumothorax identified. Probable trace pleural effusions. OTHER: Chronic rib fractures bilaterally. RAD/Chest 1 View (Portable) IMPRESSION: Satisfactory appearance of central venous catheter. Bilateral pneumonia, increased on the right. at 1621 Reported and signed by: Cari Monsalve MD Electronically Signed: Cari Monsalve MD at 16:20 EDT Tel , Service support ,
--- NOTE | 2021-05-05 15:31 | RAD_ITS ---
HISTORY: r/o fx. TECHNIQUE: XR Foot Min 3 Views. # of images incl. paperwork: 6. COMPARISON: None. FINDINGS: BONES: No acute fracture or cortical erosion identified. Secondary ossification center at the lateral cuboid. JOINTS: No dislocation. Degenerative changes. RAD/Foot min 3 Views IMPRESSION: No acute fracture or dislocation identified in the right foot. at 1622 Reported and signed by: Cari Monsalve MD Electronically Signed: Cari Monsalve MD at 16:21 EDT Tel , Service support ,
--- NOTE | 2021-05-05 15:44 | PCM.RX.CS ---
Consult Pharmacy has been consulted to manage selected antiobiotic: Vancomycin Type of Consult: New start Suspected Infection: Sepsis, Pneumonia Prior Doses of Antibiotics Received/Current Regimen: received 2000mg in E.R. starting at 11:11 this morning Labs: Sodium 143 mmol/L (136-145) 05/05/21 10:30 Potassium 3.9 mmol/L (3.5-5.1) 05/05/21 10:30 Chloride 108 mmol/L (98-107) H 05/05/21 10:30 Carbon Dioxide 27.0 mmol/L (21.0-32.0) 05/05/21 10:30 Anion Gap 8 (5-15) 05/05/21 10:30 BUN 29 mg/dL (7-18) H 05/05/21 10:30 Creatinine 1.12 mg/dL (0.70-1.30) 05/05/21 10:30 Est GFR (MDRD) Af Amer 82 mL/min (>60) 05/05/21 10:30 Est GFR (MDRD) Non-Af 68 mL/min (>60) 05/05/21 10:30 BUN/Creatinine Ratio 25.9 RATIO (10-20) H 05/05/21 10:30 Glucose 125 mg/dL (74-106) H 05/05/21 10:30 Microbiology: Microbiology 05/05/21 11:18 Mucosa - Nose SARS-CoV-2 Antigen (Rapid) - Final Weight used for dosin.6 kg Estimated Creatinine Clearance: 63.5ml/min Goal Trough: 15-20 mcg/mL Pharmacy Plan for Drug Dosing: Starting 12 hours after the E.R. dose, will continue with vancomycin 1000mg IV q12h per [facility] dosing protocol. Will order a trough to be drawn before the 4th total dose tomorrow night. Pharmacy Service will continue to monitor and adjust dosing as required. Follow-Up Labs: Trough Vancomycin Labs to be done on [date and time ordered]: 05/06/21 22:30
[2021-05-05] MEDS: Propofol 10MG/Ml 1,000 MG/100 ML Bottle 5.2 MG CONT INF (15:45)
[2021-05-05] MEDS: Ipratropium/Albuterol Sulfate 3 ML AMPUL.NEB INHALATION ×3 (16:00→22:35)
[2021-05-05 16:01] LABS: Allen Test Positive; Base Excess -2 mmol/L (-2 to +2); Bicarbonate 24.5 mmol/L (22-26); Blood Gas Specimen Type ART; FI02 100; Mode AC; O2 Delivery Device Adult Vent; PEEP 5; PO2 203 mmHG (75-100); RR 14; SITE R Brach; SO2 100 % (95-99); Total Carbon Dioxide 26 mmol/L; Vt 500; pCO2 53.7 mmHg (35-45); pH 7.27 (7.35-7.45)
[2021-05-05 16:29] LABS: Lactic Acid 3.2 mmol/L (0.4-1.9)
[2021-05-05] MEDS: Chlorhexidine 15 ML PO (20:54)
[2021-05-05] MEDS: Famotidine 20 MG Tablet PO (20:54)
[2021-05-05] MEDS: 0.9% Saline Lock 10 ML Syringe IV (20:55)
[2021-05-05] MEDS: Vancomycin IV 1,000 MG/200 ML BAG 200 MG IV (23:50)
[2021-05-06] VITALS (54 sets, daily range): BP systolic 109–144; BP diastolic 43–88; PULSE 60–130; RESP 14–35; TEMP 36.8–37.5; O2SAT 87–97
[2021-05-06] MEDS: Ipratropium/Albuterol Sulfate 3 ML AMPUL.NEB INHALATION ×6 (03:56→22:53)
[2021-05-06 04:17] LABS: Absolute Lymphocyte Count 0.45 X10^3/uL (0.83-4.51); Basophil# 0.02 X10^3/uL; Basophil% 0.1 % (0-1); Eosinophil# 0.01 X10^3/uL; Hematocrit 32.4 % (40-54); Lymphocyte # 0.45 X10^3/ul (0.83-4.51); Lymphocyte % 2.1 % (19-41); Mean Corp Hgb Conc 27.8 g/dL (32-36); Mean Corpuscular Hgb 21.3 pg (27.0-32.0); Mean Corpuscular Volume 76.8 fL (80-94); Mean Platelet Vol. 9.3 fl (6.2-12.0); Monocyte# 0.95 X10^3/uL; Monocyte% 4.4 % (0-10); NRBC Flagged by Analyzer 0 % (0-5); Neutrophil # 19.99 X10^3/uL (2.7-7.7); Neutrophil % 92.8 % (47-70); POSITIVE DIFFERENTIAL YES; POSITIVE MORPHOLOGY YES; Platelet Count 179 K/mm3 (150-450); RBC Distribution Width SD 56.1 fl (35.1-43.9); Red Blood Count 4.22 M/mm3 (4.6-6.2); White Blood Count 21.6 K/mm3 (4.4-11.0)
[2021-05-06 04:18] LABS: Differential Indicated SCAN CRITERIA MET
[2021-05-06 04:32] LABS: ALB/GLOB Ratio 0.8 RATIO (0.9-2.4); AST(SGOT) 42 U/L (15-37); Alanine Aminotransfer ALT/SGPT 39 U/L (16-61); Albumin, Serum 2.4 g/dL (3.2-5.0); Alkaline Phosphatase 60 U/L (45-117); Anion Gap 9 (5-15); BUN 32 mg/dL (7-18); BUN/Creat Ratio 24.8 RATIO (10-20); Calcium,Total 7.7 mg/dL (8.5-10.1); Chloride 111 mmol/L (98-107); Creatinine, Serum 1.29 mg/dL (0.70-1.30); EST Glomerular Filtration Rate 58 mL/min (>60); Est Glom Filt Rate - Afr Amer 70 mL/min (>60); Estimated Creatinine Clearance 55.14 ml/min; Globulin 2.9 g/dL (2.2-4.2); Glucose 118 mg/dL (74-106); Potassium 4.3 mmol/L (3.5-5.1); Protein, Total 5.3 g/dL (6.4-8.2); Sodium Level 143 mmol/L (136-145)
[2021-05-06 06:50] LABS: Allen Test Positive; Base Excess -5 mmol/L (-2 to +2); Bicarbonate 20.2 mmol/L (22-26); Blood Gas Specimen Type ART; FI02 40; Mode CPAP/PS; O2 Delivery Device Adult Vent; PEEP 5; PO2 77 mmHG (75-100); PS 5; SITE L Radial; SO2 95 % (95-99); Total Carbon Dioxide 21 mmol/L; pCO2 34.5 mmHg (35-45); pH 7.38 (7.35-7.45)
--- NOTE | 2021-05-06 06:52 | CON.PCM.CC_ITS ---
Assessment & Plan Assessment/Plan (1) Chronic systolic (congestive) heart failure: PLAN: RECOMMENDATIONS: 1. Continue broad-spectrum antibiotics for another 24 hours pending culture data 2. Bedside swallow evaluation 3. Wean oxygen as tolerated 4. Hold antihypertensives for 24 hours 5. Increase activity as tolerated IMPRESSIONS: 1. Acute combined respiratory failure secondary to COPD exacerbation secondary to pneumococcal pneumonia Patient with a new upper lobe infiltrate, right greater than left. Patient does have pneumococcal antigen positivity and has responded well to antibiotics. We will continue with empiric antibiotics for another 24 hours, but if culture negative, anticipate narrowing antibiotic spectrum. Given COPD comorbidity, will continue with steroids and bronchodilators. Wean oxygen as tolerated. 2. Septic shock secondary to pneumococcal pneumonia Patient responded well to Levophed overnight. This is currently on hold. Patient does have concomitant congestive heart failure, so we will hold on aggressive fluid resuscitation. Reinitiate pressors if necessary. Await pancultures. 3. Acute on chronic systolic CHF with biventricular AICD Patient with significantly elevated BNP on presentation. Patient does have an EF of 35% by echocardiogram in May 2020. It is unlikely that this needs to be repeated at this time as an inpatient. We will hold diuretics and most of antihypertensives given problems 1 and #2. Likely not necessary to continue to monitor troponins. Patient is on low molecular weight heparin. 4. Hypertension/hyperlipidemia/AICD/advanced age Complicates care, management, recovery and prognosis. Hold antihypertensive medications for 24 hours pending hemodynamic stability. Okay to initiate amiodarone if necessary. TIME: 37 minutes critical care time spent addressing patient's acute combined respiratory failure, pneumococcal pneumonia, septic shock, CHF, review of all data and collaboration with care team (5:45 AM to 6:45 AM) HPI Consult Data Date of Consult: 05/06/21 HPI Narrative HPI Narrative: IRWIN LOTT is a 76 M, with past medical history listed below, who presented to [facility] on 05/05/2021 secondary to concerns for acute CVA. Patient was reportedly last known well at 9:30 AM, but when a family member came to check on the patient was noted to be very short of breath having left-sided weakness and a facial droop. [facility] reportedly had been moving all 4 extremities equally, but was a lot more lethargic. A CT was obtained on arrival. Family member reported patient had been having worsening shortness of breath for several days and a cough for over a week. Patient did not have any fevers, but reportedly was vaccinated against Covid previously. Patient reportedly was on anticoagulation and had been reporting a headache, but denied any chest pain. On arrival to the ER, patient was afebrile, but tachycardic at 105 bpm. Patient needed to be placed on BiPAP 50% to maintain saturations, but over the course of his hospitalization in the ER patient became more progressively hypotensive with a blood pressure of 80/47. Patient was given IV fluids secondary to a chest x- ray showing infiltrates. Patient ultimately required intubation. Laboratory data showed a white blood cell count of 9.7, hemoglobin of 9.5 and a creatinine of 1.12. BNP was elevated at 564 and lactate was elevated at 2.7. ABG prior to intubation showed persistent hypoxic respiratory failure despite BiPAP at 50%. Since being in the intensive care unit, patient has significantly improved. Patient was able to be taken off of Levophed. Patient did have a spontaneous breathing trial this morning and was able to pass clinically. ABG confirmed adequate oxygenation and ventilation. Patient denied any chest pain, bowel pain, nausea or vomiting. 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 (01/10/15) BPV (benign positional vertigo) Chronic systolic (congestive) heart failure COPD (chronic obstructive pulmonary disease) Essential hypertension HLD (hyperlipidemia) Ischemic cardiomyopathy LBBB (left bundle branch block) Paroxysmal atrial fibrillation Wide-complex tachycardia Home Medications albuterol sulfate 1 - 2 puff INHALATION Q6H PRN PRN 12/14/14 [History Last Taken 11/29/19] albuterol sulfate 2.5 mg INHALATION Q6H PRN PRN 12/14/14 [History Last Taken 11/29/19] aspirin 81 mg PO DAILY 12/14/14 [History Last Taken 11/29/19] Handicap Parking Placard #1 ea 12/15/19 [Rx Last Taken Unknown] finasteride 5 mg tablet 5 mg PO DAILY 12/15/19 [History Last Taken Unknown] lisinopril 5 mg tablet 5 mg PO DAILY #90 tab 09/04/20 [Rx Last Taken Unknown] simvastatin 40 mg tablet 40 mg PO QHS #90 tab 09/04/20 [Rx Last Taken Unknown] amiodarone [Pacerone] 200 mg PO DAILY 05/05/21 [History Last Taken Unknown] bumetanide 1 mg PO DAILY 05/05/21 [History Last Taken Unknown] carvedilol [Coreg] 6.25 mg PO DAILY 05/05/21 [History Last Taken Unknown] fluticasone furoate-vilanterol [Breo Ellipta] 1 inh INHALATION DAILY 05/05/21 [History Last Taken Unknown] isosorbide mononitrate 30 mg PO DAILY 05/05/21 [History Last Taken Unknown] lorazepam 0.5 mg PO BID PRN 05/05/21 [History Last Taken Unknown] Allergy/AdvReac Type Severity Reaction Status Date / Time No Known Allergies Allergy Verified 02/14/21 09:11 Family History Father CAD (coronary artery disease) Diabetes Cancer lung cancer Myocardial infarction Mother Breast cancer Hypertension Surgical History H/O coronary artery bypass surgery (11/14/13) History of arthroplasty of left knee History of lumbar surgery History of tonsillectomy Social History Smoking Status: Former smoker how long ago did patient quit smokin12/2013 alcohol intake: never substance use type: does not use caffeine: Yes Type: carbonated beverages and coffee what type of physical activity do you participate in: none seatbelt use: always do you feel safe at home: Yes ROS Review of Systems ROS Unobtainable: due to endotracheal tube Physical Exam Const no apparent distress Constitutional Narrative: Good vent synchrony General Appearance: patient mechanically ventilated HEENT normocephalic and head/scalp atraumatic Mouth: endotracheal tube in place and OG tube in place Throat: posterior oropharynx normal Eyes PERRL, EOMs intact bilaterally and conjunctivae normal Neck full ROM Chest inspection of chest normal Resp normal respiratory effort and no use of accessory muscles Auscultation: diminished lung sounds; Negative for rales, rhonchi or wheezes Cardio regular rate, regular rhythm, S1 normal heart sound, S2 normal heart sound, no murmurs, no rub and no gallops Cardio Narrative: Paced rhythm on telemetry GI normal to inspection, nondistended, normoactive bowel sounds no CVA tenderness Extremity no clubbing, cyanosis or edema Skin no rashes or lesions noted Neuro no focal motor deficits Sensorium / Orientation: sedated on vent Psych Mood & Affect: flat affect Lab / Micro Data Result Diagrams: 05/06/21 04:07 05/06/21 04:07 Labs: Laboratory Results - last 24 hr 05/05/21 05/05/21 05/05/21 10:30 10:30 10:30 WBC 9.7 RBC 4.54 L Hgb 9.5 L Hct 34.9 L MCV 76.9 L MCH 20.9 L MCHC 27.2 L RDW Std Deviation 55.7 H RDW Coeff of Beto 20.1 H Plt Count 190 MPV 9.9 Immature Gran % (Auto) 0.400 Neut % (Auto) 95.3 H Lymph % (Auto) 2.2 L Hendricks % (Auto) 2.0 Eos % (Auto) 0.0 Baso % (Auto) 0.1 Absolute Neuts (auto) 9.2 H Absolute Lymphs (auto) 0.21 L Nucleated RBC % 0 PT INR APTT Sodium 143 Potassium 3.9 Chloride 108 H Carbon Dioxide 27.0 Anion Gap 8 BUN 29 H Creatinine 1.12 Estim Creat Clear Calc 63.51 Est GFR (MDRD) Af Amer 82 Est GFR (MDRD) Non-Af 68 BUN/Creatinine Ratio 25.9 H Glucose 125 H Lactic Acid Calcium 8.0 L Total Bilirubin AST ALT Alkaline Phosphatase Troponin I High Sens 15.7 B-Natriuretic Peptide 564.0 H Total Protein Albumin Globulin Albumin/Globulin Ratio 05/05/21 05/05/21 05/05/21 10:30 10:45 15:50 WBC RBC Hgb Hct MCV MCH MCHC RDW Std Deviation RDW Coeff of Beto Plt Count MPV Immature Gran % (Auto) Neut % (Auto) Lymph % (Auto) Hendricks % (Auto) Eos % (Auto) Baso % (Auto) Absolute Neuts (auto) Absolute Lymphs (auto) Nucleated RBC % PT 15.8 H INR 1.3 APTT 30.4 Sodium Potassium Chloride Carbon Dioxide Anion Gap BUN Creatinine Estim Creat Clear Calc Est GFR (MDRD) Af Amer Est GFR (MDRD) Non-Af BUN/Creatinine Ratio Glucose Lactic Acid 2.7 H* 3.2 H* Calcium Total Bilirubin AST ALT Alkaline Phosphatase Troponin I High Sens B-Natriuretic Peptide Total Protein Albumin Globulin Albumin/Globulin Ratio 05/06/21 05/06/21 04:07 04:07 WBC 21.6 H RBC 4.22 L Hgb 9.0 L Hct 32.4 L MCV 76.8 L MCH 21.3 L MCHC 27.8 L RDW Std Deviation 56.1 H RDW Coeff of Beto 20.0 H Plt Count 179 MPV 9.3 Immature Gran % (Auto) 0.600 Neut % (Auto) 92.8 H Lymph % (Auto) 2.1 L Hendricks % (Auto) 4.4 Eos % (Auto) 0.0 Baso % (Auto) 0.1 Absolute Neuts (auto) 20.0 H Absolute Lymphs (auto) 0.45 L Nucleated RBC % 0 PT INR APTT Sodium 143 Potassium 4.3 Chloride 111 H Carbon Dioxide 23.0 Anion Gap 9 BUN 32 H Creatinine 1.29 Estim Creat Clear Calc 55.14 Est GFR (MDRD) Af Amer 70 Est GFR (MDRD) Non-Af 58 L BUN/Creatinine Ratio 24.8 H Glucose 118 H Lactic Acid Calcium 7.7 L Total Bilirubin 2.60 H AST 42 H ALT 39 Alkaline Phosphatase 60 Troponin I High Sens B-Natriuretic Peptide Total Protein 5.3 L Albumin 2.4 L Globulin 2.9 Albumin/Globulin Ratio 0.8 L Micro: Microbiology 05/05/21 16:00 Legionella Antigen - Final Urine Catheter - Cohn Streptococcus pneumoniae Antigen (M - Final Streptococcus pneumonia Ag 05/05/21 11:18 SARS-CoV-2 Antigen (Rapid) - Final Mucosa - Nose ABG Data ABG results: ABG 05/05/21 05/05/21 05/06/21 10:46 15:52 06:44 Specimen Type ART ART ART Sample Site L Radial R Brach L Radial pH 7.34 L 7.27 L 7.38 Bicarbonate Actual 25.0 24.5 20.2 L Total CO2 26 26 21 Base Excess -1 -2 -5 L O2 Saturation 93 L 100 H 95 O2 % 50 100 40 ABG pCO2 46.9 H 53.7 H 34.5 L ABG pO2 72 L 203 H 77 Stanislav Test Positive Positive Positive Respiration Rate 12 14 O2 Delivery Device BiPAP Adult Vent Adult Vent Vent Mode AC CPAP/PS Tidal Volume 500 POC PEEP 5 5 POC Pressure Suppt 5 Clinical Comments 19/10 rr12 50% Radiology Impression Brain CT 05/05/21 10:25 IMPRESSION: 1. Normal unenhanced CT scan of the brain. 2. 2 cm of the mass or lymphadenopathy of the left parotid gland. N.B. : The above Results were Read Back by Keegan Owens MD to Otto Slater MD, and understanding confirmed on 05/05/2021 10:47:09 (ET). Electronically Signed: Keegan Owens MD at 10:48 EDT Tel , Service support , ADDENDUM: 05/05/21 1055 IMPRESSION: 1. Normal unenhanced CT scan of the brain. 2. 2 cm of the mass or lymphadenopathy of the left parotid gland. N.B. : The above Results were Read Back by Kegean Owens MD to Otto Slater MD, and understanding confirmed on 05/05/2021 10:47:09 (ET). Electronically Signed: Keegan Owens MD at 10:48 EDT Tel , Service support , Chest X-Ray 05/05/21 10:40 IMPRESSION: Right upper lobe pneumonia. Electronically Signed: Keegan Owens MD at 10:55 EDT Tel , Service support , Chest X-Ray 05/05/21 13:35 IMPRESSION: Right upper lobe basilar segment pneumonia with lines and tubes as above. Electronically Signed: Rafa Andino DO at 14:27 EDT , Service support , KUB X-Ray 05/05/21 15:17 IMPRESSION: Nasogastric tube tip in the region of the stomach. Large gallstone. at 1626 Reported and signed by: Cari Monsalve MD Electronically Signed: Cari Monsalve MD at 16:25 EDT Tel , Service support , Chest X-Ray 05/05/21 15:30 IMPRESSION: Satisfactory appearance of central venous catheter. Bilateral pneumonia, increased on the right. at 1621 Reported and signed by: Cari Monsalve MD Electronically Signed: Cari Monsalve MD at 16:20 EDT Tel , Service support , Foot X-Ray 05/05/21 15:31 IMPRESSION: No acute fracture or dislocation identified in the right foot. at 1622 Reported and signed by: Cari Monsalve MD Electronically Signed: Cari Monsalve MD at 16:21 EDT Tel , Service support , Charges/Coding Procedures Hospitalists Procedures: [id number] [facility] [place] 1[facility] Hr
[2021-05-06] MEDS: Aspirin 81 MG TAB.CHEW NG (10:33)
[2021-05-06] MEDS: Enoxaparin 40 MG/0.4 ML Syringe SC (10:33)
[2021-05-06] MEDS: Amiodarone 200 MG Tablet NG (10:34)
[2021-05-06] MEDS: Famotidine 20 MG Tablet PO ×2 (10:34→22:20)
[2021-05-06] MEDS: Carvedilol 6.25 MG Tablet NG (10:34)
[2021-05-06] MEDS: Vancomycin IV 1,000 MG/200 ML BAG 200 MG IV ×2 (10:34→22:32)
--- NOTE | 2021-05-06 11:57 | PCM.HOSP.N ---
Hospitalist Note CCx: pneumonia Subjective: Breathing better. Extubated today and tolerating nasal canula. Objective: 36.9, 72, 32, 126/48, 92% on 3l Up in chair. Afebrile. No respiratory distress. No conversational dyspnea. HRRR +S1S2. Lungs course breath sounds. Abdomen soft, NT ND, nml BS. Ext: no cyanosis. +LE edema labs: CBC: WBC 21.6, Hg 9, Plt 179. BMP: Na 143, K 4.3 Cr 1.29 1. Acute hypoxic and hypercapnic respiratory failure Patient was on BiPAP for roughly 3 hours by time I saw him his breathing 40 times per minute. Earlier had declined intubation but spelled out to if the tires out which I would expect that he would likely . He change his mind and was okay for intubation. I let the emergency room physician who subsequently intubated the patient. Is due to the patient's right upper lobe pneumonia but also his underlying COPD as well as cardiomyopathy Extubated today. Tolerating nasal canula. 2. Sepsis Patient with marginal blood pressures before intubation expect the patient's blood pressure to drop further afterwards Prior to intubation, did discuss central venous access with him and in case he would need vaso active medications. Discussed risk of bleeding and pneumothorax but explained that those the risk of pneumothorax is very low. With ultrasound guidance. He agreed to proceed with that. Secondary to underlying pneumonia Follow-up cultures and adjust antibiotics accordingly Patient will be on Pipracil/tazobactam as well as vancomycin SOFA score of 11 3. pneumococcal pneumonia Given sepsis, will treat patient with broad-spectrum antibiotics but de-escalate accordingly Pulmonary toilet as able +Ag for pneumococcus. 4. Acute exacerbation of COPD Presumed and will treat with bronchodilators as well as methylprednisolone 5. Heart failure with reduced ejection fraction Due to ischemic cardiomyopathy EF of 35% from echocardiogram on May 16, 2020 Hold isosorbide, lisinopril and bumetanide given tenuous BP continue carvedilol as BP allows Status post biventricular AICD 6. VTE prophylaxis high risk. LMWH 7. Advanced care planning: Spent an additional 20 minutes discussing with the patient and significant other about advanced directives. She patient was hesitant about intubation and informed patient that these decisions are ultimately his but I told him frankly that if he was not intubated given his tachypnea with a respiratory rate of 40, that he would tire out and likely . I told him that we have a reason for his worsening respiratory failure given this new infiltrate. So patient will be full code at this time. Visit Charges Inpatient E&M: 80348 Subs Hosp L3
--- NOTE | 2021-05-06 12:16 | CHAPLAIN ---
Type of Pastoral Visit _x__ Initial Visit ___ Follow-up Visit ___ On-call Visit ___ General Patient Visit ___ Spiritual Assessment ___ Family Conference ___ Bereavement ___ Rapid Response ___ Code Blue ___ Other (describe below) Pastoral Care Referral From _x__ Patient ___ Family ___ Nurse ___ Physician ___ Service Restorer Emergency ___ Director Of Industrial Relations ___ Other (describe below) Sacrament/Intervention ___ Active listening ___ Anointing ___ Restorationism ___ Bereavement ___ Communion ___ Jessie exploration ___ ___ Life review _x__ Prayer ___ Reconciliation ___ Sacrament of Sick _x__ Supportive presence ___ Wedding ___ Other (describe below) Pastoral Comments patient was extubated this morning and is sitting up in chair at this time; pt offered support and assurance that he does not need to talk; pt responds that prayer is welcomed and he appreciates the offer; prayer and presence given for brief visit
[2021-05-06] MEDS: CHLORHEXIDINE GLUC 2% CLOTH 1 EACH TOWELETTE TOPICAL (12:47)
[2021-05-06] MEDS: Albuterol 2.5 MG/3 ML VIAL.NEB. INHALATION (13:40)
--- NOTE | 2021-05-06 20:43 | EKG12_ITS ---
Test Reason : ARRYTHMIA Blood Pressure : / mmHG Vent. Rate : 122 BPM Atrial Rate : 125 BPM P-R Int : 178 ms QRS Dur : 166 ms QT Int : 326 ms P-R-T Axes : 000 -47 143 degrees QTc Int : 464 ms Atrial fibrillation Left bundle branch block Abnormal ECG When compared with ECG of 05-MAY-2021 10:35, MANUAL COMPARISON REQUIRED, DATA IS UNCONFIRMED Confirmed by HEVER JAIME, LESLIE ([id number]), research editor ROSELINE HE ([id number]) on 05/14/2021 7:50:22 AM Referred By: RAMESH Confirmed By:LESLIE KATHLEEN MD
[2021-05-06] MEDS: 0.9% Saline Lock 10 ML Syringe IV ×2 (20:50→22:20)
[2021-05-06] MEDS: Metoprolol Tartrate 5 MG/5 ML Vial IV (20:50)
[2021-05-06] MEDS: Carvedilol 3.125 MG TABLET PO (22:19)
[2021-05-06] MEDS: Benzonatate 100 MG Capsule PO (22:21)
[2021-05-07] VITALS (24 sets, daily range): BP systolic 117–165; BP diastolic 33–85; PULSE 70–99; RESP 20–34; TEMP 36.6–37.5; O2SAT 83–98
[2021-05-07] MEDS: Ipratropium/Albuterol Sulfate 3 ML AMPUL.NEB INHALATION ×6 (02:27→23:01)
--- NOTE | 2021-05-07 03:23 | PCM.RX.CS ---
Consult Pharmacy has been consulted to manage selected antiobiotic: Vancomycin Type of Consult: Follow-up Labs: Sodium 143 mmol/L (136-145) 05/06/21 04:07 Potassium 4.3 mmol/L (3.5-5.1) 05/06/21 04:07 Chloride 111 mmol/L (98-107) H 05/06/21 04:07 Carbon Dioxide 23.0 mmol/L (21.0-32.0) 05/06/21 04:07 Anion Gap 9 (5-15) 05/06/21 04:07 BUN 32 mg/dL (7-18) H 05/06/21 04:07 Creatinine 1.29 mg/dL (0.70-1.30) 05/06/21 04:07 Est GFR (MDRD) Af Amer 70 mL/min (>60) 05/06/21 04:07 Est GFR (MDRD) Non-Af 58 mL/min (>60) L 05/06/21 04:07 BUN/Creatinine Ratio 24.8 RATIO (10-20) H 05/06/21 04:07 Glucose 118 mg/dL (74-106) H 05/06/21 04:07 Microbiology: Microbiology 05/05/21 14:40 Sputum, Induced/Lukens Gram Stain - Final 05/05/21 14:40 Sputum, Induced/Lukens Respiratory Culture - Preliminary Culture exhibits no growth. 05/05/21 16:00 Urine Catheter - Cohn Legionella Antigen - Final 05/05/21 16:00 Urine Catheter - Cohn Streptococcus pneumoniae Antigen (M - Final Streptococcus pneumonia Ag 05/05/21 11:18 Mucosa - Nose SARS-CoV-2 Antigen (Rapid) - Final Goal Trough: 15-20 mcg/mL Pharmacy Plan for Drug Dosing: Pharmacy Service will continue to monitor and adjust dosing as required. TROUGH NOT DRAWN BEFORE DOSE GIVEN, RETIME DRAW FOR PRIOR TO NEXT DOSE Follow-Up Labs: Trough Vancomycin Labs to be done on [date and time ordered]: 05/07 @ 7775
[2021-05-07 04:05] LABS: Absolute Lymphocyte Count 0.23 X10^3/uL (0.83-4.51); Absolute Neutrophil Count 7.1 X10^3/uL (2.0-7.7); Hematocrit 29.8 % (40-54); Hemoglobin 8.3 g/dL (13.0-16.5); Lymphocyte # 0.23 X10^3/ul (0.83-4.51); Lymphocyte % 2.9 % (19-41); Mean Corp Hgb Conc 27.9 g/dL (32-36); Mean Corpuscular Hgb 20.9 pg (27.0-32.0); Mean Corpuscular Volume 75.1 fL (80-94); Monocyte# 0.37 X10^3/uL; Monocyte% 4.6 % (0-10); NRBC Flagged by Analyzer 0 % (0-5); Neutrophil # 7.06 X10^3/uL (2.7-7.7); Neutrophil % 88.7 % (47-70); POSITIVE DIFFERENTIAL YES; POSITIVE MORPHOLOGY YES; Platelet Count 107 K/mm3 (150-450); RBC Distribution Width CV 19.8 % (11.6-14.6); RBC Distribution Width SD 53.2 fl (35.1-43.9); Red Blood Count 3.97 M/mm3 (4.6-6.2)
[2021-05-07 04:08] LABS: Differential Indicated SCAN CRITERIA MET
[2021-05-07 04:23] LABS: Anion Gap 6 (5-15); BUN 41 mg/dL (7-18); BUN/Creat Ratio 33.1 RATIO (10-20); Calcium,Total 8.2 mg/dL (8.5-10.1); Chloride 107 mmol/L (98-107); Creatinine, Serum 1.24 mg/dL (0.70-1.30); EST Glomerular Filtration Rate 61 mL/min (>60); Est Glom Filt Rate - Afr Amer 73 mL/min (>60); Estimated Creatinine Clearance 57.37 ml/min; Glucose 112 mg/dL (74-106); Potassium 4.4 mmol/L (3.5-5.1); Sodium Level 138 mmol/L (136-145)
--- NOTE | 2021-05-07 06:58 | PN.CC_ITS ---
Assessment & Plan Assessment/Plan (1) Chronic systolic (congestive) heart failure: PLAN: RECOMMENDATIONS: 1. Okay to narrow antibiotics to coverage of pneumococcus once culture negative at 48 hours 2. Reinitiate baseline diuretic therapy 3. Wean oxygen as tolerated 4. Initiation of a stool softener and diuretics 5. Increase activity as tolerated 6. Consider palliative care evaluation 7. Okay to leave the intensive care unit from my perspective IMPRESSIONS: 1. Acute combined respiratory failure secondary to COPD exacerbation secon joe to pneumococcal pneumonia Patient with a new upper lobe infiltrate, right greater than left. Patient does have pneumococcal antigen positivity and has responded well to antibiotics. We will continue with empiric antibiotics for another 24 hours, but if culture negative, anticipate narrowing antibiotic spectrum the coverage of pneumococcus. Given COPD comorbidity, will continue with bronchodilators. Some of patient's insomnia may be secondary to steroids. We will wean steroids. Wean oxygen as tolerated. 2. Septic shock secondary to pneumococcal pneumonia Patient responded well to Levophed initially. This is currently on hold. Patient does have concomitant congestive heart failure, so we will hold on aggressive fluid resuscitation. Patient has responded well to antibiotic therapy. Will discontinue vancomycin. Likely narrow antibiotic spectrum from Zosyn once cultures negative at 48 hours. 3. Acute on chronic systolic CHF with biventricular AICD Patient with significantly elevated BNP on presentation. Patient does have an EF of 35% by echocardiogram in May 2020. It is unlikely that this need s to be repeated at this time as an inpatient. We will reinitiate diuretic therapy. Likely not necessary to continue to monitor troponins. Patient is on low molecular weight heparin. 4. Hypertension/hyperlipidemia/AICD/advanced age Complicates care, management, recovery and prognosis. Hold antihypertensive medications for 24 hours pending hemodynamic stability. Okay to initiate amiodarone if necessary. Subjective Subjective Patient did okay overnight. Patient did not sleep much overnight. Patient has been using incentive spirometer. Patient was transitioned to a Ventimask secon joe to mouth breathing but otherwise remained hemodynamically stable. Patient has had A. fib with RVR intermittently, but currently rate is controlled with Lopressor. Patient is requesting a stool softener and sleep aid. Objective Data Objective Data Vital Signs: Vital Signs Temp Pulse Resp BP Pulse Ox 37.2 C 77 27 H 158/78 H 96 05/07/21 04:00 05/07/21 06:00 05/07/21 06:00 05/07/21 06:00 05/07/21 06:00 Oxygen Flow Rate (L/min) 4 Oxygen Delivery Method Nasal Cannula Weight: 89.9 kg Body Mass Index (BMI) 26.2 Intake & Output: Intake and Output for Last 24 Hours 05/05/21 05/06/21 05/07/21 23:59 23:59 23:59 Intake Total 3495.97 / 3728.07 2261.82 / 2261.82 609.5 / 609.5 Output Total 310 / 310 1200 / 1200 350 / 350 Balance 3185.97 / 3418.07 1061.82 / 1061.82 259.5 / 259.5 Lab / Micro Data Result Diagrams: 05/07/21 03:30 05/07/21 03:30 Labs: Laboratory Results - last 24 hr 05/07/21 05/07/21 03:30 03:30 WBC 8.0 RBC 3.97 L Hgb 8.3 L Hct 29.8 L MCV 75.1 L MCH 20.9 L MCHC 27.9 L RDW Std Deviation 53.2 H RDW Coeff of Beto 19.8 H Plt Count 107 L Immature Gran % (Auto) 3.800 H Neut % (Auto) 88.7 H Lymph % (Auto) 2.9 L [place] % (Auto) 4.6 Eos % (Auto) 0.0 Baso % (Auto) 0.0 Absolute Neuts (auto) 7.1 Absolute Lymphs (auto) 0.23 L Nucleated RBC % 0 Sodium 138 Potassium 4.4 Chloride 107 Carbon Dioxide 25.0 Anion Gap 6 BUN 41 H Creatinine 1.24 Estim Creat Clear Calc 57.37 Est GFR (MDRD) Af Amer 73 Est GFR (MDRD) Non-Af 61 BUN/Creatinine Ratio 33.1 H Glucose 112 H Calcium 8.2 L Micro: Microbiology 05/05/21 14:40 Sputum, Induced/Lukens Gram Stain - Final 05/05/21 14:40 Sputum, Induced/Lukens Respiratory Culture - Preliminary Culture exhibits no growth. 05/05/21 16:00 Urine Catheter - Cohn Legionella Antigen - Final 05/05/21 16:00 Urine Catheter - Cohn Streptococcus pneumoniae Antigen (M - Final Streptococcus pneumonia Ag 05/05/21 11:18 Mucosa - Nose SARS-CoV-2 Antigen (Rapid) - Final Physical Exam Const alert, oriented x3 and no apparent distress General Appearance: cooperative, comfortable and well kempt HEENT normocephalic and head/scalp atraumatic Eyes PERRL, EOMs intact bilaterally and conjunctivae normal Neck full ROM Chest inspection of chest normal Resp normal respiratory effort and no use of accessory muscles Auscultation: diminished lung sounds; Negative for rales, rhonchi or wheezes Cardio regular rate, regular rhythm, S1 normal heart sound, S2 normal heart sound, no murmurs, no rub and no gallops Cardio Narrative: Paced rhythm on telemetry GI normal to inspection, nondistended, normoactive bowel sounds no CVA tenderness Extremity General Extremity: edema; Negative for clubbing or cyanosis Skin no rashes or lesions noted Neuro no focal motor deficits Sensorium / Orientation: sedated on vent Psych Mood & Affect: flat affect Charges/Coding Visit Charges Inpatient E&M: 35788 Subs Hosp L3
--- NOTE | 2021-05-07 08:30 | NURSING ---
Pt adamantly refusing to have meeks removed at this time d/t the fact that he will be getting diuretics this morning. Discussed primo external catheter use but pt states he wants to wait until bumex wears off.
[2021-05-07] MEDS: CHLORHEXIDINE GLUC 2% CLOTH 1 EACH TOWELETTE TOPICAL (09:26)
[2021-05-07] MEDS: Bumetanide 0.5 MG Tablet 1 MG PO (09:32)
[2021-05-07] MEDS: Senna/Docusate Sodium 1 Tablet PO (09:32)
[2021-05-07] MEDS: Amiodarone 200 MG Tablet PO (09:33)
[2021-05-07] MEDS: Carvedilol 6.25 MG Tablet PO (09:33)
[2021-05-07] MEDS: Aspirin 81 MG TAB.CHEW PO (09:33)
[2021-05-07] MEDS: Enoxaparin 40 MG/0.4 ML Syringe SC (09:33)
[2021-05-07] MEDS: Famotidine 20 MG Tablet PO ×2 (09:34→22:17)
--- NOTE | 2021-05-07 11:55 | CASEMGMT ---
FLAVIA CHAPARRO Face to Face with patient for initial transition planning/care coordination assessment. FLAVIA CHAPARRO introduced self and role at [facility]. Patient sitting in chair, alert and oriented. Patient willing to participate in assessment and is able to answer all questions appropriately. Care providers, pharmacy, and demographics verified. Patient wishes to discharge home, denies need for home health at this time, list of C agencies provided to patient. Patient states he has no further needs or concerns at this time. CM to follow for discharge planning needs that may arise. PCP: Carlos Specialists: Jose, shipbuilding draftsperson; Sohan Zaldivar Pharmacy: [facility] Insurance:[email or web address] Prescription Benefit: yes Living Will/HPOA: yes significant other Tabatha Mejía LNOK: significant other Tabatha Living Arrangements: Patient lives alone in a mobile home with 4 steps and railing to enter the home. Patient states he is independent at home. Tabatha helps with cleaning Transportation: self/Tabatha DME/HHC: patient states he has raised toilet, grab bars, nebulizer, and home oxygen through [employer] with portability at 4 lpm. Patient states he is active with [facility]. FLAVIA CHAPARRO called and updated regarding admission. Patient denies previous HHC or SNF. Disposition Plan: Patient to discharge home with family support and follow-up plans in place. Dionne BALDWIN, RN, CM
[2021-05-07] MEDS: Albuterol 2.5 MG/3 ML VIAL.NEB. INHALATION (13:42)
--- NOTE | 2021-05-07 14:18 | PCM.PN.HOSP ---
Subjective Subjective breathing well, tolerating nasal canula at 4 liters Objective Data Objective Data Vital Signs: Vital Signs Temp Pulse Resp BP Pulse Ox 37.5 C H 99 22 H 138/73 H 95 05/07/21 09:42 05/07/21 10:06 05/07/21 13:42 05/07/21 10:00 05/07/21 10:06 Oxygen Flow Rate (L/min) 4 Oxygen Delivery Method Nasal Cannula Weight: 89.9 kg Body Mass Index (BMI) 26.2 Intake & Output: Intake and Output for Last 24 Hours 05/05/21 05/06/21 05/07/21 23:59 23:59 23:59 Intake Total 3495.97 / 3728.07 2261.82 / 2261.82 1158.50 / 1158.50 Output Total 310 / 310 1200 / 1200 650 / 650 Balance 3185.97 / 3418.07 1061.82 / 1061.82 508.50 / 508.50 Lab / Micro Data Result Diagrams: 05/07/21 03:30 05/07/21 03:30 Labs: Laboratory Results - last 24 hr 05/07/21 05/07/21 03:30 03:30 WBC 8.0 RBC 3.97 L Hgb 8.3 L Hct 29.8 L MCV 75.1 L MCH 20.9 L MCHC 27.9 L RDW Std Deviation 53.2 H RDW Coeff of Beto 19.8 H Plt Count 107 L Immature Gran % (Auto) 3.800 H Neut % (Auto) 88.7 H Lymph % (Auto) 2.9 L [place] % (Auto) 4.6 Eos % (Auto) 0.0 Baso % (Auto) 0.0 Absolute Neuts (auto) 7.1 Absolute Lymphs (auto) 0.23 L Nucleated RBC % 0 Sodium 138 Potassium 4.4 Chloride 107 Carbon Dioxide 25.0 Anion Gap 6 BUN 41 H Creatinine 1.24 Estim Creat Clear Calc 57.37 Est GFR (MDRD) Af Amer 73 Est GFR (MDRD) Non-Af 61 BUN/Creatinine Ratio 33.1 H Glucose 112 H Calcium 8.2 L Micro: Microbiology 05/05/21 10:35 Blood Culture (Wb) - Right Forearm Blood Culture - Preliminary No growth in 48 hours. 05/05/21 10:30 Blood Culture (Wb) - Anticubital Left Blood Culture - Preliminary No growth in 48 hours. 05/05/21 14:40 Sputum, Induced/Lukens Gram Stain - Final 05/05/21 14:40 Sputum, Induced/Lukens Respiratory Culture - Preliminary Culture exhibits no growth. 05/05/21 16:00 Urine Catheter - Cohn Legionella Antigen - Final 05/05/21 16:00 Urine Catheter - Cohn Streptococcus pneumoniae Antigen (M - Final Streptococcus pneumonia Ag 05/05/21 11:18 Mucosa - Nose SARS-CoV-2 Antigen (Rapid) - Final Physical Exam Const alert Constitutional Narrative: up in chair eating breakfast. HEENT Head and Scalp: normocephalic Resp normal respiratory effort and no use of accessory muscles Resp Narrative: coarse breath sounds RUL Cardio regular rate, regular rhythm, S1 normal heart sound and S2 normal heart sound GI normal to inspection, nondistended, normoactive bowel sounds, soft to palpation, non-tender and non-distended Extremity normal to inspection Neuro Sensorium / Orientation: awake and alert Assessment & Plan Assessment/Plan (1) Acute respiratory failure with hypoxia and hypercapnia: (2) Pneumococcal pneumonia: QUALIFIERS: Laterality: right Lung location: upper lobe of lung Qualified Code(s): J13 - Pneumonia due to Streptococcus pneumoniae (3) Septic shock: (4) HFrEF (heart failure with reduced ejection fraction): (5) COPD with acute exacerbation: PLAN: 1. Acute hypoxic and hypercapnic respiratory failure Intubated on 05/05, extubated 05/06 and has remained stable Multifactorial: AECOPD, pneumonia, HFrEF 2. Septic shock Patient with marginal blood pressures before intubation expect the patient's blood pressure to drop further afterwards Prior to intubation, did discuss central venous access with him and in case he would need vaso active medications. Discussed risk of bleeding and pneumothorax but explained that those the risk of pneumothorax is very low. With ultrasound guidance. He agreed to proceed with that. Was on norepi 2/2 pneumococcal pneumonia Admission SOFA score of 11 BCx negative, deescalate abx 3. pneumococcal pneumonia Pulmonary toilet as able +Ag for pneumococcus. change to CTX 2 g IV Q24 4. Acute exacerbation of COPD Presumed and will treat with bronchodilators as well as methylprednisolone 5. Heart failure with reduced ejection fraction Due to ischemic cardiomyopathy EF of 35% from echocardiogram on May 16, 2020 Resumed on bumatenide Status post biventricular AICD 6. VTE prophylaxis high risk. LMWH Transfer to PCU. Anticipate discharge in 1-2 days Charges/Coding Visit Charges Inpatient E&M: 92917 [facility] Hosp L3
[2021-05-07] MEDS: 0.9% Saline Lock 10 ML Syringe IV (14:42)
[2021-05-07] MEDS: Lisinopril 5 MG Tablet PO (15:48)
[2021-05-07] MEDS: Finasteride 5 MG Tablet PO (15:48)
[2021-05-07] MEDS: Furosemide 20 MG/2 ML VIAL IV (15:53)
--- NOTE | 2021-05-07 15:57 | CASEMGMT ---
LW/Medical POA both scanned into summary tab of [facility], friend Carla Huffmans is listed as medical POA. LANDON Isaac
[2021-05-07] MEDS: Atorvastatin Calcium 20 MG Tablet PO (22:17)
[2021-05-07] MEDS: Carvedilol 3.125 MG TABLET PO (22:17)
[2021-05-07] MEDS: MELATONIN 3 MG TABLET 5 MG PO (22:23)
[2021-05-08] VITALS (21 sets, daily range): BP systolic 114–124; BP diastolic 54–78; PULSE 62–92; RESP 16–28; TEMP 36.4–36.7; O2SAT 91–97
[2021-05-08] MEDS: Ipratropium/Albuterol Sulfate 3 ML AMPUL.NEB INHALATION ×5 (02:42→19:33)
[2021-05-08 07:02] LABS: Absolute Lymphocyte Count 0.33 X10^3/uL (0.83-4.51); Basophil# 0.01 X10^3/uL; Basophil% 0.1 % (0-1); Hematocrit 32.2 % (40-54); Hemoglobin 9.3 g/dL (13.0-16.5); Lymphocyte # 0.33 X10^3/ul (0.83-4.51); Lymphocyte % 3.4 % (19-41); Mean Corp Hgb Conc 28.9 g/dL (32-36); Mean Corpuscular Hgb 21.3 pg (27.0-32.0); Mean Corpuscular Volume 73.7 fL (80-94); Mean Platelet Vol. 10.1 fl (6.2-12.0); Monocyte# 0.27 X10^3/uL; Monocyte% 2.8 % (0-10); NRBC Flagged by Analyzer 0 % (0-5); Neutrophil # 9.02 X10^3/uL (2.7-7.7); Neutrophil % 92.1 % (47-70); POSITIVE DIFFERENTIAL YES; Platelet Count 161 K/mm3 (150-450); RBC Distribution Width CV 19.9 % (11.6-14.6); Red Blood Count 4.37 M/mm3 (4.6-6.2); White Blood Count 9.8 K/mm3 (4.4-11.0)
[2021-05-08 07:06] LABS: Differential Indicated SCAN CRITERIA MET
[2021-05-08 07:33] LABS: Anisocytosis 1+; Hypochromasia 2+; Microcytosis 2+; Platelet Estimate ADEQUATE (ADEQ); Polychromasia RARE
[2021-05-08 07:44] LABS: ALB/GLOB Ratio 0.8 RATIO (0.9-2.4); AST(SGOT) 28 U/L (15-37); Alanine Aminotransfer ALT/SGPT 53 U/L (16-61); Albumin, Serum 2.6 g/dL (3.2-5.0); Alkaline Phosphatase 71 U/L (45-117); Anion Gap 8 (5-15); BUN 53 mg/dL (7-18); BUN/Creat Ratio 39.3 RATIO (10-20); Calcium,Total 8.5 mg/dL (8.5-10.1); Chloride 104 mmol/L (98-107); Creatinine, Serum 1.35 mg/dL (0.70-1.30); EST Glomerular Filtration Rate 55 mL/min (>60); Est Glom Filt Rate - Afr Amer 66 mL/min (>60); Estimated Creatinine Clearance 52.69 ml/min; Globulin 3.4 g/dL (2.2-4.2); Glucose 112 mg/dL (74-106); Potassium 4.4 mmol/L (3.5-5.1); Sodium Level 138 mmol/L (136-145)
--- NOTE | 2021-05-08 08:20 | PN.CC_ITS ---
Assessment & Plan Assessment/Plan (1) Chronic systolic (congestive) heart failure: PLAN: RECOMMENDATIONS: 1. Anticipate 7 days of antibiotics 2. Continue baseline diuretic therapy 3. Wean oxygen as tolerated 4. Continue stool softener 5. Increase activity as tolerated 6. Consider palliative care evaluation 7. Walking oximetry prior to discharge 8. Potential discharge if able to tolerate ambulation on 6 L or less IMPRESSIONS: 1. Acute combined respiratory failure secondary to COPD exacerbation secondary to pneumococcal pneumonia Patient with a new upper lobe infiltrate, right greater than left. Patient does have pneumococcal antigen positivity and has responded well to antibiotics. Patient currently on ceftriaxone and tolerating well. Likely okay to transition to p.o antibiotics to complete a 7-day course if discharged. Given COPD comorbidity, will continue with bronchodilators. Some of patient's insomnia may be secondary to steroids. Transition to prednisone therapy. Wean oxygen as tolerated. 2. Septic shock secondary to pneumococcal pneumonia Patient responded well to Levophed initially. This has been held. Patient does have concomitant congestive heart failure, so we will hold on aggressive fluid resuscitation. Patient currently on ceftriaxone and tolerating well. 3. Acute on chronic systolic CHF with biventricular AICD Patient with significantly elevated BNP on presentation. Patient does have an EF of 35% by echocardiogram in May 2020. It is unlikely that this needs to be repeated at this time as an inpatient. We will continue baseline diuretic therapy. Likely not necessary to continue to monitor troponins. 4. Hypertension/hyperlipidemia/AICD/advanced age Complicates care, management, recovery and prognosis. Back on baseline medications and tolerating well. Subjective Subjective Patient did well overnight. No acute issues were reported. Patient has been requiring 5 L nasal cannula to maintain saturations. Patient states his baseline is 2 to 3 L nasal cannula. 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 Objective Data Objective Data Vital Signs: Vital Signs Temp Pulse Resp BP Pulse Ox 36.6 C 92 28 H 121/78 H 96 05/08/21 06:51 05/08/21 06:59 05/08/21 06:51 05/08/21 06:51 05/08/21 06:51 Oxygen Flow Rate (L/min) 5 Oxygen Delivery Method Nasal Cannula Weight: 89.1 kg Body Mass Index (BMI) 26.2 Intake & Output: Intake and Output for Last 24 Hours 05/06/21 05/07/21 05/08/21 23:59 23:59 23:59 Intake Total 2261.82 / 2261.82 1258.50 / 1258.50 Output Total 1200 / 1200 2050 / 2975 1325 / 1325 Balance 1061.82 / 1061.82 -791.50 / -1716.50 -1325 / -1325 Lab / Micro Data Result Diagrams: 05/08/21 06:00 05/08/21 06:00 Labs: Laboratory Results - last 24 hr 05/08/21 05/08/21 06:00 06:00 WBC 9.8 RBC 4.37 L Hgb 9.3 L Hct 32.2 L MCV 73.7 L MCH 21.3 L MCHC 28.9 L RDW Std Deviation 53.0 H RDW Coeff of Beto 19.9 H Plt Count 161 MPV 10.1 Immature Gran % (Auto) 1.600 H Neut % (Auto) 92.1 H Lymph % (Auto) 3.4 L [place] % (Auto) 2.8 Eos % (Auto) 0.0 Baso % (Auto) 0.1 Absolute Neuts (auto) 9.0 H Absolute Lymphs (auto) 0.33 L Nucleated RBC % 0 Platelet Estimate ADEQUATE Polychromasia RARE Hypochromasia 2+ Anisocytosis 1+ Microcytosis 2+ Sodium 138 Potassium 4.4 Chloride 104 Carbon Dioxide 26.0 Anion Gap 8 BUN 53 H Creatinine 1.35 H Estim Creat Clear Calc 52.69 Est GFR (MDRD) Af Amer 66 Est GFR (MDRD) Non-Af 55 L BUN/Creatinine Ratio 39.3 H Glucose 112 H Calcium 8.5 Total Bilirubin 1.30 H AST 28 ALT 53 Alkaline Phosphatase 71 Total Protein 6.0 L Albumin 2.6 L Globulin 3.4 Albumin/Globulin Ratio 0.8 L Micro: Microbiology 05/05/21 14:40 Sputum, Induced/Lukens Gram Stain - Final 05/05/21 14:40 Sputum, Induced/Lukens Respiratory Culture - Preliminary Gram negative gage 05/05/21 10:35 Blood Culture (Wb) - Right Forearm Blood Culture - Preliminary No growth in 48 hours. 05/05/21 10:30 Blood Culture (Wb) - Anticubital Left Blood Culture - Preliminary No growth in 48 hours. 05/05/21 16:00 Urine Catheter - Cohn Legionella Antigen - Final 05/05/21 16:00 Urine Catheter - Cohn Streptococcus pneumoniae Antigen (M - Final Streptococcus pneumonia Ag 05/05/21 11:18 Mucosa - Nose SARS-CoV-2 Antigen (Rapid) - Final Physical Exam Const alert, oriented x3 and no apparent distress General Appearance: cooperative, comfortable and well kempt HEENT normocephalic and head/scalp atraumatic Eyes PERRL, EOMs intact bilaterally and conjunctivae normal Neck full ROM Chest inspection of chest normal Resp normal respiratory effort and no use of accessory muscles Auscultation: diminished lung sounds; Negative for rales, rhonchi or wheezes Cardio regular rate, regular rhythm, S1 normal heart sound, S2 normal heart sound, no murmurs, no rub and no gallops Cardio Narrative: Paced rhythm on telemetry GI normal to inspection, nondistended, normoactive bowel sounds no CVA tenderness Extremity no clubbing, cyanosis or edema General Extremity: edema; Negative for clubbing or cyanosis Skin no rashes or lesions noted Neuro oriented x3, CN's II-XII intact bilaterally, moves all extremities and no focal motor deficits Psych mental status grossly normal and cooperative Charges/Coding Visit Charges Inpatient E&M: 01002 Subs Hosp L2
[2021-05-08] MEDS: Lisinopril 5 MG Tablet PO (08:39)
[2021-05-08] MEDS: Aspirin 81 MG TAB.CHEW PO (08:39)
[2021-05-08] MEDS: Amiodarone 200 MG Tablet PO (08:39)
[2021-05-08] MEDS: Bumetanide 0.5 MG Tablet 1 MG PO (08:39)
[2021-05-08] MEDS: Finasteride 5 MG Tablet PO (08:40)
[2021-05-08] MEDS: Famotidine 20 MG Tablet PO ×2 (08:40→21:51)
[2021-05-08] MEDS: Senna/Docusate Sodium 1 Tablet PO (08:40)
[2021-05-08] MEDS: Enoxaparin 40 MG/0.4 ML Syringe SC (08:41)
[2021-05-08] MEDS: predniSONE 20 MG Tablet 40 MG PO (08:45)
[2021-05-08] MEDS: Carvedilol 6.25 MG Tablet PO (08:45)
--- NOTE | 2021-05-08 10:18 | PN.HOSP_ITS ---
Subjective Subjective Breathing well. Feels well. Objective Data Objective Data Vital Signs: Vital Signs Temp Pulse Resp BP Pulse Ox 36.6 C 78 24 H 114/61 97 05/08/21 08:24 05/08/21 08:24 05/08/21 08:24 05/08/21 08:24 05/08/21 08:24 Oxygen Flow Rate (L/min) 4 Oxygen Delivery Method Nasal Cannula Weight: 89.1 kg Body Mass Index (BMI) 26.2 Intake & Output: Intake and Output for Last 24 Hours 05/06/21 05/07/21 05/08/21 23:59 23:59 23:59 Intake Total 2261.82 / 2261.82 1258.50 / 1258.50 Output Total 1200 / 1200 2050 / 2975 1325 / 1325 Balance 1061.82 / 1061.82 -791.50 / -1716.50 -1325 / -1325 Lab / Micro Data Result Diagrams: 05/08/21 06:00 05/08/21 06:00 Labs: Laboratory Results - last 24 hr 05/08/21 05/08/21 06:00 06:00 WBC 9.8 RBC 4.37 L Hgb 9.3 L Hct 32.2 L MCV 73.7 L MCH 21.3 L MCHC 28.9 L RDW Std Deviation 53.0 H RDW Coeff of Beto 19.9 H Plt Count 161 MPV 10.1 Immature Gran % (Auto) 1.600 H Neut % (Auto) 92.1 H Lymph % (Auto) 3.4 L [place] % (Auto) 2.8 Eos % (Auto) 0.0 Baso % (Auto) 0.1 Absolute Neuts (auto) 9.0 H Absolute Lymphs (auto) 0.33 L Nucleated RBC % 0 Platelet Estimate ADEQUATE Polychromasia RARE Hypochromasia 2+ Anisocytosis 1+ Microcytosis 2+ Sodium 138 Potassium 4.4 Chloride 104 Carbon Dioxide 26.0 Anion Gap 8 BUN 53 H Creatinine 1.35 H Estim Creat Clear Calc 52.69 Est GFR (MDRD) Af Amer 66 Est GFR (MDRD) Non-Af 55 L BUN/Creatinine Ratio 39.3 H Glucose 112 H Calcium 8.5 Total Bilirubin 1.30 H AST 28 ALT 53 Alkaline Phosphatase 71 Total Protein 6.0 L Albumin 2.6 L Globulin 3.4 Albumin/Globulin Ratio 0.8 L Micro: Microbiology 05/05/21 14:40 Sputum, Induced/Lukens Gram Stain - Final 05/05/21 14:40 Sputum, Induced/Lukens Respiratory Culture - Preliminary Gram negative gage 05/05/21 10:35 Blood Culture (Wb) - Right Forearm Blood Culture - Preliminary No growth in 48 hours. 05/05/21 10:30 Blood Culture (Wb) - Anticubital Left Blood Culture - Preliminary No growth in 48 hours. 05/05/21 16:00 Urine Catheter - Cohn Legionella Antigen - Final 05/05/21 16:00 Urine Catheter - Cohn Streptococcus pneumoniae Antigen (M - Final Streptococcus pneumonia Ag 05/05/21 11:18 Mucosa - Nose SARS-CoV-2 Antigen (Rapid) - Final Physical Exam Const alert HEENT Head and Scalp: normocephalic Resp normal respiratory effort Auscultation: wheezes Cardio regular rate, regular rhythm, S1 normal heart sound and S2 normal heart sound GI normal to inspection, nondistended, normoactive bowel sounds, soft to palpation, non-tender and non-distended Extremity normal to inspection Neuro Sensorium / Orientation: awake and alert Psych affect normal Assessment & Plan Assessment/Plan (1) Acute respiratory failure with hypoxia and hypercapnia: (2) Pneumococcal pneumonia: QUALIFIERS: Laterality: right Lung location: upper lobe of lung Qualified Code(s): J13 - Pneumonia due to Streptococcus pneumoniae (3) Septic shock: (4) HFrEF (heart failure with reduced ejection fraction): (5) COPD with acute exacerbation: PLAN: 1. Acute hypoxic and hypercapnic respiratory failure * Intubated on 05/05, extubated 05/06 and has remained stable * Multifactorial: AECOPD, pneumonia, HFrEF 2. Septic shock * Patient with marginal blood pressures before intubation expect the patient's blood pressure to drop further afterwards * Prior to intubation, did discuss central venous access with him and in case he would need vaso active medications. Discussed risk of bleeding and pneumothorax but explained that those the risk of pneumothorax is very low. With ultrasound guidance. He agreed to proceed with that. * Was on norepi * 2/2 pneumococcal pneumonia * Admission SOFA score of 11 * BCx negative, deescalate abx 3. pneumococcal pneumonia * Pulmonary toilet as able * +Ag for pneumococcus. * change to CTX 2 g IV Q24 4. Acute exacerbation of COPD * Presumed and will treat with bronchodilators as well as methylprednisolone 5. Heart failure with reduced ejection fraction * Due to ischemic cardiomyopathy * EF of 35% from echocardiogram on May 16, 2020 * Resumed on bumatenide * Status post biventricular AICD * Will give an additional dose of furosemide today 6. VTE prophylaxis high risk. LMWH 7. Discharge planning: continue medical therapy. I do not feel like the patient is medically stable for discharge at this point. Charges/Coding Visit Charges Inpatient E&M: 22749 Subs Hosp L2
[2021-05-08] MEDS: Albuterol 2.5 MG/3 ML VIAL.NEB. INHALATION (10:35)
[2021-05-08] MEDS: 0.9 % NaCl (Sterile) Posiflush 10 mL IV (10:35)
[2021-05-08] MEDS: Furosemide 20 MG/2 ML VIAL IV (10:36)
--- NOTE | 2021-05-08 13:07 | CHAPLAIN ---
Type of Pastoral Visit ___ Initial Visit _x__ Follow-up Visit ___ On-call Visit ___ General Patient Visit ___ Spiritual Assessment ___ Family Conference ___ Bereavement ___ Rapid Response ___ Code Blue ___ Other (describe below) Pastoral Care Referral From _x__ Patient ___ Family ___ Nurse ___ Physician ___ Registry Rn ___ Chief Of Vital Statistics ___ Other (describe below) Sacrament/Intervention _x__ Active listening ___ Anointing ___ Christianity ___ Bereavement ___ Communion ___ Jessie exploration ___ ___ Life review _x__ Prayer ___ Reconciliation ___ Sacrament of Sick ___ Supportive presence ___ Wedding ___ Other (describe below) Pastoral Comments
[2021-05-08] MEDS: Tamsulosin HCl 0.4 MG Capsule PO (17:59)
[2021-05-08] MEDS: Atorvastatin Calcium 20 MG Tablet PO (21:51)
[2021-05-08] MEDS: Carvedilol 3.125 MG TABLET PO (21:52)
[2021-05-08] MEDS: Calcium Carbonate 500 MG Tablet PO (23:09)
[2021-05-09] VITALS (22 sets, daily range): BP systolic 112–130; BP diastolic 45–58; PULSE 63–91; RESP 18–26; TEMP 36.4–36.9; O2SAT 85–100
[2021-05-09] MEDS: Ipratropium/Albuterol Sulfate 3 ML AMPUL.NEB INHALATION ×7 (00:04→23:11)
[2021-05-09 05:46] LABS: Absolute Lymphocyte Count 0.27 X10^3/uL (0.83-4.51); Absolute Neutrophil Count 7.2 X10^3/uL (2.0-7.7); Basophil# 0.01 X10^3/uL; Basophil% 0.1 % (0-1); Hematocrit 31.8 % (40-54); Hemoglobin 8.9 g/dL (13.0-16.5); Lymphocyte # 0.27 X10^3/ul (0.83-4.51); Lymphocyte % 3.3 % (19-41); Mean Corpuscular Hgb 21.1 pg (27.0-32.0); Mean Corpuscular Volume 75.4 fL (80-94); Mean Platelet Vol. 9.8 fl (6.2-12.0); Monocyte# 0.61 X10^3/uL; Monocyte% 7.6 % (0-10); NRBC Flagged by Analyzer 0 % (0-5); Neutrophil # 7.15 X10^3/uL (2.7-7.7); Neutrophil % 88.6 % (47-70); POSITIVE DIFFERENTIAL YES; Platelet Count 137 K/mm3 (150-450); RBC Distribution Width CV 19.7 % (11.6-14.6); RBC Distribution Width SD 52.9 fl (35.1-43.9); Red Blood Count 4.22 M/mm3 (4.6-6.2); White Blood Count 8.1 K/mm3 (4.4-11.0)
[2021-05-09 05:53] LABS: Differential Indicated SCAN CRITERIA MET
[2021-05-09 06:07] LABS: Anion Gap 4 (5-15); BUN 48 mg/dL (7-18); BUN/Creat Ratio 42.1 RATIO (10-20); Calcium,Total 8.6 mg/dL (8.5-10.1); Chloride 105 mmol/L (98-107); Creatinine, Serum 1.14 mg/dL (0.70-1.30); EST Glomerular Filtration Rate 67 mL/min (>60); Est Glom Filt Rate - Afr Amer 81 mL/min (>60); Glucose 108 mg/dL (74-106); Sodium Level 142 mmol/L (136-145)
[2021-05-09] MEDS: Bumetanide 0.5 MG Tablet 1 MG PO (08:31)
[2021-05-09] MEDS: Famotidine 20 MG Tablet PO ×2 (08:31→22:08)
--- NOTE | 2021-05-09 08:31 | PN.CC_ITS ---
Assessment & Plan Assessment/Plan (1) Chronic systolic (congestive) heart failure: PLAN: RECOMMENDATIONS: 1. Anticipate 7 days of Levaquin 2. Continue baseline diuretic therapy 3. Wean oxygen as tolerated 4. Continue stool softener and titrate to daily bowel movement 5. Increase activity as tolerated 6. Consider palliative care evaluation 7. Walking oximetry prior to discharge 8. Potential discharge if able to tolerate ambulation on 6 L or less IMPRESSIONS: 1. Acute combined respiratory failure secondary to COPD exacerbation se condary to pneumococcal pneumonia Patient with a new upper lobe infiltrate, right greater than left. Patient does have pneumococcal antigen positivity and has responded well to antibiotics. Patient currently on ceftriaxone, but this would not have activity against stenotrophomonas. Will transition patient to Levaquin therapy and monitor QT with telemetry. Anticipate 7 days of Levaquin should be sufficient. Given COPD comorbidity, will continue with bronchodilators. Some of patient's insomnia may be secondary to steroids. Prednisone therapy can likely be weaned over 12 to 14 days on discharge. Wean oxygen as tolerated. 2. Septic shock secondary to pneumococcal pneumonia Patient responded well to Levophed initially. This has been held. Roxy moreira does have concomitant congestive heart failure, so we will hold on aggressive fluid resuscitation. Patient currently on antibiotics and tolerating well. 3. Acute on chronic systolic CHF with biventricular AICD Patient with significantly elevated BNP on presentation. Patient does have an EF of 35% by echocardiogram in May 2020. It is unlikely that this need s to be repeated at this time as an inpatient. We will continue baseline diuretic therapy. Likely not necessary to continue to monitor troponins. 4. Hypertension/hyperlipidemia/AICD/advanced age Complicates care, management, recovery and prognosis. Back on baseline medications and tolerating well. Subjective Subjective Patient did okay overnight. Patient chest pain, bowel pain, nausea or vomiting. Patient feels his swelling of the lower extremities is relatively unchanged. Patient was able to make it to the chair yesterday. Patient is asking when he will be able to go home. Objective Data Objective Data Vital Signs: Vital Signs Temp Pulse Resp BP Pulse Ox 36.4 C L 64 20 H 127/53 H 94 05/09/21 04:48 05/09/21 06:54 05/09/21 06:52 05/09/21 04:48 05/09/21 06:52 Oxygen Flow Rate (L/min) 6 Oxygen Delivery Method Nasal Cannula Weight: 87 kg Body Mass Index (BMI) 26.2 Intake & Output: Intake and Output for Last 24 Hours 05/07/21 05/08/21 05/09/21 23:59 23:59 23:59 Intake Total 1258.50 / 1258.50 1080 / 1200 240 / 240 Output Total 2050 / 2975 3825 / 4575 1450 / 1450 Balance -791.50 / -1716.50 -2745 / -3375 -1210 / -1210 Lab / Micro Data Result Diagrams: 05/09/21 05:20 05/09/21 05:20 Labs: Laboratory Results - last 24 hr 05/09/21 05/09/21 05:20 05:20 WBC 8.1 RBC 4.22 L Hgb 8.9 L Hct 31.8 L MCV 75.4 L MCH 21.1 L MCHC 28.0 L RDW Std Deviation 52.9 H RDW Coeff of Beto 19.7 H Plt Count 137 L MPV 9.8 Immature Gran % (Auto) 0.400 Neut % (Auto) 88.6 H Lymph % (Auto) 3.3 L [place] % (Auto) 7.6 Eos % (Auto) 0.0 Baso % (Auto) 0.1 Absolute Neuts (auto) 7.2 Absolute Lymphs (auto) 0.27 L Nucleated RBC % 0 Sodium 142 Potassium 4.0 Chloride 105 Carbon Dioxide 33.0 H Anion Gap 4 L BUN 48 H Creatinine 1.14 Estim Creat Clear Calc 62.40 Est GFR (MDRD) Af Amer 81 Est GFR (MDRD) Non-Af 67 BUN/Creatinine Ratio 42.1 H Glucose 108 H Calcium 8.6 Micro: Microbiology 05/05/21 14:40 Sputum, Induced/Lukens Gram Stain - Final 05/05/21 14:40 Sputum, Induced/Lukens Respiratory Culture - Final Stenotrophomonas maltophilia 05/05/21 10:35 Blood Culture (Wb) - Right Forearm Blood Culture - Preliminary No growth in 48 hours. 05/05/21 10:30 Blood Culture (Wb) - Anticubital Left Blood Culture - Preliminary No growth in 48 hours. 05/05/21 16:00 Urine Catheter - Cohn Legionella Antigen - Final 05/05/21 16:00 Urine Catheter - Cohn Streptococcus pneumoniae Antigen (M - Final Streptococcus pneumonia Ag 05/05/21 11:18 Mucosa - Nose SARS-CoV-2 Antigen (Rapid) - Final Physical Exam Const alert, oriented x3 and no apparent distress Constitutional Narrative: Good vent synchrony General Appearance: cooperative, comfortable and well kempt HEENT normocephalic and head/scalp atraumatic Eyes PERRL, EOMs intact bilaterally and conjunctivae normal Neck full ROM Chest inspection of chest normal Resp normal respiratory effort and no use of accessory muscles Auscultation: wheezes and diminished lung sounds; Negative for rales or rhonchi Cardio regular rate, regular rhythm, S1 normal heart sound, S2 normal heart sound, no murmurs, no rub and no gallops Cardio Narrative: Paced rhythm on telemetry GI normal to inspection, nondistended, normoactive bowel sounds no CVA tenderness Extremity no clubbing, cyanosis or edema General Extremity: edema; Negative for clubbing or cyanosis Skin no rashes or lesions noted Neuro oriented x3, CN's II-XII intact bilaterally, moves all extremities and no focal motor deficits Sensorium / Orientation: sedated on vent Psych mental status grossly normal and cooperative Mood & Affect: flat affect Charges/Coding Visit Charges Inpatient E&M: 59986 Subs Hosp L2
[2021-05-09] MEDS: Aspirin 81 MG TAB.CHEW PO (08:32)
[2021-05-09] MEDS: Amiodarone 200 MG Tablet PO (08:32)
[2021-05-09] MEDS: predniSONE 20 MG Tablet 40 MG PO (08:32)
[2021-05-09] MEDS: Lisinopril 5 MG Tablet PO (08:36)
[2021-05-09] MEDS: Finasteride 5 MG Tablet PO (08:37)
[2021-05-09] MEDS: Senna/Docusate Sodium 1 Tablet PO (08:37)
[2021-05-09] MEDS: Enoxaparin 40 MG/0.4 ML Syringe SC (08:41)
[2021-05-09] MEDS: Carvedilol 6.25 MG Tablet PO (08:51)
--- NOTE | 2021-05-09 09:05 | NURSING ---
Per Yolanda in infectious disease, Stenotrophomonas Maltophilia is inherently multi-drug resistant in requires contact isolation.
[2021-05-09] MEDS: levoFLOXacin 500 MG Tablet PO (09:30)
--- NOTE | 2021-05-09 10:21 | PN.HOSP_ITS ---
Subjective Subjective Breathing well. Objective Data Objective Data Vital Signs: Vital Signs Temp Pulse Resp BP Pulse Ox 36.6 C 68 18 126/45 H 91 05/09/21 08:51 05/09/21 08:51 05/09/21 08:51 05/09/21 08:51 05/09/21 08:56 Oxygen Flow Rate (L/min) 5 Oxygen Delivery Method Nasal Cannula Weight: 87 kg Body Mass Index (BMI) 26.2 Intake & Output: Intake and Output for Last 24 Hours 05/07/21 05/08/21 05/09/21 23:59 23:59 23:59 Intake Total 1258.50 / 1258.50 1080 / 1200 240 / 240 Output Total 2050 / 2975 3825 / 4575 1450 / 1450 Balance -791.50 / -1716.50 -2745 / -3375 -1210 / -1210 Lab / Micro Data Result Diagrams: 05/09/21 05:20 05/09/21 05:20 Labs: Laboratory Results - last 24 hr 05/09/21 05/09/21 05:20 05:20 WBC 8.1 RBC 4.22 L Hgb 8.9 L Hct 31.8 L MCV 75.4 L MCH 21.1 L MCHC 28.0 L RDW Std Deviation 52.9 H RDW Coeff of Beto 19.7 H Plt Count 137 L MPV 9.8 Immature Gran % (Auto) 0.400 Neut % (Auto) 88.6 H Lymph % (Auto) 3.3 L Kimble % (Auto) 7.6 Eos % (Auto) 0.0 Baso % (Auto) 0.1 Absolute Neuts (auto) 7.2 Absolute Lymphs (auto) 0.27 L Nucleated RBC % 0 Sodium 142 Potassium 4.0 Chloride 105 Carbon Dioxide 33.0 H Anion Gap 4 L BUN 48 H Creatinine 1.14 Estim Creat Clear Calc 62.40 Est GFR (MDRD) Af Amer 81 Est GFR (MDRD) Non-Af 67 BUN/Creatinine Ratio 42.1 H Glucose 108 H Calcium 8.6 Micro: Microbiology 05/05/21 14:40 Sputum, Induced/Lukens Gram Stain - Final 05/05/21 14:40 Sputum, Induced/Lukens Respiratory Culture - Final Stenotrophomonas maltophilia 05/05/21 10:35 Blood Culture (Wb) - Right Forearm Blood Culture - Preliminary No growth in 48 hours. 05/05/21 10:30 Blood Culture (Wb) - Anticubital Left Blood Culture - Preliminary No growth in 48 hours. 05/05/21 16:00 Urine Catheter - Cohn Legionella Antigen - Final 05/05/21 16:00 Urine Catheter - Cohn Streptococcus pneumoniae Antigen (M - Final Streptococcus pneumonia Ag 05/05/21 11:18 Mucosa - Nose SARS-CoV-2 Antigen (Rapid) - Final Physical Exam Const alert HEENT Head and Scalp: normocephalic Resp normal respiratory effort Auscultation: wheezes Cardio regular rate, regular rhythm, S1 normal heart sound and S2 normal heart sound GI normal to inspection, nondistended, normoactive bowel sounds, soft to palpation, non-tender and non-distended Extremity General Extremity: edema Skin no rashes or lesions noted Neuro Sensorium / Orientation: awake Assessment & Plan Assessment/Plan (1) Acute respiratory failure with hypoxia and hypercapnia: (2) Pneumococcal pneumonia: QUALIFIERS: Laterality: right Lung location: upper lobe of lung Qualified Code(s): J13 - Pneumonia due to Streptococcus pneumoniae (3) Septic shock: (4) HFrEF (heart failure with reduced ejection fraction): (5) COPD with acute exacerbation: PLAN: 1. Acute hypoxic and hypercapnic respiratory failure * Intubated on 05/05, extubated 05/06 and has remained stable * Multifactorial: AECOPD, pneumonia, HFrEF 2. Septic shock * resolved * 2/2 pneumonia * Patient with marginal blood pressures before intubation expect the patient's blood pressure to drop further afterwards * Was on norepi * 2/2 pneumococcal pneumonia * Admission SOFA score of 11 * BCx negative, deescalate abx 3. pneumococcal pneumonia * Pulmonary toilet as able * +Ag for pneumococcus. * CTX dc'd. Started on levofloxacin. 4. Stenotrophomonas pneumonia * + on sputum Cx * started on levofloxacin 05/09. Treat through 5. Acute exacerbation of COPD * Presumed and will treat with bronchodilators as well as prednisone 6. Heart failure with reduced ejection fraction * Due to ischemic cardiomyopathy * EF of 35% from echocardiogram on May 16, 2020 * Resumed on bumatenide * Status post biventricular AICD * Will give an additional dose of furosemide today 7. VTE prophylaxis high risk. LMWH 8. Discharge planning: continue medical therapy. Anticipate discharge in 1-2 days if continues to improve. Charges/Coding Visit Charges Inpatient E&M: 64323 Subs Hosp L2
[2021-05-09] MEDS: Furosemide 20 MG/2 ML VIAL IV (11:42)
[2021-05-09] MEDS: 0.9 % NaCl (Sterile) Posiflush 10 mL IV (11:42)
[2021-05-09] MEDS: Tamsulosin HCl 0.4 MG Capsule PO (18:42)
[2021-05-09] MEDS: Atorvastatin Calcium 20 MG Tablet PO (22:08)
[2021-05-09] MEDS: Carvedilol 3.125 MG TABLET PO (22:08)
[2021-05-10] VITALS (10 sets, daily range): BP systolic 124–125; BP diastolic 59–60; PULSE 62–69; RESP 18–20; TEMP 36.3–36.5; O2SAT 82–99
[2021-05-10] MEDS: levoFLOXacin 500 MG Tablet PO (05:10)
[2021-05-10 07:32] LABS: Anion Gap 2 (5-15); BUN 43 mg/dL (7-18); Calcium,Total 8.5 mg/dL (8.5-10.1); Chloride 104 mmol/L (98-107); Creatinine, Serum 1.05 mg/dL (0.70-1.30); EST Glomerular Filtration Rate 73 mL/min (>60); Est Glom Filt Rate - Afr Amer 89 mL/min (>60); Estimated Creatinine Clearance 67.75 ml/min; Glucose 95 mg/dL (74-106); Potassium 4.4 mmol/L (3.5-5.1); Sodium Level 142 mmol/L (136-145)
[2021-05-10] MEDS: Ipratropium/Albuterol Sulfate 3 ML AMPUL.NEB INHALATION ×2 (07:33→11:12)
--- NOTE | 2021-05-10 08:29 | PCM.PN.INT ---
Assessment & Plan Assessment/Plan (1) Chronic systolic (congestive) heart failure: PLAN: RECOMMENDATIONS: 1. Anticipate 7 days of Levaquin 2. Continue baseline diuretic therapy. Add additional dose of Bumex this evening 3. Wean oxygen as tolerated 4. Continue stool softener and titrate to daily bowel movement 5. Increase activity as tolerated 6. Consider palliative care evaluation 7. Walking oximetry prior to discharge 8. Potential discharge if able to tolerate ambulation on 6 L or less IMPRESSIONS: 1. Acute combined respiratory failure secondary to COPD exacerbation secondary to pneumococcal pneumonia Patient with a new upper lobe infiltrate, right greater than left. Patient does have pneumococcal antigen positivity and has responded well to antibiotics. Patient currently on ceftriaxone, but this would not have activity against stenotrophomonas. Will transition patient to Levaquin therapy and monitor QT with telemetry. Anticipate 7 days of Levaquin should be sufficient. Given COPD comorbidity, will continue with bronchodilators. Some of patient's insomnia may be secondary to steroids. Prednisone therapy can likely be weaned over 12 to 14 days on discharge. Wean oxygen as tolerated. We will give an additional dose of diuretic this evening. Obtain walking oximetry. Anticipate patient could be discharged if able to ambulate on 6 L or less. 2. Septic shock secondary to pneumococcal pneumonia Patient responded well to Levophed initially. This has been held. Patient does have concomitant congestive heart failure, so we will hold on aggressive fluid resuscitation. Patient currently on antibiotics and tolerating well. 3. Acute on chronic systolic CHF with biventricular AICD Patient with significantly elevated BNP on presentation. Patient does have an EF of 35% by echocardiogram in May 2020. It is unlikely that this needs to be repeated at this time as an inpatient. We will continue baseline diuretic therapy and add additional doses as clinically indicated. Likely not necessary to continue to monitor troponins. 4. Hypertension/hyperlipidemia/AICD/advanced age Complicates care, management, recovery and prognosis. Back on baseline medications and tolerating well. Subjective Subjective Patient did well overnight and states that this morning he feels like I could go home. However, patient did require up to 8 L nasal cannula during the afternoon yesterday. Patient continues to report difficulty with ambulation but feels he could do this at home. Patient is not reporting any palpitations and feels his lower extremity edema is slightly improved. Objective Data Objective Data Vital Signs: Vital Signs Temp Pulse Resp BP Pulse Ox 36.5 C L 64 18 124/59 H 99 05/10/21 03:00 05/10/21 07:00 05/10/21 03:00 05/10/21 03:00 05/10/21 03:00 Oxygen Flow Rate (L/min) 5 Oxygen Delivery Method Venturi Mask Weight: 87.6 kg Body Mass Index (BMI) 26.2 Intake & Output: Intake and Output for Last 24 Hours 05/08/21 05/09/21 05/10/21 23:59 23:59 23:59 Intake Total 1080 / 1200 1270 / 1270 Output Total 3825 / 4575 2950 / 3700 751 / 751 Balance -2745 / -3375 -1680 / -2430 -751 / -751 Lab / Micro Data Result Diagrams: 05/09/21 05:20 05/10/21 06:48 Labs: Laboratory Results - last 24 hr 05/10/21 06:48 Sodium 142 Potassium 4.4 Chloride 104 Carbon Dioxide 36.0 H Anion Gap 2 L BUN 43 H Creatinine 1.05 Estim Creat Clear Calc 67.75 Est GFR (MDRD) Af Amer 89 Est GFR (MDRD) Non-Af 73 BUN/Creatinine Ratio 41.0 H Glucose 95 Calcium 8.5 Micro: Microbiology 05/05/21 14:40 Sputum, Induced/Lukens Gram Stain - Final 05/05/21 14:40 Sputum, Induced/Lukens Respiratory Culture - Final Stenotrophomonas maltophilia 05/05/21 10:35 Blood Culture (Wb) - Right Forearm Blood Culture - Preliminary No growth in 48 hours. 05/05/21 10:30 Blood Culture (Wb) - Anticubital Left Blood Culture - Preliminary No growth in 48 hours. 05/05/21 16:00 Urine Catheter - Cohn Legionella Antigen - Final 05/05/21 16:00 Urine Catheter - Cohn Streptococcus pneumoniae Antigen (M - Final Streptococcus pneumonia Ag 05/05/21 11:18 Mucosa - Nose SARS-CoV-2 Antigen (Rapid) - Final Physical Exam Const alert, oriented x3 and no apparent distress Constitutional Narrative: Good vent synchrony General Appearance: cooperative, comfortable and well kempt HEENT normocephalic and head/scalp atraumatic Eyes PERRL, EOMs intact bilaterally and conjunctivae normal Neck full ROM Chest inspection of chest normal Resp normal respiratory effort and no use of accessory muscles Auscultation: wheezes and diminished lung sounds; Negative for rales or rhonchi Cardio regular rate, regular rhythm, S1 normal heart sound, S2 normal heart sound, no murmurs, no rub and no gallops Cardio Narrative: Paced rhythm on telemetry GI normal to inspection, nondistended, normoactive bowel sounds no CVA tenderness Extremity no clubbing, cyanosis or edema General Extremity: edema; Negative for clubbing or cyanosis Skin no rashes or lesions noted Neuro oriented x3, CN's II-XII intact bilaterally, moves all extremities and no focal motor deficits Sensorium / Orientation: sedated on vent Psych mental status grossly normal and cooperative Mood & Affect: flat affect Charges/Coding Visit Charges Inpatient E&M: 17710 Subs Hosp L2
[2021-05-10] MEDS: Carvedilol 6.25 MG Tablet PO (09:14)
[2021-05-10] MEDS: Famotidine 20 MG Tablet PO (09:15)
[2021-05-10] MEDS: Aspirin 81 MG TAB.CHEW PO (09:15)
[2021-05-10] MEDS: Bumetanide 0.5 MG Tablet 1 MG PO (09:15)
[2021-05-10] MEDS: Amiodarone 200 MG Tablet PO (09:15)
[2021-05-10] MEDS: predniSONE 20 MG Tablet 40 MG PO (09:15)
[2021-05-10] MEDS: Enoxaparin 40 MG/0.4 ML Syringe SC (09:16)
[2021-05-10] MEDS: Senna/Docusate Sodium 1 Tablet PO (09:16)
[2021-05-10] MEDS: Finasteride 5 MG Tablet PO (09:16)
[2021-05-10] MEDS: Lisinopril 5 MG Tablet PO (09:16)
--- NOTE | 2021-05-10 10:12 | PCM.DC ---
Discharge Instructions Diet Discharge Diet: 6 Cup Fluid Restriction Activity Discharge Activity: Return to Normal Activity Dressing / Incision Call your doctor if you observe: Fever of 101 or Higher and Shortness of breath Follow Up Care Test Results: Test results from this visit will be discussed in further detail at your follow-up appointment, if applicable. Discharge Plan Admission Admit Date/Time: 05/05/21 13:27 Attending Provider: Jules Cha Primary Care Provider: Sohan Goznalez Consulting Providers: Andrew Ivey ; Kaden Gerardo ; Julia Thomason [employer] PSYCHOLOGY PROFESSOR Discharge Orders/Prescriptions Prescriptions: New Ensure Enlive 0.08 gram-1.5 kcal/mL Liquid 120 ml PO TID Qty: 90 RF: 0 tamsulosin 0.4 mg Capsule 0.4 mg PO 1730 Qty: 30 RF: 0 levofloxacin 500 mg tablet 500 mg PO DAILY Qty: 5 RF: 0 prednisone 10 mg tablet 10 mg PO DAILY Qty: 30 RF: 0 Continued (DME) Handicap Parking Placard Qty: 1 RF: 0 finasteride 5 mg tablet 5 mg PO DAILY RF: 0 albuterol sulfate 2.5 MG/3 ML solution for nebulization 2.5 mg INHALATION Q6H PRN PRN (Reason: Wheezing) RF: 0 aspirin 81 MG tablet,chewable 81 mg PO DAILY RF: 0 albuterol sulfate 1 INHALER inhaler 1 - 2 puff INHALATION Q6H PRN PRN (Reason: Wheezing) RF: 0 amiodarone [Pacerone] 200 mg Tablet 200 mg PO DAILY RF: 0 isosorbide mononitrate 30 mg Tablet Extended Release 24 Hr 30 mg PO DAILY RF: 0 lorazepam 0.5 mg Tablet 0.5 mg PO BID PRN (Reason: Anxiety) RF: 0 bumetanide 1 mg Tablet 1 mg PO DAILY RF: 0 Breo Ellipta 200-25 mcg/dose blister with device 1 inh inhalation DAILY RF: 0 carvedilol [Coreg] 6.25 mg tablet 6.25 mg PO DAILY RF: 0 lisinopril 5 mg tablet 5 mg PO DAILY Qty: 90 RF: 3 simvastatin 40 mg tablet 40 mg PO QHS Qty: 90 RF: 3 Referrals / Follow Up: Andrew Ivey MD [STAFF PHYSICIAN] - Within 1 Month Sohan Gonzalez DO [Primary Care Provider] - In 1 Week Disposition Disposition (needs filled in before D/C Order can be placed): Home Health Service
--- NOTE | 2021-05-10 10:23 | PCM.DC.SUM ---
Providers Date of Admission: 05/05/21 Primary Care Physician: Dr. Sohan Gonzalez, Consultations 05/05/21 15:19 Consult: Commander Internal Affairs / Pulmonary Medicine Routine Consulting Provider: Pulmonary Medicine mayela Butts Reason for Consult: resp failure EMERGENT Consult: No MD Notified: Yes Date Notified: 05/05/21 Time Notified: 13:22 Method of Notification: Text Reason For Visit: RESP FAILURE Diagnosis Discharge Diagnosis (1) Chronic systolic (congestive) heart failure: Status: Chronic Code(s): I50.22 - Chronic systolic (congestive) heart failure Medications at Discharge Home Medications albuterol sulfate 1 - 2 puff INHALATION Q6H PRN PRN 12/14/14 albuterol sulfate 2.5 mg INHALATION Q6H PRN PRN 12/14/14 aspirin 81 mg PO DAILY 12/14/14 Handicap Parking Placard #1 ea 12/15/19 finasteride 5 mg tablet 5 mg PO DAILY 12/15/19 lisinopril 5 mg tablet 5 mg PO DAILY #90 tab 09/04/20 simvastatin 40 mg tablet 40 mg PO QHS #90 tab 09/04/20 Breo Ellipta 1 inh INHALATION DAILY 05/05/21 amiodarone [Pacerone] 200 mg PO DAILY 05/05/21 bumetanide 1 mg PO DAILY 05/05/21 carvedilol [Coreg] 6.25 mg PO DAILY 05/05/21 isosorbide mononitrate 30 mg PO DAILY 05/05/21 lorazepam 0.5 mg PO BID PRN 05/05/21 food supplemt, lactose-reduced [Ensure Enlive] 120 ml PO TID #90 bottle 05/10/21 levofloxacin 500 mg PO DAILY #5 tab 05/10/21 prednisone 10 mg PO DAILY #30 tab 05/10/21 tamsulosin 0.4 mg PO 1730 #30 cap 05/10/21 Hospital Course Operations None Procedures Central line placement and Intubation Summary of Care Provided Minutes Spent on Discharge: 35 Hospital Course: Patient presents with respiratory failure. Patient was subsequently intubated in the emergency room and required central line for septic shock and was on pressors. Patient responded well and was extubated the following day. Patient was found to have urinary antigens for Streptococcus pneumonia as well as sputum culture positive for stenotrophomonas pneumonia. Patient will be discharged home in stable condition. Will check a postvoid residual after the catheter is removed to see if the catheter need to be replaced and if so patient will need to follow-up with urology as outpatient. 1. Acute hypoxic and hypercapnic respiratory failure Intubated on 05/05, extubated 05/06 and has remained stable Multifactorial: AECOPD, pneumonia, HFrEF 2. Septic shock resolved 2/2 pneumonia Patient with marginal blood pressures before intubation expect the patient's blood pressure to drop further afterwards Was on norepi 2/2 pneumococcal pneumonia Admission SOFA score of 11 BCx negative, deescalate abx 3. pneumococcal pneumonia Pulmonary toilet as able +Ag for pneumococcus. CTX dc'd. Started on levofloxacin. 4. Stenotrophomonas pneumonia + on sputum Cx started on levofloxacin 05/09. Treat through 5. Acute exacerbation of COPD Presumed and will treat with bronchodilators as well as prednisone 6. Heart failure with reduced ejection fraction Due to ischemic cardiomyopathy EF of 35% from echocardiogram on May 16, 2020 Resumed on bumatenide Status post biventricular AICD Will give an additional dose of furosemide today Physical Exam Const alert Resp normal respiratory effort, no use of accessory muscles and clear to auscultation bilaterally Cardio regular rate, regular rhythm, S1 normal heart sound and S2 normal heart sound GI normal to inspection, nondistended, normoactive bowel sounds, soft to palpation, non-tender and non-distended Extremity normal to inspection Weight / BMI Weight Weight: 87.6 kg Body Mass Index (BMI) 26.2 ABG / Lab / Microbiology Data Result Diagrams: 05/09/21 05:20 05/10/21 06:48 Laboratory: Laboratory Results - last 24 hr 05/10/21 06:48 Sodium 142 Potassium 4.4 Chloride 104 Carbon Dioxide 36.0 H Anion Gap 2 L BUN 43 H Creatinine 1.05 Estim Creat Clear Calc 67.75 Est GFR (MDRD) Af Amer 89 Est GFR (MDRD) Non-Af 73 BUN/Creatinine Ratio 41.0 H Glucose 95 Calcium 8.5 Microbiology: Microbiology 05/05/21 14:40 Sputum, Induced/Lukens Gram Stain - Final 05/05/21 14:40 Sputum, Induced/Lukens Respiratory Culture - Final Stenotrophomonas maltophilia 05/05/21 10:35 Blood Culture (Wb) - Right Forearm Blood Culture - Preliminary No growth in 48 hours. 05/05/21 10:30 Blood Culture (Wb) - Anticubital Left Blood Culture - Preliminary No growth in 48 hours. 05/05/21 16:00 Urine Catheter - Cohn Legionella Antigen - Final 05/05/21 16:00 Urine Catheter - Cohn Streptococcus pneumoniae Antigen (M - Final Streptococcus pneumonia Ag 05/05/21 11:18 Mucosa - Nose SARS-CoV-2 Antigen (Rapid) - Final D/C Instructions Discharge Diet: 6 Cup Fluid Restriction Call your doctor if you observe: Fever of 101 or Higher and Shortness of breath Meaningful Use Info Meaningful Use Diagnoses (Choose all that apply): CHF CHF MALLORY/ARB ordered at discharge?: Yes Documented LVEF (%): 35 Discharge Plan Admission Admit Date/Time: 05/05/21 13:27 Attending Provider: Jules Cha Primary Care Provider: Sohan Gonzalez Consulting Providers: Andrew Ivey ; Kaden Gerardo ; Julia Thomason AGRICULTURAL AND FORESTRY SUPERVISOR Discharge Orders/Prescriptions Prescriptions: New Ensure Enlive 0.08 gram-1.5 kcal/mL Liquid 120 ml PO TID Qty: 90 RF: 0 tamsulosin 0.4 mg Capsule 0.4 mg PO 1730 Qty: 30 RF: 0 levofloxacin 500 mg tablet 500 mg PO DAILY Qty: 5 RF: 0 prednisone 10 mg tablet 10 mg PO DAILY Qty: 30 RF: 0 Continued (DME) Handicap Parking Placard Qty: 1 RF: 0 finasteride 5 mg tablet 5 mg PO DAILY RF: 0 albuterol sulfate 2.5 MG/3 ML solution for nebulization 2.5 mg INHALATION Q6H PRN PRN (Reason: Wheezing) RF: 0 aspirin 81 MG tablet,chewable 81 mg PO DAILY RF: 0 albuterol sulfate 1 INHALER inhaler 1 - 2 puff INHALATION Q6H PRN PRN (Reason: Wheezing) RF: 0 amiodarone [Pacerone] 200 mg Tablet 200 mg PO DAILY RF: 0 isosorbide mononitrate 30 mg Tablet Extended Release 24 Hr 30 mg PO DAILY RF: 0 lorazepam 0.5 mg Tablet 0.5 mg PO BID PRN (Reason: Anxiety) RF: 0 bumetanide 1 mg Tablet 1 mg PO DAILY RF: 0 Breo Ellipta 200-25 mcg/dose blister with device 1 inh inhalation DAILY RF: 0 carvedilol [Coreg] 6.25 mg tablet 6.25 mg PO DAILY RF: 0 lisinopril 5 mg tablet 5 mg PO DAILY Qty: 90 RF: 3 simvastatin 40 mg tablet 40 mg PO QHS Qty: 90 RF: 3 Referrals / Follow Up: Andrew Ivey MD [STAFF PHYSICIAN] - Within 1 Month Sohan Gonzalez DO [Primary Care Provider] - In 1 Week (PLEASE CALL AND SETUP A HOSPITAL FOLLW UP APPOINTMENT. ) Disposition Disposition (needs filled in before D/C Order can be placed): Home Health Service Charges/Coding Visit Charges Inpatient E&M: 06474 Disch Hosp
--- NOTE | 2021-05-10 10:42 | CASEMGMT ---
Addendum entered by Dionne Fenton 05/10/21 12:04: Pt is good on his 2L at rest but needs 6L with ambulation. New order obtained and faxed to [facility]. Call to [facility] to notify of need for larger concentrator and that pt discharging today, Jackie voices understanding. CM to follow for any further discharge planning/needs. Ash ALEJANDRO CM Original Note: Per [facility], pt's order is for 2L continuous home oxygen. Pt states has been wearing about 4L. Beba ALEJANDRO aware pt needs tested on 2L so new order can be sent. Pt declines need for any HHC/OP therapy and states he is active with palliative. Pt voices no further questions/concerns/needs. Ash ALEJANDRO CM
--- NOTE | 2021-05-10 11:03 | PHA.DC.MR ---
Pharmacy Service has performed discharge medication reconciliation for this patient. Patient in isolation, did not enter room. Home Medications albuterol sulfate 1 - 2 puff INHALATION Q6H PRN PRN 12/14/14 albuterol sulfate 2.5 mg INHALATION Q6H PRN PRN 12/14/14 aspirin 81 mg PO DAILY 12/14/14 Handicap Parking Placard #1 ea 12/15/19 finasteride 5 mg tablet 5 mg PO DAILY 12/15/19 lisinopril 5 mg tablet 5 mg PO DAILY #90 tab 09/04/20 simvastatin 40 mg tablet 40 mg PO QHS #90 tab 09/04/20 Breo Ellipta 1 inh INHALATION DAILY 05/05/21 amiodarone [Pacerone] 200 mg PO DAILY 05/05/21 bumetanide 1 mg PO DAILY 05/05/21 carvedilol [Coreg] 6.25 mg PO DAILY 05/05/21 isosorbide mononitrate 30 mg PO DAILY 05/05/21 lorazepam 0.5 mg PO BID PRN 05/05/21 food supplemt, lactose-reduced [Ensure Enlive] 120 ml PO TID #90 bottle 05/10/21 levofloxacin 500 mg PO DAILY #5 tab 05/10/21 prednisone 10 mg PO DAILY #30 tab 05/10/21 tamsulosin 0.4 mg PO 1730 #30 cap 05/10/21 The patient's discharge medication list was reviewed for discrepancies and discrepancies were resolved.
--- NOTE | 2021-05-13 14:55 | CASEMGMT ---
FLAVIA CHAPARRO Discharge Follow-up Phone Call: RONNIE: Shannan Strata: 3 Call Date: 05/13/21 Discharge Date: 05/10/21 Time of Call: 1450 Duration: 5 min Admitting Diagnosis: Respiratory Failure FLAVIA CHAPARRO completed follow-up phone call after recent hospitalization. Patient states he is doing ok but still having some swelling and shortness of breath. Patient states that he is wearing his oxygen and has been checking it with SpO2 ranging from 91-95% with 6-7 lpm ambulating. FLAVIA CHAPARRO inquired if patient using nebulizer Albuterol and he stated yes but not very often but when he does it helps. RN KRYSTA encouraged him to use PRN albuterol every 6 hours as instructed. Patient states he filled prescriptions without any issues and has been taking medication. Patient states that he talked with PCP's office this morning and updated them on his breathing, they encouraged him to keep wearing his oxygen. Patient aware of appts with PCP and pulmonology. FLAVIA CHAPARRO encourage patient if he continues with SOB to call Dr. Ivey's office for further instructions. Patient voiced understanding and appreciation. Patient had no further questions or concerns at this time.
== END 2021-05-10 14:42 | disposition home health service (06) | DRG 871 ==
LOC: ED 12:12 → ICU 13:25 → PCU 05-07 11:32
PROVIDERS: Internal Medicine Critical Care Medicine; Emergency Provider Emergency Medicine; PCP Student in an Organized Health Care Education/Training Program
DX: A41.9 Sepsis, unspecified organism (principal); R65.21 Severe sepsis with septic shock; J13 Pneumonia due to Streptococcus pneumoniae; J96.01 Acute respiratory failure with hypoxia; J96.02 Acute respiratory failure with hypercapnia; I50.23 Acute on chronic systolic (congestive) heart failure; J15.6 Pneumonia due to other Gram-negative bacteria; J44.1 Chronic obstructive pulmonary disease with (acute) exacerbation; J44.0 Chronic obstructive pulmonary disease with (acute) lower respiratory infection; E87.2 Acidosis; I25.5 Ischemic cardiomyopathy; Z87.891 Personal history of nicotine dependence; D64.9 Anemia, unspecified; E78.5 Hyperlipidemia, unspecified; I11.0 Hypertensive heart disease with heart failure
CPT/HCPCS: 31500; 31720; 36415; 36600; 70450; 71045; 73630; 74018; 80048; 80053; 82803; 83605; 83880; 84484; 85025; 85610; 85730; 87040; 87070; 87077; 87186; 87205; 87426; 87449; 93005; 94002; 94640; 94660; 97110; 97162; 97166; 97530; 97535; 97802; 97803; 99251; 99285; J7030; J7040; J7050; A4216; C1751; G0463; J0696; J1940; J3010

== ENCOUNTER 2021-11-07 13:16 | Emergency (ER) | payer MEDICARE, SELFPAY ==
[2021-11-07 13:17] VITALS: BP 124/53; PULSE 78; RESP 24; TEMP 36.4; O2SAT 90; BMI 25.4
[2021-11-07 13:35] VITALS: BP 119/56; PULSE 70; PULSE 73; RESP 22; RESP 23; TEMP 36.4; O2SAT 88; O2SAT 94
--- NOTE | 2021-11-07 15:02 | NURSING ---
LEFT MESSAGE ON DR MAI'S CELL. DR MAI CALLED BACK
--- NOTE | 2021-11-07 15:20 | ED.VIS.DYS ---
HPI History of Present Illness Chief Complaint: Shortness of Breath Narrative Narrative: Patient presenting for evaluation because his primary care physician told him to come to the ER for his bleeding. He tells me that he wears 2 L of oxygen at home. He was diagnosed with COVID-19. He is not wheezing. He does not have chest pain. He does intermittently have shortness of breath. Patient states that he does have COPD. 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) Biventricular ICD (implantable cardioverter-defibrillator) in place (01/10/15) BPV (benign positional vertigo) Chronic systolic (congestive) heart failure COPD (chronic obstructive pulmonary disease) Essential hypertension HLD (hyperlipidemia) Ischemic cardiomyopathy LBBB (left bundle branch block) Paroxysmal atrial fibrillation Wide-complex tachycardia Home Medications albuterol sulfate 1 - 2 puff INHALATION Q6H PRN PRN 12/14/14 [History Last Taken 11/29/19] albuterol sulfate 2.5 mg INHALATION Q6H PRN PRN 12/14/14 [History Last Taken 11/29/19] aspirin 81 mg PO DAILY 12/14/14 [History Last Taken 11/29/19] Handicap Parking Placard #1 ea 12/15/19 [Rx Last Taken Unknown] finasteride 5 mg tablet 5 mg PO DAILY 12/15/19 [History Last Taken Unknown] lisinopril 5 mg tablet 5 mg PO DAILY #90 tab 09/04/20 [Rx Last Taken Unknown] amiodarone [Pacerone] 200 mg PO DAILY 05/05/21 [History Last Taken Unknown] carvedilol [Coreg] 6.25 mg PO DAILY 05/05/21 [History Last Taken Unknown] lorazepam 0.5 mg PO BID PRN 05/05/21 [History Last Taken Unknown] food supplemt, lactose-reduced [Ensure Enlive] 120 ml PO TID #90 bottle 05/10/21 [Rx Last Taken Unknown] tamsulosin 0.4 mg PO 1730 #30 cap 05/10/21 [Rx Last Taken Unknown] nitroglycerin 0.4 mg sublingual tablet 0.4 mg SUBLINGUAL Q5M PRN #25 tab 07/30/21 [Rx Last Taken Unknown] bumetanide 1 mg tablet 1 mg PO DAILY tab 08/15/21 [History Last Taken Unknown] simvastatin 40 mg tablet 40 mg PO QHS #90 tab 09/09/21 [Rx Last Taken Unknown] fluticasone fur. 200 mcg-umeclid 62.5 mcg-vilant 25 mcg inhalat.powder 1 inh INHALATION DAILY #60 ea 10/02/21 [Rx Last Taken Unknown] Allergy/AdvReac Type Severity Reaction Status Date / Time Penicillins AdvReac Other Verified 11/07/21 13:19 Family History Father CAD (coronary artery disease) Diabetes Cancer lung cancer Myocardial infarction Mother Breast cancer Hypertension Surgical History H/O coronary artery bypass surgery (11/14/13) History of arthroplasty of left knee History of lumbar surgery History of tonsillectomy Social History Smoking Status: Former smoker how long ago did patient quit smokin12/2013 alcohol intake: never substance use type: does not use caffeine: Yes Type: carbonated beverages and coffee what type of physical activity do you participate in: none seatbelt use: always do you feel safe at home: Yes ROS ROS ED Constitutional Constitutional ED: Denies chills or fever(s) Eyes Eyes: Denies blurry vision or diplopia ENT ENT ED: Denies rhinorrhea or sore throat Cardiovascular Cardiovascular: Denies chest pain or palpitations Respiratory/Chest Respiratory/Chest: Reports cough and dyspnea Gastrointestinal Gastrointestinal: Denies abdominal pain, nausea or vomiting Genitourinary Genitourinary ED: Denies dysuria or hematuria Musculoskeletal Musculoskeletal: Denies arthralgias or myalgias Integumentary Denies abscess or rash Neurologic Neurologic: Denies headache(s) Psychiatric Psychiatric: Denies anxiety or depression EXAM Physical Exam Const Vital Signs: 11/07/21 13:17 11/07/21 13:35 11/07/21 16:06 Temperature 97.6 F L 97.6 F L Temperature Source Temporal Temporal Pulse Rate 78 70 77 Respiratory Rate 24 H 22 H 22 H Respiratory Effort Short of Breath Blood Pressure 124/53 H 119/56 L Blood Pressure Mean 76 77 Pulse Ox 90 94 96 Oxygen Delivery Method Room Air Room Air Oxygen Flow Rate (L/min) 2 Positive well nourished General Appearance ED: NAD; Negative for pallor HEENT Reports moist mucous membranes atraumatic Eyes PERRL and EOMs intact bilaterally Neck supple Resp normal respiratory effort and clear to auscultation bilaterally Cardio regular rate and regular rhythm Neuro oriented x3 and CN's II-XII intact bilaterally Sensorium / Orientation: alert Psych mental status grossly normal Skin General Skin Exam: Negative for jaundice or pallor MDM MDM MDM Narrative Medical decision making narrative: Patient was discussed with Dr. Mccoy and his nurse practitioner. Lab work was reviewed. It appears that the patient has a chronic stable anemia and there has not been much change in his lab work except the nurse practitioner states that his BNP had been elevated from 400-800 over the last year and it was 1000 today. Patient is on 2 L which she wears at home. He states he typically has to wear it only when he is out and about. He was ambulated on his home pulse ox and his oxygen dropped to 88% however he was able to turn it up a little bit and he caught his breath nearly immediately. Patient was recently diagnosed with COVID and this is likely the reason. He is not wheezing and does not appear to be dyspneic. He is speaking in full sentences. He already has an oxygen concentrator at home. He is not having any chest pain. Since his outpatient lab work is ultimately fairly normal after discussing this with his primary care I feel he can be discharged home. He was counseled that if his oxygen is dropping more and he needs to be reevaluated or he has new or worsening symptoms he should return to the ER. Impression: 1. COVID-19 2. Hypoxia Discharge Plan Triage Chief Complaint: Shortness of Breath ED Provider: Wilson Ellis Dx/Rx/DC Orders Clinical Impression: COVID-19 Instructions: Coronavirus Disease 2019 (COVID-19): Caring for Yourself or Others Prescriptions: No Action (DME) Handicap Parking Placard Qty: 1 RF: 0 finasteride 5 mg tablet 5 mg PO DAILY RF: 0 bumetanide 1 mg tablet 1 mg PO DAILY RF: 0 albuterol sulfate 2.5 MG/3 ML solution for nebulization 2.5 mg INHALATION Q6H PRN PRN (Reason: Wheezing) RF: 0 aspirin 81 MG tablet,chewable 81 mg PO DAILY RF: 0 albuterol sulfate 1 INHALER inhaler 1 - 2 puff INHALATION Q6H PRN PRN (Reason: Wheezing) RF: 0 amiodarone [Pacerone] 200 mg Tablet 200 mg PO DAILY RF: 0 lorazepam 0.5 mg Tablet 0.5 mg PO BID PRN (Reason: Anxiety) RF: 0 carvedilol [Coreg] 6.25 mg tablet 6.25 mg PO DAILY RF: 0 Ensure Enlive 0.08 gram-1.5 kcal/mL Liquid 120 ml PO TID Qty: 90 RF: 0 tamsulosin 0.4 mg Capsule 0.4 mg PO 1730 Qty: 30 RF: 0 lisinopril 5 mg tablet 5 mg PO DAILY Qty: 90 RF: 3 nitroglycerin 0.4 mg tablet, sublingual 0.4 mg sublingual Q5M PRN (Reason: chest pain) Qty: 25 RF: 3 simvastatin 40 mg tablet 40 mg PO QHS Qty: 90 RF: 3 Trelegy Ellipta 200-62.5-25 mcg blister with device 1 inh inhalation DAILY Qty: 60 RF: 6 Primary Care Provider: Sohan Gonzalez Referrals: Sohan Gonzalez DO [Primary Care Provider] - Disposition Disposition: Home, Self Care Discharge Date/Time: 11/07/21 16:11
[2021-11-07 16:06] VITALS: PULSE 77; RESP 22; O2SAT 96
== END 2021-11-07 16:11 | disposition home or self-care (01) ==
PROVIDERS: Emergency Provider Student in an Organized Health Care Education/Training Program; PCP Student in an Organized Health Care Education/Training Program; Visit Provider Student in an Organized Health Care Education/Training Program
DX: U07.1 COVID-19 (principal); J44.9 Chronic obstructive pulmonary disease, unspecified; I11.0 Hypertensive heart disease with heart failure; I50.22 Chronic systolic (congestive) heart failure; I48.0 Paroxysmal atrial fibrillation; D64.9 Anemia, unspecified; E78.5 Hyperlipidemia, unspecified; I25.5 Ischemic cardiomyopathy; I25.10 Atherosclerotic heart disease of native coronary artery without angina pectoris; Z99.81 Dependence on supplemental oxygen; Z79.82 Long term (current) use of aspirin; Z79.899 Other long term (current) drug therapy; Z87.891 Personal history of nicotine dependence
CPT/HCPCS: 99282

== ENCOUNTER 2021-11-11 10:40 | Inpatient (IN) | payer MEDICARE, MEDICAID, SELFPAY ==
[2021-11-11] VITALS (14 sets, daily range): BP systolic 103–135; BP diastolic 51–59; PULSE 67–75; RESP 18–26; TEMP 36.1–36.7; O2SAT 87–96; BMI 22.8; BMI 21.5
--- NOTE | 2021-11-11 11:44 | RAD_ITS ---
HISTORY: Dyspnea, COVID. TECHNIQUE: XR Chest 1 View. # of images incl. paperwork: 3. COMPARISON: 05/05/2021. FINDINGS: CARDIOMEDIASTINAL STRUCTURES: Cardiac silhouette not enlarged with pacemaker again seen. Mediastinal contour unchanged with midline sternotomy and calcified lymph nodes. LUNGS: Bilateral perihilar and basilar opacities, most confluent in the left retrocardiac lung. PLEURA: Mild bilateral pleural effusions. OSSEOUS STRUCTURES: Chronic right rib fractures RAD/Chest 1 View (Portable) IMPRESSION: Mild pleural effusions with perihilar and bibasilar opacities concerning for pneumonia. at 1247 Reported and signed by: Cari Monsalve MD Electronically Signed: Cari Monsalve MD at 12:46 EST Tel , Service support ,
--- NOTE | 2021-11-11 11:44 | EKG12_ITS ---
Test Reason : SOB Blood Pressure : / mmHG Vent. Rate : 065 BPM Atrial Rate : 065 BPM P-R Int : 170 ms QRS Dur : 148 ms QT Int : 498 ms P-R-T Axes : 047 -48 073 degrees QTc Int : 517 ms Atrial-sensed ventricular-paced rhythm Abnormal ECG Confirmed by JERSEY JAIME, KAILEE ([id number]), publications editor DOUG PERALES ([id number]) on 11/12/2021 1:51:19 PM Referred By: PL Confirmed By:KAILEE PUTNAM MD
--- NOTE | 2021-11-11 11:47 | EDS_ITS ---
HPI History of Present Illness Chief Complaint: Shortness of Breath Informant: patient Narrative Narrative: Patient presents with worsening dyspnea. He evidently went to urgent care last Thursday or Thursday. He went there due to some dried scabs on his arms. He was tested for COVID because they state they tested everybody. He was not having symptoms. He tested positive. The next day he started having symptoms of cough. He has developed myalgias, nasal congestion, diarrhea, malaise, decreased appetite. He has not had nausea or vomiting. He is not having chest pain. He coughs but has no sputum. He has no hemoptysis. Patient does have complex medical history including coronary artery disease with bypass surgery, pacer/ICD, congestive heart failure, COPD. He was on oxygen at home at 2 L but only with activity and he did not even use that too often. He was seen here several days ago. He did require oxygen but had this available at home. He did not want to be admitted. But he states he is just slowly gotten worse since then. His dyspnea is worse. He is short of breath with 5 L and that is as high as his oxygen will go. He used to be on palliative care for what sounds like just overall medical conditions. However he states he is not on palliative care now. He has never had a DVT or PE. 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 ICD (implantable cardioverter-defibrillator) in place (01/10/15) BPV (benign positional vertigo) Chronic systolic (congestive) heart failure COPD (chronic obstructive pulmonary disease) Essential hypertension HLD (hyperlipidemia) Ischemic cardiomyopathy LBBB (left bundle branch block) Paroxysmal atrial fibrillation Wide-complex tachycardia Home Medications albuterol sulfate 1 - 2 puff INHALATION Q6H PRN PRN 12/14/14 [History Last Taken 11/29/19] albuterol sulfate 2.5 mg INHALATION Q6H PRN PRN 12/14/14 [History Last Taken 11/29/19] aspirin 81 mg PO DAILY 12/14/14 [History Last Taken 11/29/19] Handicap Parking Placard #1 ea 12/15/19 [Rx Last Taken Unknown] finasteride 5 mg tablet 5 mg PO DAILY 12/15/19 [History Last Taken Unknown] lisinopril 5 mg tablet 5 mg PO DAILY #90 tab 09/04/20 [Rx Last Taken Unknown] amiodarone [Pacerone] 200 mg PO DAILY 05/05/21 [History Last Taken Unknown] carvedilol [Coreg] 6.25 mg PO DAILY 05/05/21 [History Last Taken Unknown] lorazepam 0.5 mg PO BID PRN 05/05/21 [History Last Taken Unknown] food supplemt, lactose-reduced [Ensure Enlive] 120 ml PO TID #90 bottle 05/10/21 [Rx Last Taken Unknown] tamsulosin 0.4 mg PO 1730 #30 cap 05/10/21 [Rx Last Taken Unknown] nitroglycerin 0.4 mg sublingual tablet 0.4 mg SUBLINGUAL Q5M PRN #25 tab 07/30/21 [Rx Last Taken Unknown] bumetanide 1 mg tablet 1 mg PO DAILY tab 08/15/21 [History Last Taken Unknown] simvastatin 40 mg tablet 40 mg PO QHS #90 tab 09/09/21 [Rx Last Taken Unknown] fluticasone fur. 200 mcg-umeclid 62.5 mcg-vilant 25 mcg inhalat.powder 1 inh INHALATION DAILY #60 ea 10/02/21 [Rx Last Taken Unknown] Allergy/AdvReac Type Severity Reaction Status Date / Time Penicillins AdvReac Other Verified 11/11/21 10:41 Family History Father CAD (coronary artery disease) Diabetes Cancer lung cancer Myocardial infarction Mother Breast cancer Hypertension Surgical History H/O coronary artery bypass surgery (11/14/13) History of arthroplasty of left knee History of lumbar surgery History of tonsillectomy Social History Smoking Status: Former smoker how long ago did patient quit smokin12/2013 alcohol intake: never substance use type: does not use caffeine: Yes Type: carbonated beverages and coffee what type of physical activity do you participate in: none seatbelt use: always do you feel safe at home: Yes ROS ROS ED Constitutional Constitutional ED: Reports chills and fever(s) Eyes Eyes: Denies blurry vision ENT ENT ED: Reports rhinorrhea; Denies sore throat Cardiovascular Cardiovascular: Denies chest pain or palpitations Respiratory/Chest Respiratory/Chest: Reports cough and dyspnea; Denies sputum Gastrointestinal Gastrointestinal: Reports diarrhea; Denies abdominal pain, nausea or vomiting Genitourinary Genitourinary ED: Denies dysuria Musculoskeletal Musculoskeletal: Reports myalgias Integumentary Denies rash Neurologic Neurologic: Denies headache(s) Endocrine Endocrinology: Denies polyuria Allergic/Immunologic Allergic/Immunologic ED: Denies urticaria EXAM Physical Exam Const Vital Signs: 11/11/21 10:43 11/11/21 10:51 11/11/21 11:52 Temperature 98.1 F 98.1 F Temperature Source Oral Oral Pulse Rate 71 73 Respiratory Rate 20 H 26 H Respiratory Effort Short of Breath Labored Respiratory Depth Normal Respiratory Pattern Tachypnea Blood Pressure 117/59 L 117/59 L Blood Pressure Mean 78 78 Pulse Ox 93 92 87 Oxygen Delivery Method Nasal Cannula Nasal Cannula Nasal Cannula Oxygen Flow Rate (L/min) 6 6 6 Fraction of Inspired Oxygen (FIO2) 11/11/21 11:53 11/11/21 12:09 11/11/21 13:01 Temperature 98.0 F Temperature Source Oral Pulse Rate 67 68 Respiratory Rate 18 20 H Respiratory Effort Respiratory Depth Respiratory Pattern Blood Pressure 113/53 L Blood Pressure Mean 73 Pulse Ox 92 92 Oxygen Delivery Method Venturi Mask Venturi Mask Oxygen Flow Rate (L/min) Fraction of Inspired Oxygen (FIO2) 50 50 11/11/21 14:28 Temperature Temperature Source Pulse Rate 69 Respiratory Rate 18 Respiratory Effort Respiratory Depth Respiratory Pattern Blood Pressure Blood Pressure Mean Pulse Ox Oxygen Delivery Method Oxygen Flow Rate (L/min) Fraction of Inspired Oxygen (FIO2) Patient does have increased work of breathing. His saturations go anywhere 87 to 91% sitting still on 6 L now. Positive well nourished and well developed General Appearance ED: well developed; Negative for cyanotic or diaphoretic HEENT Reports moist mucous membranes Negative for trauma Eyes General Eye ED: Negative for pale conjunctiva Neck supple and no JVD Chest Wall inspection of chest normal Resp No clear to auscultation bilaterally Resp Narrative: There is increased work of breathing. He has some expiratory wheezes and rhonchi. I do not hear rales on exam. No pain with motion. He does have a defect in the left chest wall that is evidently chronic from an old rib fracture. Auscultation: rhonchi and wheezes; Negative for rales Cardio regular rate and regular rhythm GI normal to inspection, nondistended, normoactive bowel sounds and non-tender Palpation: soft Back/Spine no CVA tenderness Extremity normal to inspection General Extremety ED: Negative for edema or tenderness General Extremity: Negative for edema Neuro Sensorium / Orientation: alert Psych mental status grossly normal Skin no rashes or lesions noted MDM MDM MDM Narrative Medical decision making narrative: Patient CBC showed some anemia. His white count was normal. BNP was a bit elevated. Troponin was normal. Her lites showed some mild dehydration. He did have elevated bilirubin. LFTs generally were not significantly elevated otherwise. Chest x-ray showed some effusions with bibasilar opacities. The initial impression is this is likely COVID because he has a positive COVID at urgent care at the end of the week. However the patient's oxygen needs seem to increase here. He is on 50% Ventimask. He runs about 90%. He states his normal saturation at home is in the high 80s. But I did do a CTA of his chest. This did not show pulmonary embolus but does show a rather dense left basilar infiltrate. At this point I will send off lactate, blood cultures and treat for possible bacterial pneumonia. I am doing a rapid COVID test to his I am not able to find the results of his positive test from urgent care last week. I have hospitalist on page for admission. Lab Data Attestation: I reviewed the patient's lab results. Labs: Laboratory Results - last 24 hr 11/11/21 11/11/21 11/11/21 11:42 11:42 11:42 WBC 5.6 RBC 4.64 Hgb 10.0 L Hct 34.7 L MCV 74.8 L MCH 21.6 L MCHC 28.8 L RDW Std Deviation 54.1 H RDW Coeff of Beto 20.4 H Plt Count 119 L MPV TNP Immature Gran % (Auto) 0.500 Neut % (Auto) 88.0 H Lymph % (Auto) 6.1 L Kane % (Auto) 5.4 Eos % (Auto) 0.0 Baso % (Auto) 0.0 Absolute Neuts (auto) 4.9 Absolute Lymphs (auto) 0.34 L Nucleated RBC % 0 Differential Comment COMMENT Anisocytosis 2+ Sodium Potassium Chloride Carbon Dioxide Anion Gap BUN Creatinine Estim Creat Clear Calc Est GFR (MDRD) Af Amer Est GFR (MDRD) Non-Af BUN/Creatinine Ratio Glucose Calcium Total Bilirubin AST ALT Alkaline Phosphatase Troponin I High Sens 22 B-Natriuretic Peptide 948.5 H Total Protein Albumin Globulin Albumin/Globulin Ratio 11/11/21 11:42 WBC RBC Hgb Hct MCV MCH MCHC RDW Std Deviation RDW Coeff of Beto Plt Count MPV Immature Gran % (Auto) Neut % (Auto) Lymph % (Auto) Kane % (Auto) Eos % (Auto) Baso % (Auto) Absolute Neuts (auto) Absolute Lymphs (auto) Nucleated RBC % Differential Comment Anisocytosis Sodium 139 Potassium 3.8 Chloride 106 Carbon Dioxide 23.0 Anion Gap 10 BUN 28 H Creatinine 1.06 Estim Creat Clear Calc 66.24 Est GFR (MDRD) Af Amer 88 Est GFR (MDRD) Non-Af 72 BUN/Creatinine Ratio 26.4 H Glucose 114 H Calcium 7.9 L Total Bilirubin 2.50 H AST 74 H ALT 39 Alkaline Phosphatase 93 Troponin I High Sens B-Natriuretic Peptide Total Protein 5.9 L Albumin 2.2 L Globulin 3.7 Albumin/Globulin Ratio 0.6 L Radiography Diagnostic Testing: Clinical Impression(s) from Imaging Studies Chest X-Ray 11/11/21 11:44 IMPRESSION: Mild pleural effusions with perihilar and bibasilar opacities concerning for pneumonia. at 1247 Reported and signed by: Cari Monsalve MD Electronically Signed: Cari Monsalve MD at 12:46 EST Tel , Service support , Chest CTA 11/11/21 14:[address]: [address] evidence of pulmonary embolism. 2. Bilateral subsegmental atelectasis or pneumonitis with dense left lower lobe pneumonia. 3. Moderate bilateral pleural effusions with bibasilar atelectasis per Electronically Signed: Keegan Owens MD at 15:03 EST Tel , Service support , Discharge Plan Dx/Rx/DC Orders Clinical Impression: Acute respiratory failure with hypoxia, Pneumonia, Pneumonia due to 2019 novel coronavirus Disposition Disposition: Acute Care Hospital [facility]
[2021-11-11 12:02] LABS: Absolute Lymphocyte Count 0.34 X10^3/uL (0.83-4.51); Absolute Neutrophil Count 4.9 X10^3/uL (2.0-7.7); Hematocrit 34.7 % (40-54); Lymphocyte # 0.34 X10^3/ul (0.83-4.51); Lymphocyte % 6.1 % (19-41); Mean Corp Hgb Conc 28.8 g/dL (32-36); Mean Corpuscular Hgb 21.6 pg (27.0-32.0); Mean Corpuscular Volume 74.8 fL (80-94); Monocyte% 5.4 % (0-10); NRBC Flagged by Analyzer 0 % (0-5); POSITIVE DIFFERENTIAL YES; POSITIVE MORPHOLOGY YES; Platelet Count 119 K/mm3 (150-450); RBC Distribution Width CV 20.4 % (11.6-14.6); RBC Distribution Width SD 54.1 fl (35.1-43.9); Red Blood Count 4.64 M/mm3 (4.6-6.2); White Blood Count 5.6 K/mm3 (4.4-11.0)
[2021-11-11] MEDS: Ipratropium/Albuterol Sulfate 3 ML AMPUL.NEB INHALATION ×2 (12:08→14:15)
[2021-11-11 12:12] LABS: Differential Indicated SCAN CRITERIA MET
[2021-11-11 12:15] LABS: Troponin-I HS 22 pg/mL (3.0-78.0)
[2021-11-11 12:50] LABS: Anisocytosis 2+
[2021-11-11 12:51] LABS: BNP,B-Type NATRIURETIC PEPTIDE 948.5 pg/mL (0-100)
[2021-11-11] MEDS: dexAMETHasone 10 MG/ML Vial 6 MG IV (13:00)
[2021-11-11 13:17] LABS: ALB/GLOB Ratio 0.6 RATIO (0.9-2.4); AST(SGOT) 74 U/L (15-37); Alanine Aminotransfer ALT/SGPT 39 U/L (16-61); Albumin, Serum 2.2 g/dL (3.2-5.0); Alkaline Phosphatase 93 U/L (45-117); Anion Gap 10 (5-15); BUN 28 mg/dL (7-18); BUN/Creat Ratio 26.4 RATIO (10-20); Calcium,Total 7.9 mg/dL (8.5-10.1); Chloride 106 mmol/L (98-107); Creatinine, Serum 1.06 mg/dL (0.70-1.30); EST Glomerular Filtration Rate 72 mL/min (>60); Est Glom Filt Rate - Afr Amer 88 mL/min (>60); Estimated Creatinine Clearance 66.24 ml/min; Globulin 3.7 g/dL (2.2-4.2); Glucose 114 mg/dL (74-106); Potassium 3.8 mmol/L (3.5-5.1); Protein, Total 5.9 g/dL (6.4-8.2); Sodium Level 139 mmol/L (136-145)
--- NOTE | 2021-11-11 14:07 | CT_ITS ---
STUDY: CTA CHEST REASON FOR EXAM: Male, 76 years old. PE RADIATION DOSAGE (If Supplied By Facility): CTDIvol = ( 12.41 ) mGy, DLP = ( 470.32 ) mGycm TECHNIQUE: The examination was performed with the intravenous administration of IV 100mL [id number]-370. Post-processing of the angiographic images was performed, with multiplanar reformation and 3D reconstruction. Individualized dose optimization techniques were used for this CT. COMPARISON: 06/21/2012, chest x-ray earlier today FINDINGS: Status post median sternotomy. Left subclavian pacemaker. Normal enhancement of the main pulmonary artery and right and left pulmonary arteries. Normal enhancement of the bilateral peripheral pulmonary arteries. There is no demonstrated pulmonary embolism. Normal thoracic aorta and visualized great vessels. There is no demonstrated aortic dissection. Normal heart and pericardium. Normal mediastinum. Normal hilar regions. Normal visualized trachea and bronchi. The lungs are well expanded. Mild emphysema. Patchy groundglass opacities consistent with subsegmental atelectasis or pneumonitis. Dense alveolar density in the left lower lobe consistent with left lower lobe pneumonia. Moderate bilateral pleural effusions with bibasilar atelectasis. Normal chest wall structures. Normal osseous structures. Peripherally calcified gallstone within the gallbladder consistent with cholelithiasis. Splenomegaly. CT/CTA Chest W/WO Contrast IMPRESSION: 1. No CT evidence of pulmonary embolism. 2. Bilateral subsegmental atelectasis or pneumonitis with dense left lower lobe pneumonia. 3. Moderate bilateral pleural effusions with bibasilar atelectasis per Electronically Signed: Keegan Owens MD at 15:03 EST Tel , Service support ,
[2021-11-11] MEDS: Furosemide 40 MG/4 ML Vial IV (15:00)
--- NOTE | 2021-11-11 15:28 | HP.PCM.HOS_ITS ---
HPI - General General Date of Admission: 11/11/21 Date of Service: 11/11/21 Chief Complaint: COVID +, worsening. HPI Narrative The patient is a 76 y/o M w/ PMHx: Chronic systolic CHF s/p AICD placement, Ischemic cardiomyopathy, Chronic Hypoxic Respiratory Failure (2L with activity) with oxygenation saturations chronically upper 80s, CAD s/p CABG, COPD, MANDY, HTN, HLD, PAF, Former tobacco use who presents to the [facility] ED on 11/11/21 with on set x5 days congestion, cough, sore throat, shortness of breath, loose stools up to 5-6 daily described now as primarily watery with no nausea or vomiting with incidental diagnosis Thursday-Thursday at outpatient where he was seen for skin complaints and was asymptomatic at that time noting they check everyone who is seen and he was incidentally positive with progressively worsening symptoms and worsened hypoxia at home prompting ED evaluation. Patient reports having had [place] vaccinations as well as a booster approximately 3 weeks prior to current presentation. Work-up in the ED included T98.1, heart rate 71, BP 170/59, RR 26, 87% on 6L NC-->92% on ventimask 50%, CBC with WC 5.6, hemoglobin 10, platelet 119 with lymphopenia, CMP with BUN/creatinine 28/1.06, glucose 114, total bilirubin 2.50, AST/LT 74/39, alk phos 93, high-sensitivity troponin 22, BNP 948.5, chest x-ray with mild pleural effusions with perihilar and bibasilar opacities consistent with pneumonia, CTPA with no evidence of pulmonary emboli, bilateral subsegmental atelectasis or pneumonitis with a dense left lower lobe pneumonia, moderate bilateral pleural effusions with bibasilar atelectasis. In the ED patient administered Levaquin 750 mg x 1, DuoNeb therapy x2, Lasix 40 mg IV x1 as well as Decadron 6 mg IV x 1. [facility] Medical History Atherosclerotic heart disease of [place] coronary artery without angina pectoris (11/14/13) Biventricular ICD (implantable cardioverter-defibrillator) in place (01/10/15) BPV (benign positional vertigo) Chronic systolic (congestive) heart failure COPD (chronic obstructive pulmonary disease) Essential hypertension HLD (hyperlipidemia) Ischemic cardiomyopathy LBBB (left bundle branch block) Paroxysmal atrial fibrillation Wide-complex tachycardia Home Medications albuterol sulfate 1 - 2 puff INHALATION Q6H PRN PRN 12/14/14 [History Last Taken 11/29/19] albuterol sulfate 2.5 mg INHALATION Q6H PRN PRN 12/14/14 [History Last Taken 11/29/19] aspirin 81 mg PO DAILY 12/14/14 [History Last Taken 11/29/19] Handicap Parking Placard #1 ea 12/15/19 [Rx Last Taken Unknown] finasteride 5 mg tablet 5 mg PO DAILY 12/15/19 [History Last Taken Unknown] lisinopril 5 mg tablet 5 mg PO DAILY #90 tab 09/04/20 [Rx Last Taken Unknown] amiodarone [Pacerone] 200 mg PO DAILY 05/05/21 [History Last Taken Unknown] carvedilol [Coreg] 6.25 mg PO DAILY 05/05/21 [History Last Taken Unknown] lorazepam 0.5 mg PO BID PRN 05/05/21 [History Last Taken Unknown] food supplemt, lactose-reduced [Ensure Enlive] 120 ml PO TID #90 bottle 05/10/21 [Rx Last Taken Unknown] tamsulosin 0.4 mg PO 1730 #30 cap 05/10/21 [Rx Last Taken Unknown] nitroglycerin 0.4 mg sublingual tablet 0.4 mg SUBLINGUAL Q5M PRN #25 tab 07/30/21 [Rx Last Taken Unknown] bumetanide 1 mg tablet 1 mg PO DAILY tab 08/15/21 [History Last Taken Unknown] simvastatin 40 mg tablet 40 mg PO QHS #90 tab 09/09/21 [Rx Last Taken Unknown] fluticasone fur. 200 mcg-umeclid 62.5 mcg-vilant 25 mcg inhalat.powder 1 inh INHALATION DAILY #60 ea 10/02/21 [Rx Last Taken Unknown] Allergy/AdvReac Type Severity Reaction Status Date / Time Penicillins AdvReac Other Verified 11/11/21 10:41 Family History Father CAD (coronary artery disease) Diabetes Cancer lung cancer Myocardial infarction Mother Breast cancer Hypertension Surgical History H/O coronary artery bypass surgery (11/14/13) History of arthroplasty of left knee History of lumbar surgery History of tonsillectomy Social History (Updated 11/11/21 @ 16:[address] Laura Garcia MD) household members: none Smoking Status: Former smoker how long ago did patient quit smokin12/2013 alcohol intake: never substance use type: does not use caffeine: Yes Type: carbonated beverages and coffee what type of physical activity do you participate in: none seatbelt use: always do you feel safe at home: Yes ROS ROS Narrative Admission Review of Systems: CONSTITUTIONAL: No weight loss, fever, chills, + weakness or fatigue. HEENT: + congestion, sore throat. Eyes: No visual loss, blurred vision, double vision or yellow sclerae. Ears, Nose, Throat: No hearing loss, sneezing. SKIN: No rash or itching, lesions, wounds. CARDIOVASCULAR: No chest pain, chest pressure or chest discomfort, palpitations, edema, orthopnea, syncopal events. RESPIRATORY: + shortness of breath, cough, No marked sputum, wheezing, hemoptysis. GASTROINTESTINAL: + Anorexia, diarrhea, No nausea, vomiting, abdominal pain, melena, BRBPR. GENITOURINARY: No dysuria, frequency, urgency or retention. NEUROLOGICAL: No dizziness, headache, syncope, paralysis, ataxia, numbness or tingling in the extremities, focal weakness, change in bowel or bladder control, seizure. MUSCULOSKELETAL: + muscle, back pain, joint pain or stiffness. HEMATOLOGIC: No anemia, bleeding or bruising. LYMPHATICS: No enlarged nodes. No history of splenectomy. PSYCHIATRIC: No history of depression or anxiety. ENDOCRINOLOGIC: No reports of sweating, cold or heat intolerance. No polyuria or polydipsia. ALLERGIES: No history of asthma, hives, eczema or rhinitis. Vital Signs Vital Signs Vital Signs: 11/11/21 10:43 11/11/21 10:51 11/11/21 11:52 Temperature 98.1 F 98.1 F Temperature Source Oral Oral Pulse Rate 71 73 Respiratory Rate 20 H 26 H Respiratory Effort Short of Breath Labored Respiratory Depth Normal Respiratory Pattern Tachypnea Blood Pressure 117/59 L 117/59 L Blood Pressure Mean 78 78 Pulse Ox 93 92 87 Oxygen Delivery Method Nasal Cannula Nasal Cannula Nasal Cannula Oxygen Flow Rate (L/min) 6 6 6 Fraction of Inspired Oxygen (FIO2) 11/11/21 11:53 11/11/21 12:09 11/11/21 13:01 Temperature 98.0 F Temperature Source Oral Pulse Rate 67 68 Respiratory Rate 18 20 H Respiratory Effort Respiratory Depth Respiratory Pattern Blood Pressure 113/53 L Blood Pressure Mean 73 Pulse Ox 92 92 Oxygen Delivery Method Venturi Mask Venturi Mask Oxygen Flow Rate (L/min) Fraction of Inspired Oxygen (FIO2) 50 50 11/11/21 14:28 Temperature Temperature Source Pulse Rate 69 Respiratory Rate 18 Respiratory Effort Respiratory Depth Respiratory Pattern Blood Pressure Blood Pressure Mean Pulse Ox Oxygen Delivery Method Oxygen Flow Rate (L/min) Fraction of Inspired Oxygen (FIO2) Weight Weight: 168 lb 13.985 oz Body Mass Index (BMI) 22.8 Physical Exam Narrative Physical Examination: General: Awake, alert, oriented x 3 and cooperative, seated upright in the ED bed, fatigued and ill-appearing, increased respiratory rate, mild accessory muscle usage, on high flow currently. Skin: Normal color, normal turgor, no icterus, no cyanosis except occasional staged ecchymoses. HEENT: AT/NC, EOMI, PERRLA, moderately dry MM, no carotid bruits or JVD noted. Lungs: Diffusely diminished, greater bases, increased respiratory rate, mild accessory muscle usage, evidence of some distress, no rales, ronchi or wheezing. Heart: Regular, paced; no gallop, rub audible. Abdomen: Soft, NTTP, ND, mildly hyperactive bowel sounds, no obvious evidence of HSM. Extremities: No cyanosis, clubbing, or edema. Neurological: Patient awake, alert, oriented as noted, cognitive function intact; pupils equally reactive to light and accommodation, cranial nerves II- XII grossly normal, moving all 4 extremities, no focal deficits, strength severely globally decreased secondary to acute presentation. Psychiatric: Affect appears fatigued, ill-appearing, evidence of some respiratory distress as noted, no acute evidence of depressive or anxiety feelings. Results Lab / Micro Data Result Diagrams: 11/11/21 11:42 11/11/21 11:42 Labs: Laboratory Results - last 24 hr 11/11/21 11:42: WBC 5.6, RBC 4.64, Hgb 10.0 L, Hct 34.7 L, MCV 74.8 L, MCH 21.6 L, MCHC 28.8 L, RDW Std Deviation 54.1 H, RDW Coeff of Beto 20.4 H, Plt Count 119 L, MPV TNP, Immature Gran % (Auto) 0.500, Neut % (Auto) 88.0 H, Lymph % (Auto) 6.1 L, Roberts % (Auto) 5.4, Eos % (Auto) 0.0, Baso % (Auto) 0.0, Absolute Neuts (auto) 4.9, Absolute Lymphs (auto) 0.34 L, Nucleated RBC % 0, Differential Comment COMMENT, Anisocytosis 2+ 11/11/21 11:42: B-Natriuretic Peptide 948.5 H 11/11/21 11:42: Troponin I High Sens 22 11/11/21 11:42: Sodium 139, Potassium 3.8, Chloride 106, Carbon Dioxide 23.0, Anion Gap 10, BUN 28 H, Creatinine 1.06, Estim Creat Clear Calc 66.24, Est GFR (MDRD) Af Amer 88, Est GFR (MDRD) Non-Af 72, BUN/Creatinine Ratio 26.4 H, Glucose 114 H, Calcium 7.9 L, Total Bilirubin 2.50 H, AST 74 H, ALT 39, Alkaline Phosphatase 93, Total Protein 5.9 L, Albumin 2.2 L, Globulin 3.7, Albumin/Globulin Ratio 0.6 L Radiology Impression Chest X-Ray 11/11/21 11:44 IMPRESSION: Mild pleural effusions with perihilar and bibasilar opacities concerning for pneumonia. at 1247 Reported and signed by: Cari Monsalve MD Electronically Signed: Cari Monsalve MD at 12:46 EST Tel , Service support , Chest CTA 11/11/21 14:07 IMPRESSION: 1. No CT evidence of pulmonary embolism. 2. Bilateral subsegmental atelectasis or pneumonitis with dense left lower lobe pneumonia. 3. Moderate bilateral pleural effusions with bibasilar atelectasis per Electronically Signed: Keegan Owens MD at 15:03 EST Tel , Service support , Assessment & Plan Assessment/Plan (1) Acute respiratory failure with hypoxia: (2) Pneumonia due to 2019 novel coronavirus: PLAN: The patient is a 76 y/o M w/ PMHx: Chronic systolic CHF s/p AICD placement, Ischemic cardiomyopathy, Chronic Hypoxic Respiratory Failure (2L with activity) with oxygenation saturations chronically upper 80s, CAD s/p CABG, COPD, MANDY, HTN, HLD, PAF, Former tobacco use who presents to the [facility] ED on 11/11/21 with onset x5 days congestion, cough, sore throat, shortness of breath, loose stools up to 5-6 daily described now as primarily watery with no nausea or vomiting with incidental diagnosis Thursday-Thursday at outpatient where he was seen for skin complaints and was asymptomatic at that time noting they check everyone who is seen and he was incidentally positive with progressively worsening symptoms and worsened hypoxia. #1. Acute on Chronic Hypoxic Respiratory Failure secondary to Acute Bilateral Pneumonia, L > R secondary to Acute Viral Syndrome, COVID-19 and questionable concurrent L sided Bacterial PNA with bilateral effusions and suspected volume overload associated with acute viral illness complicated by underlying chronic systolic CHF: Will admit to the PCU, maintain on COVID precautions, will maintain on oxygen with wean as tolerated to room air, PRN albuterol, HOB, IS parameters w/ pending sputum cultures and urine antigens, will obtain D-dimer, procalcitonin, CRP, CPK, Ferritin, LDH, will continue on Levaquin given penicillin allergy pending further work-up given notable L sided findings on CTPA, given moderate effusions and mildly elevated BNP with history will hold any fluids and will continue judicious pulse dose IV lasix as needed, continue supportive care including q 2 hour turning including prone given no prone bed availability and judicious hydration, closely monitor for worsening status for ARDS and multiorgan failure, will initiate and continue IV decadron x 10 doses, given presentation will also initiate IV remdesivir but defer to discretion of Infectious disease. If respiratory status worsens and patient requires airvo or BIPAP transition will initiate barcitinib regimen additionally with ID involvement. #2. Elevated Bilirubin, LFTs: Secondary to acute presentation #1, admission total bilirubin 2.50, AST/ALT 74/39, will continue treatments as noted above #1, continue to closely trend. #3. Lactic acidosis: Lactic acid 2.1, mildly elevated, likely secondary to hypoxemia secondary to #1, continue to trend per facility protocol, continue treatment as noted above #1. #4. Chronic systolic CHF, ischemic cardiomyopathy with concern for mild volume overload associate with #1: Patient status post AICD placement, will continue aspirin, not anticoagulated, IV Lasix given concern for overload associated with #1 with mildly elevated BNP 948.5, temporarily hold Bumex with resumption once appropriate, continue Coreg, lisinopril, statin therapy. #5. Chronic COPD with chronic hypoxic respiratory failure: Complicates #1, will continue home inhalers, as needed albuterol, continue treatment as noted #1 with encouragement of head of bed and I-S. #6. CAD: Status post CABG x3, continue aspirin, statin, Coreg, lisinopril regimen. #7. Chronic anemia, microcytic: Admission hemoglobin 10, MCV 74.8, baseline appears 9-10, stable, trend. #8. Hypertension: Continue home regimen including lisinopril, Coreg, IV Lasix temporarily as noted given suspected volume overload associate with acute prese ntation #1, PRN hydralazine. #9. Hyperlipidemia: We will continue statin therapy. #10. PAF: We will continue patient home Coreg, amiodarone regimen, not anticoagulated. #11. Former tobacco use: Encourage continued tobacco cessation. #12. BPH: We will continue patient home Flomax and finasteride regimen. #13. DVT prophylaxis: SCDs, Lovenox. #14. CODE status: Patient FADI is his friend Tabatha Mejía and living will is currently in place. Discussed CODE status at length including difference between FULL code, DNR-CCA and DNR-CC status. Following discussions about the differences in these status, requested Full Code status. Discussed risks given significant underlying comorbidities with acute presentation and amenable to remdesivir, Airvo, BiPAP, intubation, cardiac interventions as well as baricitinib if necessary. Advanced Care Planning Face to Face Time: 16 minutes. Charges/Coding Visit Charges Inpatient E&M: 39174 Init Hosp L3 Procedures Hospitalists Procedures: 00181 Advncd Care Plan 30 Min
[2021-11-11 16:28] LABS: Lactic Acid 2.1 mmol/L (0.4-1.9)
[2021-11-11 16:47] LABS: Ferritin 64 ng/mL (26-388); LDH 357 U/L (87-241)
[2021-11-11] MEDS: levoFLOXacin IV 750 MG/150 ML BAG 100 MG IV (17:03)
[2021-11-11 17:30] LABS: D-Dimer Quantitative (DVT/PE) 2.93 FEU/ug/m (0.27-0.49)
[2021-11-11 17:47] LABS: Procalcitonin 0.12 ng/mL (0.00-0.09)
[2021-11-11 19:47] LABS: Reflex Lactate? Y
[2021-11-11] MEDS: Tamsulosin HCl 0.4 MG Capsule PO (19:53)
[2021-11-11] MEDS: guaiFENesin 10 ML UDC (200MG/10ML) 20 ML PO (19:54)
[2021-11-11 20:54] LABS: Lactic Acid 3.3 mmol/L (0.4-1.9)
[2021-11-11] MEDS: Enoxaparin 40 MG/0.4 ML Syringe 30 MG SC (21:29)
[2021-11-11] MEDS: Fluticasone/Salmeterol 232-14 Inhaler 1 PUFF INHALATION (21:29)
[2021-11-11] MEDS: Atorvastatin Calcium 20 MG Tablet PO (21:30)
--- NOTE | 2021-11-11 22:00 | PCS.PANDOC ---
PANDEMIC DOCUMENTATION INITIATED: Date: 06/17/2021 Time: 190
[2021-11-12] VITALS (28 sets, daily range): BP systolic 88–112; BP diastolic 45–56; PULSE 63–81; RESP 18–28; TEMP 36.4–37; O2SAT 83–99
[2021-11-12 03:13] LABS: Lactic Acid 2.7 mmol/L (0.4-1.9)
[2021-11-12 05:24] LABS: Absolute Lymphocyte Count 0.23 X10^3/uL (0.83-4.51); Basophil# 0.01 X10^3/uL; Basophil% 0.2 % (0-1); Hematocrit 31.6 % (40-54); Hemoglobin 9.3 g/dL (13.0-16.5); Lymphocyte # 0.23 X10^3/ul (0.83-4.51); Lymphocyte % 3.6 % (19-41); Mean Corp Hgb Conc 29.4 g/dL (32-36); Mean Corpuscular Hgb 21.5 pg (27.0-32.0); Mean Corpuscular Volume 73.1 fL (80-94); Mean Platelet Vol. 10.4 fl (6.2-12.0); Monocyte% 3.1 % (0-10); NRBC Flagged by Analyzer 0 % (0-5); Neutrophil # 5.96 X10^3/uL (2.7-7.7); Neutrophil % 92.6 % (47-70); POSITIVE DIFFERENTIAL YES; Platelet Count 108 K/mm3 (150-450); RBC Distribution Width SD 52.2 fl (35.1-43.9); Red Blood Count 4.32 M/mm3 (4.6-6.2); White Blood Count 6.4 K/mm3 (4.4-11.0)
[2021-11-12 05:25] LABS: Differential Indicated SCAN CRITERIA MET
[2021-11-12 05:53] LABS: ALB/GLOB Ratio 0.6 RATIO (0.9-2.4); AST(SGOT) 58 U/L (15-37); Alanine Aminotransfer ALT/SGPT 35 U/L (16-61); Alkaline Phosphatase 85 U/L (45-117); Anion Gap 9 (5-15); BUN 29 mg/dL (7-18); Calcium,Total 7.8 mg/dL (8.5-10.1); Chloride 106 mmol/L (98-107); Creatinine, Serum 0.88 mg/dL (0.70-1.30); EST Glomerular Filtration Rate 90 mL/min (>60); Est Glom Filt Rate - Afr Amer 109 mL/min (>60); Estimated Creatinine Clearance 76.77 ml/min; Globulin 3.5 g/dL (2.2-4.2); Glucose 119 mg/dL (74-106); Potassium 3.8 mmol/L (3.5-5.1); Protein, Total 5.5 g/dL (6.4-8.2); Sodium Level 139 mmol/L (136-145)
[2021-11-12 06:15] LABS: Reflex Lactate? Y
[2021-11-12 07:21] LABS: Lactic Acid 2.6 mmol/L (0.4-1.9)
--- NOTE | 2021-11-12 07:35 | PN.HOSP_ITS ---
Subjective Subjective Patient is a 76-year-old gentleman with who is vaccinated against COVID 19 including receiving the booster multiple comorbidities including CAD status post CABG ischemic cardiomyopathy status post AICD placement chronic hypoxic respiratory failure on baseline home oxygen presented with cough sore throat as well as diarrhea. Tested positive for COVID Objective Data Objective Data Vital Signs: Vital Signs Temp Pulse Resp BP Pulse Ox 98.6 F 78 18 107/56 L 94 11/12/21 05:47 11/12/21 05:47 11/12/21 05:47 11/12/21 05:47 11/12/21 05:47 Oxygen Flow Rate (L/min) 50 Oxygen Delivery Method Airvo Weight: 73.7 kg Body Mass Index (BMI) 21.5 Intake & Output: Intake and Output for Last 24 Hours 11/10/21 11/11/21 11/12/21 23:59 23:59 23:59 Intake Total 500 / 500 100 / 100 Output Total 300 / 300 325 / 325 Balance 200 / 200 -225 / -225 Lab / Micro Data Result Diagrams: 11/12/21 04:34 11/12/21 04:34 Labs: Laboratory Results - last 24 hr 11/11/21 11:42: WBC 5.6, RBC 4.64, Hgb 10.0 L, Hct 34.7 L, MCV 74.8 L, MCH 21.6 L, MCHC 28.8 L, RDW Std Deviation 54.1 H, RDW Coeff of Beto 20.4 H, Plt Count 119 L, MPV TNP, Immature Gran % (Auto) 0.500, Neut % (Auto) 88.0 H, Lymph % (Auto) 6.1 L, [place] % (Auto) 5.4, Eos % (Auto) 0.0, Baso % (Auto) 0.0, Absolute Neuts ( auto) 4.9, Absolute Lymphs (auto) 0.34 L, Nucleated RBC % 0, Differential Com ment COMMENT, Anisocytosis 2+ 11/11/21 11:42: B-Natriuretic Peptide 948.5 H 11/11/21 11:42: Troponin I High Sens 22 11/11/21 11:42: Sodium 139, Potassium 3.8, Chloride 106, Carbon Dioxide 23.0, Anion Gap 10, BUN 28 H, Creatinine 1.06, Estim Creat Clear Calc 66.24, Est GFR (MDRD) Af Amer 88, Est GFR (MDRD) Non-Af 72, BUN/Creatinine Ratio 26.4 H, Glu cose 114 H, Calcium 7.9 L, Total Bilirubin 2.50 H, AST 74 H, ALT 39, Alkaline Phosphatase 93, Total Protein 5.9 L, Albumin 2.2 L, Globulin 3.7, Albumin/Globulin Ratio 0.6 L 11/11/21 11:42: Ferritin 64, Lactate Dehydrogenase 357 H, C-React Prot Ext Range 76.60 H 11/11/21 15:35: Lactic Acid 2.1 H* 11/11/21 17:00: D-Dimer Quant (PE/DVT) 2.93 H* 11/11/21 17:00: Procalcitonin 0.12 H 11/11/21 20:05: Lactic Acid 3.3 H* 11/12/21 02:10: Lactic Acid 2.7 H* 11/12/21 04:34: WBC 6.4, RBC 4.32 L, Hgb 9.3 L, Hct 31.6 L, MCV 73.1 L, MCH 21.5 L, MCHC 29.4 L, RDW Std Deviation 52.2 H, RDW Coeff of Beto 20.0 H, Plt Count 108 L, MPV 10.4, Immature Gran % (Auto) 0.500, Neut % (Auto) 92.6 H, Lymph % (Auto) 3.6 L, [place] % (Auto) 3.1, Eos % (Auto) 0.0, Baso % (Auto) 0.2, Absolute Neuts (auto) 6.0, Absolute Lymphs (auto) 0.23 L, Nucleated RBC % 0 11/12/21 04:34: Sodium 139, Potassium 3.8, Chloride 106, Carbon Dioxide 24.0, Anion Gap 9, BUN 29 H, Creatinine 0.88, Estim Creat Clear Calc 76.77, Est GFR (MDRD) Af Amer 109, Est GFR (MDRD) Non-Af 90, BUN/Creatinine Ratio 33.0 H, Glucose 119 H, Calcium 7.8 L, Total Bilirubin 1.90 H, AST 58 H, ALT 35, Alkaline Phosphatase 85, Total Protein 5.5 L, Albumin 2.0 L, Globulin 3.5, Albumin/Globulin Ratio 0.6 L 11/12/21 06:43: Lactic Acid 2.6 H* Micro: Microbiology 11/11/21 18:30 Urine, Clean Catch Legionella Antigen - Final 11/11/21 18:30 Urine, Clean Catch Streptococcus pneumoniae Antigen (M - Final 11/11/21 15:28 Nasal Secretion SARS-CoV-2 Antigen (Rapid) - Final Radiography Diagnostic Testing: Radiology Impression Chest X-Ray 11/11/21 11:44 IMPRESSION: Mild pleural effusions with perihilar and bibasilar opacities concerning for pneumonia. at 1247 Reported and signed by: Cari Monsalve MD Electronically Signed: Cari Monsalve MD at 12:46 EST Tel , Service support , Chest CTA 11/11/21 14:07 IMPRESSION: 1. No CT evidence of pulmonary embolism. 2. Bilateral subsegmental atelectasis or pneumonitis with dense left lower lobe pneumonia. 3. Moderate bilateral pleural effusions with bibasilar atelectasis per Electronically Signed: Keegan Owens MD at 15:03 EST Tel , Service support , Physical Exam Narrative GENERAL: Frail looking HEENT: Atraumatic; EYES; Anicteric, Normal Conjunctiva NECK; supple, normal thyroid, RESPIRATORY: Diminished to auscultation CARDIOVASCULAR: Regular S1 S2, GI: soft, normoactive bowel sounds, : No Renal angle tenderness; EXTREMITIES: No edema, no clubbing, MUSCULOSKELETAL: no muscle waisting NEURO: Awake; no lateralizing signs. SKIN: No Rash PSYCH; Flat affect Assessment & Plan Assessment/Plan (1) Acute respiratory failure with hypoxia: (2) Pneumonia due to 2019 novel coronavirus: PLAN: Patient is a 76-year-old gentleman with who is vaccinated against COVID 19 including receiving the booster multiple comorbidities including CAD status post CABG ischemic cardiomyopathy status post AICD placement chronic hypoxic respiratory failure on baseline home oxygen presented with cough sore throat as well as diarrhea. Tested positive for C 1. Acute on chronic hypoxic respiratory failure -Secondary to SARS-CoV-2 pneumonia. Admitted to regular nursing floor started on Decadron remdesivir . Patient response to therapy being monitored with markers of inflammation. CT of the chest obtained on admission demonstrated. Bilateral subsegmental atelectasis or pneumonitis with dense left lower lobe pneumonia. Added empiric antibiotic treatment to patient's therapy 2. Acute transaminitis ? Secondary to SARS-CoV-2 infection. Ordered daily CMP for monitoring 3. Anemia - Secondary to chronic disorder monitoring H&H and transfuse if patient becomes symptomatic or hemoglobin falls below 7 4. Ischemic cardiomyopathy ? Status post AICD placement 5. Chronic CHF -Patient has a known EF of 35% based on echo obtained on 05/16/2020. 6. Chronic hypoxic respiratory failure Secondary to COPD 7. Coronary artery disease ? Status post CABG 8. Hypertension - Blood pressure controlled, home medications continued with dose adjustment as needed 9. Dyslipidemia -Patient is on statin therapy, continued at home dose 10. Obstructive sleep apnea 11. Paroxysmal atrial fibrillation ? On Coreg and amiodarone not on systemic anticoagulation 12. BPH ? Patient is on tamsulosin and finasteride continue 13. Thrombocytopenia ? Patient historically has low platelet counts. With patient being on Lovenox daily CBC ordered. Would not hesitate to discontinue Lovenox if patient platelet count continues to drop any further 14. DVT prophylaxis - Lovenox. Charges/Coding Visit Charges Inpatient E&M: 99428 [facility] L3
[2021-11-12] MEDS: dexAMETHasone 10 MG/ML Vial 6 MG IV (09:06)
[2021-11-12] MEDS: Aspirin 81 MG TAB.CHEW PO (09:06)
[2021-11-12] MEDS: Amiodarone 200 MG Tablet PO (09:06)
[2021-11-12] MEDS: Carvedilol 6.25 MG Tablet PO (09:06)
[2021-11-12] MEDS: Finasteride 5 MG Tablet PO (09:06)
[2021-11-12] MEDS: Lisinopril 5 MG Tablet PO (09:06)
[2021-11-12] MEDS: Enoxaparin 40 MG/0.4 ML Syringe 30 MG SC ×2 (09:06→22:09)
[2021-11-12] MEDS: Furosemide 40 MG/4 ML Vial IV (09:06)
[2021-11-12] MEDS: levoFLOXacin IV 750 MG/150 ML BAG 100 MG IV (09:07)
[2021-11-12] MEDS: Fluticasone/Salmeterol 232-14 Inhaler 1 PUFF INHALATION ×2 (09:07→22:07)
[2021-11-12] MEDS: Umeclidinium Bromide Inhaler 1 PUFF INHALATION (09:08)
--- NOTE | 2021-11-12 10:10 | CASEMGMT ---
FLAVIA CHAPARRO assessment: Initial transition planning/care coordination assessment completed with pt's sig other, Tabatha Mejía, via phone as pt is on high flow oxygen and unable to hear this FLAVIA CHAPARRO well thru masks. RN KRYSTA introduced self and role at [facility], sig other voices understanding and consents to assessment. Pt is currently on 15L high flow nc. Pt is A/Ox4. Pt is vaccinated with booster and sig other states she is 14 days out and has recovered. Pt does have pulse ox at home and sig other states no concerns getting resources at home once pt discharged. Care providers, pharmacy, and demographics verified. Presentation: Increased SOB, COVID +, pt was placed on home oxygen Admitting dx: COVID pna, Resp failure PCP: Carlos Specialists: espinoza Garcia Pharmacy: [facility] Insurance: [employer] A/B, [facility] Prescription Benefit: Yes Living Will/HPOA: Pt has LW/HPOA and is aware that they are on file at [facility]. Pt's sig other, Tabatha Mejía, is HPOA. LNOK: Tabatha Mejía, sig watson/HPOA Living Arrangements: Pt normally lives with sig watson in mobile home with 4 steps in but sig watson has been staying at her mothers home as she has been caring for her so pt has been alone. Pt is normally independent with ADL's. Transportation: Pt drives self and states no transportation concerns. DME/HHC: Pt has the following DME: raised toilet seat, nebulizer, and 3-4L home oxygen continuous thru [employer]. Pt states no need for any further DME. Pt has no hx of HHC or SNF. Pt states no concerns with going home at time of discharge. Pt is retired. Pt quit smoking cigarettes years ago and does not drink ETOH. Pt states no further concerns/needs. CM to follow for any further discharge planning/needs. Advised pt to ask for CM if any further questions/concerns/needs arise, voices understanding. Pt Goal: Home Plan: Home, pending increased home oxygen need. [place] FLAVIA CHAPARRO
[2021-11-12] MEDS: Atorvastatin Calcium 20 MG Tablet PO (22:07)
[2021-11-12] MEDS: guaiFENesin 10 ML UDC (200MG/10ML) 20 ML PO (22:07)
[2021-11-13] VITALS (22 sets, daily range): BP systolic 84–106; BP diastolic 46–71; PULSE 62–70; RESP 18–26; TEMP 36.3–36.8; O2SAT 84–96
[2021-11-13 04:35] LABS: Absolute Lymphocyte Count 0.21 X10^3/uL (0.83-4.51); Absolute Neutrophil Count 3.5 X10^3/uL (2.0-7.7); Differential Indicated SCAN CRITERIA MET; Hematocrit 29.6 % (40-54); Hemoglobin 8.8 g/dL (13.0-16.5); Lymphocyte # 0.21 X10^3/ul (0.83-4.51); Lymphocyte % 5.5 % (19-41); Mean Corp Hgb Conc 29.7 g/dL (32-36); Mean Corpuscular Hgb 21.8 pg (27.0-32.0); Mean Corpuscular Volume 73.4 fL (80-94); Monocyte# 0.14 X10^3/uL; Monocyte% 3.7 % (0-10); NRBC Flagged by Analyzer 0 % (0-5); Neutrophil # 3.46 X10^3/uL (2.7-7.7); Neutrophil % 90.3 % (47-70); POSITIVE DIFFERENTIAL YES; POSITIVE MORPHOLOGY YES; Platelet Count 111 K/mm3 (150-450); RBC Distribution Width CV 20.2 % (11.6-14.6); RBC Distribution Width SD 52.7 fl (35.1-43.9); Red Blood Count 4.03 M/mm3 (4.6-6.2); White Blood Count 3.8 K/mm3 (4.4-11.0)
[2021-11-13 04:49] LABS: Magnesium 2.4 mg/dL (1.6-2.6)
[2021-11-13 04:54] LABS: Acanthocytes 1+; Anisocytosis 3+; Burr Cells 2+; Ovalocyte 1+; Poikilocytosis 1+; Tear Drop Cell RARE
--- NOTE | 2021-11-13 08:03 | PN.HOSP_ITS ---
Subjective Subjective Patient apparently did not tolerate oxygen via nasal cannula for most of the day however had to be placed on Airvo in the early hours of the morning in view of significant hypoxia. Objective Data Objective Data Vital Signs: Vital Signs Temp Pulse Resp BP Pulse Ox 98.1 F 67 18 101/52 L 92 11/13/21 07:00 11/13/21 07:59 11/13/21 07:59 11/13/21 07:00 11/13/21 07:59 Oxygen Flow Rate (L/min) 50 Oxygen Delivery Method Airvo Weight: 74.9 kg Body Mass Index (BMI) 21.5 Intake & Output: Intake and Output for Last 24 Hours 11/11/21 11/12/21 11/13/21 23:59 23:59 23:59 Intake Total 500 / 500 1200 / 1200 0 / 0 Output Total 300 / 300 1675 / 1675 100 / 100 Balance 200 / 200 -475 / -475 -100 / -100 Lab / Micro Data Result Diagrams: 11/13/21 03:47 11/12/21 04:34 Labs: Laboratory Results - last 24 hr 11/13/21 03:47: WBC 3.8 L, RBC 4.03 L, Hgb 8.8 L, Hct 29.6 L, MCV 73.4 L, MCH 21.8 L, MCHC 29.7 L, RDW Std Deviation 52.7 H, RDW Coeff of Beto 20.2 H, Plt Count 111 L, Immature Gran % (Auto) 0.500, Neut % (Auto) 90.3 H, Lymph % (Auto) 5.5 L, [place] % (Auto) 3.7, Eos % (Auto) 0.0, Baso % (Auto) 0.0, Absolute Neuts (auto) 3.5, Absolute Lymphs (auto) 0.21 L, Nucleated RBC % 0, Diff Path Review May foll, Poikilocytosis 1+, Anisocytosis 3+, Tear Drop Cells RARE, Ovalocytes 1+, [place] Cells 2+, Acanthocytes (Spur) 1+ 11/13/21 03:47: Magnesium 2.4 Micro: Microbiology 11/11/21 15:28 Nasal Secretion SARS-CoV-2 Antigen (Rapid) - Final SARS-CoV-2 (COVID 19) 11/11/21 18:30 Urine, Clean Catch Legionella Antigen - Final 11/11/21 18:30 Urine, Clean Catch Streptococcus pneumoniae Antigen (M - Final Physical Exam Narrative GENERAL: Frail looking HEENT: Atraumatic; EYES; Anicteric, Normal Conjunctiva NECK; supple, normal thyroid, RESPIRATORY: Diminished to auscultation CARDIOVASCULAR: Regular S1 S2, GI: soft, normoactive bowel sounds, : No Renal angle tenderness; EXTREMITIES: No edema, no clubbing, MUSCULOSKELETAL: no muscle waisting NEURO: Awake; no lateralizing signs. SKIN: No Rash PSYCH; Flat affect Assessment & Plan Assessment/Plan (1) Acute respiratory failure with hypoxia: (2) Pneumonia due to 2019 novel coronavirus: PLAN: Patient is a 76-year-old gentleman with who is vaccinated against COVID 19 including receiving the booster multiple comorbidities including CAD status post CABG ischemic cardiomyopathy status post AICD placement chronic hypoxic respiratory failure on baseline home oxygen presented with cough sore throat as well as diarrhea. Tested positive for C 1. Acute on chronic hypoxic respiratory failure -Secondary to SARS-CoV-2 pneumonia. Admitted to regular nursing floor started on Decadron remdesivir . Patient response to therapy being monitored with markers of inflammation. CT of the chest obtained on admission demonstrated. Bilateral subsegmental atelectasis or pneumonitis with dense left lower lobe pneumonia. Added empiric antibiotic treatment to patient's therapy -11/13/2021; Patient apparently did not tolerate oxygen via nasal cannula for most of the day however had to be placed on Airvo in the early hours of the morning in view of significant hypoxia. 2. Acute transaminitis ? Secondary to SARS-CoV-2 infection. Ordered daily CMP for monitoring 3. Anemia - Secondary to chronic disorder monitoring H&H and transfuse if patient becomes symptomatic or hemoglobin falls below 7 4. Ischemic cardiomyopathy ? Status post AICD placement 5. Chronic CHF -Patient has a known EF of 35% based on echo obtained on 05/16/2020. 6. Chronic hypoxic respiratory failure Secondary to COPD 7. Coronary artery disease ? Status post CABG 8. Hypertension - Blood pressure controlled, home medications continued with dose adjustment as needed 9. Dyslipidemia -Patient is on statin therapy, continued at home dose 10. Obstructive sleep apnea 11. Paroxysmal atrial fibrillation ? On Coreg and amiodarone not on systemic anticoagulation 12. BPH ? Patient is on tamsulosin and finasteride continue 13. Thrombocytopenia ? Patient historically has low platelet counts. With patient being on Lovenox daily CBC ordered. Would not hesitate to discontinue Lovenox if patient platelet count continues to drop any further 14. DVT prophylaxis - Lovenox. Charges/Coding Visit Charges Inpatient E&M: 56120 Subs Hosp L2
[2021-11-13] MEDS: dexAMETHasone 10 MG/ML Vial 6 MG IV (08:12)
[2021-11-13] MEDS: levoFLOXacin IV 750 MG/150 ML BAG 100 MG IV (08:12)
[2021-11-13] MEDS: Aspirin 81 MG TAB.CHEW PO (08:12)
[2021-11-13] MEDS: Furosemide 40 MG/4 ML Vial IV (08:13)
[2021-11-13] MEDS: Finasteride 5 MG Tablet PO (08:13)
[2021-11-13] MEDS: Amiodarone 200 MG Tablet PO (08:13)
[2021-11-13] MEDS: Carvedilol 6.25 MG Tablet PO (08:13)
[2021-11-13] MEDS: Enoxaparin 40 MG/0.4 ML Syringe 30 MG SC ×2 (08:13→20:56)
[2021-11-13] MEDS: Lisinopril 5 MG Tablet PO (08:13)
[2021-11-13] MEDS: Umeclidinium Bromide Inhaler 1 PUFF INHALATION (08:14)
[2021-11-13] MEDS: Fluticasone/Salmeterol 232-14 Inhaler 1 PUFF INHALATION ×2 (08:14→20:56)
[2021-11-13] MEDS: 0.9% Saline Lock 10 ML Syringe IV ×2 (08:22→22:36)
[2021-11-13 13:23] LABS: Pathologist Review Reviewed
[2021-11-13] MEDS: Atorvastatin Calcium 20 MG Tablet PO (20:56)
[2021-11-13] MEDS: Albuterol 2.5 MG/3 ML VIAL.NEB. INHALATION (21:27)
[2021-11-13] MEDS: Ondansetron 4 MG/2 ML Vial IV (22:36)
[2021-11-14] VITALS (17 sets, daily range): BP systolic 95–110; BP diastolic 50–57; PULSE 60–69; RESP 17–22; TEMP 36.3–36.8; O2SAT 89–94
[2021-11-14 06:08] LABS: Absolute Lymphocyte Count 0.21 X10^3/uL (0.83-4.51); Absolute Neutrophil Count 4.2 X10^3/uL (2.0-7.7); Hematocrit 29.7 % (40-54); Hemoglobin 8.8 g/dL (13.0-16.5); Lymphocyte # 0.21 X10^3/ul (0.83-4.51); Lymphocyte % 4.6 % (19-41); Mean Corp Hgb Conc 29.6 g/dL (32-36); Mean Corpuscular Hgb 21.4 pg (27.0-32.0); Mean Corpuscular Volume 72.1 fL (80-94); Mean Platelet Vol. 10.1 fl (6.2-12.0); Monocyte# 0.17 X10^3/uL; Monocyte% 3.7 % (0-10); NRBC Flagged by Analyzer 0 % (0-5); Neutrophil # 4.21 X10^3/uL (2.7-7.7); Neutrophil % 91.3 % (47-70); POSITIVE DIFFERENTIAL YES; POSITIVE MORPHOLOGY YES; Platelet Count 129 K/mm3 (150-450); RBC Distribution Width CV 20.3 % (11.6-14.6); RBC Distribution Width SD 51.8 fl (35.1-43.9); Red Blood Count 4.12 M/mm3 (4.6-6.2); White Blood Count 4.6 K/mm3 (4.4-11.0)
--- NOTE | 2021-11-14 07:54 | PCM.PN.HOSP ---
Subjective Subjective . Patient has been weaned off Airvo currently on nasal cannula with 10 L flow per minute of oxygen Objective Data Objective Data Vital Signs: Vital Signs Temp Pulse Resp BP Pulse Ox 97.4 F L 62 20 H 104/52 L 94 11/14/21 05:58 11/14/21 07:11 11/14/21 05:58 11/14/21 05:58 11/14/21 05:58 Oxygen Flow Rate (L/min) 15 Oxygen Delivery Method High Flow Weight: 75.3 kg Body Mass Index (BMI) 21.5 Intake & Output: Intake and Output for Last 24 Hours 11/12/21 11/13/21 11/14/21 23:59 23:59 23:59 Intake Total 1200 / 1200 1040 / 1040 120 / 120 Output Total 1675 / 1675 1500 / 1500 200 / 200 Balance -475 / -475 -460 / -460 -80 / -80 Lab / Micro Data Result Diagrams: 11/14/21 04:17 11/12/21 04:34 Labs: Laboratory Results - last 24 hr 11/13/21 03:47: Diff Path Review Reviewed 11/14/21 04:17: WBC 4.6, RBC 4.12 L, Hgb 8.8 L, Hct 29.7 L, MCV 72.1 L, MCH 21.4 L, MCHC 29.6 L, RDW Std Deviation 51.8 H, RDW Coeff of Beto 20.3 H, Plt Count 129 L, MPV 10.1, Immature Gran % (Auto) 0.400, Neut % (Auto) 91.3 H, Lymph % (Auto) 4.6 L, [place] % (Auto) 3.7, Eos % (Auto) 0.0, Baso % (Auto) 0.0, Absolute Neuts (auto) 4.2, Absolute Lymphs (auto) 0.21 L, Nucleated RBC % 0 Micro: Microbiology 11/11/21 15:28 Nasal Secretion SARS-CoV-2 Antigen (Rapid) - Final SARS-CoV-2 (COVID 19) 11/11/21 18:30 Urine, Clean Catch Legionella Antigen - Final 11/11/21 18:30 Urine, Clean Catch Streptococcus pneumoniae Antigen (M - Final Physical Exam Narrative GENERAL: Frail looking HEENT: Atraumatic; EYES; Anicteric, Normal Conjunctiva NECK; supple, normal thyroid, RESPIRATORY: Diminished to auscultation CARDIOVASCULAR: Regular S1 S2, GI: soft, normoactive bowel sounds, : No Renal angle tenderness; EXTREMITIES: No edema, no clubbing, MUSCULOSKELETAL: no muscle waisting NEURO: Awake; no lateralizing signs. SKIN: No Rash PSYCH; Flat affect Assessment & Plan Assessment/Plan (1) Acute respiratory failure with hypoxia: (2) Pneumonia due to 2019 novel coronavirus: PLAN: Patient is a 76-year-old gentleman with who is vaccinated against COVID 19 including receiving the booster multiple comorbidities including CAD status post CABG ischemic cardiomyopathy status post AICD placement chronic hypoxic respiratory failure on baseline home oxygen presented with cough sore throat as well as diarrhea. Tested positive for C 1. Acute on chronic hypoxic respiratory failure -Secondary to SARS-CoV-2 pneumonia. Admitted to regular nursing floor started on Decadron remdesivir . Patient response to therapy being monitored with markers of inflammation. CT of the chest obtained on admission demonstrated. Bilateral subsegmental atelectasis or pneumonitis with dense left lower lobe pneumonia. Added empiric antibiotic treatment to patient's therapy -11/13/2021; Patient apparently did not tolerate oxygen via nasal cannula for most of the day however had to be placed on Airvo in the early hours of the morning in view of significant hypoxia. -11/14/2021; Patient has been weaned off Airvo currently on nasal cannula with 10 L flow per minute of oxygen 2. Acute transaminitis ? Secondary to SARS-CoV-2 infection. Ordered daily CMP for monitoring 3. Anemia - Secondary to chronic disorder monitoring H&H and transfuse if patient becomes symptomatic or hemoglobin falls below 7 4. Ischemic cardiomyopathy ? Status post AICD placement 5. Chronic CHF -Patient has a known EF of 35% based on echo obtained on 05/16/2020. 6. Chronic hypoxic respiratory failure Secondary to COPD 7. Coronary artery disease ? Status post CABG 8. Hypertension - Blood pressure controlled, home medications continued with dose adjustment as needed 9. Dyslipidemia -Patient is on statin therapy, continued at home dose 10. Obstructive sleep apnea 11. Paroxysmal atrial fibrillation ? On Coreg and amiodarone not on systemic anticoagulation 12. BPH ? Patient is on tamsulosin and finasteride continue 13. Thrombocytopenia ? Patient historically has low platelet counts. With patient being on Lovenox daily CBC ordered. Would not hesitate to discontinue Lovenox if patient platelet count continues to drop any further 14. DVT prophylaxis - Lovenox. Charges/Coding Visit Charges Inpatient E&M: 81092 Subs Hosp L2
[2021-11-14] MEDS: dexAMETHasone 10 MG/ML Vial 6 MG IV (09:53)
[2021-11-14] MEDS: Enoxaparin 40 MG/0.4 ML Syringe 30 MG SC ×2 (09:53→20:42)
[2021-11-14] MEDS: Ondansetron 4 MG/2 ML Vial IV (09:53)
[2021-11-14] MEDS: Aspirin 81 MG TAB.CHEW PO (09:54)
[2021-11-14] MEDS: Amiodarone 200 MG Tablet PO (09:54)
[2021-11-14] MEDS: Carvedilol 6.25 MG Tablet PO (09:54)
[2021-11-14] MEDS: Finasteride 5 MG Tablet PO (09:54)
[2021-11-14] MEDS: Umeclidinium Bromide Inhaler 1 PUFF INHALATION (09:57)
[2021-11-14] MEDS: Lisinopril 5 MG Tablet PO (09:57)
[2021-11-14] MEDS: Fluticasone/Salmeterol 232-14 Inhaler 1 PUFF INHALATION ×2 (09:58→20:42)
[2021-11-14] MEDS: levoFLOXacin IV 750 MG/150 ML BAG 100 MG IV (12:34)
[2021-11-14] MEDS: proCHLORPERazine 10 MG/2 ML Vial 5 MG IV ×2 (12:34→20:38)
[2021-11-14] MEDS: 0.9% Saline Lock 10 ML Syringe IV ×2 (12:35→20:40)
[2021-11-14 14:49] LABS: Hypochromasia 1+
[2021-11-14 14:50] LABS: Differential Indicated SCAN CRITERIA MET
[2021-11-14] MEDS: Atorvastatin Calcium 20 MG Tablet PO (20:42)
--- NOTE | 2021-11-14 20:48 | NURSING ---
patient requesting medications early to go to bed
[2021-11-15] VITALS (18 sets, daily range): BP systolic 99–110; BP diastolic 53–63; PULSE 60–104; RESP 18–22; TEMP 36–36.8; O2SAT 90–96
[2021-11-15] MEDS: MELATONIN 3 MG TABLET PO ×2 (02:41→21:02)
[2021-11-15] MEDS: LORazepam 0.5 MG Tablet PO ×2 (02:41→21:02)
[2021-11-15 05:42] LABS: Absolute Lymphocyte Count 0.27 X10^3/uL (0.83-4.51); Absolute Neutrophil Count 8.6 X10^3/uL (2.0-7.7); Basophil# 0.01 X10^3/uL; Basophil% 0.1 % (0-1); Hematocrit 32.5 % (40-54); Hemoglobin 9.6 g/dL (13.0-16.5); Lymphocyte # 0.27 X10^3/ul (0.83-4.51); Lymphocyte % 2.9 % (19-41); Mean Corp Hgb Conc 29.5 g/dL (32-36); Mean Corpuscular Hgb 21.2 pg (27.0-32.0); Mean Corpuscular Volume 71.7 fL (80-94); Mean Platelet Vol. 9.7 fl (6.2-12.0); Monocyte# 0.41 X10^3/uL; Monocyte% 4.4 % (0-10); NRBC Flagged by Analyzer 0 % (0-5); Neutrophil # 8.61 X10^3/uL (2.7-7.7); Neutrophil % 91.9 % (47-70); POSITIVE DIFFERENTIAL YES; POSITIVE MORPHOLOGY YES; Platelet Count 162 K/mm3 (150-450); RBC Distribution Width CV 20.8 % (11.6-14.6); RBC Distribution Width SD 52.2 fl (35.1-43.9); Red Blood Count 4.53 M/mm3 (4.6-6.2); White Blood Count 9.4 K/mm3 (4.4-11.0)
[2021-11-15 06:01] LABS: Differential Indicated SCAN CRITERIA MET
[2021-11-15 06:20] LABS: Anisocytosis 3+
[2021-11-15 06:21] LABS: Burr Cells 2+
--- NOTE | 2021-11-15 07:14 | PN.HOSP_ITS ---
Subjective Subjective Patient has been weaned off Vapotherm however remains on high flow nasal cannula at 15 L/min. Objective Data Objective Data Vital Signs: Vital Signs Temp Pulse Resp BP Pulse Ox 97.8 F 60 18 104/55 L 94 11/15/21 02:30 11/15/21 03:02 11/15/21 02:30 11/15/21 02:30 11/15/21 03:09 Oxygen Flow Rate (L/min) 50 Oxygen Delivery Method Airvo Weight: 74.6 kg Body Mass Index (BMI) 21.5 Intake & Output: Intake and Output for Last 24 Hours 11/13/21 11/14/21 11/15/21 23:59 23:59 23:59 Intake Total 1040 / 1040 1000 / 1000 Output Total 1500 / 1500 500 / 725 350 / 350 Balance -460 / -460 500 / 275 -350 / -350 Lab / Micro Data Result Diagrams: 11/15/21 05:01 11/12/21 04:34 Labs: Laboratory Results - last 24 hr 11/14/21 04:17: Differential Comment Not Reportable, Hypochromasia 1+ 11/15/21 05:01: WBC 9.4, RBC 4.53 L, Hgb 9.6 L, Hct 32.5 L, MCV 71.7 L, MCH 21.2 L, MCHC 29.5 L, RDW Std Deviation 52.2 H, RDW Coeff of Beto 20.8 H, Plt Count 162, MPV 9.7, Immature Gran % (Auto) 0.700, Neut % (Auto) 91.9 H, Lymph % (Auto) 2.9 L, [place] % (Auto) 4.4, Eos % (Auto) 0.0, Baso % (Auto) 0.1, Absolute Neuts (auto) 8.6 H, Absolute Lymphs (auto) 0.27 L, Nucleated RBC % 0, Anisocytosis 3+, [place] Cells 2+ Micro: Microbiology 11/11/21 15:35 Blood Culture (Wb) - Right Hand Blood Culture - Preliminary No growth in 48 hours. 11/11/21 15:40 Blood Culture (Wb) - Anticubital Left Blood Culture - Preliminary No growth in 48 hours. 11/11/21 15:28 Nasal Secretion SARS-CoV-2 Antigen (Rapid) - Final SARS-CoV-2 (COVID 19) 11/11/21 18:30 Urine, Clean Catch Legionella Antigen - Final 11/11/21 18:30 Urine, Clean Catch Streptococcus pneumoniae Antigen (M - Final Physical Exam Narrative GENERAL: Frail looking HEENT: Atraumatic; EYES; Anicteric, Normal Conjunctiva NECK; supple, normal thyroid, RESPIRATORY: Diminished to auscultation CARDIOVASCULAR: Regular S1 S2, GI: soft, normoactive bowel sounds, : No Renal angle tenderness; EXTREMITIES: No edema, no clubbing, MUSCULOSKELETAL: no muscle waisting NEURO: Awake; no lateralizing signs. SKIN: No Rash PSYCH; Flat affect Assessment & Plan Assessment/Plan (1) Acute respiratory failure with hypoxia: (2) Pneumonia due to 2019 novel coronavirus: PLAN: Patient is a 76-year-old gentleman with who is vaccinated against COVID 19 including receiving the booster multiple comorbidities including CAD status post CABG ischemic cardiomyopathy status post AICD placement chronic hypoxic respiratory failure on baseline home oxygen presented with cough sore throat as well as diarrhea. Tested positive for C 1. Acute on chronic hypoxic respiratory failure -Secondary to SARS-CoV-2 pneumonia. Admitted to regular nursing floor started on Decadron remdesivir . Patient response to therapy being monitored with jack ers of inflammation. CT of the chest obtained on admission demonstrated. Bilateral subsegmental atelectasis or pneumonitis with dense left lower lobe pneumonia. Added empiric antibiotic treatment to patient's therapy -11/13/2021; Patient apparently did not tolerate oxygen via nasal cannula for most of the day however had to be placed on Airvo in the early hours of the morning in view of significant hypoxia. -11/14/2021; Patient has been weaned off Airvo currently on nasal cannula with 10 L flow per minute of oxygen ? 11/15/2021;Patient has been weaned off Vapotherm however remains on high flow nasal cannula at 15 L/m 2. Acute transaminitis ? Secondary to SARS-CoV-2 infection. Ordered daily CMP for monitoring 3. Anemia - Secondary to chronic disorder monitoring H&H and transfuse if patient becomes symptomatic or hemoglobin falls below 7 -11/15/2021; hemoglobin is 9.6 as of today 4. Ischemic cardiomyopathy ? Status post AICD placement 5. Chronic CHF -Patient has a known EF of 35% based on echo obtained on 05/16/2020. 6. Chronic hypoxic respiratory failure Secondary to COPD 7. Coronary artery disease ? Status post CABG 8. Hypertension - Blood pressure controlled, home medications continued with dose adjustment as needed 9. Dyslipidemia -Patient is on statin therapy, continued at home dose 10. Obstructive sleep apnea 11. Paroxysmal atrial fibrillation ? On Coreg and amiodarone not on systemic anticoagulation 12. BPH ? Patient is on tamsulosin and finasteride continue 13. Thrombocytopenia ? Patient historically has low platelet counts. With patient being on Lovenox daily CBC ordered. Would not hesitate to discontinue Lovenox if patient platelet count continues to drop any further -11/15/2021; platelet count 162 14. DVT prophylaxis - Lovenox. Charges/Coding Visit Charges Inpatient E&M: 43658 Subs Hosp L2
--- NOTE | 2021-11-15 07:56 | CPS ---
PATIENT WEANED TO 15 LPM [facility] CHINEDU SMITH.
[2021-11-15] MEDS: Enoxaparin 40 MG/0.4 ML Syringe 30 MG SC ×2 (09:32→21:01)
[2021-11-15] MEDS: 0.9% Saline Lock 10 ML Syringe IV (09:32)
[2021-11-15] MEDS: Furosemide 40 MG/4 ML Vial IV (09:32)
[2021-11-15] MEDS: Aspirin 81 MG TAB.CHEW PO (09:33)
[2021-11-15] MEDS: Lisinopril 5 MG Tablet PO (09:33)
[2021-11-15] MEDS: Amiodarone 200 MG Tablet PO (09:34)
[2021-11-15] MEDS: dexAMETHasone 10 MG/ML Vial 6 MG IV (09:34)
[2021-11-15] MEDS: Finasteride 5 MG Tablet PO (09:34)
[2021-11-15] MEDS: Carvedilol 6.25 MG Tablet PO (09:34)
[2021-11-15] MEDS: Fluticasone/Salmeterol 232-14 Inhaler 1 PUFF INHALATION ×2 (09:39→21:02)
[2021-11-15] MEDS: levoFLOXacin IV 750 MG/150 ML BAG 100 MG IV (09:40)
[2021-11-15] MEDS: Umeclidinium Bromide Inhaler 1 PUFF INHALATION (09:40)
[2021-11-15] MEDS: Atorvastatin Calcium 20 MG Tablet PO (21:02)
[2021-11-16] VITALS (21 sets, daily range): BP systolic 83–111; BP diastolic 43–58; PULSE 63–77; RESP 20–31; TEMP 36.2–36.7; O2SAT 86–98
--- NOTE | 2021-11-16 07:41 | PN.HOSP_ITS ---
Subjective Subjective Patient seen no significant change in overall condition still remains on high flow oxygen via Airvo. WBC count trending up. Ordered repeat chest x-ray as well as D-dimer Objective Data Objective Data Vital Signs: Vital Signs Temp Pulse Resp BP Pulse Ox 98.0 F 68 20 H 106/57 L 93 11/16/21 01:06 11/16/21 02:53 11/16/21 01:06 11/16/21 01:06 11/16/21 02:00 Oxygen Flow Rate (L/min) 50 Oxygen Delivery Method Airvo Weight: 74.7 kg Body Mass Index (BMI) 21.5 Intake & Output: Intake and Output for Last 24 Hours 11/14/21 11/15/21 11/16/21 23:59 23:59 23:59 Intake Total 1000 / 1000 880 / 880 Output Total 500 / 725 1150 / 1150 Balance 500 / 275 -270 / -270 Lab / Micro Data Result Diagrams: 11/16/21 07:04 11/12/21 04:34 Micro: Microbiology 11/11/21 15:35 Blood Culture (Wb) - Right Hand Blood Culture - Preliminary No growth in 48 hours. 11/11/21 15:40 Blood Culture (Wb) - Anticubital Left Blood Culture - Preliminary No growth in 48 hours. 11/11/21 15:28 Nasal Secretion SARS-CoV-2 Antigen (Rapid) - Final SARS-CoV-2 (COVID 19) 11/11/21 18:30 Urine, Clean Catch Legionella Antigen - Final 11/11/21 18:30 Urine, Clean Catch Streptococcus pneumoniae Antigen (M - Fin al Physical Exam Narrative GENERAL: Frail looking HEENT: Atraumatic; EYES; Anicteric, Normal Conjunctiva NECK; supple, normal thyroid, RESPIRATORY: Diminished to auscultation CARDIOVASCULAR: Regular S1 S2, GI: soft, normoactive bowel sounds, : No Renal angle tenderness; EXTREMITIES: No edema, no clubbing, MUSCULOSKELETAL: no muscle waisting NEURO: Awake; no lateralizing signs. SKIN: No Rash PSYCH; Flat affect Assessment & Plan Assessment/Plan (1) Acute respiratory failure with hypoxia: (2) Pneumonia due to 2019 novel coronavirus: PLAN: Patient is a 76-year-old gentleman with who is vaccinated against COVID 19 including receiving the booster multiple comorbidities including CAD status post CABG ischemic cardiomyopathy status post AICD placement chronic hypoxic respiratory failure on baseline home oxygen presented with cough sore throat as well as diarrhea. Tested positive for C 1. Acute on chronic hypoxic respiratory failure -Secondary to SARS-CoV-2 pneumonia. Admitted to regular nursing floor started on Decadron remdesivir . Patient response to therapy being monitored with markers of inflammation. CT of the chest obtained on admission demonstrated. Bilateral subsegmental atelectasis or pneumonitis with dense left lower lobe pneumonia. Added empiric antibiotic treatment to patient's therapy -11/13/2021; Patient apparently did not tolerate oxygen via nasal cannula for most of the day however had to be placed on Airvo in the early hours of the morning in view of significant hypoxia. -11/14/2021; Patient has been weaned off Airvo currently on nasal cannula with 10 L flow per minute of oxygen ? 11/15/2021;Patient has been weaned off Vapotherm however remains on high flow nasal cannula at 15 L/m -11/16/2021; Patient seen no significant change in overall condition still remains on high flow oxygen via Airvo. WBC count trending up. Ordered repeat chest x-ray as well as D-di 2. Acute transaminitis ? Secondary to SARS-CoV-2 infection. Ordered daily CMP for monitoring 3. Anemia - Secondary to chronic disorder monitoring H&H and transfuse if patient becomes symptomatic or hemoglobin falls below 7 -11/15/2021; hemoglobin is 9.6 as of today 4. Ischemic cardiomyopathy ? Status post AICD placement 5. Chronic CHF -Patient has a known EF of 35% based on echo obtained on 05/16/2020. 6. Chronic hypoxic respiratory failure Secondary to COPD 7. Coronary artery disease ? Status post CABG 8. Hypertension - Blood pressure controlled, home medications continued with dose adjustment as needed 9. Dyslipidemia -Patient is on statin therapy, continued at home dose 10. Obstructive sleep apnea 11. Paroxysmal atrial fibrillation ? On Coreg and amiodarone not on systemic anticoagulation 12. BPH ? Patient is on tamsulosin and finasteride continue 13. Thrombocytopenia ? Patient historically has low platelet counts. With patient being on Lovenox daily CBC ordered. Would not hesitate to discontinue Lovenox if patient platelet count continues to drop any further -11/15/2021; platelet count 162 14. DVT prophylaxis - Lovenox. Charges/Coding Visit Charges Inpatient E&M: 65076 Subs Hosp L2
[2021-11-16 07:47] LABS: Absolute Lymphocyte Count 0.19 X10^3/uL (0.83-4.51); Absolute Neutrophil Count 16.8 X10^3/uL (2.0-7.7); Basophil# 0.02 X10^3/uL; Basophil% 0.1 % (0-1); Hematocrit 34.1 % (40-54); Hemoglobin 10.3 g/dL (13.0-16.5); Lymphocyte # 0.19 X10^3/ul (0.83-4.51); Lymphocyte % 1.1 % (19-41); Mean Corp Hgb Conc 30.2 g/dL (32-36); Mean Corpuscular Hgb 21.4 pg (27.0-32.0); Mean Corpuscular Volume 70.7 fL (80-94); Mean Platelet Vol. 10.1 fl (6.2-12.0); Monocyte# 0.78 X10^3/uL; Monocyte% 4.3 % (0-10); NRBC Flagged by Analyzer 0 % (0-5); Neutrophil # 16.79 X10^3/uL (2.7-7.7); Neutrophil % 93.6 % (47-70); POSITIVE DIFFERENTIAL YES; POSITIVE MORPHOLOGY YES; Platelet Count 159 K/mm3 (150-450); RBC Distribution Width SD 52.2 fl (35.1-43.9); Red Blood Count 4.82 M/mm3 (4.6-6.2)
[2021-11-16 08:32] LABS: Differential Indicated SCAN CRITERIA MET
[2021-11-16 08:33] LABS: Anisocytosis 2+; Differential Comment SCANNED; Hypochromasia 1+; Macrocytosis 1+; Microcytosis 1+; Poikilocytosis 1+
[2021-11-16] MEDS: levoFLOXacin IV 750 MG/150 ML BAG 100 MG IV (09:57)
[2021-11-16] MEDS: Enoxaparin 40 MG/0.4 ML Syringe 30 MG SC ×2 (09:57→20:08)
[2021-11-16] MEDS: Amiodarone 200 MG Tablet PO (09:58)
[2021-11-16] MEDS: Carvedilol 6.25 MG Tablet PO (09:58)
[2021-11-16] MEDS: Furosemide 40 MG/4 ML Vial IV (09:58)
[2021-11-16] MEDS: 0.9% Saline Lock 10 ML Syringe IV (09:58)
[2021-11-16] MEDS: dexAMETHasone 10 MG/ML Vial 6 MG IV (09:58)
[2021-11-16] MEDS: Finasteride 5 MG Tablet PO (09:59)
[2021-11-16] MEDS: Aspirin 81 MG TAB.CHEW PO (09:59)
[2021-11-16] MEDS: Umeclidinium Bromide Inhaler 1 PUFF INHALATION (09:59)
[2021-11-16] MEDS: Fluticasone/Salmeterol 232-14 Inhaler 1 PUFF INHALATION ×2 (09:59→20:08)
--- NOTE | 2021-11-16 12:25 | RAD_ITS ---
STUDY: X-RAY CHEST REASON FOR EXAM: Male, 76 years old. pneumonia TECHNIQUE: AP COMPARISON: 11/11/2021 FINDINGS: Three lead cardiac conduction device is seen via the left subclavian vein with lead tips projecting over the right atrium and right ventricle, respectively, with left atrial lead projecting over the left atrium/posterior cardiac border. Sternal wires and mediastinal surgical clips compatible with prior CABG. There are patchy bilateral pulmonary infiltrates increased in the left perihilar and upper lung field is prior study. Trace bilateral pleural effusions. No pneumothorax. There is mild cardiac enlargement. There are calcified left hilar lymph nodes. Normal visualized pulmonary arteries. Normal visualized aortic arch and descending thoracic aorta. There is demineralization of the osseous structures. There is degenerative osteoarthritis of the bilateral shoulders. Old right rib fractures. There is no demonstrated abnormality of the visualized soft tissue structures of the upper abdomen. RAD/Chest 1 View (Portable) IMPRESSION: 1. Mildly worse multilobar pulmonary infiltrates, progressing in the left perihilar and upper lung field. Electronically Signed: Davian Hagen MD ([place]) at 12:49 EST , Service support ,
[2021-11-16 12:26] LABS: Anion Gap 7 (5-15); BUN 53 mg/dL (7-18); BUN/Creat Ratio 43.8 RATIO (10-20); Chloride 101 mmol/L (98-107); Creatinine, Serum 1.21 mg/dL (0.70-1.30); EST Glomerular Filtration Rate 62 mL/min (>60); Est Glom Filt Rate - Afr Amer 75 mL/min (>60); Estimated Creatinine Clearance 56.59 ml/min; Glucose 158 mg/dL (74-106); Potassium 4.1 mmol/L (3.5-5.1); Sodium Level 133 mmol/L (136-145)
[2021-11-16 12:45] LABS: D-Dimer Quantitative (DVT/PE) 2.95 FEU/ug/m (0.27-0.49)
--- NOTE | 2021-11-16 13:42 | CT_ITS ---
STUDY: CTA CHEST REASON FOR EXAM: Male, 76 years old. COVID Pneumonia, worsening, elevated d-dimer RADIATION DOSAGE (If Supplied By Facility): CTDIvol = ( 14.15 ) mGy, DLP = ( 463.73 ) mGycm TECHNIQUE: The examination was performed with the intravenous administration of IV 100mL Isovue-370. Post-processing of the angiographic images was performed, with multiplanar reformation and 3D reconstruction. Individualized dose optimization techniques were used for this CT. COMPARISON: None. FINDINGS: Normal enhancement of the main pulmonary artery and right and left pulmonary arteries. Normal enhancement of the bilateral peripheral pulmonary arteries. There is no demonstrated pulmonary embolism. There is atherosclerotic calcification of the aortic arch with tortuosity. There is no demonstrated aortic dissection. Mild cardiomegaly. Sternal wires and mediastinal surgical clips compatible with prior CABG. 3-lead cardiac connection device is unchanged since earlier today. There are calcified mediastinal lymph nodes. There are calcified left hilar lymph nodes. Normal visualized trachea and bronchi. The lungs are hyper expanded, with flattening of the hemidiaphragms. Centrilobular and paraseptal emphysema. Multifocal infiltrates with features commonly reported with COVID pneumonia. Parenchymal consolidation involving the left more than right lower lobes. Small right and trace left pleural effusions. Normal chest wall structures. There are degenerative changes of thoracic spine. Old right rib fractures. Mild upper abdominal ascites is incompletely visualized. CT/CTA Chest W/WO Contrast IMPRESSION: 1. No central or segmental pulmonary embolism. 2. Multifocal infiltrates with features commonly reported with COVID pneumonia. 3. Dense consolidation of the left lower lobe more than right lower lobe may represent atelectasis versus pneumonia. 4. Right larger than left pleural effusions. Electronically Signed: Davian Hagen MD ([place]) at 15:51 EST , Service support ,
[2021-11-16] MEDS: LORazepam 0.5 MG Tablet PO (16:01)
[2021-11-16] MEDS: Tamsulosin HCl 0.4 MG Capsule PO (16:01)
[2021-11-17] VITALS (22 sets, daily range): BP systolic 78–107; BP diastolic 40–62; PULSE 64–75; RESP 20–30; TEMP 36.1–36.6; O2SAT 89–98
[2021-11-17 06:57] LABS: Absolute Lymphocyte Count 0.13 X10^3/uL (0.83-4.51); Absolute Neutrophil Count 9.8 X10^3/uL (2.0-7.7); Hematocrit 31.7 % (40-54); Hemoglobin 9.6 g/dL (13.0-16.5); Lymphocyte # 0.13 X10^3/ul (0.83-4.51); Lymphocyte % 1.3 % (19-41); Mean Corp Hgb Conc 30.3 g/dL (32-36); Mean Corpuscular Hgb 21.2 pg (27.0-32.0); Monocyte# 0.41 X10^3/uL; Monocyte% 3.9 % (0-10); NRBC Flagged by Analyzer 0 % (0-5); Neutrophil # 9.76 X10^3/uL (2.7-7.7); POSITIVE DIFFERENTIAL YES; POSITIVE MORPHOLOGY YES; Platelet Count 104 K/mm3 (150-450); RBC Distribution Width CV 20.9 % (11.6-14.6); RBC Distribution Width SD 51.8 fl (35.1-43.9); Red Blood Count 4.53 M/mm3 (4.6-6.2); White Blood Count 10.4 K/mm3 (4.4-11.0)
[2021-11-17 06:59] LABS: Differential Indicated SCAN CRITERIA MET
--- NOTE | 2021-11-17 07:27 | PN.HOSP_ITS ---
Subjective Subjective Patient seen still remains on Airvo. Patient was hypotensive during the night resuscitated with IV fluid. Reviewed his antihypertensive medications held Coreg lisinopril as well as Lasix. Repeat checks x-ray and CT ordered demonstrated Dense consolidation of the left lower lobe more than right lower lobe may represent atelectasis versus pneumonia. Right larger than left pleural effusions. Patient already on Levaquin added cefepime for superimposed suspected bacterial infection Objective Data Objective Data Vital Signs: Vital Signs Temp Pulse Resp BP Pulse Ox 97.3 F L 64 20 H 93/45 L 97 11/17/21 04:00 11/17/21 04:00 11/17/21 04:00 11/17/21 04:00 11/17/21 04:00 Oxygen Flow Rate (L/min) 50 Oxygen Delivery Method Airvo Weight: 74.4 kg Body Mass Index (BMI) 21.5 Intake & Output: Intake and Output for Last 24 Hours 11/15/21 11/16/21 11/17/21 23:59 23:59 23:59 Intake Total 880 / 880 450 / 450 500 / 500 Output Total 1150 / 1150 900 / 1200 400 / 400 Balance -270 / -270 -450 / -750 100 / 100 Lab / Micro Data Result Diagrams: 11/17/21 06:05 11/17/21 06:05 Labs: Laboratory Results - last 24 hr 11/16/21 07:04: WBC 18.0 H, RBC 4.82, Hgb 10.3 L, Hct 34.1 L, MCV 70.7 L, MCH 21.4 L, MCHC 30.2 L, RDW Std Deviation 52.2 H, RDW Coeff of Beto 21.0 H, Plt Count 159, MPV 10.1, Immature Gran % (Auto) 0.900, Neut % (Auto) 93.6 H, Lymph % (Auto) 1.1 L, [place] % (Auto) 4.3, Eos % (Auto) 0.0, Baso % (Auto) 0.1, Absolute Neuts (auto) 16.8 H, Absolute Lymphs (auto) 0.19 L, Nucleated RBC % 0, Differential Comment SCANNED, Hypochromasia 1+, Poikilocytosis 1+, Anisocytosis 2+, Microcytosis 1+, Macrocytosis 1+ 11/16/21 11:55: D-Dimer Quant (PE/DVT) 2.95 H* 11/16/21 11:55: Sodium 133 L, Potassium 4.1, Chloride 101, Carbon Dioxide 25.0, Anion Gap 7, BUN 53 H, Creatinine 1.21, Estim Creat Clear Calc 56.59, Est GFR (MDRD) Af Amer 75, Est GFR (MDRD) Non-Af 62, BUN/Creatinine Ratio 43.8 H, Glucose 158 H, Calcium 7.0 L 11/17/21 06:05: WBC 10.4, RBC 4.53 L, Hgb 9.6 L, Hct 31.7 L, MCV 70.0 L, MCH 21.2 L, MCHC 30.3 L, RDW Std Deviation 51.8 H, RDW Coeff of Beto 20.9 H, Plt Count 104 L, MPV TNP, Immature Gran % (Auto) 0.800, Neut % (Auto) 94.0 H, Lymph % (Auto) 1.3 L, [place] % (Auto) 3.9, Eos % (Auto) 0.0, Baso % (Auto) 0.0, Absolute Neuts (auto) 9.8 H, Absolute Lymphs (auto) 0.13 L, Nucleated RBC % 0 Micro: Microbiology 11/11/21 15:40 Blood Culture (Wb) - Anticubital Left Blood Culture - Final No growth in 5 days. 11/11/21 15:35 Blood Culture (Wb) - Right Hand Blood Culture - Final No growth in 5 days. 11/11/21 15:28 Nasal Secretion SARS-CoV-2 Antigen (Rapid) - Final SARS-CoV-2 (COVID 19) 11/11/21 18:30 Urine, Clean Catch Legionella Antigen - Final 11/11/21 18:30 Urine, Clean Catch Streptococcus pneumoniae Antigen (M - Final Radiography Diagnostic Testing: Radiology Impression Chest X-Ray 11/16/21 12:25 IMPRESSION: 1. Mildly worse multilobar pulmonary infiltrates, progressing in the left perihilar and upper lung field. Electronically Signed: Davian Hagen MD ([place]) at 12:49 EST , Service support , Chest CTA 11/16/21 13:42 IMPRESSION: 1. No central or segmental pulmonary embolism. 2. Multifocal infiltrates with features commonly reported with COVID pneumonia. 3. Dense consolidation of the left lower lobe more than right lower lobe may represent atelectasis versus pneumonia. 4. Right larger than left pleural effusions. Electronically Signed: Davian Hagen MD ([place]) at 15:51 EST , Service support , Physical Exam Narrative GENERAL: Frail looking HEENT: Atraumatic; EYES; Anicteric, Normal Conjunctiva NECK; supple, normal thyroid, RESPIRATORY: Diminished to auscultation CARDIOVASCULAR: Regular S1 S2, GI: soft, normoactive bowel sounds, : No Renal angle tenderness; EXTREMITIES: No edema, no clubbing, MUSCULOSKELETAL: no muscle waisting NEURO: Awake; no lateralizing signs. SKIN: No Rash PSYCH; Flat affect Assessment & Plan Assessment/Plan (1) Acute respiratory failure with hypoxia: (2) Pneumonia due to 2019 novel coronavirus: PLAN: Patient is a 76-year-old gentleman with who is vaccinated against COVID 19 including receiving the booster multiple comorbidities including CAD status post CABG ischemic cardiomyopathy status post AICD placement chronic hypoxic respiratory failure on baseline home oxygen presented with cough sore throat as well as diarrhea. Tested positive for C 1. Acute on chronic hypoxic respiratory failure -Secondary to SARS-CoV-2 pneumonia. Admitted to regular nursing floor started on Decadron remdesivir . Patient response to therapy being monitored with markers of inflammation. CT of the chest obtained on admission demonstrated. Bilateral subsegmental atelectasis or pneumonitis with dense left lower lobe pneumonia. Added empiric antibiotic treatment to patient's therapy -11/13/2021; Patient apparently did not tolerate oxygen via nasal cannula for most of the day however had to be placed on Airvo in the early hours of the morning in view of significant hypoxia. -11/14/2021; Patient has been weaned off Airvo currently on nasal cannula with 10 L flow per minute of oxygen ? 11/15/2021;Patient has been weaned off Vapotherm however remains on high flow nasal cannula at 15 L/m -11/16/2021; Patient seen no significant change in overall condition still remains on high flow oxygen via Airvo. WBC count trending up. Ordered repeat chest x-ray as well as D-dimer -11/17/2021; Patient seen still remains on Airvo. Repeat CT ordered demonstrated Dense consolidation of the left lower lobe more than right lower lobe may represent atelectasis versus pneumonia. Right larger than left pleural effusions. Patient already on Levaquin added cefepime for superimposed suspected bacterial infection 2. Acute transaminitis ? Secondary to SARS-CoV-2 infection. Ordered daily CMP for monitoring 3. Anemia - Secondary to chronic disorder monitoring H&H and transfuse if patient becomes symptomatic or hemoglobin falls below 7 -11/15/2021; hemoglobin is 9.6 as of today 4. Ischemic cardiomyopathy ? Status post AICD placement 5. Chronic CHF -Patient has a known EF of 35% based on echo obtained on 05/16/2020. 6. Chronic hypoxic respiratory failure Secondary to COPD 7. Coronary artery disease ? Status post CABG 8. Hypertension - Blood pressure controlled, home medications continued with dose adjustment as needed -11/17/2021; Patient was hypotensive during the night resuscitated with IV fluid. Reviewed his antihypertensive medications held Coreg lisinopril as well as Lasix. 9. Dyslipidemia -Patient is on statin therapy, continued at home dose 10. Obstructive sleep apnea 11. Paroxysmal atrial fibrillation ? On Coreg and amiodarone not on systemic anticoagulation 12. BPH ? Patient is on tamsulosin and finasteride continue 13. Thrombocytopenia ? Patient historically has low platelet counts. With patient being on Lovenox daily CBC ordered. Would not hesitate to discontinue Lovenox if patient platele t count continues to drop any further -11/15/2021; platelet count 162 -11/17/2021 platelet count down to 104 14. DVT prophylaxis - Lovenox. Charges/Coding Visit Charges Inpatient E&M: 14760 [facility] Hosp L3
[2021-11-17 08:04] LABS: ALB/GLOB Ratio 0.6 RATIO (0.9-2.4); AST(SGOT) 65 U/L (15-37); Alanine Aminotransfer ALT/SGPT 33 U/L (16-61); Albumin, Serum 1.9 g/dL (3.2-5.0); Alkaline Phosphatase 88 U/L (45-117); Anion Gap 7 (5-15); BUN 62 mg/dL (7-18); BUN/Creat Ratio 46.6 RATIO (10-20); Calcium,Total 6.8 mg/dL (8.5-10.1); Chloride 102 mmol/L (98-107); Creatinine, Serum 1.33 mg/dL (0.70-1.30); EST Glomerular Filtration Rate 56 mL/min (>60); Est Glom Filt Rate - Afr Amer 68 mL/min (>60); Estimated Creatinine Clearance 51.28 ml/min; Glucose 76 mg/dL (74-106); Potassium 4.4 mmol/L (3.5-5.1); Protein, Total 4.9 g/dL (6.4-8.2); Sodium Level 133 mmol/L (136-145)
[2021-11-17] MEDS: guaiFENesin 10 ML UDC (200MG/10ML) 20 ML PO ×2 (09:50→21:51)
[2021-11-17] MEDS: Aspirin 81 MG TAB.CHEW PO (09:51)
[2021-11-17] MEDS: Enoxaparin 40 MG/0.4 ML Syringe 30 MG SC ×2 (09:51→21:51)
[2021-11-17] MEDS: Finasteride 5 MG Tablet PO (09:51)
[2021-11-17] MEDS: Acetaminophen 325 MG Tablet 650 MG PO ×2 (09:51→21:51)
[2021-11-17] MEDS: LORazepam 0.5 MG Tablet PO ×2 (09:51→21:51)
[2021-11-17] MEDS: Fluticasone/Salmeterol 232-14 Inhaler 1 PUFF INHALATION ×2 (09:52→21:56)
[2021-11-17] MEDS: Umeclidinium Bromide Inhaler 1 PUFF INHALATION (09:52)
[2021-11-17 10:31] LABS: Differential Comment SCANNED
[2021-11-17 10:32] LABS: Anisocytosis 2+; Hypochromasia 1+; Microcytosis 2+
[2021-11-17] MEDS: levoFLOXacin IV 750 MG/150 ML BAG 100 MG IV (10:33)
[2021-11-17] MEDS: dexAMETHasone 2 MG TABLET 6 MG PO (10:38)
[2021-11-17] MEDS: Tamsulosin HCl 0.4 MG Capsule PO (17:22)
[2021-11-17] MEDS: MELATONIN 3 MG TABLET PO (21:51)
[2021-11-17] MEDS: Atorvastatin Calcium 20 MG Tablet PO (21:51)
[2021-11-18] VITALS (22 sets, daily range): BP systolic 85–138; BP diastolic 39–64; PULSE 20–85; RESP 16–25; TEMP 36.3–36.8; O2SAT 89–95
[2021-11-18 05:34] LABS: Absolute Lymphocyte Count 0.09 X10^3/uL (0.83-4.51); Absolute Neutrophil Count 8.4 X10^3/uL (2.0-7.7); Hematocrit 30.2 % (40-54); Hemoglobin 9.2 g/dL (13.0-16.5); Lymphocyte # 0.09 X10^3/ul (0.83-4.51); Mean Corp Hgb Conc 30.5 g/dL (32-36); Mean Corpuscular Hgb 21.4 pg (27.0-32.0); Mean Corpuscular Volume 70.4 fL (80-94); Monocyte# 0.31 X10^3/uL; Monocyte% 3.5 % (0-10); NRBC Flagged by Analyzer 0 % (0-5); Neutrophil # 8.36 X10^3/uL (2.7-7.7); Neutrophil % 94.7 % (47-70); POSITIVE COUNT YES; POSITIVE DIFFERENTIAL YES; POSITIVE MORPHOLOGY YES; Platelet Count 99 K/mm3 (150-450); RBC Distribution Width CV 20.9 % (11.6-14.6); RBC Distribution Width SD 52.3 fl (35.1-43.9); Red Blood Count 4.29 M/mm3 (4.6-6.2); White Blood Count 8.8 K/mm3 (4.4-11.0)
[2021-11-18 05:36] LABS: Differential Indicated SCAN CRITERIA MET
[2021-11-18 06:00] LABS: Anisocytosis 3+; Burr Cells 3+; Platelet Estimate SLT DEC (ADEQ)
[2021-11-18 06:04] LABS: ALB/GLOB Ratio 0.6 RATIO (0.9-2.4); AST(SGOT) 74 U/L (15-37); Alanine Aminotransfer ALT/SGPT 35 U/L (16-61); Albumin, Serum 1.8 g/dL (3.2-5.0); Alkaline Phosphatase 90 U/L (45-117); Anion Gap 10 (5-15); BUN 76 mg/dL (7-18); BUN/Creat Ratio 49.7 RATIO (10-20); Calcium,Total 6.8 mg/dL (8.5-10.1); Chloride 101 mmol/L (98-107); Creatinine, Serum 1.53 mg/dL (0.70-1.30); EST Glomerular Filtration Rate 47 mL/min (>60); Est Glom Filt Rate - Afr Amer 57 mL/min (>60); Estimated Creatinine Clearance 44.99 ml/min; Globulin 3.2 g/dL (2.2-4.2); Glucose 94 mg/dL (74-106); Potassium 4.5 mmol/L (3.5-5.1); Sodium Level 134 mmol/L (136-145)
--- NOTE | 2021-11-18 08:21 | PN.HOSP_ITS ---
Subjective Subjective Follow-up on acute hypoxic respiratory failure/acute COVID-19 pneumonia: Patient was seen and examined. Patient is on 15 L of oxygen. Denies any fever or chills. Objective Data Objective Data Vital Signs: Vital Signs Temp Pulse Resp BP Pulse Ox 97.3 F L 75 16 85/50 L 92 11/18/21 07:00 11/18/21 07:00 11/18/21 07:00 11/18/21 07:00 11/18/21 07:00 Oxygen Flow Rate (L/min) 15 Oxygen Delivery Method High Flow Weight: 75.1 kg Body Mass Index (BMI) 21.5 Intake & Output: Intake and Output for Last 24 Hours 11/16/21 11/17/21 11/18/21 23:59 23:59 23:59 Intake Total 450 / 450 1300 / 1420 180 / 180 Output Total 900 / 1200 1100 / 1200 200 / 200 Balance -450 / -750 200 / 220 -20 / -20 Lab / Micro Data Result Diagrams: 11/18/21 05:05 11/18/21 05:05 Labs: Laboratory Results - last 24 hr 11/17/21 06:05: Differential Comment SCANNED, Hypochromasia 1+, Anisocytosis 2+, Microcytosis 2+ 11/18/21 05:05: WBC 8.8, RBC 4.29 L, Hgb 9.2 L, Hct 30.2 L, MCV 70.4 L, MCH 21.4 L, MCHC 30.5 L, RDW Std Deviation 52.3 H, RDW Coeff of Beto 20.9 H, Plt Count 99 L, Immature Gran % (Auto) 0.800, Neut % (Auto) 94.7 H, Lymph % (Auto) 1.0 L, [place] % (Auto) 3.5, Eos % (Auto) 0.0, Baso % (Auto) 0.0, Absolute Neuts (auto) 8.4 H, Absolute Lymphs (auto) 0.09 L, Nucleated RBC % 0, Platelet Estimate SLT DEC, Anisocytosis 3+, [place] Cells 3+ 11/18/21 05:05: Sodium 134 L, Potassium 4.5, Chloride 101, Carbon Dioxide 23.0, Anion Gap 10, BUN 76 H, Creatinine 1.53 H, Estim Creat Clear Calc 44.99, Est GFR (MDRD) Af Amer 57 L, Est GFR (MDRD) Non-Af 47 L, BUN/Creatinine Ratio 49.7 H, Glucose 94, Calcium 6.8 L, Total Bilirubin 3.10 H, AST 74 H, ALT 35, Alkaline Phosphatase 90, Total Protein 5.0 L, Albumin 1.8 L, Globulin 3.2, Albumin/Globulin Ratio 0.6 L Micro: Microbiology 11/11/21 15:40 Blood Culture (Wb) - Anticubital Left Blood Culture - Final No growth in 5 days. 11/11/21 15:35 Blood Culture (Wb) - Right Hand Blood Culture - Final No growth in 5 days. 11/11/21 15:28 Nasal Secretion SARS-CoV-2 Antigen (Rapid) - Final SARS-CoV-2 (COVID 19) 11/11/21 18:30 Urine, Clean Catch Legionella Antigen - Final 11/11/21 18:30 Urine, Clean Catch Streptococcus pneumoniae Antigen (M - Final Physical Exam Narrative Physical exam: General: Alert, Oriented x3, Cooperative, No apparent distress, on 15 L of oxygen HEENT: Atraumatic Oral: Moist Mucosa Neck: Supple Lungs: Diminished to auscultation Cardiovascular: HS I+II, regular, no murmurs Abdomen: Bowel Sounds Present, Soft, Non Tender Extremities: No edema Assessment & Plan Assessment/Plan (1) Acute respiratory failure with hypoxia: (2) Pneumonia due to 2019 novel coronavirus: PLAN: 1. Acute on chronic hypoxic respiratory failure secondary to acute COVID-19 pneumonia/pneumonia Patient has completed remdesivir Continue on Decadron Continue on IV Levaquin and cefepime 2. Acute transaminitis secondary to Acute COVID-19 infection, appears resolved 3. Anemia due to anemia of chronic disease, stable 4. Regular chronic medical conditions including ischemic cardiomyopathy with improved AICD, chronic systolic CHF, EF 35%, CAD status post CABG, hypertension remained stable 5. DVT prophylaxis?Lovenox subcu Charges/Coding Visit Charges Inpatient E&M: 79428 Subs Hosp L2
[2021-11-18] MEDS: Finasteride 5 MG Tablet PO (09:46)
[2021-11-18] MEDS: Amiodarone 200 MG Tablet PO (09:46)
[2021-11-18] MEDS: dexAMETHasone 2 MG TABLET 6 MG PO (09:46)
[2021-11-18] MEDS: Aspirin 81 MG TAB.CHEW PO (09:46)
[2021-11-18] MEDS: Enoxaparin 40 MG/0.4 ML Syringe 30 MG SC ×2 (09:49→22:48)
[2021-11-18] MEDS: Fluticasone/Salmeterol 232-14 Inhaler 1 PUFF INHALATION ×2 (09:54→22:49)
[2021-11-18] MEDS: Umeclidinium Bromide Inhaler 1 PUFF INHALATION (09:55)
[2021-11-18] MEDS: 0.9% Saline Lock 10 ML Syringe IV ×2 (09:57→14:22)
[2021-11-18] MEDS: Furosemide 40 MG/4 ML Vial IV (09:57)
[2021-11-18] MEDS: levoFLOXacin IV 750 MG/150 ML BAG 100 MG IV (10:58)
[2021-11-18] MEDS: guaiFENesin 10 ML UDC (200MG/10ML) 20 ML PO (14:22)
[2021-11-18] MEDS: Ondansetron 4 MG/2 ML Vial IV (14:22)
[2021-11-18] MEDS: Acetaminophen 325 MG Tablet 650 MG PO (14:22)
[2021-11-18] MEDS: Tamsulosin HCl 0.4 MG Capsule PO (17:00)
[2021-11-18] MEDS: Atorvastatin Calcium 20 MG Tablet PO (22:49)
[2021-11-19] VITALS (17 sets, daily range): BP systolic 97–178; BP diastolic 43–119; PULSE 69–136; RESP 17–27; TEMP 35.6–36.7; O2SAT 91–95
[2021-11-19] MEDS: proCHLORPERazine 10 MG/2 ML Vial 5 MG IV (02:45)
[2021-11-19] MEDS: LORazepam 0.5 MG Tablet PO (02:54)
[2021-11-19] MEDS: MELATONIN 3 MG TABLET PO (02:54)
[2021-11-19 06:31] LABS: ALB/GLOB Ratio 0.5 RATIO (0.9-2.4); AST(SGOT) 81 U/L (15-37); Alanine Aminotransfer ALT/SGPT 37 U/L (16-61); Albumin, Serum 1.8 g/dL (3.2-5.0); Alkaline Phosphatase 96 U/L (45-117); Anion Gap 8 (5-15); BUN 83 mg/dL (7-18); BUN/Creat Ratio 48.3 RATIO (10-20); Calcium,Total 7.2 mg/dL (8.5-10.1); Chloride 102 mmol/L (98-107); Creatinine, Serum 1.72 mg/dL (0.70-1.30); EST Glomerular Filtration Rate 41 mL/min (>60); Est Glom Filt Rate - Afr Amer 50 mL/min (>60); Estimated Creatinine Clearance 39.54 ml/min; Globulin 3.3 g/dL (2.2-4.2); Glucose 119 mg/dL (74-106); Potassium 4.6 mmol/L (3.5-5.1); Protein, Total 5.1 g/dL (6.4-8.2); Sodium Level 134 mmol/L (136-145)
--- NOTE | 2021-11-19 09:11 | PCM.PN.HOSP ---
Subjective Subjective Follow-up on acute hypoxic respiratory failure/acute COVID-19 pneumonia: Patient was seen and examined. Patient remains on 15 L of oxygen. Denies any fever or chills. Denies any new complaints. No acute events overnight Objective Data Objective Data Vital Signs: Vital Signs Temp Pulse Resp BP Pulse Ox 97.8 F 82 18 178/119 H 93 11/19/21 06:00 11/19/21 08:20 11/19/21 08:20 11/19/21 06:00 11/19/21 08:20 Oxygen Flow Rate (L/min) 15 Oxygen Delivery Method High Flow Weight: 74.2 kg Body Mass Index (BMI) 21.5 Intake & Output: Intake and Output for Last 24 Hours 11/17/21 11/18/21 11/19/21 23:59 23:59 23:59 Intake Total 1300 / 1420 860 / 860 Output Total 1100 / 1200 550 / 775 225 / 225 Balance 200 / 220 310 / 85 -225 / -225 Lab / Micro Data Result Diagrams: 11/18/21 05:05 11/19/21 05:32 Labs: Laboratory Results - last 24 hr 11/19/21 05:32: Sodium 134 L, Potassium 4.6, Chloride 102, Carbon Dioxide 24.0, Anion Gap 8, BUN 83 H, Creatinine 1.72 H, Estim Creat Clear Calc 39.54, Est GFR (MDRD) Af Amer 50 L, Est GFR (MDRD) Non-Af 41 L, BUN/Creatinine Ratio 48.3 H, Glucose 119 H, Calcium 7.2 L, Total Bilirubin 3.50 H, AST 81 H, ALT 37, Alkaline Phosphatase 96, Total Protein 5.1 L, Albumin 1.8 L, Globulin 3.3, Albumin/Globulin Ratio 0.5 L Micro: Microbiology 11/11/21 15:40 Blood Culture (Wb) - Anticubital Left Blood Culture - Final No growth in 5 days. 11/11/21 15:35 Blood Culture (Wb) - Right Hand Blood Culture - Final No growth in 5 days. 11/11/21 15:28 Nasal Secretion SARS-CoV-2 Antigen (Rapid) - Final SARS-CoV-2 (COVID 19) 11/11/21 18:30 Urine, Clean Catch Legionella Antigen - Final 11/11/21 18:30 Urine, Clean Catch Streptococcus pneumoniae Antigen (M - Final Physical Exam Narrative Physical exam: General: Alert, Oriented x3, Cooperative, appears very frail, no apparent distress, on 15 L of oxygen HEENT: Atraumatic Oral: Moist Mucosa Neck: Supple Lungs: Diminished to auscultation Cardiovascular: HS I+II, regular, no murmurs Abdomen: Bowel Sounds Present, Soft, Non Tender Extremities: No edema Assessment & Plan Assessment/Plan (1) Acute respiratory failure with hypoxia: (2) Pneumonia due to 2019 novel coronavirus: PLAN: 1. Acute on chronic hypoxic respiratory failure secondary to acute COVID-19 pneumonia/pneumonia Remains on 15 L of oxygen Patient has completed remdesivir Blood cultures have been negative Continue on Decadron Continue on IV Levaquin and cefepime 2. Acute transaminitis secondary to Acute COVID-19 infection, appears resolved 3. Anemia due to anemia of chronic disease, stable 4. Rest of his chronic medical conditions including ischemic cardiomyopathy with improved AICD, chronic systolic CHF, EF 35%, CAD status post CABG, hypertension remained stable 5. DVT prophylaxis?Lovenox subcu Charges/Coding Visit Charges Inpatient E&M: 39679 Subs Hosp L2
[2021-11-19] MEDS: Finasteride 5 MG Tablet PO (09:28)
[2021-11-19] MEDS: Enoxaparin 40 MG/0.4 ML Syringe 30 MG SC (09:28)
[2021-11-19] MEDS: Amiodarone 200 MG Tablet PO (09:29)
[2021-11-19] MEDS: Aspirin 81 MG TAB.CHEW PO (09:29)
[2021-11-19] MEDS: dexAMETHasone 2 MG TABLET 6 MG PO (09:29)
[2021-11-19] MEDS: Furosemide 40 MG/4 ML Vial IV (09:29)
[2021-11-19] MEDS: Fluticasone/Salmeterol 232-14 Inhaler 1 PUFF INHALATION ×2 (09:30→21:50)
[2021-11-19] MEDS: Umeclidinium Bromide Inhaler 1 PUFF INHALATION (09:30)
[2021-11-19] MEDS: levoFLOXacin IV 750 MG/150 ML BAG 100 MG IV (11:05)
[2021-11-19] MEDS: Tamsulosin HCl 0.4 MG Capsule PO (16:50)
[2021-11-19] MEDS: Enoxaparin 30 MG/0.3 ML Syringe SC (21:50)
[2021-11-19] MEDS: Atorvastatin Calcium 20 MG Tablet PO (21:50)
[2021-11-20] VITALS (15 sets, daily range): BP systolic 101–124; BP diastolic 39–52; PULSE 71–85; RESP 16–22; TEMP 36.2–36.6; O2SAT 89–93
[2021-11-20 06:03] LABS: Absolute Lymphocyte Count 0.09 X10^3/uL (0.83-4.51); Absolute Neutrophil Count 8.1 X10^3/uL (2.0-7.7); Hematocrit 27.7 % (40-54); Hemoglobin 8.6 g/dL (13.0-16.5); Lymphocyte # 0.09 X10^3/ul (0.83-4.51); Lymphocyte % 1.1 % (19-41); Mean Corpuscular Hgb 21.4 pg (27.0-32.0); Mean Corpuscular Volume 69.1 fL (80-94); Monocyte# 0.33 X10^3/uL; Monocyte% 3.9 % (0-10); NRBC Flagged by Analyzer 0 % (0-5); Neutrophil # 8.06 X10^3/uL (2.7-7.7); Neutrophil % 94.5 % (47-70); POSITIVE COUNT YES; POSITIVE DIFFERENTIAL YES; POSITIVE MORPHOLOGY YES; Platelet Count 97 K/mm3 (150-450); RBC Distribution Width CV 21.5 % (11.6-14.6); RBC Distribution Width SD 52.2 fl (35.1-43.9); Red Blood Count 4.01 M/mm3 (4.6-6.2); White Blood Count 8.5 K/mm3 (4.4-11.0)
[2021-11-20 06:16] LABS: Differential Indicated SCAN CRITERIA MET
[2021-11-20 06:42] LABS: Anisocytosis 2+; Burr Cells 2+
[2021-11-20 06:43] LABS: Differential Comment SCANNED; Macrocytosis RARE; Microcytosis 2+; Ovalocyte RARE; Schistocytes RARE
[2021-11-20 06:44] LABS: ALB/GLOB Ratio 0.5 RATIO (0.9-2.4); AST(SGOT) 94 U/L (15-37); Alanine Aminotransfer ALT/SGPT 46 U/L (16-61); Albumin, Serum 1.8 g/dL (3.2-5.0); Alkaline Phosphatase 122 U/L (45-117); Anion Gap 8 (5-15); BUN 85 mg/dL (7-18); BUN/Creat Ratio 51.2 RATIO (10-20); Calcium,Total 7.4 mg/dL (8.5-10.1); Chloride 100 mmol/L (98-107); Creatinine, Serum 1.66 mg/dL (0.70-1.30); EST Glomerular Filtration Rate 43 mL/min (>60); Est Glom Filt Rate - Afr Amer 52 mL/min (>60); Estimated Creatinine Clearance 41.14 ml/min; Globulin 3.4 g/dL (2.2-4.2); Glucose 120 mg/dL (74-106); Potassium 4.5 mmol/L (3.5-5.1); Protein, Total 5.2 g/dL (6.4-8.2); Sodium Level 131 mmol/L (136-145)
[2021-11-20] MEDS: Aspirin 81 MG TAB.CHEW PO (08:22)
[2021-11-20] MEDS: dexAMETHasone 2 MG TABLET 6 MG PO (08:22)
[2021-11-20] MEDS: Amiodarone 200 MG Tablet PO (08:22)
[2021-11-20] MEDS: Finasteride 5 MG Tablet PO (08:23)
[2021-11-20] MEDS: Enoxaparin 30 MG/0.3 ML Syringe SC ×2 (08:23→21:28)
[2021-11-20] MEDS: 0.9% Saline Lock 10 ML Syringe IV (08:24)
[2021-11-20] MEDS: Furosemide 40 MG/4 ML Vial IV (08:24)
[2021-11-20] MEDS: Fluticasone/Salmeterol 232-14 Inhaler 1 PUFF INHALATION (08:40)
[2021-11-20] MEDS: Umeclidinium Bromide Inhaler 1 PUFF INHALATION (10:55)
--- NOTE | 2021-11-20 11:25 | PN.HOSP_ITS ---
Subjective Subjective Follow-up on acute hypoxic respiratory failure/acute COVID-19 pneumonia: Patient was seen and examined. He remains on 15 L of oxygen. No acute events overnight. He has not been using his incentive spirometer. Objective Data Objective Data Vital Signs: Vital Signs Temp Pulse Resp BP Pulse Ox 97.4 F L 85 19 H 124/49 H 91 11/20/21 09:11 11/20/21 09:11 11/20/21 09:11 11/20/21 09:11 11/20/21 09:11 Oxygen Flow Rate (L/min) 15 Oxygen Delivery Method High Flow Weight: 74.5 kg Body Mass Index (BMI) 21.5 Intake & Output: Intake and Output for Last 24 Hours 11/18/21 11/19/21 11/20/21 23:59 23:59 23:59 Intake Total 860 / 860 920 / 1040 170 / 170 Output Total 550 / 775 850 / 975 375 / 375 Balance 310 / 85 70 / 65 -205 / -205 Lab / Micro Data Result Diagrams: 11/20/21 05:50 11/20/21 05:50 Labs: Laboratory Results - last 24 hr 11/20/21 05:50: WBC 8.5, RBC 4.01 L, Hgb 8.6 L, Hct 27.7 L, MCV 69.1 L, MCH 21.4 L, MCHC 31.0 L, RDW Std Deviation 52.2 H, RDW Coeff of Beto 21.5 H, Plt Count 97 L, Immature Gran % (Auto) 0.500, Neut % (Auto) 94.5 H, Lymph % (Auto) 1.1 L, [place] % (Auto) 3.9, Eos % (Auto) 0.0, Baso % (Auto) 0.0, Absolute Neuts (auto) 8.1 H, Absolute Lymphs (auto) 0.09 L, Nucleated RBC % 0, Differential Comment SCANNED, Anisocytosis 2+, Microcytosis 2+, Macrocytosis RARE, Ovalocytes RARE, [place] Cells 2+, Schistocytes RARE 11/20/21 05:50: Sodium 131 L, Potassium 4.5, Chloride 100, Carbon Dioxide 23.0, Anion Gap 8, BUN 85 H, Creatinine 1.66 H, Estim Creat Clear Calc 41.14, Est GFR (MDRD) Af Amer 52 L, Est GFR (MDRD) Non-Af 43 L, BUN/Creatinine Ratio 51.2 H, Glucose 120 H, Calcium 7.4 L, Total Bilirubin 3.10 H, AST 94 H, ALT 46, Alkaline Phosphatase 122 H, Total Protein 5.2 L, Albumin 1.8 L, Globulin 3.4, Albumin/Globulin Ratio 0.5 L Micro: Microbiology 11/11/21 15:40 Blood Culture (Wb) - Anticubital Left Blood Culture - Final No growth in 5 days. 11/11/21 15:35 Blood Culture (Wb) - Right Hand Blood Culture - Final No growth in 5 days. 11/11/21 15:28 Nasal Secretion SARS-CoV-2 Antigen (Rapid) - Final SARS-CoV-2 (COVID 19) 11/11/21 18:30 Urine, Clean Catch Legionella Antigen - Final 11/11/21 18:30 Urine, Clean Catch Streptococcus pneumoniae Antigen (M - Final Physical Exam Narrative Physical exam: General: Alert, Oriented x3, Cooperative, appears very frail, no apparent dist ress, on 15 L of oxygen HEENT: Atraumatic Oral: Moist Mucosa Neck: Supple Lungs: Diminished to auscultation, rales at the lung bases Cardiovascular: HS I+II, regular, no murmurs Abdomen: Bowel Sounds Present, Soft, Non Tender Extremities: No edema Assessment & Plan Assessment/Plan (1) Acute respiratory failure with hypoxia: (2) Pneumonia due to 2019 novel coronavirus: PLAN: 1. Acute on chronic hypoxic respiratory failure secondary to acute COVID-19 pneumonia/pneumonia Remains on 15 L of oxygen Patient has completed remdesivir Blood cultures have been negative Continue on Decadron Continue on IV cefepime Trial of Lasix 40mg IV x1 2. Acute transaminitis secondary to Acute COVID-19 infection, appears resolved 3. Anemia due to anemia of chronic disease, stable 4. Rest of his chronic medical conditions including ischemic cardiomyopathy with improved AICD, chronic systolic CHF, EF 35%, CAD status post CABG, hypertension remained stable 5. DVT prophylaxis?Lovenox subcu Charges/Coding Visit Charges Inpatient E&M: 38572 Subs Hosp L2
--- NOTE | 2021-11-20 13:20 | RAD_ITS ---
STUDY: X-RAY CHEST REASON FOR EXAM: Male, 76 years old. Worsening hypoxia TECHNIQUE: Single AP portable view of the chest. COMPARISON: 11/16/2021 FINDINGS: Left subclavian dual-lead AICD which is unchanged. Status post median sternotomy. No change in the patchy alveolar opacities in both lungs consistent with bilateral pneumonia. There is no demonstrated pleural abnormality. There is moderate cardiac enlargement. Normal mediastinum and elliott. Normal visualized pulmonary arteries. Normal visualized aortic arch and descending thoracic aorta. Normal visualized thoracic spine. Normal visualized ribs, clavicles, and shoulders. There is no demonstrated abnormality of the visualized soft tissue structures of the upper abdomen. RAD/Chest 1 View (Portable) IMPRESSION: No change from 11/16/2021. Electronically Signed: Keegan Owens MD at 16:50 EST Tel , Service support ,
--- NOTE | 2021-11-20 13:49 | PCM.CONS.GEN ---
Assessment & Plan Assessment/Plan (1) COVID-19: PLAN: (+) since around 11/06. Isolate until 11/26. Vaccinated x3. Pt of Dr. Ivey, on home 7L/NC. Will order pulm eval given underlying lung disease. Completed remdesivir, on dex. With lymphopenia, not a candidate for baricitinib. With thrombocytopenia, also with contraindication to tocilizumab. Will follow, thank you (2) Acute respiratory failure with hypoxia: (3) COPD (chronic obstructive pulmonary disease): QUALIFIERS: COPD type: unspecified COPD Qualified Code(s): J44.9 - Chronic obstructive pulmonary disease, unspecified HPI Consult Data Date of Consult: 11/20/21 HPI Narrative HPI Narrative: IRWIN LOTT, is a 76 M who presented with worsening dyspnea, cough, congestion, diarrhea, fatigue. Had COPD, on 7L home O2. Dx 11/05 or 11/06, and cough started the next day. Admitted 11/11, given dex and remdesivir. Now on airvo, feeling ok but still dyspnea. Sputum production is at baseline. Started abx 11/18. Covid vaccine x3. Full ROS performed and neg except as noted above PFSH Medical History Atherosclerotic heart disease of [place] coronary artery without angina pectoris (11/14/13) Biventricular ICD (implantable cardioverter-defibrillator) in place (01/10/15) BPV (benign positional vertigo) Chronic systolic (congestive) heart failure COPD (chronic obstructive pulmonary disease) Essential hypertension HLD (hyperlipidemia) Ischemic cardiomyopathy LBBB (left bundle branch block) Paroxysmal atrial fibrillation Wide-complex tachycardia Home Medications albuterol sulfate 1 - 2 puff INHALATION Q6H PRN PRN 12/14/14 [History Last Taken 11/29/19] albuterol sulfate 2.5 mg INHALATION Q6H PRN PRN 12/14/14 [History Last Taken 11/29/19] aspirin 81 mg PO DAILY 12/14/14 [History Last Taken 11/29/19] Handicap Parking Placard #1 ea 12/15/19 [Rx Last Taken Unknown] finasteride 5 mg tablet 5 mg PO DAILY 12/15/19 [History Last Taken Unknown] lisinopril 5 mg tablet 5 mg PO DAILY #90 tab 09/04/20 [Rx Last Taken Unknown] amiodarone [Pacerone] 200 mg PO DAILY 05/05/21 [History Last Taken Unknown] carvedilol [Coreg] 6.25 mg PO DAILY 05/05/21 [History Last Taken Unknown] lorazepam 0.5 mg PO BID PRN 05/05/21 [History Last Taken Unknown] food supplemt, lactose-reduced [Ensure Enlive] 120 ml PO TID #90 bottle 05/10/21 [Rx Last Taken Unknown] tamsulosin 0.4 mg PO 1730 #30 cap 05/10/21 [Rx Last Taken Unknown] nitroglycerin 0.4 mg sublingual tablet 0.4 mg SUBLINGUAL Q5M PRN #25 tab 07/30/21 [Rx Last Taken Unknown] bumetanide 1 mg tablet 1 mg PO DAILY tab 08/15/21 [History Last Taken Unknown] simvastatin 40 mg tablet 40 mg PO QHS #90 tab 09/09/21 [Rx Last Taken Unknown] fluticasone fur. 200 mcg-umeclid 62.5 mcg-vilant 25 mcg inhalat.powder 1 inh INHALATION DAILY #60 ea 10/02/21 [Rx Last Taken Unknown] Allergy/AdvReac Type Severity Reaction Status Date / Time Penicillins AdvReac Other Verified 11/11/21 10:41 Family History Father CAD (coronary artery disease) Diabetes Cancer lung cancer Myocardial infarction Mother Breast cancer Hypertension Surgical History H/O coronary artery bypass surgery (11/14/13) History of arthroplasty of left knee History of lumbar surgery History of tonsillectomy Social History (Updated 11/11/21 @ 16:[address] Laura Garcia MD) household members: none Smoking Status: Former smoker how long ago did patient quit smokin12/2013 alcohol intake: never substance use type: does not use caffeine: Yes Type: carbonated beverages and coffee what type of physical activity do you participate in: none seatbelt use: always do you feel safe at home: Yes Physical Exam Const alert and no apparent distress General Appearance: cooperative Exam Limitations: no limitations HEENT normocephalic and head/scalp atraumatic Eyes PERRL and EOMs intact bilaterally Neck supple and No nodes Resp Auscultation: diminished lung sounds Cardio regular rate and regular rhythm GI soft to palpation, non-tender and non-distended Extremity no clubbing, cyanosis or edema Skin no rashes or lesions noted Neuro CN's II-XII intact bilaterally Lab / Micro Data Result Diagrams: 11/20/21 05:50 11/20/21 05:50 Labs: Laboratory Results - last 24 hr 11/20/21 05:50: WBC 8.5, RBC 4.01 L, Hgb 8.6 L, Hct 27.7 L, MCV 69.1 L, MCH 21.4 L, MCHC 31.0 L, RDW Std Deviation 52.2 H, RDW Coeff of Beto 21.5 H, Plt Count 97 L, Immature Gran % (Auto) 0.500, Neut % (Auto) 94.5 H, Lymph % (Auto) 1.1 L, [place] % (Auto) 3.9, Eos % (Auto) 0.0, Baso % (Auto) 0.0, Absolute Neuts (auto) 8.1 H, Absolute Lymphs (auto) 0.09 L, Nucleated RBC % 0, Differential Comment SCANNED, Anisocytosis 2+, Microcytosis 2+, Macrocytosis RARE, Ovalocytes RARE, [place] Cells 2+, Schistocytes RARE 11/20/21 05:50: Sodium 131 L, Potassium 4.5, Chloride 100, Carbon Dioxide 23.0, Anion Gap 8, BUN 85 H, Creatinine 1.66 H, Estim Creat Clear Calc 41.14, Est GFR (MDRD) Af Amer 52 L, Est GFR (MDRD) Non-Af 43 L, BUN/Creatinine Ratio 51.2 H, Glucose 120 H, Calcium 7.4 L, Total Bilirubin 3.10 H, AST 94 H, ALT 46, Alkaline Phosphatase 122 H, Total Protein 5.2 L, Albumin 1.8 L, Globulin 3.4, Albumin/Globulin Ratio 0.5 L
--- NOTE | 2021-11-20 15:41 | CON.PCM.CC_ITS ---
Assessment & Plan Assessment/Plan (1) Pneumonia due to 2019 novel coronavirus: (2) Acute respiratory failure with hypoxia: (3) COPD (chronic obstructive pulmonary disease): QUALIFIERS: COPD type: unspecified COPD Qualified Code(s): J44.9 - Chronic obstructive pulmonary disease, unspecified (4) MANDY (obstructive sleep apnea): (5) HFrEF (heart failure with reduced ejection fraction): PLAN: RECOMMENDATIONS: 1. Obtain sputum culture 2. Possibly transition to nebulized medications if not improving 3. Continue Decadron to complete 10 days 4. Possibly challenge with diuretics in the next 24 to 48 hours 5. Wean supplemental oxygen as tolerated 6. Encourage Acapella, prone positioning and incentive spirometer as tolerated 7. Consider AVAPS rescue overnight if necessary 8. No transfer to the intensive care unit at this time IMPRESSIONS: 1. Acute on chronic hypoxic respiratory failure secondary to COVID-pneumonia in the setting of advanced COPD Patient does appear to have areas of focal consolidation on CT scan of the chest. Patient with significant worsening in oxygenation over the last 48 hours. Clinical concern for secondary bacterial infection. Patient was started on antibiotics 48 hours ago, but has grown stenotrophomonas and pneumococcus in the past. We will repeat sputum culture to evaluate for MDRO. Patient currently using inhalers, but may have inadequate ability to inspire given his acute exacerbation. Potentially transition to nebulized medications in the next 24 to 48 hours if not improving. Okay to continue with Decadron. Patient does have a history of CHF with an elevated BNP on presentation. Patient is relatively volume neutral over the course of the hospitalization. 2. Ischemic cardiomyopathy/chronic systolic CHF (35%)/CAD status post CABG/transaminitis/history of noncompliance/HLD Complicates care, management, recovery and prognosis. Patient does not appear to be significantly overloaded at this time. Patient does have a relative anemia that may exacerbate underlying lung disease. Renal function does appear to be marginal at this time, so we will hold off on diuretics at this time. 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 Did discuss with the patient and he says he does not want to be intubated under any circumstance. CODE STATUS will be changed. HPI Consult Data Date of Consult: 11/20/21 HPI Narrative HPI Narrative: IRWIN LOTT is a 76 M, with past medical history listed below and known to my office, who presented to [facility] on 11/11/2021 secondary to worsening shortness of breath. Patient reportedly had gone to an urgent care previously and had been tested for COVID and was found to be positive. Patient was asymptomatic at that time. Patient reportedly has been vaccinated and boosted. Patient states he started to have symptoms of cough, myalgias, nasal congestion, diarrhea and decreased appetite shortly thereafter. Patient had a cough at that time that was not producing any sputum or hemoptysis. Patient is supposed to be on supplemental oxygen at baseline, but does not comply with therapy routinely. When patient required 5 L nasal cannula, he agreed to go for evaluation. Patient has been on palliative care previously secondary to advanced lung disease. In the emergency department, patient was requiring 6 L nasal cannula to maintain saturations. Patient was tachypneic as high as 26 breaths/min, but afebrile. Patient did get placed on a Venturi mask secondary to desaturation with exert ion. Laboratory data showed a hemoglobin of 10, platelets of 119, BNP of 948 with a negative troponin. Chemistries were relatively unremarkable. Chest x- ray showed bibasilar opacities and this was followed up with a CTA of the chest. This showed no PE, but bilateral subsegmental pneumonitis in the left lower lobe and moderate bilateral pleural effusions. The patient was admitted to the floor, initially requiring Airvo therapy. Patient was treated with Decadron and Remdesivir and empiric antibiotics. Patient did receive diuretic therapy with some improvement in overall condition. Consult for pulmonary was not obtained at this time, but later in the hospitalization, patient started to require Airvo again, so pulmonary was requested to evaluate the patient. Patient is relatively unhelpful. Patient states he feels subjectively unchanged despite going from nasal cannula to Airvo 70% over the last 48 hours. Patient does report that his cough has been productive of green to yellow sputum. It appears as though the patient has been on antibiotics since the . Patient does have an extensive cardiac and pulmonary history suggestive of an EF of 30% and an FEV1 below 40%. Patient has not been compliant with supplemental therapy in the past. Patient is on triple therapy at baseline and this has been continued in the hospital. Patient has not been able to receive baricitinib or tocilizumab secondary to blood counts. It does not appear that patient has had a sputum culture prior to initiation of antibiotics. Patient has grown stenotrophomonas and pneumococcus in the past. Review of systems otherwise negative from a constitutional, HEENT, respiratory, cardiovascular, GI, genitourinary, musculoskeletal, skin, neurologic, psychiatric and hematologic system unless stated above. [facility] Medical History Atherosclerotic heart disease of [place] coronary artery without angina pectoris (11/14/13) Biventricular ICD (implantable cardioverter-defibrillator) in place (01/10/15) BPV (benign positional vertigo) Chronic systolic (congestive) heart failure COPD (chronic obstructive pulmonary disease) Essential hypertension HLD (hyperlipidemia) Ischemic cardiomyopathy LBBB (left bundle branch block) Paroxysmal atrial fibrillation Wide-complex tachycardia Home Medications albuterol sulfate 1 - 2 puff INHALATION Q6H PRN PRN 12/14/14 [History Last Taken 11/29/19] albuterol sulfate 2.5 mg INHALATION Q6H PRN PRN 12/14/14 [History Last Taken 11/29/19] aspirin 81 mg PO DAILY 12/14/14 [History Last Taken 11/29/19] Handicap Parking Placard #1 ea 12/15/19 [Rx Last Taken Unknown] finasteride 5 mg tablet 5 mg PO DAILY 12/15/19 [History Last Taken Unknown] lisinopril 5 mg tablet 5 mg PO DAILY #90 tab 09/04/20 [Rx Last Taken Unknown] amiodarone [Pacerone] 200 mg PO DAILY 05/05/21 [History Last Taken Unknown] carvedilol [Coreg] 6.25 mg PO DAILY 05/05/21 [History Last Taken Unknown] lorazepam 0.5 mg PO BID PRN 05/05/21 [History Last Taken Unknown] food supplemt, lactose-reduced [Ensure Enlive] 120 ml PO TID #90 bottle 05/10/21 [Rx Last Taken Unknown] tamsulosin 0.4 mg PO 1730 #30 cap 05/10/21 [Rx Last Taken Unknown] nitroglycerin 0.4 mg sublingual tablet 0.4 mg SUBLINGUAL Q5M PRN #25 tab 07/30/21 [Rx Last Taken Unknown] bumetanide 1 mg tablet 1 mg PO DAILY tab 08/15/21 [History Last Taken Unknown] simvastatin 40 mg tablet 40 mg PO QHS #90 tab 09/09/21 [Rx Last Taken Unknown] fluticasone fur. 200 mcg-umeclid 62.5 mcg-vilant 25 mcg inhalat.powder 1 inh INHALATION DAILY #60 ea 10/02/21 [Rx Last Taken Unknown] Allergy/AdvReac Type Severity Reaction Status Date / Time Penicillins AdvReac Other Verified 11/11/21 10:41 Family History Father CAD (coronary artery disease) Diabetes Cancer lung cancer Myocardial infarction Mother Breast cancer Hypertension Surgical History H/O coronary artery bypass surgery (11/14/13) History of arthroplasty of left knee History of lumbar surgery History of tonsillectomy Social History household members: none Smoking Status: Former smoker how long ago did patient quit smokin12/2013 alcohol intake: never substance use type: does not use caffeine: Yes Type: carbonated beverages and coffee what type of physical activity do you participate in: none seatbelt use: always do you feel safe at home: Yes ROS ROS Narrative Poor historian, but see HPI Physical Exam Const alert and no apparent distress General Appearance: cooperative Exam Limitations: no limitations HEENT normocephalic and head/scalp atraumatic Eyes PERRL and EOMs intact bilaterally Neck supple and No nodes Chest Chest: abnormal inspection of the chest barrel chest and increased A-P diameter and symmetrical chest wall rise; Negative for crepitus Resp Auscultation: diminished lung sounds; Negative for rales, rhonchi or wheezes Cardio regular rate and regular rhythm GI soft to palpation, non-tender and non-distended Extremity no clubbing, cyanosis or edema Skin no rashes or lesions noted Neuro CN's II-XII intact bilaterally Lab / Micro Data Result Diagrams: 11/20/21 05:50 11/20/21 05:50 Labs: Laboratory Results - last 24 hr 11/20/21 05:50: WBC 8.5, RBC 4.01 L, Hgb 8.6 L, Hct 27.7 L, MCV 69.1 L, MCH 21.4 L, MCHC 31.0 L, RDW Std Deviation 52.2 H, RDW Coeff of [place] 21.5 H, Plt Count 97 L, Immature Gran % (Auto) 0.500, Neut % (Auto) 94.5 H, Lymph % (Auto) 1.1 L, [place] % (Auto) 3.9, Eos % (Auto) 0.0, Baso % (Auto) 0.0, Absolute Neuts (auto) 8.1 H, Absolute Lymphs (auto) 0.09 L, Nucleated RBC % 0, Differential Comment SCANNED, Anisocytosis 2+, Microcytosis 2+, Macrocytosis RARE, Ovalocytes RARE, [place] Cells 2+, Schistocytes RARE 11/20/21 05:50: Sodium 131 L, Potassium 4.5, Chloride 100, Carbon Dioxide 23.0, Anion Gap 8, BUN 85 H, Creatinine 1.66 H, Estim Creat Clear Calc 41.14, Est GFR (MDRD) Af Amer 52 L, Est GFR (MDRD) Non-Af 43 L, BUN/Creatinine Ratio 51.2 H, Glucose 120 H, Calcium 7.4 L, Total Bilirubin 3.10 H, AST 94 H, ALT 46, Alkaline Phosphatase 122 H, Total Protein 5.2 L, Albumin 1.8 L, Globulin 3.4, Albumi n/Globulin Ratio 0.5 L Charges/Coding Visit Charges Inpatient E&M: 40607 Init Hosp L3
[2021-11-20] MEDS: Tamsulosin HCl 0.4 MG Capsule PO (17:03)
[2021-11-20] MEDS: Atorvastatin Calcium 20 MG Tablet PO (21:28)
[2021-11-20] MEDS: Sodium Chloride 0.65% 1 SPRAY SPRAY.BTL 2 SPRAY NASAL (21:29)
[2021-11-21] VITALS (20 sets, daily range): BP systolic 98–115; BP diastolic 45–53; PULSE 72–96; RESP 16–24; TEMP 36.6–37.1; O2SAT 86–97
[2021-11-21 06:24] LABS: Absolute Lymphocyte Count 0.13 X10^3/uL (0.83-4.51); Absolute Neutrophil Count 9.1 X10^3/uL (2.0-7.7); Hematocrit 27.6 % (40-54); Hemoglobin 8.5 g/dL (13.0-16.5); Lymphocyte # 0.13 X10^3/ul (0.83-4.51); Lymphocyte % 1.3 % (19-41); Mean Corp Hgb Conc 30.8 g/dL (32-36); Mean Corpuscular Hgb 21.3 pg (27.0-32.0); Monocyte# 0.33 X10^3/uL; Monocyte% 3.4 % (0-10); NRBC Flagged by Analyzer 0 % (0-5); Neutrophil # 9.13 X10^3/uL (2.7-7.7); Neutrophil % 94.7 % (47-70); POSITIVE COUNT YES; POSITIVE DIFFERENTIAL YES; POSITIVE MORPHOLOGY YES; Platelet Count 92 K/mm3 (150-450); RBC Distribution Width CV 21.4 % (11.6-14.6); RBC Distribution Width SD 52.1 fl (35.1-43.9); White Blood Count 9.7 K/mm3 (4.4-11.0)
[2021-11-21 06:30] LABS: Differential Indicated SCAN CRITERIA MET
[2021-11-21 06:50] LABS: ALB/GLOB Ratio 0.5 RATIO (0.9-2.4); AST(SGOT) 101 U/L (15-37); Alanine Aminotransfer ALT/SGPT 52 U/L (16-61); Albumin, Serum 1.8 g/dL (3.2-5.0); Alkaline Phosphatase 129 U/L (45-117); Anion Gap 7 (5-15); BUN 95 mg/dL (7-18); BUN/Creat Ratio 54.3 RATIO (10-20); Calcium,Total 7.4 mg/dL (8.5-10.1); Chloride 101 mmol/L (98-107); Creatinine, Serum 1.75 mg/dL (0.70-1.30); EST Glomerular Filtration Rate 41 mL/min (>60); Est Glom Filt Rate - Afr Amer 49 mL/min (>60); Estimated Creatinine Clearance 39.02 ml/min; Globulin 3.4 g/dL (2.2-4.2); Glucose 102 mg/dL (74-106); Potassium 4.9 mmol/L (3.5-5.1); Protein, Total 5.2 g/dL (6.4-8.2); Sodium Level 132 mmol/L (136-145)
[2021-11-21 06:51] LABS: Burr Cells 1+; Differential Comment SCANNED; Platelet Estimate SLT DEC (ADEQ)
[2021-11-21 06:52] LABS: Anisocytosis 3+; Hypochromasia 2+; Microcytosis 3+; Ovalocyte RARE; Schistocytes RARE
[2021-11-21] MEDS: guaiFENesin 10 ML UDC (200MG/10ML) 20 ML PO (09:32)
[2021-11-21] MEDS: LORazepam 0.5 MG Tablet PO (09:33)
[2021-11-21] MEDS: Enoxaparin 30 MG/0.3 ML Syringe SC ×2 (09:33→21:58)
[2021-11-21] MEDS: Amiodarone 200 MG Tablet PO (09:33)
[2021-11-21] MEDS: Aspirin 81 MG TAB.CHEW PO (09:33)
[2021-11-21] MEDS: Finasteride 5 MG Tablet PO (09:33)
[2021-11-21] MEDS: dexAMETHasone 2 MG TABLET 6 MG PO (09:33)
[2021-11-21] MEDS: Umeclidinium Bromide Inhaler 1 PUFF INHALATION (09:34)
[2021-11-21] MEDS: Acetaminophen 325 MG Tablet 650 MG PO (09:34)
[2021-11-21] MEDS: Fluticasone/Salmeterol 232-14 Inhaler 1 PUFF INHALATION (09:34)
--- NOTE | 2021-11-21 13:05 | PN.HOSP_ITS ---
Subjective Subjective Follow-up on acute hypoxic respiratory failure/acute COVID-19 pneumonia: Patient was seen and examined. Patient remains on high flow oxygen/Airvo Objective Data Objective Data Vital Signs: Vital Signs Temp Pulse Resp BP Pulse Ox 98.7 F 96 23 H 105/46 L 90 11/21/21 10:00 11/21/21 11:33 11/21/21 10:07 11/21/21 10:00 11/21/21 11:33 Oxygen Flow Rate (L/min) 60 Oxygen Delivery Method Airvo Weight: 74.5 kg Body Mass Index (BMI) 21.5 Intake & Output: Intake and Output for Last 24 Hours 11/19/21 11/20/21 11/21/21 23:59 23:59 23:59 Intake Total 920 / 1040 530 / 530 250 / 250 Output Total 850 / 975 800 / 800 Balance 70 / 65 -270 / -270 250 / 250 Lab / Micro Data Result Diagrams: 11/21/21 05:25 11/21/21 05:25 Labs: Laboratory Results - last 24 hr 11/21/21 05:25: WBC 9.7, RBC 4.00 L, Hgb 8.5 L, Hct 27.6 L, MCV 69.0 L, MCH 21.3 L, MCHC 30.8 L, RDW Std Deviation 52.1 H, RDW Coeff of [place] 21.4 H, Plt Count 92 L, MPV TNP, Immature Gran % (Auto) 0.600, Neut % (Auto) 94.7 H, Lymph % (Auto) 1.3 L, [place] % (Auto) 3.4, Eos % (Auto) 0.0, Baso % (Auto) 0.0, Absolute Neuts (auto) 9.1 H, Absolute Lymphs (auto) 0.13 L, Nucleated RBC % 0, Differential Comment SCANNED, Platelet Estimate SLT DEC, Hypochromasia 2+, Anisocytosis 3+, Microcytosis 3+, Ovalocytes RARE, [place] Cells 1+, Schistocytes RARE 11/21/21 05:25: Sodium 132 L, Potassium 4.9, Chloride 101, Carbon Dioxide 24.0, Anion Gap 7, BUN 95 H, Creatinine 1.75 H, Estim Creat Clear Calc 39.02, Est GFR (MDRD) Af Amer 49 L, Est GFR (MDRD) Non-Af 41 L, BUN/Creatinine Ratio 54.3 H, Glucose 102, Calcium 7.4 L, Total Bilirubin 3.00 H, AST 101 H, ALT 52, Alkaline Phosphatase 129 H, Total Protein 5.2 L, Albumin 1.8 L, Globulin 3.4, Albumin/Globulin Ratio 0.5 L Micro: Microbiology 11/11/21 15:40 Blood Culture (Wb) - Anticubital Left Blood Culture - Final No growth in 5 days. 11/11/21 15:35 Blood Culture (Wb) - Right Hand Blood Culture - Final No growth in 5 days. 11/11/21 15:28 Nasal Secretion SARS-CoV-2 Antigen (Rapid) - Final SARS-CoV-2 (COVID 19) 11/11/21 18:30 Urine, Clean Catch Legionella Antigen - Final 11/11/21 18:30 Urine, Clean Catch Streptococcus pneumoniae Antigen (M - Final Radiography Diagnostic Testing: Radiology Impression Chest X-Ray 11/20/21 13:20 IMPRESSION: No change from 11/16/2021. Electronically Signed: Keegan Owens MD at 16:50 EST Tel , Service support , Physical Exam Narrative Physical exam: General: Alert, Oriented x3, Cooperative, appears very frail, no apparent distre ss, on Airvo HEENT: Atraumatic Oral: Moist Mucosa Neck: Supple Lungs: Diminished to auscultation Cardiovascular: HS I+II, regular, no murmurs Abdomen: Bowel Sounds Present, Soft, Non Tender Extremities: No edema Assessment & Plan Assessment/Plan (1) Acute respiratory failure with hypoxia: (2) Pneumonia due to 2019 novel coronavirus: PLAN: 1. Acute on chronic hypoxic respiratory failure secondary to acute COVID-19 pneumonia/pneumonia, worsening, not improved Remains on Airvo. Patient is cognitively not able to use the incentive spirometer or PEP. Patient has completed remdesivir Blood cultures have been negative Continue on Decadron Continue on IV cefepime 2. Acute transaminitis secondary to Acute COVID-19 infection, appears resolved 3. Anemia due to anemia of chronic disease, stable 4. Rest of his chronic medical conditions including ischemic cardiomyopathy with improved AICD, chronic systolic CHF, EF 35%, CAD status post CABG, hypertension remained stable 5. DVT prophylaxis?Lovenox subcu Charges/Coding Visit Charges Inpatient E&M: 67214 Subs Hosp L2
[2021-11-21] MEDS: Albuterol 2.5 MG/3 ML VIAL.NEB. INHALATION (14:14)
--- NOTE | 2021-11-21 14:19 | PCM.PN.INT ---
Assessment & Plan Assessment/Plan (1) Pneumonia due to 2019 novel coronavirus: (2) Acute respiratory failure with hypoxia: (3) COPD (chronic obstructive pulmonary disease): QUALIFIERS: COPD type: unspecified COPD Qualified Code(s): J44.9 - Chronic obstructive pulmonary disease, unspecified (4) MANDY (obstructive sleep apnea): (5) HFrEF (heart failure with reduced ejection fraction): PLAN: RECOMMENDATIONS: 1. Await sputum culture 2. Transition to nebulized medications 3. Continue Decadron to complete 10 days 4. Possibly challenge with diuretics in the next 24 hours 5. Wean supplemental oxygen as tolerated 6. Encourage Acapella, prone positioning and incentive spirometer as tolerated 7. Consider AVAPS rescue overnight if necessary 8. No transfer to the intensive care unit at this time IMPRESSIONS: 1. Acute on chronic hypoxic respiratory failure secondary to COVID-pneumonia in the setting of advanced COPD Patient does appear to have areas of focal consolidation on CT scan of the chest. Patient with significant worsening in oxygenation over the last 48 hours. Clinical concern for secondary bacterial infection. Patient was started on antibiotics 48 hours ago, but has grown stenotrophomonas and pneumococcus in the past. We will repeat sputum culture to evaluate for MDRO. Transition patient to nebulized medications over concern that inhalation force is not enough for powder inhalers to be appropriate. Okay to continue with Decadron. Patient does have a history of CHF with an elevated BNP on presentation. Patient is relatively volume neutral over the course of the hospitalization. 2. Ischemic cardiomyopathy/chronic systolic CHF (35%)/CAD status post CABG/transaminitis/history of noncompliance/HLD Complicates care, management, recovery and prognosis. Patient does not appear to be significantly overloaded at this time. Patient does have a relative anemia that may exacerbate underlying lung disease. Renal function does appear to be marginal at this time, so we will hold off on diuretics at this time. Did discuss with the patient and he says he does not want to be intubated under any circumstance. CODE STATUS will be changed. Subjective Subjective Patient did okay overnight. No acute issues were reported. Patient subjectively feels slightly improved compared to yesterday. Nursing reports patient did refuse Lasix therapy. Patient did require significant assistance to transition from the chair to the bed, but reportedly was in the chair for 2 hours. Objective Data Objective Data Vital Signs: Vital Signs Temp Pulse Resp BP Pulse Ox 37.1 C 96 23 H 105/46 L 90 11/21/21 10:00 11/21/21 11:33 11/21/21 10:07 11/21/21 10:00 11/21/21 11:33 Oxygen Flow Rate (L/min) 60 Oxygen Delivery Method Airvo Weight: 74.5 kg Body Mass Index (BMI) 21.5 Intake & Output: Intake and Output for Last 24 Hours 11/19/21 11/20/21 11/21/21 23:59 23:59 23:59 Intake Total 920 / 1040 530 / 530 250 / 250 Output Total 850 / 975 800 / 800 Balance 70 / 65 -270 / -270 250 / 250 Lab / Micro Data Result Diagrams: 11/21/21 05:25 11/21/21 05:25 Labs: Laboratory Results - last 24 hr 11/21/21 05:25: WBC 9.7, RBC 4.00 L, Hgb 8.5 L, Hct 27.6 L, MCV 69.0 L, MCH 21.3 L, MCHC 30.8 L, RDW Std Deviation 52.1 H, RDW Coeff of [place] 21.4 H, Plt Count 92 L, MPV TNP, Immature Gran % (Auto) 0.600, Neut % (Auto) 94.7 H, Lymph % (Auto) 1.3 L, [place] % (Auto) 3.4, Eos % (Auto) 0.0, Baso % (Auto) 0.0, Absolute Neuts (auto) 9.1 H, Absolute Lymphs (auto) 0.13 L, Nucleated RBC % 0, Differential Comment SCANNED, Platelet Estimate SLT DEC, Hypochromasia 2+, Anisocytosis 3+, Microcytosis 3+, Ovalocytes RARE, [place] Cells 1+, Schistocytes RARE 11/21/21 05:25: Sodium 132 L, Potassium 4.9, Chloride 101, Carbon Dioxide 24.0, Anion Gap 7, BUN 95 H, Creatinine 1.75 H, Estim Creat Clear Calc 39.02, Est GFR (MDRD) Af Amer 49 L, Est GFR (MDRD) Non-Af 41 L, BUN/Creatinine Ratio 54.3 H, Glucose 102, Calcium 7.4 L, Total Bilirubin 3.00 H, AST 101 H, ALT 52, Alkaline Phosphatase 129 H, Total Protein 5.2 L, Albumin 1.8 L, Globulin 3.4, Albumin/Globulin Ratio 0.5 L Micro: Microbiology 11/11/21 15:40 Blood Culture (Wb) - Anticubital Left Blood Culture - Final No growth in 5 days. 11/11/21 15:35 Blood Culture (Wb) - Right Hand Blood Culture - Final No growth in 5 days. 11/11/21 15:28 Nasal Secretion SARS-CoV-2 Antigen (Rapid) - Final SARS-CoV-2 (COVID 19) 11/11/21 18:30 Urine, Clean Catch Legionella Antigen - Final 11/11/21 18:30 Urine, Clean Catch Streptococcus pneumoniae Antigen (M - Final Radiography Diagnostic Testing: Radiology Impression Chest X-Ray 11/20/21 13:20 IMPRESSION: No change from 11/16/2021. Electronically Signed: Keegan Owens MD at 16:50 EST Tel , Service support , Physical Exam Const alert and no apparent distress General Appearance: cooperative Exam Limitations: no limitations HEENT normocephalic and head/scalp atraumatic Eyes PERRL and EOMs intact bilaterally Neck supple and No nodes Chest Chest: abnormal inspection of the chest barrel chest and increased A-P diameter and symmetrical chest wall rise; Negative for crepitus Resp Auscultation: diminished lung sounds; Negative for rales, rhonchi or wheezes Cardio regular rate and regular rhythm GI soft to palpation, non-tender and non-distended Extremity no clubbing, cyanosis or edema Skin no rashes or lesions noted Neuro CN's II-XII intact bilaterally Charges/Coding Visit Charges Inpatient E&M: 33640 Subs Hosp L2
--- NOTE | 2021-11-21 16:30 | CHAPLAIN ---
Type of Pastoral Visit _x__ Initial Visit ___ Follow-up Visit ___ On-call Visit ___ General Patient Visit ___ Spiritual Assessment ___ Family Conference ___ Bereavement ___ Rapid Response ___ Code Blue ___ Other (describe below) Pastoral Care Referral From ___ Patient ___ Family ___ Nurse _x__ Physician ___ Liquid Flavor Compounder ___ Business Unit Director ___ Other (describe below) Sacrament/Intervention _x__ Active listening ___ Anointing ___ Zoroastrian ___ Bereavement ___ Communion _x__ Jessie exploration ___ ___ Life review _x__ Prayer ___ Reconciliation ___ Sacrament of Sick _x__ Supportive presence ___ Wedding ___ Other (describe below) Pastoral Comments DR requested spiritual care for this patient who presents with anxiety and concern over his long admission and difficulty; pt responds with welcome and admits that he has anxiety about dying; pt talks and this database development project manager listens to his concerns and validates his feelings; pt relates his spiritual thoughts and desire for more time to live; presence and prayer given
[2021-11-21] MEDS: Tamsulosin HCl 0.4 MG Capsule PO (18:15)
[2021-11-21] MEDS: Ipratropium/Albuterol Sulfate 3 ML AMPUL.NEB INHALATION (20:19)
[2021-11-21] MEDS: Atorvastatin Calcium 20 MG Tablet PO (21:58)
[2021-11-22] VITALS (17 sets, daily range): BP systolic 94–111; BP diastolic 43–62; PULSE 67–80; RESP 18–24; TEMP 36.4–36.6; O2SAT 91–99
[2021-11-22 06:48] LABS: Absolute Lymphocyte Count 0.13 X10^3/uL (0.83-4.51); Absolute Neutrophil Count 12.9 X10^3/uL (2.0-7.7); Basophil# 0.01 X10^3/uL; Basophil% 0.1 % (0-1); Hematocrit 27.9 % (40-54); Hemoglobin 8.6 g/dL (13.0-16.5); Lymphocyte # 0.13 X10^3/ul (0.83-4.51); Mean Corp Hgb Conc 30.8 g/dL (32-36); Mean Corpuscular Hgb 21.4 pg (27.0-32.0); Mean Corpuscular Volume 69.4 fL (80-94); Monocyte# 0.39 X10^3/uL; Monocyte% 2.9 % (0-10); NRBC Flagged by Analyzer 0 % (0-5); Neutrophil # 12.94 X10^3/uL (2.7-7.7); Neutrophil % 95.3 % (47-70); POSITIVE COUNT YES; POSITIVE DIFFERENTIAL YES; POSITIVE MORPHOLOGY YES; Platelet Count 77 K/mm3 (150-450); RBC Distribution Width CV 21.8 % (11.6-14.6); RBC Distribution Width SD 53.5 fl (35.1-43.9); Red Blood Count 4.02 M/mm3 (4.6-6.2); White Blood Count 13.6 K/mm3 (4.4-11.0)
[2021-11-22 06:49] LABS: Differential Indicated SCAN CRITERIA MET
[2021-11-22 07:06] LABS: Anisocytosis 2+; Hypochromasia 1+; Microcytosis 2+; Ovalocyte 1+; Schistocytes RARE
[2021-11-22 07:07] LABS: Burr Cells 1+
[2021-11-22 07:08] LABS: Differential Comment SCANNED
[2021-11-22 07:13] LABS: ALB/GLOB Ratio 0.5 RATIO (0.9-2.4); AST(SGOT) 122 U/L (15-37); Alanine Aminotransfer ALT/SGPT 68 U/L (16-61); Albumin, Serum 1.8 g/dL (3.2-5.0); Alkaline Phosphatase 133 U/L (45-117); Anion Gap 10 (5-15); BUN 109 mg/dL (7-18); Calcium,Total 7.5 mg/dL (8.5-10.1); Chloride 101 mmol/L (98-107); Creatinine, Serum 2.32 mg/dL (0.70-1.30); EST Glomerular Filtration Rate 29 mL/min (>60); Est Glom Filt Rate - Afr Amer 36 mL/min (>60); Estimated Creatinine Clearance 29.36 ml/min; Globulin 3.5 g/dL (2.2-4.2); Glucose 138 mg/dL (74-106); Potassium 5.1 mmol/L (3.5-5.1); Protein, Total 5.3 g/dL (6.4-8.2); Sodium Level 131 mmol/L (136-145)
[2021-11-22] MEDS: Ipratropium/Albuterol Sulfate 3 ML AMPUL.NEB INHALATION ×3 (07:52→20:04)
--- NOTE | 2021-11-22 09:57 | PN.CC_ITS ---
Assessment & Plan Assessment/Plan (1) Pneumonia due to 2019 novel coronavirus: (2) Acute respiratory failure with hypoxia: (3) COPD (chronic obstructive pulmonary disease): QUALIFIERS: COPD type: unspecified COPD Qualified Code(s): J44.9 - Chronic obstructive pulmonary disease, unspecified (4) MANDY (obstructive sleep apnea): (5) HFrEF (heart failure with reduced ejection fraction): PLAN: RECOMMENDATIONS: 1. Await sputum culture 2. Transition to nebulized medications 3. Continue Decadron to complete 10 days and nebulized bronchodilators 4. consult nephrology to discuss possible dialysis 5. Wean supplemental oxygen as tolerated 6. Encourage Acapella, prone positioning and incentive spirometer as tolerated 7. Consider AVAPS rescue overnight if necessary 8. No transfer to the intensive care unit at this time IMPRESSIONS: 1. Acute on chronic hypoxic respiratory failure secondary to COVID-pneumonia in the setting of advanced COPD Patient does appear to have areas of focal consolidation on CT scan of the chest. Patient with significant worsening in oxygenation over the last 48 hours. Clinical concern for secondary bacterial infection. Patient was started on antibiotics 48 hours ago, but has grown stenotrophomonas and pneumococcus in the past. We will repeat sputum culture to evaluate for MDRO. Patient is repo rting subjective improvement with nebulized medications. Okay to continue with Decadron. Patient does have a history of CHF with an elevated BNP on presentation. Patient is relatively volume neutral over the course of the hospitalization. 2. Ischemic cardiomyopathy/chronic systolic CHF (35%)/CAD status post CABG/transaminitis/history of noncompliance/HLD Complicates care, management, recovery and prognosis. Patient does not appear to be significantly overloaded at this time. Patient does have a relative anemia that may exacerbate underlying lung disease. Renal function does appear to be marginal at this time, so we will hold off on diuretics at this time. Did discuss with the patient and he says he does not want to be intubated under any circumstance. CODE STATUS will be changed. Also discussed with the patient the difference between palliative care and hospice. Patient would like to discuss with nephrology before making any decision for hospice care. 3. Acute on chronic kidney disease Patient with significant elevation of BUN and creatinine over the last 48 hours following diuresis. Patient does have very low oncotic pressure at baseline. Discussed with the patient about possible dialysis. Patient would like to have more information from nephrology prior to making any decisions. Consult will be placed. Subjective Subjective Patient did okay overnight. Patient subjectively feels unchanged compared to yesterday. Patient did become very tearful concerning the possible cost of this hospitalization. Did discuss with patient about dialysis. Patient is requesting more information. Patient is not reporting any hemoptysis, but does state that he feels more weak today compared to yesterday. Objective Data Objective Data Vital Signs: Vital Signs Temp Pulse Resp BP Pulse Ox 36.6 C 78 19 H 110/56 L 91 11/22/21 02:03 11/22/21 07:53 11/22/21 07:53 11/22/21 02:03 11/22/21 07:53 Oxygen Flow Rate (L/min) 15 Oxygen Delivery Method Nasal Cannula Weight: 74.3 kg Body Mass Index (BMI) 21.5 Intake & Output: Intake and Output for Last 24 Hours 11/20/21 11/21/21 11/22/21 23:59 23:59 23:59 Intake Total 530 / 530 550 / 670 120 / 120 Output Total 800 / 800 Balance -270 / -270 550 / 670 120 / 120 Lab / Micro Data Result Diagrams: 11/22/21 06:34 11/22/21 06:34 Labs: Laboratory Results - last 24 hr 11/22/21 06:34: WBC 13.6 H, RBC 4.02 L, Hgb 8.6 L, Hct 27.9 L, MCV 69.4 L, MCH 21.4 L, MCHC 30.8 L, RDW Std Deviation 53.5 H, RDW Coeff of Beto 21.8 H, Plt Count 77 L, MPV TNP, Immature Gran % (Auto) 0.700, Neut % (Auto) 95.3 H, Lymph % (Auto) 1.0 L, [place] % (Auto) 2.9, Eos % (Auto) 0.0, Baso % (Auto) 0.1, Absolute Neuts (auto) 12.9 H, Absolute Lymphs (auto) 0.13 L, Nucleated RBC % 0, Differential Comment SCANNED, Hypochromasia 1+, Anisocytosis 2+, Microcytosis 2+, Ovalocytes 1+, [place] Cells 1+, Schistocytes RARE 11/22/21 06:34: Sodium 131 L, Potassium 5.1, Chloride 101, Carbon Dioxide 20.0 L , Anion Gap 10, BUN 109 H*, Creatinine 2.32 H, Estim Creat Clear Calc 29.36, Est GFR (MDRD) Af Amer 36 L, Est GFR (MDRD) Non-Af 29 L, BUN/Creatinine Ratio 47.0 H , Glucose 138 H, Calcium 7.5 L, Total Bilirubin 3.00 H, AST 122 H, ALT 68 H, Alkaline Phosphatase 133 H, Total Protein 5.3 L, Albumin 1.8 L, Globulin 3.5, Albumin/Globulin Ratio 0.5 L Micro: Microbiology 11/21/21 05:50 Sputum, Expectorated/Coughed Gram Stain - Final 11/11/21 15:40 Blood Culture (Wb) - Anticubital Left Blood Culture - Final No growth in 5 days. 11/11/21 15:35 Blood Culture (Wb) - Right Hand Blood Culture - Final No growth in 5 days. 11/11/21 15:28 Nasal Secretion SARS-CoV-2 Antigen (Rapid) - Final SARS-CoV-2 (COVID 19) 11/11/21 18:30 Urine, Clean Catch Legionella Antigen - Final 11/11/21 18:30 Urine, Clean Catch Streptococcus pneumoniae Antigen (M - Final Physical Exam Const alert and no apparent distress General Appearance: cooperative Exam Limitations: no limitations HEENT normocephalic and head/scalp atraumatic Eyes PERRL and EOMs intact bilaterally Neck supple and No nodes Chest Chest: abnormal inspection of the chest barrel chest and increased A-P diameter and symmetrical chest wall rise; Negative for crepitus Resp Auscultation: diminished lung sounds; Negative for rales, rhonchi or wheezes Cardio regular rate and regular rhythm GI soft to palpation, non-tender and non-distended Extremity no clubbing, cyanosis or edema Skin no rashes or lesions noted Neuro CN's II-XII intact bilaterally Charges/Coding Visit Charges Inpatient E&M: 17917 Subs Hosp L3
[2021-11-22] MEDS: 0.9% Normal Saline 1,000 ML 50 ML IV (10:24)
[2021-11-22] MEDS: Ondansetron 4 MG/2 ML Vial IV ×2 (10:28→19:26)
[2021-11-22] MEDS: guaiFENesin 10 ML UDC (200MG/10ML) 20 ML PO (10:30)
[2021-11-22] MEDS: Acetaminophen 325 MG Tablet 650 MG PO ×2 (10:31→17:12)
[2021-11-22] MEDS: Amiodarone 200 MG Tablet PO (10:31)
[2021-11-22] MEDS: Aspirin 81 MG TAB.CHEW PO (10:31)
[2021-11-22] MEDS: Finasteride 5 MG Tablet PO (10:31)
--- NOTE | 2021-11-22 12:00 | CPS ---
pt refusing chest vest treatment option. PEP enforced and done with patient
--- NOTE | 2021-11-22 12:05 | PCM.PN.HOSP ---
Subjective Subjective Follow-up on acute hypoxic respiratory failure/acute COVID-19 pneumonia: Patient was seen and examined. Patient remains on high flow oxygen/Airvo. No acute events Objective Data Objective Data Vital Signs: Vital Signs Temp Pulse Resp BP Pulse Ox 97.7 F L 80 18 111/47 L 93 11/22/21 10:30 11/22/21 10:30 11/22/21 10:30 11/22/21 10:30 11/22/21 10:30 Oxygen Flow Rate (L/min) 15 Oxygen Delivery Method Airvo Weight: 74.3 kg Body Mass Index (BMI) 21.5 Intake & Output: Intake and Output for Last 24 Hours 11/20/21 11/21/21 11/22/21 23:59 23:59 23:59 Intake Total 530 / 530 550 / 670 170 / 170 Output Total 800 / 800 Balance -270 / -270 550 / 670 170 / 170 Lab / Micro Data Result Diagrams: 11/22/21 06:34 11/22/21 06:34 Labs: Laboratory Results - last 24 hr 11/22/21 06:34: WBC 13.6 H, RBC 4.02 L, Hgb 8.6 L, Hct 27.9 L, MCV 69.4 L, MCH 21.4 L, MCHC 30.8 L, RDW Std Deviation 53.5 H, RDW Coeff of Beto 21.8 H, Plt Count 77 L, MPV TNP, Immature Gran % (Auto) 0.700, Neut % (Auto) 95.3 H, Lymph % (Auto) 1.0 L, [place] % (Auto) 2.9, Eos % (Auto) 0.0, Baso % (Auto) 0.1, Absolute Neuts (auto) 12.9 H, Absolute Lymphs (auto) 0.13 L, Nucleated RBC % 0, Differential Comment SCANNED, Hypochromasia 1+, Anisocytosis 2+, Microcytosis 2+, Ovalocytes 1+, [place] Cells 1+, Schistocytes RARE 11/22/21 06:34: Sodium 131 L, Potassium 5.1, Chloride 101, Carbon Dioxide 20.0 L, Anion Gap 10, BUN 109 H*, Creatinine 2.32 H, Estim Creat Clear Calc 29.36, Est GFR (MDRD) Af Amer 36 L, Est GFR (MDRD) Non-Af 29 L, BUN/Creatinine Ratio 47.0 H, Glucose 138 H, Calcium 7.5 L, Total Bilirubin 3.00 H, AST 122 H, ALT 68 H, Alkaline Phosphatase 133 H, Total Protein 5.3 L, Albumin 1.8 L, Globulin 3.5, Albumin/Globulin Ratio 0.5 L Micro: Microbiology 11/21/21 05:50 Sputum, Expectorated/Coughed Gram Stain - Final 11/21/21 05:50 Sputum, Expectorated/Coughed Respiratory Culture - Preliminary Appears to be normal respiratory amparo. Further studies to follow. 11/11/21 15:40 Blood Culture (Wb) - Anticubital Left Blood Culture - Final No growth in 5 days. 11/11/21 15:35 Blood Culture (Wb) - Right Hand Blood Culture - Final No growth in 5 days. 11/11/21 15:28 Nasal Secretion SARS-CoV-2 Antigen (Rapid) - Final SARS-CoV-2 (COVID 19) 11/11/21 18:30 Urine, Clean Catch Legionella Antigen - Final 11/11/21 18:30 Urine, Clean Catch Streptococcus pneumoniae Antigen (M - Final Physical Exam Narrative Physical exam: General: Alert, Oriented x3, Cooperative, appears very frail, no apparent distress, on Airvo HEENT: Atraumatic Oral: Moist Mucosa Neck: Supple Lungs: Diminished to auscultation Cardiovascular: HS I+II, regular, no murmurs Abdomen: Bowel Sounds Present, Soft, Non Tender Extremities: No edema Assessment & Plan Assessment/Plan (1) Acute respiratory failure with hypoxia: (2) Pneumonia due to 2019 novel coronavirus: PLAN: 1. 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 Acute transaminitis secondary to Acute COVID-19 infection, appears resolved 4. Anemia due to anemia of chronic disease, stable 5. Rest of his chronic medical conditions including ischemic cardiomyopathy with improved AICD, chronic systolic CHF, EF 35%, CAD status post CABG, hypertension remained stable 6. DVT prophylaxis?Lovenox subcu Charges/Coding Visit Charges Inpatient E&M: 68075 Subs Hosp L2
--- NOTE | 2021-11-22 12:28 | PCM.PN.ID ---
Physical Exam Narrative No fever, occasional sputum, no abd pain. Feeling about the same. Const no apparent distress General Appearance: cooperative Resp Auscultation: diminished lung sounds Cardio regular rate and regular rhythm GI soft to palpation, non-tender and non-distended Extremity no clubbing, cyanosis or edema Skin no rashes or lesions noted ID ID: Route of nutrition/ use of supplements: [] Nutritional Intake: [] IV Site: [] Cohn Catheter: [] Assessment & Plan Assessment/Plan (1) COVID-19: PLAN: (+) since around 11/06. Isolate until 11/26. Vaccinated x3. Pt of Dr. Ivey, on home 7L/NC. Completed remdesivir, on dex. With lymphopenia, not a candidate for baricitinib. With thrombocytopenia, also with contraindication to tocilizumab. Worsening counts and GFR. Sputum showed only some oral amparo. On cefepime since 11/18. Did not have resp cx prior to starting. Will follow (2) Acute respiratory failure with hypoxia: (3) COPD (chronic obstructive pulmonary disease): QUALIFIERS: COPD type: unspecified COPD Qualified Code(s): J44.9 - Chronic obstructive pulmonary disease, unspecified
--- NOTE | 2021-11-22 14:17 | CON.PCM.RE_ITS ---
Assessment & Plan Assessment/Plan (1) MAC (acute kidney injury): (2) Acute respiratory failure with hypoxia: (3) COVID-19: (4) Pneumonia: PLAN: Patient was admitted on 11/11/2021 for acute respiratory failure, bilateral pneumonia from COVID-19 infection. We were consulted for acute kidney injury. Baseline creatinine for the past few years has been around 1 mg/dL. Creatinine was at baseline on admission but has slowly risen since November 17, Creatinine is now up to 2.32mg/dL, BUN 109. Potassium 5.1. MAC likely prerenal in setting of infection, also to note patient has been hypotensive which can contribute to MAC, he did receive CT with contrast exposure on 11/11 and again on 11/16. Reviewed CXR and CT results, showing b/l effusions, multiple infiltrates, no PE. Reviewed cumulative I&O's, patient is net +75 mL from admission. Fortunately patient is nonoliguric, on exam he appears to be mildly hypovolemic. Patient has been receiving Lasix 40 mg IV since admission (but he did refuse 3 of those doses), he had also been on oral Decadron but this was stopped on 11/21. Elevated BUN possibly from steroids, anemia, intravascular volume depletion. K+ is 5.1 today, if K+ trends up we can add low potassium diet restrictions but will hold off at this time as likely patient has poor appetite and prefer regular diet for now, albumin 1.8 (2.2 on admission). At this time there is no acute indication for TOOL INSPECTOR. I did discuss at length with patient that renal function may worsen to the point of needing TOOL INSPECTOR and that we take following renal function on day by day basis and monitoring for hopeful renal recovery. Patient did have questions about how dialysis works, needing a line, etc. Questions were answered. I told him he does not need a dialysis catheter at this time. Recommend to continue holding off of diuretics and steroids as you are doing and continue with gentle IV fluids as ordered. Bps are low, will start midodrine with holding parameters. Will obtain UA and urine lytes. Will hold off on Renal US as he is in isolation. If UOP drops we can check bladder scan to asses if any PVR. Encouraged patient to increase solute and fluid intake. Recommend to continue with protein supplement as ordered. He is on Cefepime IV for antibiotic coverage. Further orders forthcoming as hospitalization evolves, thank you for allowing us to participate in the care of Mr. Trujillo. HPI Consult Data Date of Consult: 11/22/21 HPI Narrative HPI Narrative: IRWIN TRUJILLO, is a 76 M who has past medical history significant for chronic systolic heart failure status post AICD placement, ischemic cardiomyopathy, coronary artery disease status post CABG, COPD on home 7L O2, MANDY, hypertension, PAF, who presented to the emergency room on 11/11/2021 with complaints of worsening shortness of breath, congestion, cough, sore throat and admitted for acute respiratory failure with hypoxia, pneumonia from COVID-19 infection. Patient has been requiring high flow oxygen/Airvo. We were consulted for acute kidney injury. In reviewing past creatinine trends, baseline creatinine has been ranging around 1 mg/dL. On admission, 11/11/2021 creatinine 1.06 mg/dL. Serum creatinine began to slowly rise on 11/17/2021, creatinine was 1.33. On 11/20/2021 creatinine 1.66 and today, 11/22/2021 creatinine is 2.32 mg/dL, BUN 109. Patient is alert and oriented. He denies any recent nausea, vomiting, diarrhea. Denies any issues with urinating, denies hematuria or dysuria. Patient does report in the past his concrete products dispatcher took him off of Lasix due to hurtng my kidneys. Patient does report that he refused some doses of IV lasix during this admission due to not liking frequency of urinating. [facility] Medical History Atherosclerotic heart disease of [place] coronary artery without angina pectoris (11/14/13) Biventricular ICD (implantable cardioverter-defibrillator) in place (01/10/15) BPV (benign positional vertigo) Chronic systolic (congestive) heart failure COPD (chronic obstructive pulmonary disease) Essential hypertension HLD (hyperlipidemia) Ischemic cardiomyopathy LBBB (left bundle branch block) Paroxysmal atrial fibrillation Wide-complex tachycardia Home Medications albuterol sulfate 1 - 2 puff INHALATION Q6H PRN PRN 12/14/14 [History Last Taken 11/29/19] albuterol sulfate 2.5 mg INHALATION Q6H PRN PRN 12/14/14 [History Last Taken 11/29/19] aspirin 81 mg PO DAILY 12/14/14 [History Last Taken 11/29/19] Handicap Parking Placard #1 ea 12/15/19 [Rx Last Taken Unknown] finasteride 5 mg tablet 5 mg PO DAILY 12/15/19 [History Last Taken Unknown] lisinopril 5 mg tablet 5 mg PO DAILY #90 tab 09/04/20 [Rx Last Taken Unknown] amiodarone [Pacerone] 200 mg PO DAILY 05/05/21 [History Last Taken Unknown] carvedilol [Coreg] 6.25 mg PO DAILY 05/05/21 [History Last Taken Unknown] lorazepam 0.5 mg PO BID PRN 05/05/21 [History Last Taken Unknown] food supplemt, lactose-reduced [Ensure Enlive] 120 ml PO TID #90 bottle 05/10/21 [Rx Last Taken Unknown] tamsulosin 0.4 mg PO 1730 #30 cap 05/10/21 [Rx Last Taken Unknown] nitroglycerin 0.4 mg sublingual tablet 0.4 mg SUBLINGUAL Q5M PRN #25 tab 07/30/21 [Rx Last Taken Unknown] bumetanide 1 mg tablet 1 mg PO DAILY tab 08/15/21 [History Last Taken Unknown] simvastatin 40 mg tablet 40 mg PO QHS #90 tab 09/09/21 [Rx Last Taken Unknown] fluticasone fur. 200 mcg-umeclid 62.5 mcg-vilant 25 mcg inhalat.powder 1 inh INHALATION DAILY #60 ea 10/02/21 [Rx Last Taken Unknown] Allergy/AdvReac Type Severity Reaction Status Date / Time Penicillins AdvReac Other Verified 11/11/21 10:41 Family History Father CAD (coronary artery disease) Diabetes Cancer lung cancer Myocardial infarction Mother Breast cancer Hypertension Surgical History H/O coronary artery bypass surgery (11/14/13) History of arthroplasty of left knee History of lumbar surgery History of tonsillectomy Social History household members: none Smoking Status: Former smoker how long ago did patient quit smokin12/2013 alcohol intake: never substance use type: does not use caffeine: Yes Type: carbonated beverages and coffee what type of physical activity do you participate in: none seatbelt use: always do you feel safe at home: Yes Physical Exam Narrative Const: A&Ox3, NAD. Appears frail Cardi: S1S2, RRR Resp: no rhonchi or rales. Diminished breath sounds bases : Abdomen soft, NT, +BS Extremities: No edema Lab / Micro Data Result Diagrams: 11/22/21 06:34 11/22/21 06:34 Labs: Laboratory Results - last 24 hr 11/22/21 06:34: WBC 13.6 H, RBC 4.02 L, Hgb 8.6 L, Hct 27.9 L, MCV 69.4 L, MCH 21.4 L, MCHC 30.8 L, RDW Std Deviation 53.5 H, RDW Coeff of Beto 21.8 H, Plt Count 77 L, MPV TNP, Immature Gran % (Auto) 0.700, Neut % (Auto) 95.3 H, Lymph % (Auto) 1.0 L, [place] % (Auto) 2.9, Eos % (Auto) 0.0, Baso % (Auto) 0.1, Absolute Neuts (auto) 12.9 H, Absolute Lymphs (auto) 0.13 L, Nucleated RBC % 0, Differential Comment SCANNED, Hypochromasia 1+, Anisocytosis 2+, Microcytosis 2 +, Ovalocytes 1+, [place] Cells 1+, Schistocytes RARE 11/22/21 06:34: Sodium 131 L, Potassium 5.1, Chloride 101, Carbon Dioxide 20.0 L , Anion Gap 10, BUN 109 H*, Creatinine 2.32 H, Estim Creat Clear Calc 29.36, Est GFR (MDRD) Af Amer 36 L, Est GFR (MDRD) Non-Af 29 L, BUN/Creatinine Ratio 47.0 H , Glucose 138 H, Calcium 7.5 L, Total Bilirubin 3.00 H, AST 122 H, ALT 68 H, Alkaline Phosphatase 133 H, Total Protein 5.3 L, Albumin 1.8 L, Globulin 3.5, Albumin/Globulin Ratio 0.5 L Micro: Microbiology 11/21/21 05:50 Sputum, Expectorated/Coughed Gram Stain - Final 11/21/21 05:50 Sputum, Expectorated/Coughed Respiratory Culture - Preliminary Appears to be normal respiratory amparo. Further studies to follow.
[2021-11-22] MEDS: Tamsulosin HCl 0.4 MG Capsule PO (17:12)
[2021-11-22] MEDS: Midodrine HCl 5 MG Tablet 10 MG PO (17:12)
[2021-11-22] MEDS: Atorvastatin Calcium 20 MG Tablet PO (20:19)
[2021-11-22 23:20] LABS: Mucous, Urine 0 SEEN /hpf (<or=2+); Squamous Epithelial Cells - UA 0 SEEN /hpf (0-5)
[2021-11-22 23:42] LABS: Color, Urine Yellow (Yellow); Glucose, Dipstick Normal (Normal); Ketone-Dipstick 5 mg/dl (Negative); Leukocyte Esterase-Dipstick 25 /ul (Negative); Nitrite-Dipstick Negative (Negative); Occult Blood-Urine 25 /ul (Negative); Protein-Dipstick 30 mg/dl (Negative); Specific Gravity, Urine 1.025 (1.002-1.030); Urine Bilirubin Dipstick 1 mg/dL (Negative); Urine Clarity Clear (Clear); Urine Urobilinogen 1 mg/dl (Normal)
[2021-11-22 23:49] LABS: Urine Chloride < 10 mmol/L (Not Establ.); Urine Sodium 13 mmol/L (Not Establ.)
[2021-11-22 23:52] LABS: White Blood Cells 5-10 SEEN /hpf (0-5)
[2021-11-22 23:53] LABS: Red Blood Cells-Urine 0-5 SEEN /hpf (0-5); Yeast-Urine 1+ /hpf (None Seen)
[2021-11-22 23:54] LABS: Bacteria 1+ /hpf (None Seen)
[2021-11-22 23:55] LABS: Hyaline Cast 0-5 SEEN /lpf (0-5)
[2021-11-23] VITALS (18 sets, daily range): BP systolic 91–103; BP diastolic 33–54; PULSE 67–75; RESP 16–24; TEMP 36.2–36.7; O2SAT 90–95
[2021-11-23] MEDS: Ipratropium/Albuterol Sulfate 3 ML AMPUL.NEB INHALATION ×3 (07:00→19:35)
[2021-11-23 07:12] LABS: ALB/GLOB Ratio 0.5 RATIO (0.9-2.4); AST(SGOT) 125 U/L (15-37); Alanine Aminotransfer ALT/SGPT 78 U/L (16-61); Albumin, Serum 1.8 g/dL (3.2-5.0); Alkaline Phosphatase 135 U/L (45-117); Anion Gap 8 (5-15); BUN 124 mg/dL (7-18); BUN/Creat Ratio 43.8 RATIO (10-20); Calcium,Total 7.6 mg/dL (8.5-10.1); Chloride 101 mmol/L (98-107); Creatinine, Serum 2.83 mg/dL (0.70-1.30); EST Glomerular Filtration Rate 23 mL/min (>60); Est Glom Filt Rate - Afr Amer 28 mL/min (>60); Globulin 3.4 g/dL (2.2-4.2); Glucose 82 mg/dL (74-106); Potassium 5.6 mmol/L (3.5-5.1); Protein, Total 5.2 g/dL (6.4-8.2); Sodium Level 131 mmol/L (136-145)
--- NOTE | 2021-11-23 07:34 | US_ITS ---
STUDY: RENAL ULTRASOUND - COMPLETE REASON FOR EXAM: Male, 76 years old. MAC TECHNIQUE: Ultrasound evaluation of the kidneys was performed with real-time and static bee-scale imaging. COMPARISON: None. FINDINGS: RIGHT KIDNEY: Normal location of the right kidney, which is normal in size. The right kidney measures 10.6 cm. There is a normal cortex of the right kidney. The renal cortex measures 1.3 cm. There is no right renal mass or cyst. There are no right renal calculi. There is no right hydronephrosis. DISTAL RIGHT URETER: There is non-visualization of the distal right ureter. There is no demonstrated right ureterovesical junction calculus. There is a visualized right ureteral jet. LEFT KIDNEY: Normal location of the left kidney, which is normal in size. The left kidney measures 9.6 cm. There is a normal cortex of the left kidney. The renal cortex measures 1.6 cm. There is no left renal mass or cyst. There are no left renal calculi. There is no left hydronephrosis. DISTAL LEFT URETER: There is non-visualization of the distal left ureter. There is no demonstrated left ureterovesical junction calculus. There is a visualized left ureteral jet. Incidentally noted is moderate splenomegaly with spleen measuring 16.9 cm in length.. BLADDER: The distended urinary bladder has a volume of 45 ml. The empty urinary bladder has a volume of ml. There is a normal wall thickness of the distended urinary bladder. There is no demonstrated mass within the urinary bladder. There are no demonstrated bladder calculi. US/Kidney and Bladder IMPRESSION: Normal ultrasound of the kidneys and urinary bladder. Moderate splenomegaly. Electronically Signed: Keegan Owens MD at 10:39 EST Tel , Service support ,
--- NOTE | 2021-11-23 08:19 | PCM.PN.HOSP ---
Subjective Subjective Follow-up on acute hypoxic respiratory failure/acute COVID-19 pneumonia: Patient was seen and examined. No complains, remains on Airvo. Objective Data Objective Data Vital Signs: Vital Signs Temp Pulse Resp BP Pulse Ox 97.3 F L 70 16 95/54 L 95 11/23/21 06:26 11/23/21 07:00 11/23/21 07:00 11/23/21 06:26 11/23/21 07:00 Oxygen Flow Rate (L/min) 40 Oxygen Delivery Method Airvo Weight: 74.4 kg Body Mass Index (BMI) 21.5 Intake & Output: Intake and Output for Last 24 Hours 11/21/21 11/22/21 11/23/21 23:59 23:59 23:59 Intake Total 550 / 670 810 / 1050 740 / 740 Output Total 200 / 200 Balance 550 / 670 810 / 850 540 / 540 Lab / Micro Data Result Diagrams: 11/22/21 06:34 11/23/21 06:15 Labs: Laboratory Results - last 24 hr 11/22/21 23:01: Urine Color Yellow, Urine Clarity Clear, Urine pH 5.0, Ur Specific [place] 1.025, Urine Protein 30 H, Urine Glucose (UA) Normal, Urine Ketones 5 H, Urine Occult Blood 25 H, Urine Nitrite Negative, Urine Bilirubin 1 H, Urine Urobilinogen 1 H, Ur Leukocyte Esterase 25 H, Urine RBC 0-5 SEEN, Urine WBC 5-10 SEEN, Ur Squamous Epith Cells 0 SEEN, Urine Bacteria 1+, Hyaline Casts 0-5 SEEN, Urine Mucus 0 SEEN, Urine Yeast 1+ 11/22/21 23:01: Ur Random Sodium 13, Urine Potassium 52.0, Urine Chloride < 10 11/23/21 06:15: Sodium 131 L, Potassium 5.6 H, Chloride 101, Carbon Dioxide 22.0, Anion Gap 8, BUN 124 H*, Creatinine 2.83 H, Estim Creat Clear Calc 24.10, Est GFR (MDRD) Af Amer 28 L, Est GFR (MDRD) Non-Af 23 L, BUN/Creatinine Ratio 43.8 H, Glucose 82, Calcium 7.6 L, Total Bilirubin 3.10 H, AST 125 H, ALT 78 H, Alkaline Phosphatase 135 H, Total Protein 5.2 L, Albumin 1.8 L, Globulin 3.4, Albumin/Globulin Ratio 0.5 L Micro: Microbiology 11/21/21 05:50 Sputum, Expectorated/Coughed Gram Stain - Final 11/21/21 05:50 Sputum, Expectorated/Coughed Respiratory Culture - Preliminary Appears to be normal respiratory amparo. Further studies to follow. 11/11/21 15:40 Blood Culture (Wb) - Anticubital Left Blood Culture - Final No growth in 5 days. 11/11/21 15:35 Blood Culture (Wb) - Right Hand Blood Culture - Final No growth in 5 days. 11/11/21 15:28 Nasal Secretion SARS-CoV-2 Antigen (Rapid) - Final SARS-CoV-2 (COVID 19) 11/11/21 18:30 Urine, Clean Catch Legionella Antigen - Final 11/11/21 18:30 Urine, Clean Catch Streptococcus pneumoniae Antigen (M - Final Physical Exam Narrative Physical exam: General: Alert, Oriented x3, Cooperative, appears very frail, no apparent distress, on Airvo HEENT: Atraumatic Oral: Moist Mucosa Neck: Supple Lungs: Diminished to auscultation Cardiovascular: HS I+II, regular, no murmurs Abdomen: Bowel Sounds Present, Soft, Non Tender Extremities: No edema Assessment & Plan Assessment/Plan (1) Acute respiratory failure with hypoxia: (2) Pneumonia due to 2019 novel coronavirus: PLAN: 1. Acute on chronic hypoxic respiratory failure secondary to acute COVID-19 pneumonia/pneumonia, worsening, Remains on Airvo, 60L FiO2 75% Patient has completed remdesivir Blood cultures have been negative Continue on Decadron Continue on IV cefepime [employer] following 2. 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 Hypotension, blood pressure remains low, started on midodrine Continue to monitor 4. Acute transaminitis secondary to Acute COVID-19 infection, appears resolved 5. Anemia due to anemia of chronic disease, stable 6. Rest of his chronic medical conditions including ischemic cardiomyopathy with improved AICD, chronic systolic CHF, EF 35%, CAD status post CABG, hypertension remained stable 7. DVT prophylaxis?Lovenox subcu Charges/Coding Visit Charges Inpatient E&M: 64001 Subs Hosp L3
--- NOTE | 2021-11-23 08:52 | PCM.PN.INT ---
Assessment & Plan Assessment/Plan (1) Pneumonia due to 2019 novel coronavirus: (2) Acute respiratory failure with hypoxia: (3) COPD (chronic obstructive pulmonary disease): QUALIFIERS: COPD type: unspecified COPD Qualified Code(s): J44.9 - Chronic obstructive pulmonary disease, unspecified (4) MANDY (obstructive sleep apnea): (5) HFrEF (heart failure with reduced ejection fraction): PLAN: RECOMMENDATIONS: 1. Await sputum culture 2. Continue nebulized medications 3. Completed Decadron 4. Await patient decision on dialysis 5. Wean supplemental oxygen as tolerated 6. Encourage Acapella, prone positioning and incentive spirometer as tolerated 7. Consider AVAPS rescue overnight if necessary IMPRESSIONS: 1. Acute on chronic hypoxic respiratory failure secondary to COVID-pneumonia in the setting of advanced COPD Patient does appear to have areas of focal consolidation on CT scan of the chest. Patient with significant worsening in oxygenation over the last 48 hours. Clinical concern for secondary bacterial infection. Patient was started on antibiotics 48 hours ago, but has grown stenotrophomonas and pneumococcus in the past. We will repeat sputum culture to evaluate for MDRO. Patient is reporting subjective improvement with nebulized medications. Completed Decadron. Patient does have a history of CHF with an elevated BNP on presentation. Patient is relatively volume neutral over the course of the hospitalization. 2. Ischemic cardiomyopathy/chronic systolic CHF (35%)/CAD status post CABG/transaminitis/history of noncompliance/HLD Complicates care, management, recovery and prognosis. Patient does not appear to be significantly overloaded at this time. Patient does have a relative anemia that may exacerbate underlying lung disease. Renal function slightly worse at this time, so we will hold off on diuretics at this time. Did discuss with the patient and he says he does not want to be intubated under any circumstance. CODE STATUS will be changed. Also discussed with the patient the difference between palliative care and hospice. Patient would like to discuss with nephrology before making any decision for hospice care. 3. Acute on chronic kidney disease Patient with significant elevation of BUN and creatinine over the last 48 hours following diuresis. Patient does have very low oncotic pressure at baseline. Nephrology was able to see the patient. Patient still deciding on dialysis moving forward. Patient understands that comfort measures can be initiated if he refuses dialysis if indicated. Renal function continues to be worsening. Subjective Subjective Patient did okay overnight. Patient was weaned Airvo 70% by documentation, but was found to be on a nonrebreather in addition to Airvo this morning. Patient states he feels subjectively unchanged compared to previous. Patient is still contemplating whether dialysis is right for me. Objective Data Objective Data Vital Signs: Vital Signs Temp Pulse Resp BP Pulse Ox 36.3 C L 70 16 95/54 L 95 11/23/21 06:26 11/23/21 07:00 11/23/21 07:00 11/23/21 06:26 11/23/21 07:00 Oxygen Flow Rate (L/min) 40 Oxygen Delivery Method Airvo Weight: 74.4 kg Body Mass Index (BMI) 21.5 Intake & Output: Intake and Output for Last 24 Hours 11/21/21 11/22/21 11/23/21 23:59 23:59 23:59 Intake Total 550 / 670 810 / 1050 740 / 740 Output Total 200 / 200 Balance 550 / 670 810 / 850 540 / 540 Lab / Micro Data Result Diagrams: 11/22/21 06:34 11/23/21 06:15 Labs: Laboratory Results - last 24 hr 11/22/21 23:01: Urine Color Yellow, Urine Clarity Clear, Urine pH 5.0, Ur Specific [place] 1.025, Urine Protein 30 H, Urine Glucose (UA) Normal, Urine Ketones 5 H, Urine Occult Blood 25 H, Urine Nitrite Negative, Urine Bilirubin 1 H, Urine Urobilinogen 1 H, Ur Leukocyte Esterase 25 H, Urine RBC 0-5 SEEN, Urine WBC 5-10 SEEN, Ur Squamous Epith Cells 0 SEEN, Urine Bacteria 1+, Hyaline Casts 0-5 SEEN, Urine Mucus 0 SEEN, Urine Yeast 1+ 11/22/21 23:01: Ur Random Sodium 13, Urine Potassium 52.0, Urine Chloride < 10 11/23/21 06:15: Sodium 131 L, Potassium 5.6 H, Chloride 101, Carbon Dioxide 22.0, Anion Gap 8, BUN 124 H*, Creatinine 2.83 H, Estim Creat Clear Calc 24.10, Est GFR (MDRD) Af Amer 28 L, Est GFR (MDRD) Non-Af 23 L, BUN/Creatinine Ratio 43.8 H, Glucose 82, Calcium 7.6 L, Total Bilirubin 3.10 H, AST 125 H, ALT 78 H, Alkaline Phosphatase 135 H, Total Protein 5.2 L, Albumin 1.8 L, Globulin 3.4, Albumin/Globulin Ratio 0.5 L Micro: Microbiology 11/21/21 05:50 Sputum, Expectorated/Coughed Gram Stain - Final 11/21/21 05:50 Sputum, Expectorated/Coughed Respiratory Culture - Preliminary Appears to be normal respiratory amparo. Further studies to follow. 11/11/21 15:40 Blood Culture (Wb) - Anticubital Left Blood Culture - Final No growth in 5 days. 11/11/21 15:35 Blood Culture (Wb) - Right Hand Blood Culture - Final No growth in 5 days. 11/11/21 15:28 Nasal Secretion SARS-CoV-2 Antigen (Rapid) - Final SARS-CoV-2 (COVID 19) 11/11/21 18:30 Urine, Clean Catch Legionella Antigen - Final 11/11/21 18:30 Urine, Clean Catch Streptococcus pneumoniae Antigen (M - Final Physical Exam Const alert and no apparent distress General Appearance: cooperative Exam Limitations: no limitations HEENT normocephalic and head/scalp atraumatic Eyes PERRL and EOMs intact bilaterally Neck supple and No nodes Chest Chest: abnormal inspection of the chest barrel chest and increased A-P diameter and symmetrical chest wall rise; Negative for crepitus Resp Auscultation: diminished lung sounds; Negative for rales, rhonchi or wheezes Cardio regular rate and regular rhythm GI soft to palpation, non-tender and non-distended Extremity no clubbing, cyanosis or edema Skin no rashes or lesions noted Skin Narrative: Scattered bruising at various stages of healing Neuro CN's II-XII intact bilaterally Charges/Coding Visit Charges Inpatient E&M: 60298 Subs Hosp L3
[2021-11-23] MEDS: Amiodarone 200 MG Tablet PO (10:17)
[2021-11-23] MEDS: Midodrine HCl 5 MG Tablet 10 MG PO ×3 (10:18→18:12)
[2021-11-23] MEDS: Aspirin 81 MG TAB.CHEW PO (10:18)
[2021-11-23] MEDS: Finasteride 5 MG Tablet PO (10:18)
[2021-11-23] MEDS: Ondansetron 4 MG/2 ML Vial IV (13:37)
[2021-11-23] MEDS: 0.9% Saline Lock 10 ML Syringe IV (13:37)
[2021-11-23] MEDS: Tamsulosin HCl 0.4 MG Capsule PO (18:12)
--- NOTE | 2021-11-23 18:13 | PN.RENAL_ITS ---
Subjective Subjective Following for MAC. The patient complains of dyspnea. He denies chest pain. Appetite is still poor although there is no nausea or vomiting. The patient tells me that he is still urinating although amount is not recorded. Objective Data Objective Data Vital Signs: Vital Signs Temp Pulse Resp BP Pulse Ox 97.6 F L 73 20 H 99/46 L 90 11/23/21 15:30 11/23/21 15:30 11/23/21 15:30 11/23/21 15:30 11/23/21 15:30 Oxygen Flow Rate (L/min) 40 Oxygen Delivery Method Airvo Weight: 74.4 kg Body Mass Index (BMI) 21.5 Intake & Output: Intake and Output for Last 24 Hours 11/21/21 11/22/21 11/23/21 23:59 23:59 23:59 Intake Total 550 / 670 810 / 1050 990 / 990 Output Total 300 / 300 Balance 550 / 670 810 / 850 690 / 690 Lab / Micro Data Result Diagrams: 11/22/21 06:34 11/23/21 06:15 Labs: Laboratory Results - last 24 hr 11/22/21 23:01: Urine Color Yellow, Urine Clarity Clear, Urine pH 5.0, Ur Specific [place] 1.025, Urine Protein 30 H, Urine Glucose (UA) Normal, Urine Ketones 5 H, Urine Occult Blood 25 H, Urine Nitrite Negative, Urine Bilirubin 1 H, Urine Urobilinogen 1 H, Ur Leukocyte Esterase 25 H, Urine RBC 0-5 SEEN, Urine WBC 5-10 SEEN, Ur Squamous Epith Cells 0 SEEN, Urine Bacteria 1+, Hyaline Casts 0-5 SEEN, Urine Mucus 0 SEEN, Urine Yeast 1+ 11/22/21 23:01: Ur Random Sodium 13, Urine Potassium 52.0, Urine Chloride < 10 11/23/21 06:15: Sodium 131 L, Potassium 5.6 H, Chloride 101, Carbon Dioxide 22.0, Anion Gap 8, BUN 124 H*, Creatinine 2.83 H, Estim Creat Clear Calc 24.10, Est GFR (MDRD) Af Amer 28 L, Est GFR (MDRD) Non-Af 23 L, BUN/Creatinine Ratio 43.8 H, Glucose 82, Calcium 7.6 L, Total Bilirubin 3.10 H, AST 125 H, ALT 78 H, Alkaline Phosphatase 135 H, Total Protein 5.2 L, Albumin 1.8 L, Globulin 3.4, Albumin/Globulin Ratio 0.5 L Micro: Microbiology 11/21/21 05:50 Sputum, Expectorated/Coughed Gram Stain - Final 11/21/21 05:50 Sputum, Expectorated/Coughed Respiratory Culture - Final Yeast, not Judie albicans 11/11/21 15:40 Blood Culture (Wb) - Anticubital Left Blood Culture - Final No growth in 5 days. 11/11/21 15:35 Blood Culture (Wb) - Right Hand Blood Culture - Final No growth in 5 days. 11/11/21 15:28 Nasal Secretion SARS-CoV-2 Antigen (Rapid) - Final SARS-CoV-2 (COVID 19) 11/11/21 18:30 Urine, Clean Catch Legionella Antigen - Final 11/11/21 18:30 Urine, Clean Catch Streptococcus pneumoniae Antigen (M - Final Radiography Diagnostic Testing: Radiology Impression Renal Ultrasound 11/23/21 07:34 IMPRESSION: Normal ultrasound of the kidneys and urinary bladder. Moderate splenomegaly. Electronically Signed: Keegan Owens MD at 10:39 EST Tel , Service support , Physical Exam Narrative Const: A&Ox3, NAD. Appears frail Cardi: S1S2, RRR Resp: no rhonchi or rales. Diminished breath sounds bases : Abdomen soft, NT, +BS Extremities: No edema Assessment & Plan Assessment/Plan (1) MAC (acute kidney injury): PLAN: - Baseline renal function is normal. Serum creatinine was 0.88 mg/dL on 11/12/2021. -MAC is likely due to prerenal MAC although it may have evolved to ischemic ATN. Urine studies on 11/22/2021 suggest prerenal state. -Serum creatinine has been gradually rising since 11/17/2021. -Oral intake remains poor. -We will give the patient a trial of IV fluid bolus. Continue to hold diuretic. -We will not leave him on maintenance fluid given the presence of COVID-19 pneumonia and pleural effusion. -We will check renal ultrasound tomorrow if renal function fails to improve with IV fluid tonight. -No urgent need for dialysis today, but the possibility of dialysis was discussed with him yesterday. Above discussed with Dr. Bass (2) Hyperkalemia: PLAN: - The patient is mildly hyperkalemic which is due to MAC and acidosis. -We will give a bolus of LR to treat volume depletion and acidosis. -Check potassium level tomorrow. If potassium level continues to rise, we may need to give him sodium polystyrene sulfonate tomorrow. (3) Metabolic acidosis: PLAN: - Serum bicarbonate level is low but stable at 22. -We will give a bolus of IV LR tonight. -Recheck serum bicarbonate level tomorrow. (4) Acute respiratory failure with hypoxia: (5) COVID-19: (6) Pneumonia:
[2021-11-23] MEDS: Lactated Ringers 250 ML 999 ML IV (18:56)
[2021-11-23] MEDS: Atorvastatin Calcium 20 MG Tablet PO (21:03)
[2021-11-23] MEDS: MELATONIN 3 MG TABLET PO (21:03)
[2021-11-23] MEDS: Acetaminophen 325 MG Tablet 650 MG PO (21:03)
[2021-11-24] VITALS (19 sets, daily range): BP systolic 81–112; BP diastolic 29–79; PULSE 60–74; RESP 17–27; TEMP 34.7–36.7; O2SAT 82–98
[2021-11-24 07:15] LABS: Absolute Lymphocyte Count 0.16 X10^3/uL (0.83-4.51); Absolute Neutrophil Count 22.6 X10^3/uL (2.0-7.7); Basophil# 0.02 X10^3/uL; Basophil% 0.1 % (0-1); Hematocrit 28.1 % (40-54); Hemoglobin 8.5 g/dL (13.0-16.5); Lymphocyte # 0.16 X10^3/ul (0.83-4.51); Lymphocyte % 0.7 % (19-41); Mean Corp Hgb Conc 30.2 g/dL (32-36); Mean Corpuscular Hgb 21.5 pg (27.0-32.0); Mean Corpuscular Volume 71.1 fL (80-94); Monocyte# 0.63 X10^3/uL; Monocyte% 2.7 % (0-10); NRBC Flagged by Analyzer 0 % (0-5); Neutrophil # 22.56 X10^3/uL (2.7-7.7); Neutrophil % 95.5 % (47-70); POSITIVE COUNT YES; POSITIVE DIFFERENTIAL YES; POSITIVE MORPHOLOGY YES; Platelet Count 71 K/mm3 (150-450); RBC Distribution Width CV 22.1 % (11.6-14.6); RBC Distribution Width SD 55.5 fl (35.1-43.9); Red Blood Count 3.95 M/mm3 (4.6-6.2); White Blood Count 23.6 K/mm3 (4.4-11.0)
[2021-11-24 07:16] LABS: Differential Indicated SCAN CRITERIA MET
[2021-11-24] MEDS: Ipratropium/Albuterol Sulfate 3 ML AMPUL.NEB INHALATION ×2 (07:28→13:22)
[2021-11-24 07:42] LABS: Anisocytosis 1+; Hypochromasia 2+; Platelet Estimate MOD DEC (ADEQ); Schistocytes RARE
[2021-11-24 07:50] LABS: Albumin, Serum 1.7 g/dL (3.2-5.0); BUN 141 mg/dL (7-18); BUN/Creat Ratio 37.9 RATIO (10-20); Chloride 101 mmol/L (98-107); Creatinine, Serum 3.72 mg/dL (0.70-1.30); EST Glomerular Filtration Rate 17 mL/min (>60); Est Glom Filt Rate - Afr Amer 21 mL/min (>60); Estimated Creatinine Clearance 18.51 ml/min; Glucose 74 mg/dL (74-106); Potassium 6.4 mmol/L (3.5-5.1); Sodium Level 130 mmol/L (136-145)
--- NOTE | 2021-11-24 08:37 | PN.CC_ITS ---
Assessment & Plan Assessment/Plan (1) MAC (acute kidney injury): (2) Hyperkalemia: (3) Metabolic acidosis: (4) Acute respiratory failure with hypoxia: (5) COVID-19: (6) Pneumonia: (7) Pneumonia due to 2019 novel coronavirus: (8) COPD (chronic obstructive pulmonary disease): QUALIFIERS: COPD type: unspecified COPD Qualified Code(s): J44.9 - Chronic obstructive pulmonary disease, unspecified (9) MANDY (obstructive sleep apnea): (10) HFrEF (heart failure with reduced ejection fraction): PLAN: RECOMMENDATIONS: 1. renal function not responding to fluids 2. Continue nebulized medications 3. Completed Decadron 4. Await patient decision on dialysis. May need dialysis shortly 5. Wean supplemental oxygen as tolerated 6. Encourage Acapella, prone positioning and incentive spirometer as tolerated 7. Consider AVAPS rescue overnight if necessary 8. Consider hospice evaluation if refuses dialysis IMPRESSIONS: 1. Acute on chronic hypoxic respiratory failure secondary to COVID-pneumonia in the setting of advanced COPD Patient does appear to have areas of focal consolidation on CT scan of the chest. Patient with significant worsening in oxygenation over the last 48 hours. Clinical concern for secondary bacterial infection. Patient was started on antibiotics 48 hours ago, but has grown stenotrophomonas and pneumococcus in the past. Repeat sputum cultures only showing yeast, likely contaminant. Patient is reporting subjective improvement with nebulized medications. Completed Decadron. Patient does have a history of CHF with an elevated BNP on presentation. Patient has been receiving significant fluids over the last 72 hours in an attempt to help with renal function. 2. Ischemic cardiomyopathy/chronic systolic CHF (35%)/CAD status post CABG/transaminitis/history of noncompliance/HLD Complicates care, management, recovery and prognosis. Patient does not appear to be significantly overloaded at this time. Patient does have a relative anemia that may exacerbate underlying lung disease. Renal function slightly worse at this time, so we will hold off on diuretics at this time. Did discuss with the patient and he says he does not want to be intubated under any circumstance. CODE STATUS will be changed. Also discussed with the patient the difference between palliative care and hospice. Patient would like to discuss with nephrology before making any decision for hospice care. 3. Acute on chronic kidney disease Patient with significant elevation of BUN and creatinine over the last 48 hours following diuresis. Patient does have very low oncotic pressure at baseline. Nephrology was able to see the patient. Patient still deciding on dialysis moving forward. Patient understands that comfort measures can be initiated if he refuses dialysis if indicated. Renal function continues to be worsening. If patient refuses dialysis, would recommend hospice measures Subjective Subjective Patient did okay overnight. Patient is still requiring Airvo to maintain saturations. Patient overall has no new complaints compared to yesterday. Objective Data Objective Data Vital Signs: Vital Signs Temp Pulse Resp BP Pulse Ox 36.4 C L 70 23 H 101/48 L 92 11/24/21 06:50 11/24/21 07:28 11/24/21 07:28 11/24/21 06:50 11/24/21 07:28 Oxygen Flow Rate (L/min) 15 Oxygen Delivery Method Nasal Cannula Weight: 75.1 kg Body Mass Index (BMI) 21.5 Intake & Output: Intake and Output for Last 24 Hours 11/22/21 11/23/21 11/24/21 23:59 23:59 23:59 Intake Total 810 / 1050 1480 / 1540 60 / 60 Output Total 300 / 350 50 / 50 Balance 810 / 850 1180 / 1190 Lab / Micro Data Result Diagrams: 11/24/21 05:23 11/24/21 05:23 Labs: Laboratory Results - last 24 hr 11/24/21 05:23: WBC 23.6 H, RBC 3.95 L, Hgb 8.5 L, Hct 28.1 L, MCV 71.1 L, MCH 21.5 L, MCHC 30.2 L, RDW Std Deviation 55.5 H, RDW Coeff of Beto 22.1 H, Plt Count 71 L, Immature Gran % (Auto) 1.000 H, Neut % (Auto) 95.5 H, Lymph % (Auto) 0.7 L, [place] % (Auto) 2.7, Eos % (Auto) 0.0, Baso % (Auto) 0.1, Absolute Neuts (auto) 22.6 H, Absolute Lymphs (auto) 0.16 L, Nucleated RBC % 0, Platelet Estimate MOD DEC, Hypochromasia 2+, Anisocytosis 1+, Schistocytes RARE 11/24/21 05:23: Sodium 130 L, Potassium 6.4 H*, Chloride 101, Carbon Dioxide 20.0 L, BUN 141 H*, Creatinine 3.72 H, Estim Creat Clear Calc 18.51, Est GFR (MDRD) Af Amer 21 L, Est GFR (MDRD) Non-Af 17 L, BUN/Creatinine Ratio 37.9 H, Glucose 74, Calcium 7.0 L, Phosphorus 7.0 H, Albumin 1.7 L Micro: Microbiology 11/21/21 05:50 Sputum, Expectorated/Coughed Gram Stain - Final 11/21/21 05:50 Sputum, Expectorated/Coughed Respiratory Culture - Final Yeast, not Judie albicans 11/11/21 15:40 Blood Culture (Wb) - Anticubital Left Blood Culture - Final No growth in 5 days. 11/11/21 15:35 Blood Culture (Wb) - Right Hand Blood Culture - Final No growth in 5 days. 11/11/21 15:28 Nasal Secretion SARS-CoV-2 Antigen (Rapid) - Final SARS-CoV-2 (COVID 19) 11/11/21 18:30 Urine, Clean Catch Legionella Antigen - Final 11/11/21 18:30 Urine, Clean Catch Streptococcus pneumoniae Antigen (M - Final Radiography Diagnostic Testing: Radiology Impression Renal Ultrasound 11/23/21 07:34 IMPRESSION: Normal ultrasound of the kidneys and urinary bladder. Moderate splenomegaly. Electronically Signed: Keegan Owens MD at 10:39 EST Tel , Service support , Physical Exam Const alert and no apparent distress General Appearance: cooperative, frail and appears older than stated age Exam Limitations: no limitations HEENT normocephalic and head/scalp atraumatic Eyes PERRL and EOMs intact bilaterally Neck supple and No nodes Chest Chest: abnormal inspection of the chest barrel chest and increased A-P diameter and symmetrical chest wall rise; Negative for crepitus Resp Auscultation: diminished lung sounds; Negative for rales, rhonchi or wheezes Cardio regular rate and regular rhythm GI soft to palpation, non-tender and non-distended Extremity no clubbing, cyanosis or edema Skin no rashes or lesions noted Skin Narrative: Scattered bruising at various stages of healing Neuro CN's II-XII intact bilaterally Charges/Coding Visit Charges Inpatient E&M: 82909 Subs Hosp L3
--- NOTE | 2021-11-24 08:53 | PCM.PN.HOSP ---
Subjective Subjective Follow-up on acute hypoxic respiratory failure/acute COVID-19 pneumonia: Patient was seen and examined. Patient remains on Airvo. Appears very frail. His renal function has worsened. I discussed his overall condition with him at the bedside, patient stated he did not want dialysis. I called his power of deputy attorney general for healthcare, Tabatha and explained that to her. She would have a talk with him and get back to the treatment team. Objective Data Objective Data Vital Signs: Vital Signs Temp Pulse Resp BP Pulse Ox 97.6 F L 70 23 H 101/48 L 92 11/24/21 06:50 11/24/21 07:28 11/24/21 07:28 11/24/21 06:50 11/24/21 07:28 Oxygen Flow Rate (L/min) 15 Oxygen Delivery Method Nasal Cannula Weight: 75.1 kg Body Mass Index (BMI) 21.5 Intake & Output: Intake and Output for Last 24 Hours 11/22/21 11/23/21 11/24/21 23:59 23:59 23:59 Intake Total 810 / 1050 1480 / 1540 60 / 60 Output Total 300 / 350 50 / 50 Balance 810 / 850 1180 / 1190 Lab / Micro Data Result Diagrams: 11/24/21 05:23 11/24/21 05:23 Labs: Laboratory Results - last 24 hr 11/24/21 05:23: WBC 23.6 H, RBC 3.95 L, Hgb 8.5 L, Hct 28.1 L, MCV 71.1 L, MCH 21.5 L, MCHC 30.2 L, RDW Std Deviation 55.5 H, RDW Coeff of Beto 22.1 H, Plt Count 71 L, Immature Gran % (Auto) 1.000 H, Neut % (Auto) 95.5 H, Lymph % (Auto) 0.7 L, [place] % (Auto) 2.7, Eos % (Auto) 0.0, Baso % (Auto) 0.1, Absolute Neuts (auto) 22.6 H, Absolute Lymphs (auto) 0.16 L, Nucleated RBC % 0, Platelet Estimate MOD DEC, Hypochromasia 2+, Anisocytosis 1+, Schistocytes RARE 11/24/21 05:23: Sodium 130 L, Potassium 6.4 H*, Chloride 101, Carbon Dioxide 20.0 L, BUN 141 H*, Creatinine 3.72 H, Estim Creat Clear Calc 18.51, Est GFR (MDRD) Af Amer 21 L, Est GFR (MDRD) Non-Af 17 L, BUN/Creatinine Ratio 37.9 H, Glucose 74, Calcium 7.0 L, Phosphorus 7.0 H, Albumin 1.7 L Micro: Microbiology 11/21/21 05:50 Sputum, Expectorated/Coughed Gram Stain - Final 11/21/21 05:50 Sputum, Expectorated/Coughed Respiratory Culture - Final Yeast, not Judie albicans 11/11/21 15:40 Blood Culture (Wb) - Anticubital Left Blood Culture - Final No growth in 5 days. 11/11/21 15:35 Blood Culture (Wb) - Right Hand Blood Culture - Final No growth in 5 days. 11/11/21 15:28 Nasal Secretion SARS-CoV-2 Antigen (Rapid) - Final SARS-CoV-2 (COVID 19) 11/11/21 18:30 Urine, Clean Catch Legionella Antigen - Final 11/11/21 18:30 Urine, Clean Catch Streptococcus pneumoniae Antigen (M - Final Radiography Diagnostic Testing: Radiology Impression Renal Ultrasound 11/23/21 07:34 IMPRESSION: Normal ultrasound of the kidneys and urinary bladder. Moderate splenomegaly. Electronically Signed: Keegan Owens MD at 10:39 EST Tel , Service support , Physical Exam Narrative Physical exam: General: Alert, Oriented x3, Cooperative, appears very frail, no apparent distress, on Airvo HEENT: Atraumatic Oral: Moist Mucosa Neck: Supple Lungs: Diminished to auscultation Cardiovascular: HS I+II, regular, no murmurs Abdomen: Bowel Sounds Present, Soft, Non Tender Extremities: No edema Assessment & Plan Assessment/Plan (1) Acute respiratory failure with hypoxia: (2) Pneumonia due to 2019 novel coronavirus: PLAN: 1. Acute on chronic hypoxic respiratory failure secondary to acute COVID-19 pneumonia/pneumonia, worsening, Remains on Airvo, 60L FiO2 83% Patient has completed remdesivir Blood cultures have been negative Continue on Decadron Continue on IV cefepime Interdisciplinary Professor and collet driller following 2. Hyperkalemia, K 6.4, status post Kayexalate treatment Nephrology following, dialysis planned 3. MAC on CKD stage IIIb, Cr is worsened to 3.72, BUN is 141 Nephrology consulted, dialysis planned for tomorrow 4. Hypotension, blood pressure remains low, started on midodrine Continue to monitor 5. Acute transaminitis secondary to Acute COVID-19 infection, appears resolved 6. Anemia due to anemia of chronic disease, stable 7. Rest of his chronic medical conditions including ischemic cardiomyopathy with improved AICD, chronic systolic CHF, EF 35%, CAD status post CABG, hypertension remained stable 8. DVT prophylaxis?Lovenox subcu Prognosis is poor, patient is a candidate for hospice, I explained that to both the patient's and Tabatha his significant other/power of deputy attorney general for healthcare I would wait for their decision on this. Charges/Coding Visit Charges Inpatient E&M: 39459 Subs Hosp L3
[2021-11-24] MEDS: Finasteride 5 MG Tablet PO (10:03)
[2021-11-24] MEDS: Amiodarone 200 MG Tablet PO (10:03)
[2021-11-24] MEDS: Midodrine HCl 5 MG Tablet 10 MG PO ×3 (10:04→16:45)
[2021-11-24] MEDS: Aspirin 81 MG TAB.CHEW PO (10:04)
[2021-11-24] MEDS: Sodium Polystyrene Sulfonate 15 GM/60 ML UDC 30 GM PO (10:04)
[2021-11-24] MEDS: 0.9% Saline Lock 10 ML Syringe IV ×2 (12:51→20:18)
[2021-11-24] MEDS: Ondansetron 4 MG/2 ML Vial IV (12:51)
[2021-11-24] MEDS: Tamsulosin HCl 0.4 MG Capsule PO (16:45)
[2021-11-24] MEDS: Morphine 2 MG/ML Syringe IV (20:18)
[2021-11-24] MEDS: LORazepam 2 MG/ML Syringe 1 MG IV (20:18)
--- NOTE | 2021-11-24 20:25 | NURSING ---
Pt restless and anxious, c/o shortness of breath. MD contacted, orders given for morphine and ativan. Meds given per pt request to allow him to relax and help with his shortness of breath. Pt resting very comfortably at this time, denies any further needs.
--- NOTE | 2021-11-24 20:51 | NURSING ---
Spoke to pt's significant other Tabatha on the phone to update her on pt. Explained that pt was short of breath and anxious, amendable to medications to help him relax. Meds given and pt is resting very comfortably now. She is in agreement that we will keep him comfortable here. Tabatha does not want pt to be put on pressors, have a central line placed, or transferred to ICU. Tabatha is unable to come in tonight, will plan to come in tomorrow morning.
[2021-11-25] VITALS (8 sets, daily range): BP systolic 63–117; BP diastolic 31–82; PULSE 58–60; RESP 18–22; TEMP 34.7–35.6; O2SAT 80–99
[2021-11-25] MEDS: 0.9% Saline Lock 10 ML Syringe IV ×2 (02:43→06:55)
[2021-11-25] MEDS: Morphine 2 MG/ML Syringe IV ×3 (02:43→11:17)
[2021-11-25] MEDS: LORazepam 2 MG/ML Syringe 1 MG IV ×3 (02:43→11:17)
[2021-11-25 06:02] LABS: Absolute Lymphocyte Count 0.17 X10^3/uL (0.83-4.51); Basophil# 0.05 X10^3/uL; Basophil% 0.2 % (0-1); Hematocrit 26.9 % (40-54); Hemoglobin 8.2 g/dL (13.0-16.5); Lymphocyte # 0.17 X10^3/ul (0.83-4.51); Lymphocyte % 0.5 % (19-41); Mean Corp Hgb Conc 30.5 g/dL (32-36); Mean Corpuscular Volume 72.1 fL (80-94); Monocyte# 0.62 X10^3/uL; NRBC Flagged by Analyzer 0 % (0-5); Neutrophil # 30.04 X10^3/uL (2.7-7.7); Neutrophil % 96.4 % (47-70); POSITIVE COUNT YES; POSITIVE DIFFERENTIAL YES; POSITIVE MORPHOLOGY YES; Platelet Count 90 K/mm3 (150-450); RBC Distribution Width CV 22.1 % (11.6-14.6); RBC Distribution Width SD 56.5 fl (35.1-43.9); Red Blood Count 3.73 M/mm3 (4.6-6.2); White Blood Count 31.2 K/mm3 (4.4-11.0)
[2021-11-25 06:12] LABS: Differential Indicated SCAN CRITERIA MET
[2021-11-25 06:40] LABS: Anisocytosis 3+
[2021-11-25 06:41] LABS: Acanthocytes 1+; Ovalocyte RARE
[2021-11-25 06:42] LABS: Burr Cells 1+
[2021-11-25 06:58] LABS: Albumin, Serum 1.7 g/dL (3.2-5.0); BUN 150 mg/dL (7-18); BUN/Creat Ratio 32.2 RATIO (10-20); Calcium,Total 7.7 mg/dL (8.5-10.1); Chloride 101 mmol/L (98-107); Creatinine, Serum 4.66 mg/dL (0.70-1.30); EST Glomerular Filtration Rate 13 mL/min (>60); Est Glom Filt Rate - Afr Amer 16 mL/min (>60); Estimated Creatinine Clearance 15.03 ml/min; Glucose 111 mg/dL (74-106); Phosphorus 8.9 mg/dL (2.5-4.9); Potassium 6.8 mmol/L (3.5-5.1); Sodium Level 129 mmol/L (136-145)
--- NOTE | 2021-11-25 10:17 | PN.CC_ITS ---
Assessment & Plan Assessment/Plan (1) MAC (acute kidney injury): (2) Hyperkalemia: (3) Metabolic acidosis: (4) Acute respiratory failure with hypoxia: (5) COVID-19: (6) Pneumonia: (7) Pneumonia due to 2019 novel coronavirus: (8) COPD (chronic obstructive pulmonary disease): QUALIFIERS: COPD type: unspecified COPD Qualified Code(s): J44.9 - Chronic obstructive pulmonary disease, unspecified (9) MANDY (obstructive sleep apnea): (10) HFrEF (heart failure with reduced ejection fraction): PLAN: RECOMMENDATIONS: 1. Wean FiO2 for saturations greater than 90%. 2. Continue antimicrobials. 3. Pain and anxiety control per hospitalist. 4. Tentative plans to initiate comfort care measures at some point today. IMPRESSIONS: 1. Acute on chronic hypoxic respiratory failure secondary to COVID-pneumonia in the setting of advanced COPD The patient initially presented to the hospital with COVID-19 with symptom onset sometime around November 06. The patient has known underlying lung disease and chronic hypoxemic respiratory failure. He has completed a treatment course of remdesivir and Decadron. Despite this, the patient's overall clinical state has continued to decompensate. Plan at this time is to consider initiation of hospice care services. Continue current supportive measures until final decisions regarding goals of care are discussed. 2. Acute on chronic kidney disease Likely prerenal in etiology, although ATN is a possibility. Nephrology is currently following. Renal function continues to worsen. 3. Ischemic cardiomyopathy/chronic systolic CHF (35%)/CAD status post CABG/transaminitis/history of noncompliance/HLD Complicates care, management, recovery and prognosis. Continue supportive measures as noted above. Anticipate initiation of comfort care measures at some point today. This note was generated with [employer] dictation software. It may contain incorrect words, spelling, and punctuation that were not noted in checking the note before signing. Subjective Subjective The patient was seen and examined at the bedside this morning. Events from the last 24 hours have been reviewed. The patient is currently hypotensive but maintaining appropriate oxygen saturations on airvo heated high flow with an FiO2 requirement of 89%. The patient is currently documented to be overall net +2.1 L for the hospitalization. White count is elevated at 31,000. Potassium is elevated at 6.8 with a BUN of 150 and creatinine of 4.6. The patient is lethargic and not currently responsive. There are tentative plans for family meeting and consideration for hospice care services. Objective Data Objective Data The patient's most recent lab work, culture data and imaging studies have all been personally reviewed. Rapid coronavirus antigen testing was positive on November 11. Vital Signs: Vital Signs Temp Pulse Resp BP Pulse Ox 94.5 F L 58 L 20 H 64/33 L 96 11/25/21 08:29 11/25/21 08:29 11/25/21 08:29 11/25/21 08:29 11/25/21 08:29 Oxygen Flow Rate (L/min) 50 Oxygen Delivery Method Airvo Weight: 76.4 kg Body Mass Index (BMI) 21.5 Intake & Output: Intake and Output for Last 24 Hours 11/23/21 11/24/21 11/25/21 23:59 23:59 23:59 Intake Total 1480 / 1540 410 / 410 0 / 0 Output Total 300 / 350 150 / 150 0 / 0 Balance 1180 / 1190 260 / 260 0 / 0 Lab / Micro Data Attestation: I reviewed the patient's lab results. Result Diagrams: 11/25/21 05:19 11/25/21 05:19 Labs: Laboratory Results - last 24 hr 11/25/21 05:19: WBC 31.2 H*, RBC 3.73 L, Hgb 8.2 L, Hct 26.9 L, MCV 72.1 L, MCH 22.0 L, MCHC 30.5 L, RDW Std Deviation 56.5 H, RDW Coeff of Beto 22.1 H, Plt Count 90 L, Immature Gran % (Auto) 0.900, Neut % (Auto) 96.4 H, Lymph % (Auto) 0.5 L, [place] % (Auto) 2.0, Eos % (Auto) 0.0, Baso % (Auto) 0.2, Absolute Neuts (auto) 30.0 H, Absolute Lymphs (auto) 0.17 L, Nucleated RBC % 0, Diff Path Review May foll, Anisocytosis 3+, Ovalocytes RARE, [place] Cells 1+, Acanthocytes (Spur) 1+ 11/25/21 05:19: Sodium 129 L, Potassium 6.8 H*, Chloride 101, Carbon Dioxide 17.0 L, BUN 150 H*, Creatinine 4.66 H, Estim Creat Clear Calc 15.03, Est GFR (MDRD) Af Amer 16 L, Est GFR (MDRD) Non-Af 13 L, BUN/Creatinine Ratio 32.2 H, Glucose 111 H, Calcium 7.7 L, Phosphorus 8.9 H, Albumin 1.7 L Micro: Microbiology 11/21/21 05:50 Sputum, Expectorated/Coughed Gram Stain - Final 11/21/21 05:50 Sputum, Expectorated/Coughed Respiratory Culture - Final Yeast, not Judie albicans 11/11/21 15:40 Blood Culture (Wb) - Anticubital Left Blood Culture - Final No growth in 5 days. 11/11/21 15:35 Blood Culture (Wb) - Right Hand Blood Culture - Final No growth in 5 days. 11/11/21 15:28 Nasal Secretion SARS-CoV-2 Antigen (Rapid) - Final SARS-CoV-2 (COVID 19) 11/11/21 18:30 Urine, Clean Catch Legionella Antigen - Final 11/11/21 18:30 Urine, Clean Catch Streptococcus pneumoniae Antigen (M - Final Physical Exam Const General Appearance: lethargic, ill appearing and frail HEENT normocephalic and head/scalp atraumatic Eyes PERRL and EOMs intact bilaterally Neck supple General: trachea midline Chest Chest Narrative: Increased AP diameter Resp Effort and Inspection: tachypneic Auscultation: diminished lung sounds Cardio S1 normal heart sound and S2 normal heart sound Rate: bradycardia GI normal to inspection, nondistended, normoactive bowel sounds Extremity no clubbing, cyanosis or edema Skin no rashes or lesions noted Neuro CN's II-XII intact bilaterally and no focal motor deficits Psych Mood & Affect: flat affect Charges/Coding Visit Charges Inpatient E&M: 92356 Subs Hosp L3
--- NOTE | 2021-11-25 11:16 | PN.RENAL_ITS ---
Subjective Subjective dw Dr aGrcia. scheduled to go hospice today. will sign off Objective Data Objective Data Vital Signs: Vital Signs Temp Pulse Resp BP Pulse Ox 94.5 F L 58 L 20 H 64/33 L 96 11/25/21 08:29 11/25/21 08:29 11/25/21 08:29 11/25/21 08:29 11/25/21 08:29 Oxygen Flow Rate (L/min) 50 Oxygen Delivery Method Airvo Weight: 76.4 kg Body Mass Index (BMI) 21.5 Intake & Output: Intake and Output for Last 24 Hours 11/23/21 11/24/21 11/25/21 23:59 23:59 23:59 Intake Total 1480 / 1540 410 / 410 0 / 0 Output Total 300 / 350 150 / 150 0 / 0 Balance 1180 / 1190 260 / 260 0 / 0 Lab / Micro Data Result Diagrams: 11/25/21 05:19 11/25/21 05:19 Labs: Laboratory Results - last 24 hr 11/25/21 05:19: WBC 31.2 H*, RBC 3.73 L, Hgb 8.2 L, Hct 26.9 L, MCV 72.1 L, MCH 22.0 L, MCHC 30.5 L, RDW Std Deviation 56.5 H, RDW Coeff of Beto 22.1 H, Plt Count 90 L, Immature Gran % (Auto) 0.900, Neut % (Auto) 96.4 H, Lymph % (Auto) 0.5 L, [place] % (Auto) 2.0, Eos % (Auto) 0.0, Baso % (Auto) 0.2, Absolute Neuts (auto) 30.0 H, Absolute Lymphs (auto) 0.17 L, Nucleated RBC % 0, Diff Path Review May foll, Anisocytosis 3+, Ovalocytes RARE, [place] Cells 1+, Acanthocytes (Spur) 1+ 11/25/21 05:19: Sodium 129 L, Potassium 6.8 H*, Chloride 101, Carbon Dioxide 17.0 L, BUN 150 H*, Creatinine 4.66 H, Estim Creat Clear Calc 15.03, Est GFR (MDRD) Af Amer 16 L, Est GFR (MDRD) Non-Af 13 L, BUN/Creatinine Ratio 32.2 H, Glucose 111 H, Calcium 7.7 L, Phosphorus 8.9 H, Albumin 1.7 L Micro: Microbiology 11/21/21 05:50 Sputum, Expectorated/Coughed Gram Stain - Final 11/21/21 05:50 Sputum, Expectorated/Coughed Respiratory Culture - Final Yeast, not Judie albicans 11/11/21 15:40 Blood Culture (Wb) - Anticubital Left Blood Culture - Final No growth in 5 days. 11/11/21 15:35 Blood Culture (Wb) - Right Hand Blood Culture - Final No growth in 5 days. 11/11/21 15:28 Nasal Secretion SARS-CoV-2 Antigen (Rapid) - Final SARS-CoV-2 (COVID 19) 11/11/21 18:30 Urine, Clean Catch Legionella Antigen - Final 11/11/21 18:30 Urine, Clean Catch Streptococcus pneumoniae Antigen (M - Final
--- NOTE | 2021-11-25 12:14 | PN.HOSP_ITS ---
Subjective Subjective Clinical condition continues to deteriorate. Patient is barely responsive at this point diagnostic data significant for WBC count of 31.2, hemoglobin 8.2 sodium is 129 potassium 6.8 BUN 150. Objective Data Objective Data Vital Signs: Vital Signs Temp Pulse Resp BP Pulse Ox 94.5 F L 58 L 20 H 64/33 L 96 11/25/21 08:29 11/25/21 08:29 11/25/21 08:29 11/25/21 08:29 11/25/21 08:29 Oxygen Flow Rate (L/min) 50 Oxygen Delivery Method Airvo Weight: 76.4 kg Body Mass Index (BMI) 21.5 Intake & Output: Intake and Output for Last 24 Hours 11/23/21 11/24/21 11/25/21 23:59 23:59 23:59 Intake Total 1480 / 1540 410 / 410 0 / 0 Output Total 300 / 350 150 / 150 0 / 0 Balance 1180 / 1190 260 / 260 0 / 0 Lab / Micro Data Result Diagrams: 11/25/21 05:19 11/25/21 05:19 Labs: Laboratory Results - last 24 hr 11/25/21 05:19: WBC 31.2 H*, RBC 3.73 L, Hgb 8.2 L, Hct 26.9 L, MCV 72.1 L, MCH 22.0 L, MCHC 30.5 L, RDW Std Deviation 56.5 H, RDW Coeff of Beto 22.1 H, Plt Count 90 L, Immature Gran % (Auto) 0.900, Neut % (Auto) 96.4 H, Lymph % (Auto) 0.5 L, [place] % (Auto) 2.0, Eos % (Auto) 0.0, Baso % (Auto) 0.2, Absolute Neuts (auto) 30.0 H, Absolute Lymphs (auto) 0.17 L, Nucleated RBC % 0, Diff Path Review May foll, Anisocytosis 3+, Ovalocytes RARE, [place] Cells 1+, Acanthocytes (Spur) 1+ 11/25/21 05:19: Sodium 129 L, Potassium 6.8 H*, Chloride 101, Carbon Dioxide 17.0 L, BUN 150 H*, Creatinine 4.66 H, Estim Creat Clear Calc 15.03, Est GFR (MDRD) Af Amer 16 L, Est GFR (MDRD) Non-Af 13 L, BUN/Creatinine Ratio 32.2 H, Glucose 111 H, Calcium 7.7 L, Phosphorus 8.9 H, Albumin 1.7 L Micro: Microbiology 11/21/21 05:50 Sputum, Expectorated/Coughed Gram Stain - Final 11/21/21 05:50 Sputum, Expectorated/Coughed Respiratory Culture - Final Yeast, not Judie albicans 11/11/21 15:40 Blood Culture (Wb) - Anticubital Left Blood Culture - Final No growth in 5 days. 11/11/21 15:35 Blood Culture (Wb) - Right Hand Blood Culture - Final No growth in 5 days. 11/11/21 15:28 Nasal Secretion SARS-CoV-2 Antigen (Rapid) - Final SARS-CoV-2 (COVID 19) 11/11/21 18:30 Urine, Clean Catch Legionella Antigen - Final 11/11/21 18:30 Urine, Clean Catch Streptococcus pneumoniae Antigen (M - Yuliet l Physical Exam Narrative GENERAL: Unresponsive HEENT: Atraumatic; EYES; Anicteric, Normal Conjunctiva NECK; supple, normal thyroid, RESPIRATORY: Diminished to auscultation CARDIOVASCULAR: Regular S1 S2, GI: soft, normoactive bowel sounds, : No Renal angle tenderness; EXTREMITIES: No edema, no clubbing, MUSCULOSKELETAL: no muscle waisting NEURO: Unresponsive Assessment & Plan Assessment/Plan (1) Acute respiratory failure with hypoxia: (2) Pneumonia due to 2019 novel coronavirus: PLAN: Patient is a 76-year-old gentleman with who is vaccinated against COVID 19 including receiving the booster multiple comorbidities including CAD status post CABG ischemic cardiomyopathy status post AICD placement chronic hypoxic respiratory failure on baseline home oxygen presented with cough sore throat as well as diarrhea. Tested positive for C 1. Acute on chronic hypoxic respiratory failure -Secondary to SARS-CoV-2 pneumonia. Admitted to regular nursing floor started on Decadron remdesivir . Patient response to therapy being monitored with markers of inflammation. CT of the chest obtained on admission demonstrated. Bilateral subsegmental atelectasis or pneumonitis with dense left lower lobe pneumonia. Added empiric antibiotic treatment to patient's therapy -11/13/2021; Patient apparently did not tolerate oxygen via nasal cannula for most of the day however had to be placed on Airvo in the early hours of the morning in view of significant hypoxia. -11/14/2021; Patient has been weaned off Airvo currently on nasal cannula with 10 L flow per minute of oxygen ? 11/15/2021;Patient has been weaned off Vapotherm however remains on high flow nasal cannula at 15 L/m -11/16/2021; Patient seen no significant change in overall condition still remains on high flow oxygen via Airvo. WBC count trending up. Ordered repeat chest x-ray as well as D-dimer -11/17/2021; Patient seen still remains on Airvo. Repeat CT ordered demonstrated Dense consolidation of the left lower lobe more than right lower lobe may represent atelectasis versus pneumonia. Right larger than left pleural effusions. Patient already on Levaquin added cefepime for superimposed suspected bacterial infection -11/25/2021. Patient clinical condition has deteriorated. Patient was barely responsive. Plan is to have a family discussion regarding hospice care 2. Acute transaminitis ? Secondary to SARS-CoV-2 infection. Ordered daily CMP for monitoring 3. Anemia - Secondary to chronic disorder monitoring H&H and transfuse if patient becomes symptomatic or hemoglobin falls below 7 -11/15/2021; hemoglobin is 9.6 as of today 4. Ischemic cardiomyopathy ? Status post AICD placement 5. Chronic CHF -Patient has a known EF of 35% based on echo obtained on 05/16/2020. 6. Chronic hypoxic respiratory failure Secondary to COPD 7. Coronary artery disease ? Status post CABG 8. Hypertension - Blood pressure controlled, home medications continued with dose adjustment as needed -11/17/2021; Patient was hypotensive during the night resuscitated with IV fluid. Reviewed his antihypertensive medications held Coreg lisinopril as well as Lasix. 9. Dyslipidemia -Patient is on statin therapy, continued at home dose 10. Obstructive sleep apnea 11. Paroxysmal atrial fibrillation ? On Coreg and amiodarone not on systemic anticoagulation 12. BPH ? Patient is on tamsulosin and finasteride continue 13. Thrombocytopenia ? Patient historically has low platelet counts. With patient being on Lovenox daily CBC ordered. Would not hesitate to discontinue Lovenox if patient platelet count continues to drop any further -11/15/2021; platelet count 162 -11/17/2021 platelet count down to 104 14. DVT prophylaxis - Lovenox. Discussions with the regarding patient's current clinical condition as well as prognosis. Patient clinical condition appears to have taken a turn for the worse. Went over the CODE STATUS decision was made to change patient CODE STATUS from DNR CCA to DNR comfort care. Consult was placed to the hospice team. Time spent on discussion;20 minutes Charges/Coding Visit Charges Inpatient E&M: 87992 Subs Hosp L3 Procedures Hospitalists Procedures: [id number] Advncd Care Plan 30 Min
--- NOTE | 2021-11-25 13:31 | PCM.DEATH ---
Preliminary Cause of Preliminary Cause of Preliminary Cause of : COVID 19 pneumonia with superimposed bacterial pneumonia Date of Admission: 11/11/21 Principle Diagnosis Problem List: Active and Suspected Problems (Updated 11/23/21 @ 18:[address] Naomi Gupta MD) Metabolic acidosis (Acute) Hyperkalemia (Acute) MAC (acute kidney injury) (Acute) COVID-19 (Acute) Acute respiratory failure with hypoxia (Acute) Pneumonia (Acute) Pneumonia due to 2019 novel coronavirus (Acute) MANDY (obstructive sleep apnea) (Acute) HFrEF (heart failure with reduced ejection fraction) (Acute) Hospital Course Patient is a 76-year-old gentleman with who is vaccinated against COVID 19 including receiving the booster multiple comorbidities including CAD status post CABG ischemic cardiomyopathy status post AICD placement chronic hypoxic respiratory failure on baseline home oxygen presented with cough sore throat as well as diarrhea. Tested positive for Covid. An assessment of acute hypoxic respiratory failure secondary to SARS-CoV-2 pneumonia was made. Patient was admitted to a monitored bed where he did experience protracted hospital stay. His hospital stay was complicated by bacterial pneumonia (with stenotrophomonas as well as to coccus pneumonia). Patient hospital stay was also complicated by acute kidney injury. His condition continued to worsen despite being on optimal treatment. Subsequently held discussion with patient's family regarding his clinical condition. Decision was made to change his CODE STATUS from DNR CCA no intubation to comfort care. Palliative care comfort measures were initiated. Patient was found without heart tones and without spontaneous breathing at 1313 on 11/25/2021. Patient was pronounced . was at the bedside. Visit Charges Inpatient E&M: 01039 Disch Hosp
--- NOTE | 2021-11-25 13:32 | NURSING ---
Patient actively dying, aware and in room to talk with significant other earlier this shift. Tabatha, significant other, present in room. Pt barbara on monitor. This RN and second RN in room. Pt apneic. Verified for 1 minute absent apical pulse by this RN and Arabella Mcintyre RN. Time of 1313 11/25. Notified Dr Garcia via coretext.
--- NOTE | 2021-11-25 14:45 | NURSING ---
Yun home present. Assisted with transfer to cot.
[2021-11-27 09:12] LABS: Pathologist Review Reviewed
== END 2021-11-25 13:13 | DRG 177 ==
LOC: ED 15:37 → PCU 15:52
PROVIDERS: Family Medicine; Internal Medicine; Nurse Practitioner Adult Health; Admitting Provider Family Medicine; Emergency Provider Emergency Medicine; PCP Student in an Organized Health Care Education/Training Program; Visit Provider Internal Medicine
DX: U07.1 COVID-19 (principal); J15.8 Pneumonia due to other specified bacteria; J96.21 Acute and chronic respiratory failure with hypoxia; N17.0 Acute kidney failure with tubular necrosis; J12.82 Pneumonia due to coronavirus disease 2019; I13.0 Hypertensive heart and chronic kidney disease with heart failure and stage 1 through stage 4 chronic kidney disease, or unspecified chronic kidney disease; E87.2 Acidosis; I50.22 Chronic systolic (congestive) heart failure; J44.0 Chronic obstructive pulmonary disease with (acute) lower respiratory infection; D63.8 Anemia in other chronic diseases classified elsewhere; I48.0 Paroxysmal atrial fibrillation; N18.32 Chronic kidney disease, stage 3b; D69.6 Thrombocytopenia, unspecified; E78.5 Hyperlipidemia, unspecified; D50.9 Iron deficiency anemia, unspecified; I25.10 Atherosclerotic heart disease of native coronary artery without angina pectoris; I25.5 Ischemic cardiomyopathy; G47.33 Obstructive sleep apnea (adult) (pediatric); E87.5 Hyperkalemia; E86.9 Volume depletion, unspecified; E86.0 Dehydration; Z79.82 Long term (current) use of aspirin; Z87.891 Personal history of nicotine dependence; Z95.810 Presence of automatic (implantable) cardiac defibrillator; Z66 Do not resuscitate; Z79.899 Other long term (current) drug therapy; Z79.51 Long term (current) use of inhaled steroids; Z99.81 Dependence on supplemental oxygen
CPT/HCPCS: 36415; 71045; 71275; 76770; 80048; 80053; 80069; 81001; 82436; 82728; 83605; 83615; 83735; 83880; 84133; 84145; 84300; 84484; 85025; 85027; 85379; 86140; 87040; 87070; 87205; 87426; 87449; 93005; 94003; 94640; 94660; 94667; 94668; 94762; 97110; 97163; 97166; 97530; 97535; 99285; J7030; J7040; J7050; J7120; Q9967; A4216; J0248; J1940; J2405